=== PATIENT | male | born 1945 | race Caucasian/White ===

== ENCOUNTER 2017-01-19 08:09 | Emergency (ER) | payer BC, MEDICARE ==
[2017-01-19 08:29] VITALS: BP 130/71
--- NOTE | 2017-01-19 09:21 | EDM.PDOC ---
ED HPI GENERAL MEDICAL PROBLEM - General Chief Complaint: General Stated Complaint: FELL, HIT LEFT ELBOW INTO LEFT SIDE Time Seen by Provider: 01/19/17 08:24 Source of Information: Reports: Patient, RN notes reviewed History Limitations: Reports: No limitations - History of Present Illness INITIAL COMMENTS - FREE TEXT/NARRATIVE: The patient suffered numerous complications following a right totally arthroplasty, ultimately resulting in removal of the hardware and the inability of the patient to flex his right knee. He is therefore in an electric wheelchair, although ambulates with a walker at home. He states that while ambulating today, he accidentally stepped on a plastic lid , losing his balance, and falling onto his left side. He states that his left elbow struck his left rib cage. He now presents with severe left rib cage pain , made worse with movement, deep breaths, and coughing. He denies left arm pain. He is otherwise uninjured. Left Anterior Chest Pain Score (Numeric/FACES): 8 - Related Data Allergies Allergy/AdvReac Type Severity Reaction Status Date / Time allopurinol Allergy Rash Verified 04/18/16 20:44 cefazolin Allergy Hives Verified 04/18/16 20:44 celecoxib Allergy Rash Verified 04/18/16 20:44 clindamycin Allergy Hives Verified 04/18/16 20:44 ibuprofen Allergy Rash Verified 04/18/16 20:44 NSAIDS (Non-Steroidal Allergy Rash Verified 04/18/16 20:44 Anti-Inflamma oxaprozin Allergy Rash Verified 04/18/16 20:44 vancomycin Allergy Hives Verified 04/18/16 20:44 Home Meds: Home Meds Acetaminophen [Acetaminophen Extra Strength] 2 tab PO Q6H PRN 12/19/14 [History] Aspirin [Halfprin] 1 tab PO DAILY 12/19/14 [History] Carvedilol 1 tab PO BIDM 12/19/14 [History] Colchicine [Colcrys] 1 tab PO DAILY 12/19/14 [History] Febuxostat [Uloric] 1 tab PO DAILY 12/19/14 [History] Furosemide 2 tab PO DAILY 12/19/14 [History] Mupirocin 1 dose TOP ASDIRECTED PRN 12/19/14 [History] Nitroglycerin [Nitrostat] 1 tab SL ASDIRECTED PRN 12/19/14 [History] Spironolactone [Aldactone] 1 tab PO DAILY 12/19/14 [History] Warfarin [Coumadin] 1 tab PO DAILY 12/19/14 [History] amLODIPine [Norvasc] 1 tab PO DAILY 12/19/14 [History] atorvaSTATin [Lipitor] 1 tab PO BEDTIME 12/19/14 [History] oxyCODONE HCl/Acetaminophen [oxyCODONE-Acetaminophen 5-325] 1 tab PO Q8H PRN [History] Amoxicillin [IJD: Amoxicillin] 2,000 mg PO DAILY PRN 04/19/16 [History] Saw/Vit E/Sod Teri/Lyc/Beta/Pyg [Prostate Health Caplet] 1 each PO BID 04/19/16 [ History] Past Medical History HEENT History: Reports: Hard of hearing, Other (see below) Other HEENT History: Wears bilat hearing aides, glasses, dentures full to upper and partial to lower. Pt compalins of faint ringing to ears, majority of the time Cardiovascular History: Reports: Afib, CAD, High cholesterol, Hypertension, [place] Genitourinary History: Reports: Prostate disorder Musculoskeletal History: Reports: Arthritis Neurological History: Reports: CVA (2013 - no residual deficit) Endocrine/Metabolic History: Reports: Diabetes, type II Hematologic History: Reports: Other (see below) (DVT/PE) Dermatologic History: Reports: Cellulitis - Past Surgical History HEENT Surgical History: Reports: Tonsillectomy Cardiovascular Surgical History: Reports: AICD (left, single lead), Coronary artery bypass (x 5 vessel, 1999), Coronary artery stent (x 1) Musculoskeletal Surgical History: Reports: Knee replacement (Right, with subsequent complications and removal of hardware), Other (see below) (Right elbow surgery) Social & Family History - Family History Family Medical History: Noncontributory - Tobacco Use Smoking Status *Q: Former Smoker Used Tobacco, but Quit: Yes Month Tobacco Last Used: 1959 Second Hand Smoke Exposure: No - Caffeine Use Caffeine Use: Reports: Coffee - Alcohol Use Alcohol Use History: Yes Alcohol Use Frequency: Rarely - Recreational Drug Use Recreational Drug Use: No - Living Situation & Occupation Living situation: Reports: , with spouse, with family (Granddaughter) Occupation: retired ED ROS GENERAL - Review of Systems Review Of Systems: See Below Constitutional: Reports: no symptoms HEENT: Reports: No symptoms Respiratory: Reports: No Symptoms Cardiovascular: Reports: No symptoms Endocrine: Reports: no symptoms GI/Abdominal: Reports: No symptoms : Reports: no symptoms Musculoskeletal: Reports: no symptoms Skin: Reports: no symptoms Neurological: Reports: No Symptoms Psychiatric: Reports: No symptoms Hematologic/Lymphatic: Reports: no symptoms Immunologic: Reports: no symptoms ED EXAM, GENERAL - Physical Exam Exam: See Below Exam Limited By: No limitations General Appearance: alert, WD/WN, no apparent distress Respiratory/Chest: no respiratory distress, lungs clear, normal breath sounds, no accessory muscle use, other (Reproducible tenderness to palpation of the left sixth and seventh ribs. No visible abnormality, such as swelling, erythema , ecchymosis, or abrasion. No crepitus on palpation. No pleural rub on auscultation.) Cardiovascular: normal peripheral pulses, regular rate, rhythm, no gallop, no JVD, no murmur, no rub Peripheral Pulses: 4+: radial (L), radial (R) GI/Abdominal: normal bowel sounds, soft, non tender, no organomegaly, no distention, no abnormal bruit, no mass Course - Vital Signs Last Recorded V/S: Last Vital Signs Temp 36.2 C 01/19/17 08:23 Pulse 65 01/19/17 08:23 Resp 16 01/19/17 08:23 BP 130/71 01/19/17 08:23 Pulse Ox 98 01/19/17 08:23 - Orders/Labs/Meds Orders: Active Orders 24 hr Category Date Time Status Chest 2V [CR] Stat Exams 01/19/17 08:45 Taken - Radiology Interpretation Free Text/Narrative:: Two-view chest radiograph does not appear to demonstrate any acute abnormalities. Cardiac silhouette demonstrates cardiomegaly, however, there is no significant pulmonary vascular congestion or pleural effusion suggesting decompensated CHF. No focal infiltrate. No visible rib fractures or sequelae, such as pneumothorax or hemothorax seen. Sternotomy wires and single lead left- sided AICD noted. Formal read per the Radiologist pending. - Re-Assessments/Exams Free Text/Narrative Re-Assessment/Exam: 01/19/17 09:23 X-ray results discussed with the patient. No evidence of a broken rib. The patient appears to have bruised his left rib cage. I offered a prescription for pain medication, but the patient would prefer to take only Tylenol. Departure - Departure Time of Disposition: 09:24 Disposition: Home, Self-Care 01 Condition: fair Clinical Impression: Contusion of left chest wall Referrals: Flor Bronson MD [Primary Care Provider] - Forms: ED Department Discharge Additional Instructions: You were seen in the emergency room today after falling and injuring your left ribs. Workup in the ER included a chest x-ray. We see no evidence of broken ribs or consequences of broken ribs, such as a collapsed lung or blood in the chest. You have MOST LIKELY bruised your left rib cage. You were offered prescription pain medication, but declined. Take over-the- counter Tylenol or ibuprofen as needed for discomfort. We recommend that you notify the office of your PCP, Dr. Flor Bronson, of your injury. If any other problems, please do not hesitate to return to the ER. - My Orders Last 24 Hours: My Active Orders 01/19/17 08:45 Chest 2V [CR] Stat - Assessment/Plan Last 24 Hours: My Active Orders 01/19/17 08:45 Chest 2V [CR] Stat
--- NOTE | 2017-01-19 11:06 | CR ---
Chest: Frontal view of the chest was obtained. Comparison: Previous chest x-ray of 05/08/13. Heart is mildly enlarged. AICD is noted. Lungs are clear with no acute infiltrates. Previous sternotomy is noted. Bony structure show degenerative spurring within the spine. Impression: 1. Stable findings as noted above. Nothing acute is appreciated on frontal chest x-ray. Diagnostic code #2
== END 2017-01-19 09:45 | disposition home or self-care (01) ==
LOC: JD.ED 08:09
DX: S20.212A Contusion of left front wall of thorax, initial encounter (principal); I48.91 Unspecified atrial fibrillation; E78.00 Pure hypercholesterolemia, unspecified; I10 Essential (primary) hypertension; I25.2 Old myocardial infarction; Z86.73 Personal history of transient ischemic attack (TIA), and cerebral infarction without residual deficits; M19.90 Unspecified osteoarthritis, unspecified site; I25.810 Atherosclerosis of coronary artery bypass graft(s) without angina pectoris; E11.9 Type 2 diabetes mellitus without complications; Z98.890 Other specified postprocedural states; Z88.6 Allergy status to analgesic agent; Z88.1 Allergy status to other antibiotic agents; Z88.8 Allergy status to other drugs, medicaments and biological substances; Z79.82 Long term (current) use of aspirin; Z79.01 Long term (current) use of anticoagulants; Z79.899 Other long term (current) drug therapy; Z87.891 Personal history of nicotine dependence; W18.31XA Fall on same level due to stepping on an object, initial encounter
CPT/HCPCS: 71020; 71020-26; 99282; 99284

== ENCOUNTER 2017-01-22 09:12 | Inpatient (IN) | payer BC, MEDICARE ==
[2017-01-22] MEDS ORDERED: Sodium Chloride 0.9% 10 ML Syringe FLUSH PRN (09:49)
[2017-01-22] MEDS ORDERED: Linezolid 600 MG in Premix Bag 1 BAG IV ONE (09:53)
--- NOTE | 2017-01-22 09:54 | EDM.PDOC ---
ED HPI Trauma - General Chief Complaint: Lower Extremity Injury/Pain Stated Complaint: TOE PURPLE Time Seen by Provider: 01/22/17 09:38 Source: Reports: Patient History Limitations: Reports: No limitations - History of Present Illness INITIAL COMMENTS - FREE TEXT/NARRATIVE: The patient presents with left 2nd toe infection. This all started a few weeks ago. The patient is in a wheel chair because of his right leg which has a kim in it. He has had multiple surgeries. He has been wearing compression stockings on both feet and it pushed his great toe into his left 2nd toe and caused an infection. He saw Dr Reyes and he was treating it with antibiotics and soaks. It was doing much better until last week and it started turning purple and now he has redness to the base of his toe that is going up his foot. He has no sensation to that toe and it is purple. He has no fever or chills and no other complaints. Occurred When: last week Method of Injury: unknown Severity: moderate Pain/Injury Location: Reports: upper extremity, left (2nd toe) Consciousness: Reports: no loss of consciousness Associated Symptoms: Reports: no other symptoms Allergies/ADRs: Allergies allopurinol Allergy (Verified 01/22/17 09:29) Rash cefazolin Allergy (Verified 01/22/17 09:29) Hives celecoxib Allergy (Verified 01/22/17 09:29) Rash clindamycin Allergy (Verified 01/22/17 09:29) Hives ibuprofen Allergy (Verified 01/22/17 09:29) Rash NSAIDS (Non-Steroidal Anti-Inflamma Allergy (Verified 01/22/17 09:29) Rash oxaprozin Allergy (Verified 01/22/17 09:29) Rash vancomycin Allergy (Verified 01/22/17 09:29) Hives Home Medications: Ambulatory Orders Acetaminophen [Acetaminophen Extra Strength] 2 tab PO Q6H PRN 12/19/14 [ Confirmed 01/19/17] Aspirin [Halfprin] 1 tab PO DAILY 12/19/14 [Confirmed 01/19/17] Carvedilol 1 tab PO BIDM 12/19/14 [Confirmed 01/19/17] Colchicine [Colcrys] 1 tab PO DAILY 12/19/14 [Confirmed 01/19/17] Febuxostat [Uloric] 1 tab PO DAILY 12/19/14 [Confirmed 01/19/17] Furosemide 2 tab PO DAILY 12/19/14 [Confirmed 01/19/17] Mupirocin 1 dose TOP ASDIRECTED PRN 12/19/14 [Confirmed 01/19/17] Nitroglycerin [Nitrostat] 1 tab SL ASDIRECTED PRN 12/19/14 [Confirmed 01/19/17] Spironolactone [Aldactone] 1 tab PO DAILY 12/19/14 [Confirmed 01/19/17] Warfarin [Coumadin] 1 tab PO DAILY 12/19/14 [Confirmed 01/19/17] amLODIPine [Norvasc] 1 tab PO DAILY 12/19/14 [Confirmed 01/19/17] atorvaSTATin [Lipitor] 1 tab PO BEDTIME 12/19/14 [Confirmed 01/19/17] oxyCODONE HCl/Acetaminophen [oxyCODONE-Acetaminophen 5-325] 1 tab PO Q8H PRN [Confirmed 01/19/17] Amoxicillin [IJD: Amoxicillin] 2,000 mg PO DAILY PRN 04/19/16 [Confirmed ] Saw/Vit E/Sod Teri/Lyc/Beta/Pyg [Prostate Health Caplet] 1 each PO BID 04/19/16 [ Confirmed 01/19/17] Past Medical History HEENT History: Reports: Hard of hearing, Other (see below) Other HEENT History: Wears bilat hearing aides, glasses, dentures full to upper and partial to lower. Pt compalins of faint ringing to ears, majority of the time Cardiovascular History: Reports: Afib, CAD, High cholesterol, Hypertension, [place] Other Cardiovascular History: Bypass in 1999 with 5 bypass. Stent in 2013, [place] in 2013, Gastrointestinal History: Reports: Other (see below) Other Gastrointestinal History: Acid reflux PRN Genitourinary History: Reports: Prostate disorder Musculoskeletal History: Reports: Arthritis Neurological History: Reports: CVA Other Neuro History: CVA in 2013 Endocrine/Metabolic History: Reports: Diabetes, type II Other Endocrine/Metabolic History: not taking any medication or insulin Hematologic History: Reports: Other (see below) (DVT/PE) Dermatologic History: Reports: Cellulitis - Past Surgical History HEENT Surgical History: Reports: Tonsillectomy Cardiovascular Surgical History: Reports: AICD, Coronary artery bypass, Coronary artery stent Musculoskeletal Surgical History: Reports: Knee replacement Social & Family History - Family History Family Medical History: Noncontributory - Tobacco Use Smoking Status *Q: Former Smoker Used Tobacco, but Quit: Yes Month Tobacco Last Used: 1959 Second Hand Smoke Exposure: No - Caffeine Use Caffeine Use: Reports: Coffee - Alcohol Use Days Per Week of Alcohol Use: 0 Number of Drinks Per Day: 0 Total Drinks Per Week: 0 - Recreational Drug Use Recreational Drug Use: No Drug Use in Last 12 Months: No - Living Situation & Occupation Living situation: Reports: , with spouse, with family (Granddaughter) Occupation: retired Review of Systems - Review of Systems Review Of Systems: See Below Constitutional: Reports: no symptoms Eyes: Reports: no symptoms Ears: Reports: no symptoms Nose: Reports: no symptoms Mouth/Throat: Reports: no symptoms Respiratory: Reports: No Symptoms Cardiovascular: Reports: no symptoms GI/Abdominal: Reports: No symptoms Genitourinary: Reports: no symptoms Musculoskeletal: Reports: other (Left 2nd toe is purple) Trauma Exam - Physical Exam Exam: See Below Exam Limited By: No limitations General Appearance: Reports: alert, no apparent distress Head: Reports: atraumatic, normocephalic Ears: Reports: normal external exam Nose: Reports: normal inspection Neck: Reports: non-tender Respiratory Exam: Reports: no respiratory distress, lungs clear, normal breath sounds Cardiovascular: Reports: regular rate, rhythm, no edema, no murmur GI/Abdominal: Reports: soft, non tender, no organomegaly Extremities: Reports: other (Right leg he cannot bend at the knee because there is a kim. Large anterior scare. Left 2nd toe is purple and has no sensation. There is erythema to the base of the toe that is starting to travel up his foot. ) Course - Vital Signs Last Recorded V/S: Last Vital Signs Temp 98.7 F 01/22/17 09:27 Pulse 80 01/22/17 09:27 Resp 16 01/22/17 09:27 BP 130/74 01/22/17 09:27 Pulse Ox 95 01/22/17 09:27 - Orders/Labs/Meds Orders: Active Orders 24 hr Category Date Time Status Cardiac Monitoring [RC] . DIRECTED Care 01/22/17 09:49 Active Peripheral IV Care [RC] . DIRECTED Care 01/22/17 09:50 Active CULTURE BLOOD [BC] Stat Lab 01/22/17 10:10 Received CULTURE BLOOD [BC] Stat Lab 01/22/17 10:20 Received Sodium Chloride 0.9% [Saline Flush] Med 01/22/17 09:49 Active 10 ml FLUSH ASDIRECTED PRN Blood Culture x2 Reflex Set [OM.PC] Stat Oth 01/22/17 09:50 Ordered Peripheral IV Insertion Adult [OM.PC] Stat Oth 01/22/17 09:49 Ordered Medication Orders Sodium Chloride (Saline Flush) 10 ml FLUSH ASDIRECTED PRN PRN Reason: Keep Vein Open Last Admin: 01/22/17 10:34 Dose: 10 ml Labs: Laboratory Tests 01/22/17 01/22/17 Range/Units 10:20 10:20 WBC 6.87 (4.23-9.07) K/mm3 RBC 4.60 L (4.63-6.08) M/mm3 Hgb 14.0 (13.7-17.5) gm/L Hct 42.1 (40.1-51.0) % MCV 91.5 (79.0-92.2) fl MCH 30.4 (25.7-32.2) pg MCHC 33.3 (32.2-35.5) g/dl RDW Std Deviation 50.0 H (35.1-43.9) fL Plt Count 131 L (163-337) K/mm3 MPV 10.2 (9.4-12.3) fl Neut % (Auto) 72.0 H (34.0-67.9) % Lymph % (Auto) 13.2 L (21.8-53.1) % Weber % (Auto) 13.4 H (5.3-12.2) % Eos % (Auto) 1.2 (0.8-7.0) Baso % (Auto) 0.1 (0.1-1.2) % Neut # 4.94 (1.78-5.38) K/mm3 Lymph # 0.91 L (1.32-3.57) K/mm3 Weber # 0.92 H (0.30-0.82) K/mm3 Eos # 0.08 (0.04-0.54) K/mm3 Baso # 0.01 (0.01-0.08) K/mm3 Sodium 141 (136-145) mEq/L Potassium 3.9 (3.5-5.1) mEq/L Chloride 106 (98-107) mEq/L Carbon Dioxide 25 (21-32) mEq/L Anion Gap 13.9 (5-15) BUN 48 H (7-18) mg/dL Creatinine 1.5 H (0.7-1.3) mg/dL Est Cr Clr Drug Dosing 52.52 mL/min Estimated GFR (MDRD) 46 (>60) mL/min BUN/Creatinine Ratio 32.0 H (14-18) Glucose 148 H (83-115) mg/dL Calcium 8.7 (8.5-10.1) mg/dL Total Bilirubin 0.7 (0.2-1.0) mg/dL AST 25 (15-37) U/L ALT 33 (16-63) U/L Alkaline Phosphatase 83 (46-116) U/L Total Protein 6.9 (6.4-8.2) g/dl Albumin 3.0 L (3.4-5.0) g/dl Globulin 3.9 gm/dL Albumin/Globulin Ratio 0.8 L (1-2) Meds: Medications Generic Name Dose Route Start Last Admin Trade Name Freq PRN Reason Stop Dose Admin Sodium Chloride 10 ml 01/22/17 09:49 01/22/17 10:34 Saline Flush FLUSH 10 ml ASDIRECTED PRN Administration Keep Vein Open Discontinued Medications Generic Name Dose Route Start Last Admin Trade Name Freq PRN Reason Stop Dose Admin Linezolid 600 mg/ Premix 300 mls @ 300 mls/hr 01/22/17 09:53 01/22/17 10:33 IV 01/22/17 10:52 300 mls/hr ONETIME ONE Administration - Re-Assessments/Exams Free Text/Narrative Re-Assessment/Exam: 01/22/17 11:20 I ordered an IV saline lock, labs, blood cultures and linazolid 600mg IV. His CBC looks good. His creatinine is 1.5. I will get an x-ray and I feel he needs to be admitted. I think he may have to have that toe amputated. I called Dr Adan and he agreed to the admission. Departure - Departure Time of Disposition: 11:25 Disposition: Admitted As Inpatient 66 Condition: fair Clinical Impression: Cellulitis of left foot, Cellulitis of left toe Forms: ED Department Discharge - My Orders Last 24 Hours: My Active Orders 01/22/17 09:49 Cardiac Monitoring [RC] . DIRECTED Sodium Chloride 0.9% [Saline Flush] 10 ml FLUSH ASDIRECTED PRN Peripheral IV Insertion Adult [OM.PC] Stat 01/22/17 09:50 Peripheral IV Care [RC] . DIRECTED Blood Culture x2 Reflex Set [OM.PC] Stat 01/22/17 10:10 CULTURE BLOOD [BC] Stat 01/22/17 10:20 CULTURE BLOOD [BC] Stat - Assessment/Plan Last 24 Hours: My Active Orders 01/22/17 09:49 Cardiac Monitoring [RC] . DIRECTED Sodium Chloride 0.9% [Saline Flush] 10 ml FLUSH ASDIRECTED PRN Peripheral IV Insertion Adult [OM.PC] Stat 01/22/17 09:50 Peripheral IV Care [RC] . DIRECTED Blood Culture x2 Reflex Set [OM.PC] Stat 01/22/17 10:10 CULTURE BLOOD [BC] Stat 01/22/17 10:20 CULTURE BLOOD [BC] Stat
[2017-01-22] MEDS ORDERED: Albuterol/Ipratropium 3.0-0.5 MG/3 ML Neb Soln NEB PRN (13:09)
[2017-01-22] MEDS ORDERED: Promethazine 12.5 MG in Sodium Chloride 0.9% 50 ML IV PRN (13:09)
[2017-01-22] MEDS ORDERED: Bisacodyl 5 MG Tab PO PRN (13:09)
[2017-01-22] MEDS ORDERED: Acetaminophen 325 MG Tab PO PRN (13:09)
[2017-01-22] MEDS ORDERED: Temazepam 15 MG Cap PO PRN (13:09)
[2017-01-22] MEDS ORDERED: LORazepam 2 MG/ML MDV IV PRN (13:09)
[2017-01-22] MEDS ORDERED: HYDROmorphone 1 MG/ML Syringe IVPUSH PRN (13:09)
[2017-01-22] MEDS ORDERED: Ondansetron 4 MG/2 ML SDV IV PRN (13:09)
--- NOTE | 2017-01-22 13:09 | PCM.HP ---
H&P History of Present Illness - General Date of Service: 01/22/17 Admit Problem/Dx: Admission Diagnosis/Problem Admission Diagnosis/Problem Cellulitis Source of Information: Patient, Old records, Provider, RN notes reviewed History Limitations: Reports: Physical impairment - History of Present Illness Initial Comments - Free Text/Narative: This is a 71 yo elderly with male with past medical hx/o CAD S/p CABG, HLD, DM2 , PVD, Right Knee Derangement S/p Surgery x 12, CKD Stage 3-4, Hx/o DVT Thrombocytopenia, Peripheral Edema and Obesity who comes in with c/o left 2nd toe infection that started a few week ago. Patient wears compression stockings and felt this may have pushed his great toe into his 2nd toe leading to development of infection. Patient follows Dr. Reyes and he been getting antibiotic treatment along with routine wound care. Patient felt he was doing better last week but started turning purple and now associated with erythema at the base of his toe. He admits to no sensation to the affected toe but tender to the touch on surrounding tissues. He denies any fever or chills. Patient is known to me from previous admission related to SSTI/Cellulitis. His initial lab work in ED was fairly unremarkable. He is full code. Left 2-Long toe Pain Score (Numeric/FACES): 3 - Related Data Allergies/Adverse Reactions: Allergies Allergy/AdvReac Type Severity Reaction Status Date / Time allopurinol Allergy Rash Verified 01/22/17 13:25 cefazolin Allergy Hives Verified 01/22/17 13:25 celecoxib Allergy Rash Verified 01/22/17 13:25 clindamycin Allergy Hives Verified 01/22/17 13:25 ibuprofen Allergy Rash Verified 01/22/17 13:25 NSAIDS (Non-Steroidal Allergy Rash Verified 01/22/17 13:25 Anti-Inflamma oxaprozin Allergy Rash Verified 01/22/17 13:25 vancomycin Allergy Hives Verified 01/22/17 13:25 Home Medications: Home Meds Acetaminophen [Acetaminophen Extra Strength] 2 tab PO BID PRN 12/19/14 [History] Aspirin [Halfprin] 1 tab PO DAILY 12/19/14 [History] Carvedilol 1 tab PO BIDM 12/19/14 [History] Colchicine [Colcrys] 1 tab PO QPM 12/19/14 [History] Febuxostat [Uloric] 1 tab PO DAILY 12/19/14 [History] Furosemide 60 mg PO DAILY 12/19/14 [History] Nitroglycerin [Nitrostat] 1 tab SL ASDIRECTED PRN 12/19/14 [History] Spironolactone [Aldactone] 1 tab PO DAILY 12/19/14 [History] Warfarin [Coumadin] 1 tab PO DAILY 12/19/14 [History] amLODIPine [Norvasc] 1 tab PO DAILY 12/19/14 [History] atorvaSTATin [Lipitor] 1 tab PO BEDTIME 12/19/14 [History] Saw/Vit E/Sod Teri/Lyc/Beta/Pyg [Prostate Health Caplet] 1 each PO BID 04/19/16 [ History] Furosemide [Lasix] 40 mg PO BEDTIME 01/22/17 [History] Past Medical History HEENT History: Reports: Hard of hearing, Other (see below) Other HEENT History: Wears bilat hearing aides, glasses, dentures full to upper and partial to lower. Pt compalins of faint ringing to ears, majority of the time Cardiovascular History: Reports: Afib, CAD, High cholesterol, Hypertension, HI Other Cardiovascular History: Bypass in 1999 with 5 bypass. Stent in 2013, HI in 2013, Gastrointestinal History: Reports: Other (see below) Other Gastrointestinal History: Acid reflux PRN Genitourinary History: Reports: Prostate disorder Musculoskeletal History: Reports: Arthritis Neurological History: Reports: CVA Other Neuro History: CVA in 2013 Endocrine/Metabolic History: Reports: Diabetes, type II Other Endocrine/Metabolic History: not taking any medication or insulin Hematologic History: Reports: Other (see below) (DVT/PE) Dermatologic History: Reports: Cellulitis - Past Surgical History HEENT Surgical History: Reports: Tonsillectomy Cardiovascular Surgical History: Reports: AICD, Coronary artery bypass, Coronary artery stent Musculoskeletal Surgical History: Reports: Knee replacement Social & Family History - Family History Family Medical History: Noncontributory - Tobacco Use Smoking Status *Q: Never Smoker Used Tobacco, but Quit: Yes Month Tobacco Last Used: 1959 Second Hand Smoke Exposure: No - Caffeine Use Caffeine Use: Reports: Coffee, Soda Caffeine Use Comment: "very little" - Alcohol Use Days Per Week of Alcohol Use: 6 Number of Drinks Per Day: 11 Total Drinks Per Week: 66 Date of Last Drink: 11/06/14 - Recreational Drug Use Recreational Drug Use: No Drug Use in Last 12 Months: No - Living Situation & Occupation Living situation: Reports: , with spouse, with family (Granddaughter) Occupation: retired H&P Review of Systems - Review of Systems: Review Of Systems: See Below General: Denies: fever HEENT: Denies: contact lenses Pulmonary: Denies: Shortness of Breath Cardiovascular: Reports: edema. Denies: chest pain, palpitations, dyspnea on exertion, lightheadedness, syncope, claudication Gastrointestinal: Denies: Abdominal pain, Nausea, Vomiting Genitourinary: Reports: no symptoms Musculoskeletal: Reports: foot pain, other (left 2nd toe purplish in color ) Skin: Reports: no symptoms, erythema, wound, change in color Psychiatric: Denies: depression, anxiety, hallucinations, suicidal ideation Neurological: Reports: Difficulty Walking, Gait Disturbance. Denies: Confusion Hematologic/Lymphatic: Reports: no symptoms Immunologic: Reports: no symptoms Exam - Exam Exam: See Below - Vital Signs Vital Signs: Last Vital Signs Temp 37.1 C 01/22/17 09:27 Pulse 80 01/22/17 09:27 Resp 16 01/22/17 09:27 BP 130/74 01/22/17 09:27 Pulse Ox 95 01/22/17 09:27 Weight: 115.383 kg - Exam General: alert, oriented, cooperative, mild distress, other (Obese) HEENT: Conjunctiva clear, EACs clear, EOMI, Hearing intact, Nares patent, Normal nasal septum, PERRLA Neck: supple, trachea midline, 2+ carotid pulse wo bruit, JVD, other (short and thick) Lungs: Clear to auscultation, Normal respiratory effort Cardiovascular: regular rate, regular rhythm Abdomen: normal bowel sounds, soft, other (Obese). No: organomegaly (Male) Exam: Deferred Rectal (Males) Exam: Deferred Back Exam: normal inspection, decreased range of motion Extremities: normal inspection (right), normal pulses (rigt), clubbing, cyanosis , edema (bilateral), increased warmth (left foot). No: calf tenderness Peripheral Pulses: 2+: posterior tibial (L), posterior tibial (R), dorsalis pedis (L), dorsalis pedis (R) Skin: warm, dry, wound Skin Alteration Location (drawings not to scale): 1 - gangrenous 2nd toe starting at the base. erythema ans edema at the dorsum Neuro Extensive - Mental Status: oriented x3, normal cognition, memory intact Neuro Extensive - Motor, Sensory, Reflexes: CN II-XII intact (limited but dairly intact). No: abnormal gait Psychiatric: alert, normal affect, normal mood Physical Exam Comments:: He is wheel chair bound - Patient Data Result Diagrams: 01/22/17 10:20 01/22/17 10:20 *Q Meaningful Use (ADM) - VTE *Q VTE Criteria *Q: - Stroke *Q Stroke Criteria *Q: - AMI *Q AMI Criteria *Q: Problem List Initiated/Reviewed/Updated: Yes Orders Last 24hrs: Medication Orders Sodium Chloride (Saline Flush) 10 ml FLUSH ASDIRECTED PRN PRN Reason: Keep Vein Open Last Admin: 01/22/17 10:34 Dose: 10 ml Assessment/Plan Comment:: Assessment/Plan: Acute: Left Foot SSTI: 2nd Toe Ischemia/Gangrene associated with Edema and Erythema - Risk factors: DM, PVD, Vascular Insufficiency, Immobility and Obesity - Carries multiple drug allergies: Clindamycin, Vancomycin, and Cefazolin - Linezolid 600 mg IV Q12 - Pain Medications and Supportive Care - MRI in AM to assess the severity - Dr. Reyes consult for surgical intervention Chronic: CAD S/p CABG HLD DM2 PVD Right Knee Derangement S/p Surgery x12 CKD Stage 3-4 Hx/o DVT Thrombocytopenia Peripheral Edema Obesity Plan: Admit to Med-Surg Routine AM Labs Resume Home Meds Dietary Consult for weight management Diabetic Education Routine Wound Care PT/OT consult SW/CM for d/c planning Code Status: 1 Additional orders as above
[2017-01-22] MEDS ORDERED: Nitroglycerin 0.4 MG Tab.SL SL PRN (13:16)
[2017-01-22] MEDS: Carvedilol 12.5 MG Tab PO SCH (17:14)
[2017-01-22] MEDS: Colchicine 0.6 MG Tab PO SCH (17:15)
[2017-01-22] MEDS ORDERED: Warfarin 5 MG Tab PO ONE (18:00)
[2017-01-22] MEDS: Simvastatin 20 MG Tab PO SCH (20:55)
[2017-01-22] MEDS ORDERED: Furosemide 40 MG Tab PO SCH (21:00)
[2017-01-22] MEDS: Acetaminophen/HYDROcodone 325-5 MG Tab PO PRN (21:18)
[2017-01-23] MEDS: Carvedilol 12.5 MG Tab PO SCH ×2 (06:12→16:39)
[2017-01-23] MEDS: Acetaminophen/HYDROcodone 325-5 MG Tab PO PRN ×3 (06:36→20:57)
--- NOTE | 2017-01-23 07:59 | CR ---
Left foot: Four views of the left foot were obtained. Comparison: No previous foot study. Vascular calcification is seen. Bony structures are osteopenic. Severe joint space narrowing is noted within the 1st MTP joint. Small erosions are noted within the distal 1st metatarsal possibly due to old gout. No acute fracture or other bony abnormality is seen. Impression: 1. Findings as noted above. Nothing acute is appreciated. No definite findings of osteomyelitis seen at this time. Diagnostic code #2
[2017-01-23] MEDS ORDERED: Enoxaparin 40 MG/0.4 ML Syringe SUBCUT SCH (09:00)
[2017-01-23] MEDS ORDERED: Furosemide 40 MG Tab PO SCH (09:00)
--- NOTE | 2017-01-23 09:29 | PCM.PN ---
- General Info Date of Service: 01/23/17 Admission Dx/Problem (Free Text): Admission Diagnosis/Problem Admission Diagnosis/Problem Cellulitis Subjective Update: Follow Up Functional Status: Reports: pain controlled, tolerating diet, urinating, new symptoms. Denies: ambulating - Review of Systems General: Denies: Fever, Weakness, Fatigue, Malaise, Chills HEENT: Reports: no symptoms Pulmonary: Denies: shortness of breath Cardiovascular: Reports: Edema. Denies: Chest Pain Gastrointestinal: Denies: Abdominal pain, Nausea, Vomiting Genitourinary: Reports: no symptoms Musculoskeletal: Reports: no symptoms Skin: Reports: no symptoms Neurological: Reports: Difficulty Walking, Gait Disturbance. Denies: Pre- Existing Deficit Psychiatric: Denies: depression, anxiety, hallucinations Systems Review Comment:: No overnight or acute issues. He is doing relatively well. He no new complaints. - Patient Data Vitals - most recent: Last Vital Signs Temp 36.2 C 01/23/17 03:47 Pulse 71 01/23/17 06:12 Resp 16 01/23/17 03:47 BP 131/60 01/23/17 06:12 Pulse Ox 93 L 01/23/17 03:47 Weight - most recent: 116.573 kg I&O - last 24 hours: Intake & Output 01/22/17 01/23/17 01/23/17 22:59 06:59 14:59 Intake Total 0 1100 Output Total 600 Balance 0 500 Lab Results last 24 hrs: Laboratory Results - last 24 hr 01/23/17 01/23/17 01/23/17 Range/Units 05:30 05:30 05:30 WBC 5.80 (4.23-9.07) K/mm3 RBC 4.02 L (4.63-6.08) M/mm3 Hgb 12.3 L (13.7-17.5) gm/L Hct 36.3 L (40.1-51.0) % MCV 90.3 (79.0-92.2) fl MCH 30.6 (25.7-32.2) pg MCHC 33.9 (32.2-35.5) g/dl RDW Std Deviation 50.3 H (35.1-43.9) fL Plt Count 191 (163-337) K/mm3 MPV 10.7 (9.4-12.3) fl Neut % (Auto) 62.6 (34.0-67.9) % Lymph % (Auto) 14.3 L (21.8-53.1) % [place] % (Auto) 20.3 H (5.3-12.2) % Eos % (Auto) 2.1 (0.8-7.0) Baso % (Auto) 0.2 (0.1-1.2) % Neut # 3.63 (1.78-5.38) K/mm3 Lymph # 0.83 L (1.32-3.57) K/mm3 [place] # 1.18 H (0.30-0.82) K/mm3 Eos # 0.12 (0.04-0.54) K/mm3 Baso # 0.01 (0.01-0.08) K/mm3 Manual Slide Review Normal smear PT (8.0-13.0) SECONDS INR Sodium 135 L (136-145) mEq/L Potassium 3.6 (3.5-5.1) mEq/L Chloride 102 (98-107) mEq/L Carbon Dioxide 26 (21-32) mEq/L Anion Gap 10.6 (5-15) BUN 45 H (7-18) mg/dL Creatinine 1.4 H (0.7-1.3) mg/dL Est Cr Clr Drug Dosing 56.27 mL/min Estimated GFR (MDRD) 50 (>60) mL/min BUN/Creatinine Ratio 32.1 H (14-18) Glucose 119 H (83-115) mg/dL Hemoglobin A1c 6.70 H (4.50-6.20) % Calcium 8.1 L (8.5-10.1) mg/dL Magnesium 1.7 L (1.8-2.4) mg/dl C-Reactive Protein 3.0 H* (<1.0) mg/dL Free T4 1.03 (0.76-1.46) ng/dL TSH 3rd Generation 2.702 (0.358-3.74) uIU/mL 01/23/17 Range/Units 05:38 WBC (4.23-9.07) K/mm3 RBC (4.63-6.08) M/mm3 Hgb (13.7-17.5) gm/L Hct (40.1-51.0) % MCV (79.0-92.2) fl MCH (25.7-32.2) pg MCHC (32.2-35.5) g/dl RDW Std Deviation (35.1-43.9) fL Plt Count (163-337) K/mm3 MPV (9.4-12.3) fl Neut % (Auto) (34.0-67.9) % Lymph % (Auto) (21.8-53.1) % [place] % (Auto) (5.3-12.2) % Eos % (Auto) (0.8-7.0) Baso % (Auto) (0.1-1.2) % Neut # (1.78-5.38) K/mm3 Lymph # (1.32-3.57) K/mm3 [place] # (0.30-0.82) K/mm3 Eos # (0.04-0.54) K/mm3 Baso # (0.01-0.08) K/mm3 Manual Slide Review PT 22.4 H (8.0-13.0) SECONDS INR 1.97 Sodium (136-145) mEq/L Potassium (3.5-5.1) mEq/L Chloride (98-107) mEq/L Carbon Dioxide (21-32) mEq/L Anion Gap (5-15) BUN (7-18) mg/dL Creatinine (0.7-1.3) mg/dL Est Cr Clr Drug Dosing mL/min Estimated GFR (MDRD) (>60) mL/min BUN/Creatinine Ratio (14-18) Glucose (83-115) mg/dL Hemoglobin A1c (4.50-6.20) % Calcium (8.5-10.1) mg/dL Magnesium (1.8-2.4) mg/dl C-Reactive Protein (<1.0) mg/dL Free T4 (0.76-1.46) ng/dL TSH 3rd Generation (0.358-3.74) uIU/mL Med Orders - Current: Current Medications Acetaminophen (Tylenol) 650 mg PO Q4H PRN PRN Reason: Pain (Mild 1-3)/fever Acetaminophen/Hydrocodone Bitart ([place] 325-5 Mg) 1 tab PO Q4H PRN PRN Reason: Pain (moderate 4-6) Last Admin: 01/23/17 06:36 Dose: 1 tab Albuterol/Ipratropium (Duoneb 3.0-0.5 Mg/3 Ml) 3 ml NEB Q4H PRN PRN Reason: Shortness Of Breath/wheezing Amlodipine Besylate (Norvasc) 5 mg PO DAILY [facility] Aspirin (Halfprin) 81 mg PO DAILY [facility] Bisacodyl (Dulcolax) 5 mg PO DAILY PRN PRN Reason: Constipation Carvedilol (Coreg) 25 mg PO BIDMEALS [facility] Last Admin: 01/23/17 06:12 Dose: 25 mg Colchicine (Colcrys) 0.6 mg PO QPM [facility] Last Admin: 01/22/17 17:15 Dose: 0.6 mg Enoxaparin Sodium (Lovenox) 40 mg SUBCUT DAILY [facility] Furosemide (Lasix) 60 mg PO DAILY [facility] Furosemide (Lasix) 40 mg PO BEDTIME [facility] Last Admin: 01/22/17 20:55 Dose: 40 mg Hydromorphone HCl (Dilaudid) 0.25 mg IVPUSH Q2H PRN PRN Reason: Pain (severe 7-10) Promethazine HCl 12.5 mg/ (Sodium Chloride) 50.5 mls @ 100 mls/hr IV Q6H PRN PRN Reason: Nausea/Vomiting Linezolid 600 mg/ Premix 300 mls @ 300 mls/hr IV Q12H [facility] Lorazepam (Ativan) 0.5 mg IV Q6H PRN PRN Reason: Anxiety Nitroglycerin (Nitrostat) 0.4 mg SL ASDIRECTED PRN PRN Reason: Chest Pain Ondansetron HCl (Zofran) 4 mg IV Q6H PRN PRN Reason: Nausea/Vomiting Febuxostat [Uloric] (1 Tab) 0 each PO DAILY [facility] Saw/Vit E/Sod Teri/Lyc/Beta/Pyg [ Prostate Health Caplet] 1 0 each PO BID [facility] Polyethylene Glycol (Miralax) 17 gm PO DAILY PRN PRN Reason: Constipation Senna/Docusate Sodium (Senna Plus) 1 tab PO BID PRN PRN Reason: Constipation Simvastatin (Zocor) 20 mg PO BEDTIME [facility] Last Admin: 01/22/17 20:55 Dose: 20 mg Sodium Chloride (Saline Flush) 10 ml FLUSH ASDIRECTED PRN PRN Reason: Keep Vein Open Last Admin: 01/22/17 10:34 Dose: 10 ml Spironolactone (Aldactone) 25 mg PO DAILY [facility] Temazepam (Restoril) 30 mg PO BEDTIME PRN PRN Reason: Sleep Warfarin Sodium (Pharmacy To Dose - Warfarin) 1 dose .XX DAILY [facility] Warfarin Sodium (Coumadin) 7.5 mg PO ONETIME@1800 ONE Stop: 01/23/17 18:01 Discontinued Medications Linezolid 600 mg/ Premix 300 mls @ 300 mls/hr IV ONETIME ONE Stop: 01/22/17 10:52 Last Admin: 01/22/17 10:33 Dose: 300 mls/hr Warfarin Sodium (Coumadin) 5 mg PO DAILY@1800 [facility] Warfarin Sodium (Coumadin) 5 mg PO ONETIME ONE Stop: 01/22/17 18:01 Last Admin: 01/22/17 17:15 Dose: 5 mg - Exam Quality Assessment: supplemental oxygen General: alert, cooperative, no acute distress, other (Obese) HEENT: Pupils equal, Pupils reactive, EOMI, Mucous membr. moist/pink Neck: supple, trachea midline, no JVD, no thyromegaly, other (Short and thick) Lungs: Normal respiratory effort, Decreased breath sounds, Crackles, Rhonchi Cardiovascular: Regular Rate, Regular Rhythm Abdomen: bowel sounds present, soft, no tenderness, no distension, other (Obese) (Male) Exam: Deferred Back Exam: normal inspection, decreased range of motion Extremities: normal pulses, no tenderness/swelling, no clubbing, no cyanosis, no calf tenderness, edema Peripheral Pulses: 2+: dorsalis pedis (L), dorsalis pedis (R) Skin: warm, dry, intact Wound/Incisions: erythema, other (left 2nd toe: ischemic and gangrenous; surrounding tissue edematous and red) Neurological: no new focal deficit Psy/Mental Status: alert, normal affect, normal mood - Problem List Review Problem List Initiated/Reviewed/Updated: Yes - My Orders Last 24 Hours: My Active Orders 01/22/17 13:09 Oxygen Therapy [RC] PRN Up With Assistance [RC] ASDIRECTED Up ad Reshma [RC] ASDIRECTED VTE/DVT Education [RC] PER UNIT ROUTINE Vital Signs [RC] 03,09,15,21 Acetaminophen [Tylenol] 650 mg PO Q4H PRN Acetaminophen/HYDROcodone [[place] 325-5 MG] 1 tab PO Q4H PRN Albuterol/Ipratropium [DuoNeb 3.0-0.5 MG/3 ML] 3 ml NEB Q4H PRN Bisacodyl [Dulcolax] 5 mg PO DAILY PRN Docusate Sodium/Sennosides [Senna Plus] 1 tab PO BID PRN HYDROmorphone [Dilaudid] 0.25 mg IVPUSH Q2H PRN LORazepam [Ativan] 0.5 mg IV Q6H PRN Ondansetron [Zofran] 4 mg IV Q6H PRN Polyethylene Glycol 3350 [MiraLAX] 17 gm PO DAILY PRN Promethazine [Phenergan] 12.5 mg Sodium Chloride 0.9% [Normal Saline] 50 ml IV Q6H Temazepam [Restoril] 30 mg PO BEDTIME PRN Resuscitation Status Routine 01/22/17 13:13 RT Aerosol Therapy [RC] .PRN 01/22/17 13:14 Consult to Case Management [CONS] Routine Consult to Protective Services Officer [CONS] Routine OT Evaluation and Treatment [CONS] Routine PT Evaluation and Treatment [CONS] Routine 01/22/17 13:16 Nitroglycerin [Nitrostat] 0.4 mg SL ASDIRECTED PRN 01/22/17 13:22 Consult to Physician [CONS] Urgent 01/22/17 13:23 Notify Provider Consults [RC] ASDIRECTED 01/22/17 17:00 Carvedilol [Coreg] 25 mg PO BIDMEALS 01/22/17 18:00 Colchicine [Colcrys] 0.6 mg PO QPM Warfarin Pharmacy to Dose [Pharmacy to Dose - Warfarin] 1 dose .XX DAILY 01/22/17 21:00 Furosemide [Lasix] 40 mg PO BEDTIME Patient's Own Medication [Ptom] 0 each PO BID Simvastatin [Zocor] 20 mg PO BEDTIME 01/22/17 Lunch Consistent Carbohydrate Diet [DIET] 01/23/17 00:17 Consult to Diabetic Nurse Specialist [CONS] Routine Consult to Dietary [Consult to Gyn] [CONS] Routine 01/23/17 09:00 Aspirin [Halfprin] 81 mg PO DAILY Enoxaparin [Lovenox] 40 mg SUBCUT DAILY Furosemide [Lasix] 60 mg PO DAILY Linezolid [Zyvox] 600 mg Premix Bag 1 bag IV Q12H Patient's Own Medication [Ptom] 0 each PO DAILY Spironolactone [Aldactone] 25 mg PO DAILY amLODIPine [Norvasc] 5 mg PO DAILY 01/23/17 12:00 Foot wo Cont Lt [MR] Routine 01/23/17 18:00 Warfarin [Coumadin] 7.5 mg PO ONETIME@1800 ONE 01/24/17 05:11 BASIC METABOLIC PANEL,BMP [CHEM] AM C-REACTIVE PROTEIN [CHEM] AM CBC WITH AUTO DIFF [HEME] AM MAGNESIUM [CHEM] AM 01/25/17 05:11 BASIC METABOLIC PANEL,BMP [CHEM] AM C-REACTIVE PROTEIN [CHEM] AM CBC WITH AUTO DIFF [HEME] AM MAGNESIUM [CHEM] AM 01/26/17 05:11 BASIC METABOLIC PANEL,BMP [CHEM] AM C-REACTIVE PROTEIN [CHEM] AM CBC WITH AUTO DIFF [HEME] AM MAGNESIUM [CHEM] AM - Plan Plan:: Assessment/Plan: Acute: Left Foot SSTI: 2nd Toe Ischemia/Gangrene associated with Edema and Erythema - Risk factors: DM, PVD, Vascular Insufficiency, Immobility and Obesity - Carries multiple drug allergies: Clindamycin, Vancomycin, and Cefazolin - Linezolid 600 mg IV Q12 - Pain Medications and Supportive Care - MRI: contraindicated due to pacer - CT scan: Vascular calcification and diffuse tissue edema - Dr. 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
[2017-01-23] MEDS: Spironolactone 25 MG Tab PO SCH (09:33)
[2017-01-23] MEDS: Aspirin 81 MG Tab.EC PO SCH (09:33)
[2017-01-23] MEDS: amLODIPine 5 MG Tab PO SCH (09:33)
[2017-01-23] MEDS: Linezolid 600 MG in Premix Bag 1 BAG IV SCH ×2 (09:34→20:59)
[2017-01-23] MEDS: FEBUXOSTAT PO SCH (09:39)
[2017-01-23] MEDS: Saw/Vit E/Sod Sel/Lyc/Beta/Pyg [Prostate Health Caplet] PO SCH ×4 (09:40→21:00)
[2017-01-23] MEDS ORDERED: hydrALAZINE 20 MG/ML SDV IVPUSH PRN (10:17)
[2017-01-23] MEDS ORDERED: Metoprolol Tartrate 5 MG/5 ML SDV IVPUSH PRN (10:17)
[2017-01-23] MEDS: Heparin Sodium 5,000 Units/ML Vial SUBCUT SCH ×2 (10:46→17:36)
[2017-01-23] MEDS ORDERED: Magnesium Sulfate/Water 2 GM in Premix Bag 1 BAG IV ONE (11:45)
--- NOTE | 2017-01-23 14:21 | CT ---
CT left foot Technique: Multiple axial sections through the left foot were obtained with reconstructed coronal and sagittal images. Comparison: Previous left foot radiograph of 01/22/17. Findings: Erosions are seen within the distal 1st metatarsal head likely representing change from previous gout. Joint space narrowing and mild osteophytes seen within the 1st MTP joint. No acute-appearing erosive changes seen. No fracture is identified. Diffuse soft tissue swelling is seen. Vascular calcification is noted. Impression: 1. Diffuse soft tissue swelling. 2. Vascular calcification. 3. Other findings felt to be old as described above. No acute bony abnormality is seen. Diagnostic code #2 MTDD
[2017-01-23] MEDS: Polyethylene Glycol 3350 Powder 17 GM Packet PO PRN (14:44)
--- NOTE | 2017-01-23 16:53 | PCM.PN ---
- General Info Date of Service: 01/23/17 Admission Dx/Problem (Free Text): Admission Diagnosis/Problem Admission Diagnosis/Problem Cellulitis Subjective Update: Follow Up Functional Status: Reports: pain controlled - Review of Systems General: Reports: No Symptoms HEENT: Reports: no symptoms Pulmonary: Reports: no symptoms Cardiovascular: Reports: No Symptoms Gastrointestinal: Reports: No symptoms Musculoskeletal: Reports: foot pain (LEFT 2nd toe) Skin: Reports: no symptoms, other (black; gangrene LEFT 2nd toe, with associated +erythema, inflammation c/w ascending cellulitis. ) - Patient Data Vitals - most recent: Last Vital Signs Temp 36.3 C 01/23/17 16:15 Pulse 68 01/23/17 16:39 Resp 12 01/23/17 16:15 BP 140/76 01/23/17 16:39 Pulse Ox 93 L 01/23/17 16:15 Weight - most recent: 116.573 kg I&O - last 24 hours: Intake & Output 01/23/17 01/23/17 01/23/17 06:59 14:59 22:59 Intake Total 1100 210 Output Total 600 950 Balance 500 210 -950 Lab Results last 24 hrs: Laboratory Results - last 24 hr 01/23/17 01/23/17 01/23/17 Range/Units 05:30 05:30 05:30 WBC 5.80 (4.23-9.07) K/mm3 RBC 4.02 L (4.63-6.08) M/mm3 Hgb 12.3 L (13.7-17.5) gm/L Hct 36.3 L (40.1-51.0) % MCV 90.3 (79.0-92.2) fl MCH 30.6 (25.7-32.2) pg MCHC 33.9 (32.2-35.5) g/dl RDW Std Deviation 50.3 H (35.1-43.9) fL Plt Count 191 (163-337) K/mm3 MPV 10.7 (9.4-12.3) fl Neut % (Auto) 62.6 (34.0-67.9) % Lymph % (Auto) 14.3 L (21.8-53.1) % [place] % (Auto) 20.3 H (5.3-12.2) % Eos % (Auto) 2.1 (0.8-7.0) Baso % (Auto) 0.2 (0.1-1.2) % Neut # 3.63 (1.78-5.38) K/mm3 Lymph # 0.83 L (1.32-3.57) K/mm3 [place] # 1.18 H (0.30-0.82) K/mm3 Eos # 0.12 (0.04-0.54) K/mm3 Baso # 0.01 (0.01-0.08) K/mm3 Manual Slide Review Normal smear PT (8.0-13.0) SECONDS INR Sodium 135 L (136-145) mEq/L Potassium 3.6 (3.5-5.1) mEq/L Chloride 102 (98-107) mEq/L Carbon Dioxide 26 (21-32) mEq/L Anion Gap 10.6 (5-15) BUN 45 H (7-18) mg/dL Creatinine 1.4 H (0.7-1.3) mg/dL Est Cr Clr Drug Dosing 56.27 mL/min Estimated GFR (MDRD) 50 (>60) mL/min BUN/Creatinine Ratio 32.1 H (14-18) Glucose 119 H (83-115) mg/dL Hemoglobin A1c 6.70 H (4.50-6.20) % Calcium 8.1 L (8.5-10.1) mg/dL Magnesium 1.7 L (1.8-2.4) mg/dl C-Reactive Protein 3.0 H* (<1.0) mg/dL Free T4 1.03 (0.76-1.46) ng/dL TSH 3rd Generation 2.702 (0.358-3.74) uIU/mL 01/23/17 Range/Units 05:38 WBC (4.23-9.07) K/mm3 RBC (4.63-6.08) M/mm3 Hgb (13.7-17.5) gm/L Hct (40.1-51.0) % MCV (79.0-92.2) fl MCH (25.7-32.2) pg MCHC (32.2-35.5) g/dl RDW Std Deviation (35.1-43.9) fL Plt Count (163-337) K/mm3 MPV (9.4-12.3) fl Neut % (Auto) (34.0-67.9) % Lymph % (Auto) (21.8-53.1) % [place] % (Auto) (5.3-12.2) % Eos % (Auto) (0.8-7.0) Baso % (Auto) (0.1-1.2) % Neut # (1.78-5.38) K/mm3 Lymph # (1.32-3.57) K/mm3 [place] # (0.30-0.82) K/mm3 Eos # (0.04-0.54) K/mm3 Baso # (0.01-0.08) K/mm3 Manual Slide Review PT 22.4 H (8.0-13.0) SECONDS INR 1.97 Sodium (136-145) mEq/L Potassium (3.5-5.1) mEq/L Chloride (98-107) mEq/L Carbon Dioxide (21-32) mEq/L Anion Gap (5-15) BUN (7-18) mg/dL Creatinine (0.7-1.3) mg/dL Est Cr Clr Drug Dosing mL/min Estimated GFR (MDRD) (>60) mL/min BUN/Creatinine Ratio (14-18) Glucose (83-115) mg/dL Hemoglobin A1c (4.50-6.20) % Calcium (8.5-10.1) mg/dL Magnesium (1.8-2.4) mg/dl C-Reactive Protein (<1.0) mg/dL Free T4 (0.76-1.46) ng/dL TSH 3rd Generation (0.358-3.74) uIU/mL Med Orders - Current: Current Medications Acetaminophen (Tylenol) 650 mg PO Q4H PRN PRN Reason: Pain (Mild 1-3)/fever Acetaminophen/Hydrocodone Bitart ([place] 325-5 Mg) 1 tab PO Q4H PRN PRN Reason: Pain (moderate 4-6) Last Admin: 01/23/17 13:06 Dose: 1 tab Albuterol/Ipratropium (Duoneb 3.0-0.5 Mg/3 Ml) 3 ml NEB Q4H PRN PRN Reason: Shortness Of Breath/wheezing Amlodipine Besylate (Norvasc) 5 mg PO DAILY [facility] Last Admin: 01/23/17 09:33 Dose: 5 mg Aspirin (Halfprin) 81 mg PO DAILY [facility] Last Admin: 01/23/17 09:33 Dose: 81 mg Bisacodyl (Dulcolax) 5 mg PO DAILY PRN PRN Reason: Constipation Carvedilol (Coreg) 25 mg PO BIDMEALS [facility] Last Admin: 01/23/17 16:39 Dose: 25 mg Colchicine (Colcrys) 0.6 mg PO QPM [facility] Last Admin: 01/22/17 17:15 Dose: 0.6 mg Furosemide (Lasix) 60 mg PO DAILY [facility] Last Admin: 01/23/17 09:32 Dose: 60 mg Furosemide (Lasix) 40 mg PO BEDTIME [facility] Last Admin: 01/22/17 20:55 Dose: 40 mg Heparin Sodium (Porcine) (Heparin Sodium) 5,000 units SUBCUT Q8H [facility] Last Admin: 01/23/17 10:46 Dose: 5,000 units Hydralazine HCl (Apresoline) 20 mg IVPUSH Q4H PRN PRN Reason: Hypertension Hydromorphone HCl (Dilaudid) 0.25 mg IVPUSH Q2H PRN PRN Reason: Pain (severe 7-10) Last Admin: 01/23/17 16:37 Dose: 0.25 mg Promethazine HCl 12.5 mg/ (Sodium Chloride) 50.5 mls @ 100 mls/hr IV Q6H PRN PRN Reason: Nausea/Vomiting Linezolid 600 mg/ Premix 300 mls @ 300 mls/hr IV Q12H [facility] Last Admin: 01/23/17 09:34 Dose: 300 mls/hr Lorazepam (Ativan) 0.5 mg IV Q6H PRN PRN Reason: Anxiety Magnesium Sulfate (Pharmacy To Dose - Magnesium Replacement) 1 dose .XX ASDIRECTED [facility] Metoprolol Tartrate (Lopressor) 5 mg IVPUSH Q4H PRN PRN Reason: Tachycardia Nitroglycerin (Nitrostat) 0.4 mg SL ASDIRECTED PRN PRN Reason: Chest Pain Ondansetron HCl (Zofran) 4 mg IV Q6H PRN PRN Reason: Nausea/Vomiting Febuxostat [Uloric] (1 Tab) 0 each PO DAILY [facility] Last Admin: 01/23/17 09:39 Dose: Not Given Saw/Vit E/Sod Teri/Lyc/Beta/Pyg [ Prostate Health Caplet] 0 each PO BID [facility] Last Admin: 01/23/17 13:00 Dose: 1 each Polyethylene Glycol (Miralax) 17 gm PO DAILY PRN PRN Reason: Constipation Last Admin: 01/23/17 14:44 Dose: 17 gm Potassium Chloride (Pharmacy To Dose - Potassium Replacement) 1 dose .XX ASDIRECTED [facility] Senna/Docusate Sodium (Senna Plus) 1 tab PO BID PRN PRN Reason: Constipation Simvastatin (Zocor) 20 mg PO BEDTIME [facility] Last Admin: 01/22/17 20:55 Dose: 20 mg Sodium Chloride (Saline Flush) 10 ml FLUSH ASDIRECTED PRN PRN Reason: Keep Vein Open Last Admin: 01/22/17 10:34 Dose: 10 ml Spironolactone (Aldactone) 25 mg PO DAILY [facility] Last Admin: 01/23/17 09:33 Dose: 25 mg Temazepam (Restoril) 30 mg PO BEDTIME PRN PRN Reason: Sleep Discontinued Medications Enoxaparin Sodium (Lovenox) 40 mg SUBCUT DAILY [facility] Last Admin: 01/23/17 09:34 Dose: 40 mg Linezolid 600 mg/ Premix 300 mls @ 300 mls/hr IV ONETIME ONE Stop: 01/22/17 10:52 Last Admin: 01/22/17 10:33 Dose: 300 mls/hr Magnesium Sulfate 2 gm/ Premix 50 mls @ 25 mls/hr IV ONETIME ONE Stop: 01/23/17 13:44 Last Admin: 01/23/17 12:45 Dose: 25 mls/hr Warfarin Sodium (Coumadin) 5 mg PO DAILY@1800 [facility] Warfarin Sodium (Pharmacy To Dose - Warfarin) 1 dose .XX DAILY [facility] Last Admin: 01/23/17 15:46 Dose: Not Given Warfarin Sodium (Coumadin) 5 mg PO ONETIME ONE Stop: 01/22/17 18:01 Last Admin: 01/22/17 17:15 Dose: 5 mg Warfarin Sodium (Coumadin) 7.5 mg PO ONETIME@1800 ONE Stop: 01/23/17 18:01 - Exam General: alert, oriented Extremities: other (dry gangrene, LEFT 2nd toe with ascending cellulitis.) Peripheral Pulses: 0: dorsalis pedis (L), dorsalis pedis (R) Skin: other (black left 2nd toe, DIPJ distally; moderate to severe pain on palpation. ) Neurological: other (antalgic gait, LEFT side) - Problem List Review Problem List Initiated/Reviewed/Updated: Yes - Assessment Assessment:: Acute Dry Gangrene, LEFT 2nd toe - Plan Plan:: Assessment/Plan: Acute: Left Foot SSTI: 2nd Toe Ischemia/Gangrene associated with Edema and Erythema - Risk factors: DM, PVD, Vascular Insufficiency, Immobility and Obesity - Carries multiple drug allergies: Clindamycin, Vancomycin, and Cefazolin - Linezolid 600 mg IV Q12 - Pain Medications and Supportive Care - MRI in AM to assess the severity - Dr. 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 Adan for Amputation to LEFT 2nd MTPJ tomorrow p.m., after 5 p.m. 2.)
[2017-01-23] MEDS: Colchicine 0.6 MG Tab PO SCH (17:35)
[2017-01-23] MEDS ORDERED: Warfarin 7.5 MG Tab PO ONE (18:00)
[2017-01-23] MEDS ORDERED: Warfarin 5 MG Tab PO SCH (18:00)
[2017-01-23] MEDS: Furosemide 40 MG Tab PO SCH (18:53)
[2017-01-23] MEDS: Simvastatin 20 MG Tab PO SCH (20:58)
[2017-01-24] MEDS: Heparin Sodium 5,000 Units/ML Vial SUBCUT SCH ×2 (02:59→09:37)
[2017-01-24] MEDS: Acetaminophen/HYDROcodone 325-5 MG Tab PO PRN ×4 (03:06→18:25)
[2017-01-24] MEDS: Carvedilol 12.5 MG Tab PO SCH ×3 (05:42→17:18)
[2017-01-24] MEDS: Furosemide 40 MG Tab PO SCH ×2 (05:43→13:27)
--- NOTE | 2017-01-24 08:44 | PCM.PN ---
- General Info Date of Service: 01/24/17 Admission Dx/Problem (Free Text): Admission Diagnosis/Problem Admission Diagnosis/Problem Cellulitis Subjective Update: Follow Up Functional Status: Reports: pain controlled, tolerating diet, urinating. Denies : ambulating, new symptoms - Patient Data Vitals - most recent: Last Vital Signs Temp 36.6 C 01/24/17 03:00 Pulse 65 01/24/17 03:00 Resp 16 01/24/17 03:00 BP 135/82 01/24/17 03:00 Pulse Ox 95 01/24/17 03:00 Weight - most recent: 118.07 kg I&O - last 24 hours: Intake & Output 01/23/17 01/24/17 01/24/17 22:59 06:59 14:59 Intake Total 1290 2000 Output Total 950 400 Balance 340 1600 Lab Results last 24 hrs: Laboratory Results - last 24 hr 01/24/17 01/24/17 Range/Units 06:08 06:08 WBC 4.95 (4.23-9.07) K/mm3 RBC 3.99 L (4.63-6.08) M/mm3 Hgb 11.9 L (13.7-17.5) gm/L Hct 35.9 L (40.1-51.0) % MCV 90.0 (79.0-92.2) fl MCH 29.8 (25.7-32.2) pg MCHC 33.1 (32.2-35.5) g/dl RDW Std Deviation 48.7 H (35.1-43.9) fL Plt Count 119 L (163-337) K/mm3 MPV 10.4 (9.4-12.3) fl Neut % (Auto) 60.1 (34.0-67.9) % Lymph % (Auto) 14.7 L (21.8-53.1) % [place] % (Auto) 22.4 H (5.3-12.2) % Eos % (Auto) 2.4 (0.8-7.0) Baso % (Auto) 0.2 (0.1-1.2) % Neut # 2.97 (1.78-5.38) K/mm3 Lymph # 0.73 L (1.32-3.57) K/mm3 [place] # 1.11 H (0.30-0.82) K/mm3 Eos # 0.12 (0.04-0.54) K/mm3 Baso # 0.01 (0.01-0.08) K/mm3 Manual Slide Review Abnormal smear Sodium 133 L (136-145) mEq/L Potassium 3.7 (3.5-5.1) mEq/L Chloride 100 (98-107) mEq/L Carbon Dioxide 24 (21-32) mEq/L Anion Gap 12.7 (5-15) BUN 50 H (7-18) mg/dL Creatinine 1.5 H (0.7-1.3) mg/dL Est Cr Clr Drug Dosing 52.52 mL/min Estimated GFR (MDRD) 46 (>60) mL/min BUN/Creatinine Ratio 33.3 H (14-18) Glucose 111 (83-115) mg/dL Calcium 8.1 L (8.5-10.1) mg/dL Magnesium 2.0 (1.8-2.4) mg/dl C-Reactive Protein 3.2 H* (<1.0) mg/dL Med Orders - Current: Current Medications Acetaminophen (Tylenol) 650 mg PO Q4H PRN PRN Reason: Pain (Mild 1-3)/fever Acetaminophen/Hydrocodone Bitart ([place] 325-5 Mg) 1 tab PO Q4H PRN PRN Reason: Pain (moderate 4-6) Last Admin: 01/24/17 03:06 Dose: 1 tab Albuterol/Ipratropium (Duoneb 3.0-0.5 Mg/3 Ml) 3 ml NEB Q4H PRN PRN Reason: Shortness Of Breath/wheezing Amlodipine Besylate (Norvasc) 5 mg PO DAILY [facility] Last Admin: 01/23/17 09:33 Dose: 5 mg Aspirin (Halfprin) 81 mg PO DAILY [facility] Last Admin: 01/23/17 09:33 Dose: 81 mg Bisacodyl (Dulcolax) 5 mg PO DAILY PRN PRN Reason: Constipation Carvedilol (Coreg) 25 mg PO BIDMEALS [facility] Last Admin: 01/24/17 06:37 Dose: Not Given Colchicine (Colcrys) 0.6 mg PO QPM [facility] Last Admin: 01/23/17 17:35 Dose: 0.6 mg Furosemide (Lasix) 40 mg PO DAILY@1400 [facility] Last Admin: 01/23/17 18:53 Dose: 40 mg Furosemide (Lasix) 60 mg PO DAILY@0600 [facility] Last Admin: 01/24/17 05:43 Dose: 60 mg Heparin Sodium (Porcine) (Heparin Sodium) 5,000 units SUBCUT Q8H [facility] Last Admin: 01/24/17 02:59 Dose: 5,000 units Hydralazine HCl (Apresoline) 20 mg IVPUSH Q4H PRN PRN Reason: Hypertension Hydromorphone HCl (Dilaudid) 0.25 mg IVPUSH Q2H PRN PRN Reason: Pain (severe 7-10) Last Admin: 01/23/17 16:37 Dose: 0.25 mg Promethazine HCl 12.5 mg/ (Sodium Chloride) 50.5 mls @ 100 mls/hr IV Q6H PRN PRN Reason: Nausea/Vomiting Linezolid 600 mg/ Premix 300 mls @ 300 mls/hr IV Q12H [facility] Last Admin: 01/23/17 20:59 Dose: 300 mls/hr Lorazepam (Ativan) 0.5 mg IV Q6H PRN PRN Reason: Anxiety Magnesium Sulfate (Pharmacy To Dose - Magnesium Replacement) 1 dose .XX ASDIRECTED [facility] Metoprolol Tartrate (Lopressor) 5 mg IVPUSH Q4H PRN PRN Reason: Tachycardia Nitroglycerin (Nitrostat) 0.4 mg SL ASDIRECTED PRN PRN Reason: Chest Pain Ondansetron HCl (Zofran) 4 mg IV Q6H PRN PRN Reason: Nausea/Vomiting Febuxostat [Uloric] (1 Tab) 0 each PO DAILY [facility] Last Admin: 01/23/17 09:39 Dose: Not Given Saw/Vit E/Sod Teri/Lyc/Beta/Pyg [ Prostate Health Caplet] 0 each PO BID [facility] Last Admin: 01/23/17 21:00 Dose: 1 each Polyethylene Glycol (Miralax) 17 gm PO DAILY PRN PRN Reason: Constipation Last Admin: 01/23/17 14:44 Dose: 17 gm Potassium Chloride (Pharmacy To Dose - Potassium Replacement) 1 dose .XX ASDIRECTED [facility] Senna/Docusate Sodium (Senna Plus) 1 tab PO BID PRN PRN Reason: Constipation Simvastatin (Zocor) 20 mg PO BEDTIME [facility] Last Admin: 01/23/17 20:58 Dose: 20 mg Sodium Chloride (Saline Flush) 10 ml FLUSH ASDIRECTED PRN PRN Reason: Keep Vein Open Last Admin: 01/22/17 10:34 Dose: 10 ml Spironolactone (Aldactone) 25 mg PO DAILY [facility] Last Admin: 01/23/17 09:33 Dose: 25 mg Temazepam (Restoril) 30 mg PO BEDTIME PRN PRN Reason: Sleep Discontinued Medications Enoxaparin Sodium (Lovenox) 40 mg SUBCUT DAILY [facility] Last Admin: 01/23/17 09:34 Dose: 40 mg Furosemide (Lasix) 60 mg PO DAILY [facility] Last Admin: 01/23/17 09:32 Dose: 60 mg Furosemide (Lasix) 40 mg PO BEDTIME [facility] Last Admin: 01/22/17 20:55 Dose: 40 mg Linezolid 600 mg/ Premix 300 mls @ 300 mls/hr IV ONETIME ONE Stop: 01/22/17 10:52 Last Admin: 01/22/17 10:33 Dose: 300 mls/hr Magnesium Sulfate 2 gm/ Premix 50 mls @ 25 mls/hr IV ONETIME ONE Stop: 01/23/17 13:44 Last Admin: 01/23/17 12:45 Dose: 25 mls/hr Warfarin Sodium (Coumadin) 5 mg PO DAILY@1800 [facility] Warfarin Sodium (Pharmacy To Dose - Warfarin) 1 dose .XX DAILY [facility] Last Admin: 01/23/17 15:46 Dose: Not Given Warfarin Sodium (Coumadin) 5 mg PO ONETIME ONE Stop: 01/22/17 18:01 Last Admin: 01/22/17 17:15 Dose: 5 mg Warfarin Sodium (Coumadin) 7.5 mg PO ONETIME@1800 ONE Stop: 01/23/17 18:01 - My Orders Last 24 Hours: My Active Orders 01/23/17 09:00 Aspirin [Halfprin] 81 mg PO DAILY Linezolid [Zyvox] 600 mg Premix Bag 1 bag IV Q12H Patient's Own Medication [Ptom] 0 each PO DAILY Spironolactone [Aldactone] 25 mg PO DAILY amLODIPine [Norvasc] 5 mg PO DAILY 01/23/17 10:15 Magnesium Rep Pharmacy to Dose [Pharmacy to Dose - Magnesium Replacement] 1 dose .XX ASDIRECTED Potassium Rep Pharmacy to Dose [Pharmacy to Dose - Potassium Replacement] 1 dose .XX ASDIRECTED 01/23/17 10:17 Metoprolol Tartrate [Lopressor] 5 mg IVPUSH Q4H PRN hydrALAZINE [Apresoline] 20 mg IVPUSH Q4H PRN 01/23/17 10:30 Heparin Sodium 5,000 units SUBCUT Q8H 01/23/17 19:00 Furosemide [Lasix] 40 mg PO DAILY@1400 01/24/17 06:00 Furosemide [Lasix] 60 mg PO DAILY@0600 01/25/17 05:11 BASIC METABOLIC PANEL,BMP [CHEM] AM C-REACTIVE PROTEIN [CHEM] AM CBC WITH AUTO DIFF [HEME] AM MAGNESIUM [CHEM] AM 01/26/17 05:11 BASIC METABOLIC PANEL,BMP [CHEM] AM C-REACTIVE PROTEIN [CHEM] AM CBC WITH AUTO DIFF [HEME] AM MAGNESIUM [CHEM] AM 01/26/17 07:00 CBC W/O DIFF,HEMOGRAM [HEME] MOTH@0700 01/30/17 07:00 CBC W/O DIFF,HEMOGRAM [HEME] MOTH@0700 02/02/17 07:00 CBC W/O DIFF,HEMOGRAM [HEME] MOTH@0700 02/06/17 07:00 CBC W/O DIFF,HEMOGRAM [HEME] MOTH@0700 02/09/17 07:00 CBC W/O DIFF,HEMOGRAM [HEME] MOTH@0700 02/13/17 07:00 CBC W/O DIFF,HEMOGRAM [HEME] MOTH@0700 - Assessment Assessment:: Acute Dry Gangrene, LEFT 2nd toe - Plan Plan:: Assessment/Plan: Acute: Left Foot SSTI: 2nd Toe Ischemia/Gangrene associated with Edema and Erythema - Risk factors: DM, PVD, Vascular Insufficiency, Immobility and Obesity - Carries multiple drug allergies: Clindamycin, Vancomycin, and Cefazolin - Linezolid 600 mg IV Q12 - Pain Medications and Supportive Care - MRI: contraindicated due to pacer - CT scan: Vascular calcification and diffuse tissue edema - Dr. 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
[2017-01-24] MEDS: Linezolid 600 MG in Premix Bag 1 BAG IV SCH ×2 (09:34→21:23)
[2017-01-24] MEDS: amLODIPine 5 MG Tab PO SCH (09:36)
[2017-01-24] MEDS: Aspirin 81 MG Tab.EC PO SCH (09:36)
[2017-01-24] MEDS: Spironolactone 25 MG Tab PO SCH (09:36)
[2017-01-24] MEDS: FEBUXOSTAT PO SCH (09:36)
[2017-01-24] MEDS: Saw/Vit E/Sod Sel/Lyc/Beta/Pyg [Prostate Health Caplet] PO SCH ×2 (09:37→21:21)
--- NOTE | 2017-01-24 10:57 | PCM.PREANE ---
Preanesthetic Assessment - Anesthesia/Transfusion/Family Hx Anesthesia History: Prior Anesthesia Without Reaction Transfusion History: No Prior Transfusion(s) - Physical Assessment Pulse: 70 O2 Sat by Pulse Oximetry: 100 Respiratory Rate: 18 Blood Pressure: 133/82 Temperature: 36.2 C Vital Signs: Last Vital Signs Temp 36.2 C 01/24/17 09:30 Pulse 70 01/24/17 09:30 Resp 18 01/24/17 09:30 BP 133/82 01/24/17 09:36 Pulse Ox 100 01/24/17 09:30 Height: 1.88 m Weight: 118.07 kg - Lab Values: Laboratory Last Values WBC 4.95 K/mm3 (4.23-9.07) 01/24/17 06:08 RBC 3.99 M/mm3 (4.63-6.08) L 01/24/17 06:08 Hgb 11.9 gm/L (13.7-17.5) L 01/24/17 06:08 Hct 35.9 % (40.1-51.0) L 01/24/17 06:08 MCV 90.0 fl (79.0-92.2) 01/24/17 06:08 MCH 29.8 pg (25.7-32.2) 01/24/17 06:08 MCHC 33.1 g/dl (32.2-35.5) 01/24/17 06:08 RDW Std Deviation 48.7 fL (35.1-43.9) H 01/24/17 06:08 Plt Count 119 K/mm3 (163-337) L 01/24/17 06:08 MPV 10.4 fl (9.4-12.3) 01/24/17 06:08 Neut % (Auto) 60.1 % (34.0-67.9) 01/24/17 06:08 Lymph % (Auto) 14.7 % (21.8-53.1) L 01/24/17 06:08 [place] % (Auto) 22.4 % (5.3-12.2) H 01/24/17 06:08 Eos % (Auto) 2.4 (0.8-7.0) 01/24/17 06:08 Baso % (Auto) 0.2 % (0.1-1.2) 01/24/17 06:08 Neut # 2.97 K/mm3 (1.78-5.38) 01/24/17 06:08 Lymph # 0.73 K/mm3 (1.32-3.57) L 01/24/17 06:08 [place] # 1.11 K/mm3 (0.30-0.82) H 01/24/17 06:08 Eos # 0.12 K/mm3 (0.04-0.54) 01/24/17 06:08 Baso # 0.01 K/mm3 (0.01-0.08) 01/24/17 06:08 Manual Slide Review Abnormal smear 01/24/17 06:08 PT 22.4 SECONDS (8.0-13.0) H 01/23/17 05:38 INR 1.97 01/23/17 05:38 Sodium 133 mEq/L (136-145) L 01/24/17 06:08 Potassium 3.7 mEq/L (3.5-5.1) 01/24/17 06:08 Chloride 100 mEq/L (98-107) 01/24/17 06:08 Carbon Dioxide 24 mEq/L (21-32) 01/24/17 06:08 Anion Gap 12.7 (5-15) 01/24/17 06:08 BUN 50 mg/dL (7-18) H 01/24/17 06:08 Creatinine 1.5 mg/dL (0.7-1.3) H 01/24/17 06:08 Est Cr Clr Drug Dosing 52.52 mL/min 01/24/17 06:08 Estimated GFR (MDRD) 46 mL/min (>60) 01/24/17 06:08 BUN/Creatinine Ratio 33.3 (14-18) H 01/24/17 06:08 Glucose 111 mg/dL (83-115) 01/24/17 06:08 Hemoglobin A1c 6.70 % (4.50-6.20) H 01/23/17 05:30 Calcium 8.1 mg/dL (8.5-10.1) L 01/24/17 06:08 Magnesium 2.0 mg/dl (1.8-2.4) 01/24/17 06:08 Total Bilirubin 0.7 mg/dL (0.2-1.0) 01/22/17 10:20 AST 25 U/L (15-37) 01/22/17 10:20 ALT 33 U/L (16-63) 01/22/17 10:20 Alkaline Phosphatase 83 U/L (46-116) 01/22/17 10:20 C-Reactive Protein 3.2 mg/dL (<1.0) H* 01/24/17 06:08 Total Protein 6.9 g/dl (6.4-8.2) 01/22/17 10:20 Albumin 3.0 g/dl (3.4-5.0) L 01/22/17 10:20 Globulin 3.9 gm/dL 01/22/17 10:20 Albumin/Globulin Ratio 0.8 (1-2) L 01/22/17 10:20 Free T4 1.03 ng/dL (0.76-1.46) 01/23/17 05:30 TSH 3rd Generation 2.702 uIU/mL (0.358-3.74) 01/23/17 05:30 - Allergies Allergies/Adverse Reactions: Allergies Allergy/AdvReac Type Severity Reaction Status Date / Time allopurinol Allergy Rash Verified 01/22/17 13:25 cefazolin Allergy Hives Verified 01/22/17 13:25 celecoxib Allergy Rash Verified 01/22/17 13:25 clindamycin Allergy Hives Verified 01/22/17 13:25 ibuprofen Allergy Rash Verified 01/22/17 13:25 NSAIDS (Non-Steroidal Allergy Rash Verified 01/22/17 13:25 Anti-Inflamma oxaprozin Allergy Rash Verified 01/22/17 13:25 vancomycin Allergy Hives Verified 01/22/17 13:25 PreAnesthesia Questionnaire HEENT History: Reports: Hard of hearing, Other (see below) Other HEENT History: Wears bilat hearing aides, glasses, dentures full to upper and partial to lower. Pt compalins of faint ringing to ears, majority of the time Cardiovascular History: Reports: Afib, CAD, High cholesterol, Hypertension, VT Other Cardiovascular History: Bypass in 1999 with 5 bypass. Stent in 2013, VT in 2013, Other Respiratory History: previous blood clots in lungs 2002; no current problems Gastrointestinal History: Reports: Other (see below) Other Gastrointestinal History: Acid reflux PRN Genitourinary History: Reports: Prostate disorder Musculoskeletal History: Reports: Arthritis Neurological History: Reports: CVA Other Neuro History: CVA in 2013 Endocrine/Metabolic History: Reports: Diabetes, type II Other Endocrine/Metabolic History: not taking any medication or insulin Hematologic History: Reports: Other (see below) (DVT/PE) Dermatologic History: Reports: Cellulitis - Past Surgical History HEENT Surgical History: Reports: Tonsillectomy Cardiovascular Surgical History: Reports: AICD, Coronary artery bypass, Coronary artery stent Musculoskeletal Surgical History: Reports: Knee replacement - SUBSTANCE USE Smoking Status *Q: Never Smoker Second Hand Smoke Exposure: No Days Per Week of Alcohol Use: 6 Number of Drinks Per Day: 11 Total Drinks Per Week: 66 Date of Last Drink: 11/06/14 Recreational Drug Use History: No - HOME MEDS Home Medications: Home Meds Acetaminophen [Acetaminophen Extra Strength] 1,000 mg PO BID PRN 12/19/14 [ History] Aspirin [Halfprin] 81 mg PO DAILY 12/19/14 [History] Carvedilol 25 mg PO BIDM 12/19/14 [History] Colchicine [Colcrys] 0.6 mg PO QPM 12/19/14 [History] Febuxostat [Uloric] 80 mg PO DAILY 12/19/14 [History] Furosemide 60 mg PO DAILY 12/19/14 [History] Nitroglycerin [Nitrostat] 0.4 mg SL ASDIRECTED PRN 12/19/14 [History] Spironolactone [Aldactone] 25 mg PO DAILY 12/19/14 [History] amLODIPine [Norvasc] 5 mg PO DAILY 12/19/14 [History] atorvaSTATin [Lipitor] 20 mg PO BEDTIME 12/19/14 [History] Saw/Vit E/Sod Teri/Lyc/Beta/Pyg [Prostate Health Caplet] 1 each PO BID 04/19/16 [ History] Furosemide [Lasix] 40 mg PO BEDTIME 01/22/17 [History] Warfarin [Coumadin] 2.5 mg PO FR 01/23/17 [History] Warfarin [Coumadin] 5 mg PO SUMOTUWETHSA 01/23/17 [History] - CURRENT (IN HOUSE) MEDS Current Meds: Current Medications Acetaminophen (Tylenol) 650 mg PO Q4H PRN PRN Reason: Pain (Mild 1-3)/fever Acetaminophen/Hydrocodone Bitart ([place] 325-5 Mg) 1 tab PO Q4H PRN PRN Reason: Pain (moderate 4-6) Last Admin: 01/24/17 09:35 Dose: 1 tab Albuterol/Ipratropium (Duoneb 3.0-0.5 Mg/3 Ml) 3 ml NEB Q4H PRN PRN Reason: Shortness Of Breath/wheezing Amlodipine Besylate (Norvasc) 5 mg PO DAILY COUNT INCLUDES THE [facility] Last Admin: 01/24/17 09:36 Dose: 5 mg Aspirin (Halfprin) 81 mg PO DAILY COUNT INCLUDES THE [facility] Last Admin: 01/24/17 09:36 Dose: 81 mg Bisacodyl (Dulcolax) 5 mg PO DAILY PRN PRN Reason: Constipation Carvedilol (Coreg) 25 mg PO BIDMEALS COUNT INCLUDES THE [facility] Last Admin: 01/24/17 06:37 Dose: Not Given Colchicine (Colcrys) 0.6 mg PO QPM COUNT INCLUDES THE [facility] Last Admin: 01/23/17 17:35 Dose: 0.6 mg Furosemide (Lasix) 40 mg PO DAILY@1400 COUNT INCLUDES THE [facility] Last Admin: 01/23/17 18:53 Dose: 40 mg Furosemide (Lasix) 60 mg PO DAILY@0600 COUNT INCLUDES THE [facility] Last Admin: 01/24/17 05:43 Dose: 60 mg Heparin Sodium (Porcine) (Heparin Sodium) 5,000 units SUBCUT Q8H COUNT INCLUDES THE [facility] Last Admin: 01/24/17 09:37 Dose: Not Given Hydralazine HCl (Apresoline) 20 mg IVPUSH Q4H PRN PRN Reason: Hypertension Hydromorphone HCl (Dilaudid) 0.25 mg IVPUSH Q2H PRN PRN Reason: Pain (severe 7-10) Last Admin: 01/23/17 16:37 Dose: 0.25 mg Promethazine HCl 12.5 mg/ (Sodium Chloride) 50.5 mls @ 100 mls/hr IV Q6H PRN PRN Reason: Nausea/Vomiting Linezolid 600 mg/ Premix 300 mls @ 300 mls/hr IV Q12H COUNT INCLUDES THE [facility] Last Admin: 01/24/17 09:34 Dose: 300 mls/hr Lorazepam (Ativan) 0.5 mg IV Q6H PRN PRN Reason: Anxiety Magnesium Sulfate (Pharmacy To Dose - Magnesium Replacement) 1 dose .XX ASDIRECTED COUNT INCLUDES THE [facility] Metoprolol Tartrate (Lopressor) 5 mg IVPUSH Q4H PRN PRN Reason: Tachycardia Nitroglycerin (Nitrostat) 0.4 mg SL ASDIRECTED PRN PRN Reason: Chest Pain Ondansetron HCl (Zofran) 4 mg IV Q6H PRN PRN Reason: Nausea/Vomiting Febuxostat [Uloric] (1 Tab) 0 each PO DAILY COUNT INCLUDES THE [facility] Last Admin: 01/24/17 09:36 Dose: Not Given Saw/Vit E/Sod Teri/Lyc/Beta/Pyg [ Prostate Health Caplet] 0 each PO BID COUNT INCLUDES THE [facility] Last Admin: 01/24/17 09:37 Dose: 1 each Polyethylene Glycol (Miralax) 17 gm PO DAILY PRN PRN Reason: Constipation Last Admin: 01/23/17 14:44 Dose: 17 gm Potassium Chloride (Pharmacy To Dose - Potassium Replacement) 1 dose .XX ASDIRECTED COUNT INCLUDES THE [facility] Senna/Docusate Sodium (Senna Plus) 1 tab PO BID PRN PRN Reason: Constipation Simvastatin (Zocor) 20 mg PO BEDTIME COUNT INCLUDES THE [facility] Last Admin: 01/23/17 20:58 Dose: 20 mg Sodium Chloride (Saline Flush) 10 ml FLUSH ASDIRECTED PRN PRN Reason: Keep Vein Open Last Admin: 01/22/17 10:34 Dose: 10 ml Spironolactone (Aldactone) 25 mg PO DAILY COUNT INCLUDES THE [facility] Last Admin: 01/24/17 09:36 Dose: 25 mg Temazepam (Restoril) 30 mg PO BEDTIME PRN PRN Reason: Sleep Discontinued Medications Enoxaparin Sodium (Lovenox) 40 mg SUBCUT DAILY COUNT INCLUDES THE [facility] Last Admin: 01/23/17 09:34 Dose: 40 mg Furosemide (Lasix) 60 mg PO DAILY COUNT INCLUDES THE [facility] Last Admin: 01/23/17 09:32 Dose: 60 mg Furosemide (Lasix) 40 mg PO BEDTIME COUNT INCLUDES THE [facility] Last Admin: 01/22/17 20:55 Dose: 40 mg Linezolid 600 mg/ Premix 300 mls @ 300 mls/hr IV ONETIME ONE Stop: 01/22/17 10:52 Last Admin: 01/22/17 10:33 Dose: 300 mls/hr Magnesium Sulfate 2 gm/ Premix 50 mls @ 25 mls/hr IV ONETIME ONE Stop: 01/23/17 13:44 Last Admin: 01/23/17 12:45 Dose: 25 mls/hr Warfarin Sodium (Coumadin) 5 mg PO DAILY@1800 COUNT INCLUDES THE [facility] Warfarin Sodium (Pharmacy To Dose - Warfarin) 1 dose .XX DAILY COUNT INCLUDES THE [facility] Last Admin: 01/23/17 15:46 Dose: Not Given Warfarin Sodium (Coumadin) 5 mg PO ONETIME ONE Stop: 01/22/17 18:01 Last Admin: 01/22/17 17:15 Dose: 5 mg Warfarin Sodium (Coumadin) 7.5 mg PO ONETIME@1800 ONE Stop: 01/23/17 18:01 Preanesthetic Assessment - ANESTHESIA/TRANSFUSION/FAMILY HX Anesthesia/Transfusion History: Prior Anesthesia, Prior Transfusion Family History of Anesthesia Reaction: No Intubation History: Unknown - REVIEW OF [employer]: Reports: stroke/TIA (CVA 2013) Cardiovascular: Reports: no symptoms (CHF on diuretics/VT 2013 with stent placement./CAD/CABG times 5 in 1999/history of Afib), blood pressure problem GI: Reports: no symptoms (occasional GERD) Other: Reports: None (history of CKD (3) elevaed BUN, Cr noted.), Diabetes (A1C= 6.7) - PHYSICAL ASSESSMENT HR: 70 O2 Sat by Pulse Oximetry: 100 RR: 18 BP: 133/82 Temp: 36.2 C Vital Signs: Last Vital Signs Temp 36.2 C 01/24/17 09:30 Pulse 70 01/24/17 09:30 Resp 18 01/24/17 09:30 BP 133/82 01/24/17 09:36 Pulse Ox 100 01/24/17 09:30 Height: 1.88 m Weight: 118.07 kg NPO Status Date: 01/24/17 NPO Status Time: 07:00 - LAB Values: Laboratory Last Values WBC 4.95 K/mm3 (4.23-9.07) 01/24/17 06:08 RBC 3.99 M/mm3 (4.63-6.08) L 01/24/17 06:08 Hgb 11.9 gm/L (13.7-17.5) L 01/24/17 06:08 Hct 35.9 % (40.1-51.0) L 01/24/17 06:08 MCV 90.0 fl (79.0-92.2) 01/24/17 06:08 MCH 29.8 pg (25.7-32.2) 01/24/17 06:08 MCHC 33.1 g/dl (32.2-35.5) 01/24/17 06:08 RDW Std Deviation 48.7 fL (35.1-43.9) H 01/24/17 06:08 Plt Count 119 K/mm3 (163-337) L 01/24/17 06:08 MPV 10.4 fl (9.4-12.3) 01/24/17 06:08 Neut % (Auto) 60.1 % (34.0-67.9) 01/24/17 06:08 Lymph % (Auto) 14.7 % (21.8-53.1) L 01/24/17 06:08 [place] % (Auto) 22.4 % (5.3-12.2) H 01/24/17 06:08 Eos % (Auto) 2.4 (0.8-7.0) 01/24/17 06:08 Baso % (Auto) 0.2 % (0.1-1.2) 01/24/17 06:08 Neut # 2.97 K/mm3 (1.78-5.38) 01/24/17 06:08 Lymph # 0.73 K/mm3 (1.32-3.57) L 01/24/17 06:08 [place] # 1.11 K/mm3 (0.30-0.82) H 01/24/17 06:08 Eos # 0.12 K/mm3 (0.04-0.54) 01/24/17 06:08 Baso # 0.01 K/mm3 (0.01-0.08) 01/24/17 06:08 Manual Slide Review Abnormal smear 01/24/17 06:08 PT 22.4 SECONDS (8.0-13.0) H 01/23/17 05:38 INR 1.97 01/23/17 05:38 Sodium 133 mEq/L (136-145) L 01/24/17 06:08 Potassium 3.7 mEq/L (3.5-5.1) 01/24/17 06:08 Chloride 100 mEq/L (98-107) 01/24/17 06:08 Carbon Dioxide 24 mEq/L (21-32) 01/24/17 06:08 Anion Gap 12.7 (5-15) 01/24/17 06:08 BUN 50 mg/dL (7-18) H 01/24/17 06:08 Creatinine 1.5 mg/dL (0.7-1.3) H 01/24/17 06:08 Est Cr Clr Drug Dosing 52.52 mL/min 01/24/17 06:08 Estimated GFR (MDRD) 46 mL/min (>60) 01/24/17 06:08 BUN/Creatinine Ratio 33.3 (14-18) H 01/24/17 06:08 Glucose 111 mg/dL (83-115) 01/24/17 06:08 Hemoglobin A1c 6.70 % (4.50-6.20) H 01/23/17 05:30 Calcium 8.1 mg/dL (8.5-10.1) L 01/24/17 06:08 Magnesium 2.0 mg/dl (1.8-2.4) 01/24/17 06:08 Total Bilirubin 0.7 mg/dL (0.2-1.0) 01/22/17 10:20 AST 25 U/L (15-37) 01/22/17 10:20 ALT 33 U/L (16-63) 01/22/17 10:20 Alkaline Phosphatase 83 U/L (46-116) 01/22/17 10:20 C-Reactive Protein 3.2 mg/dL (<1.0) H* 01/24/17 06:08 Total Protein 6.9 g/dl (6.4-8.2) 01/22/17 10:20 Albumin 3.0 g/dl (3.4-5.0) L 01/22/17 10:20 Globulin 3.9 gm/dL 01/22/17 10:20 Albumin/Globulin Ratio 0.8 (1-2) L 01/22/17 10:20 Free T4 1.03 ng/dL (0.76-1.46) 01/23/17 05:30 TSH 3rd Generation 2.702 uIU/mL (0.358-3.74) 01/23/17 05:30 Reviewed and noted - ALLERGIES Allergies/Adverse Reactions: Allergies Allergy/AdvReac Type Severity Reaction Status Date / Time allopurinol Allergy Rash Verified 01/22/17 13:25 cefazolin Allergy Hives Verified 01/22/17 13:25 celecoxib Allergy Rash Verified 01/22/17 13:25 clindamycin Allergy Hives Verified 01/22/17 13:25 ibuprofen Allergy Rash Verified 01/22/17 13:25 NSAIDS (Non-Steroidal Allergy Rash Verified 01/22/17 13:25 Anti-Inflamma oxaprozin Allergy Rash Verified 01/22/17 13:25 vancomycin Allergy Hives Verified 01/22/17 13:25 - ANESTHESIA PLAN Preop Beta Manoj: Yes Beta Manoj: Carvedilol Beta-Manoj Last Dose Date: 01/24/17 Beta-Manoj Last Dose Time: 05:42 Anesthesia Type Planned: MAC (with Ankle Block) - ACKNOWLEDGEMENTS Pt an Appropriate Candidate for the Planned Anesthesia: Yes Alternatives and Risks of Anesthesia Discussed w Pt/Guardian: Yes Pt/Guardian Understands and Agrees with Anesthesia Plan: Yes
[2017-01-24] MEDS ORDERED: HYDROmorphone 0.5 MG/0.5 ML Syringe IVPUSH PRN (11:12)
[2017-01-24] MEDS ORDERED: Temazepam 30 MG Cap PO PRN (11:13)
--- NOTE | 2017-01-24 11:55 | PCM.PREANE ---
Preanesthetic Assessment - Anesthesia/Transfusion/Family Hx Anesthesia History: Prior Anesthesia Without Reaction Transfusion History: No Prior Transfusion(s) - Review of Systems Other: Reports: None (history of CKD (3) elevaed BUN, Cr noted.), Diabetes (A1C= 6.7) - Physical Assessment NPO Status Date: 01/24/17 NPO Status Time: 07:00 Pulse: 70 O2 Sat by Pulse Oximetry: 100 Respiratory Rate: 18 Blood Pressure: 133/82 Temperature: 36.2 C Vital Signs: Last Vital Signs Temp 36.2 C 01/24/17 10:57 Pulse 70 01/24/17 10:57 Resp 18 01/24/17 10:57 BP 133/82 01/24/17 10:57 Pulse Ox 100 01/24/17 10:57 Height: 1.88 m Weight: 118.07 kg - Lab Values: Laboratory Last Values WBC 4.95 K/mm3 (4.23-9.07) 01/24/17 06:08 RBC 3.99 M/mm3 (4.63-6.08) L 01/24/17 06:08 Hgb 11.9 gm/L (13.7-17.5) L 01/24/17 06:08 Hct 35.9 % (40.1-51.0) L 01/24/17 06:08 MCV 90.0 fl (79.0-92.2) 01/24/17 06:08 MCH 29.8 pg (25.7-32.2) 01/24/17 06:08 MCHC 33.1 g/dl (32.2-35.5) 01/24/17 06:08 RDW Std Deviation 48.7 fL (35.1-43.9) H 01/24/17 06:08 Plt Count 119 K/mm3 (163-337) L 01/24/17 06:08 MPV 10.4 fl (9.4-12.3) 01/24/17 06:08 Neut % (Auto) 60.1 % (34.0-67.9) 01/24/17 06:08 Lymph % (Auto) 14.7 % (21.8-53.1) L 01/24/17 06:08 [place] % (Auto) 22.4 % (5.3-12.2) H 01/24/17 06:08 Eos % (Auto) 2.4 (0.8-7.0) 01/24/17 06:08 Baso % (Auto) 0.2 % (0.1-1.2) 01/24/17 06:08 Neut # 2.97 K/mm3 (1.78-5.38) 01/24/17 06:08 Lymph # 0.73 K/mm3 (1.32-3.57) L 01/24/17 06:08 [place] # 1.11 K/mm3 (0.30-0.82) H 01/24/17 06:08 Eos # 0.12 K/mm3 (0.04-0.54) 01/24/17 06:08 Baso # 0.01 K/mm3 (0.01-0.08) 01/24/17 06:08 Manual Slide Review Abnormal smear 01/24/17 06:08 PT 22.4 SECONDS (8.0-13.0) H 01/23/17 05:38 INR 1.97 01/23/17 05:38 Sodium 133 mEq/L (136-145) L 01/24/17 06:08 Potassium 3.7 mEq/L (3.5-5.1) 01/24/17 06:08 Chloride 100 mEq/L (98-107) 01/24/17 06:08 Carbon Dioxide 24 mEq/L (21-32) 01/24/17 06:08 Anion Gap 12.7 (5-15) 01/24/17 06:08 BUN 50 mg/dL (7-18) H 01/24/17 06:08 Creatinine 1.5 mg/dL (0.7-1.3) H 01/24/17 06:08 Est Cr Clr Drug Dosing 52.52 mL/min 01/24/17 06:08 Estimated GFR (MDRD) 46 mL/min (>60) 01/24/17 06:08 BUN/Creatinine Ratio 33.3 (14-18) H 01/24/17 06:08 Glucose 111 mg/dL (83-115) 01/24/17 06:08 Hemoglobin A1c 6.70 % (4.50-6.20) H 01/23/17 05:30 Calcium 8.1 mg/dL (8.5-10.1) L 01/24/17 06:08 Magnesium 2.0 mg/dl (1.8-2.4) 01/24/17 06:08 Total Bilirubin 0.7 mg/dL (0.2-1.0) 01/22/17 10:20 AST 25 U/L (15-37) 01/22/17 10:20 ALT 33 U/L (16-63) 01/22/17 10:20 Alkaline Phosphatase 83 U/L (46-116) 01/22/17 10:20 C-Reactive Protein 3.2 mg/dL (<1.0) H* 01/24/17 06:08 Total Protein 6.9 g/dl (6.4-8.2) 01/22/17 10:20 Albumin 3.0 g/dl (3.4-5.0) L 01/22/17 10:20 Globulin 3.9 gm/dL 01/22/17 10:20 Albumin/Globulin Ratio 0.8 (1-2) L 01/22/17 10:20 Free T4 1.03 ng/dL (0.76-1.46) 01/23/17 05:30 TSH 3rd Generation 2.702 uIU/mL (0.358-3.74) 01/23/17 05:30 - Allergies Allergies/Adverse Reactions: Allergies Allergy/AdvReac Type Severity Reaction Status Date / Time allopurinol Allergy Rash Verified 01/22/17 13:25 cefazolin Allergy Hives Verified 01/22/17 13:25 celecoxib Allergy Rash Verified 01/22/17 13:25 clindamycin Allergy Hives Verified 01/22/17 13:25 ibuprofen Allergy Rash Verified 01/22/17 13:25 NSAIDS (Non-Steroidal Allergy Rash Verified 01/22/17 13:25 Anti-Inflamma oxaprozin Allergy Rash Verified 01/22/17 13:25 vancomycin Allergy Hives Verified 01/22/17 13:25 PreAnesthesia Questionnaire HEENT History: Reports: Hard of hearing, Other (see below) Other HEENT History: Wears bilat hearing aides, glasses, dentures full to upper and partial to lower. Pt compalins of faint ringing to ears, majority of the time Cardiovascular History: Reports: Afib, CAD, High cholesterol, Hypertension, [place] Other Cardiovascular History: Bypass in 1999 with 5 bypass. Stent in 2013, [place] in 2013, Other Respiratory History: previous blood clots in lungs 2002; no current problems Gastrointestinal History: Reports: Other (see below) Other Gastrointestinal History: Acid reflux PRN Genitourinary History: Reports: Prostate disorder Musculoskeletal History: Reports: Arthritis Neurological History: Reports: CVA Other Neuro History: CVA in 2013 Endocrine/Metabolic History: Reports: Diabetes, type II Other Endocrine/Metabolic History: not taking any medication or insulin Hematologic History: Reports: Other (see below) (DVT/PE) Dermatologic History: Reports: Cellulitis - Past Surgical History HEENT Surgical History: Reports: Tonsillectomy Cardiovascular Surgical History: Reports: AICD, Coronary artery bypass, Coronary artery stent Musculoskeletal Surgical History: Reports: Knee replacement - SUBSTANCE USE Smoking Status *Q: Never Smoker Second Hand Smoke Exposure: No Days Per Week of Alcohol Use: 6 Number of Drinks Per Day: 11 Total Drinks Per Week: 66 Date of Last Drink: 11/06/14 Recreational Drug Use History: No - HOME MEDS Home Medications: Home Meds Acetaminophen [Acetaminophen Extra Strength] 1,000 mg PO BID PRN 12/19/14 [ History] Aspirin [Halfprin] 81 mg PO DAILY 12/19/14 [History] Carvedilol 25 mg PO BIDM 12/19/14 [History] Colchicine [Colcrys] 0.6 mg PO QPM 12/19/14 [History] Febuxostat [Uloric] 80 mg PO DAILY 12/19/14 [History] Furosemide 60 mg PO DAILY 12/19/14 [History] Nitroglycerin [Nitrostat] 0.4 mg SL ASDIRECTED PRN 12/19/14 [History] Spironolactone [Aldactone] 25 mg PO DAILY 12/19/14 [History] amLODIPine [Norvasc] 5 mg PO DAILY 12/19/14 [History] atorvaSTATin [Lipitor] 20 mg PO BEDTIME 12/19/14 [History] Saw/Vit E/Sod Teri/Lyc/Beta/Pyg [Prostate Health Caplet] 1 each PO BID 04/19/16 [ History] Furosemide [Lasix] 40 mg PO BEDTIME 01/22/17 [History] Warfarin [Coumadin] 2.5 mg PO FR 01/23/17 [History] Warfarin [Coumadin] 5 mg PO SUMOTUWETHSA 01/23/17 [History] - CURRENT (IN HOUSE) MEDS Current Meds: Current Medications Acetaminophen (Tylenol) 650 mg PO Q4H PRN PRN Reason: Pain (Mild 1-3)/fever Acetaminophen/Hydrocodone Bitart ([place] 325-5 Mg) 1 tab PO Q4H PRN PRN Reason: Pain (moderate 4-6) Last Admin: 01/24/17 09:35 Dose: 1 tab Albuterol/Ipratropium (Duoneb 3.0-0.5 Mg/3 Ml) 3 ml NEB Q4H PRN PRN Reason: Shortness Of Breath/wheezing Amlodipine Besylate (Norvasc) 5 mg PO DAILY [facility] Last Admin: 01/24/17 09:36 Dose: 5 mg Aspirin (Halfprin) 81 mg PO DAILY [facility] Last Admin: 01/24/17 09:36 Dose: 81 mg Bisacodyl (Dulcolax) 5 mg PO DAILY PRN PRN Reason: Constipation Carvedilol (Coreg) 25 mg PO BIDMEALS [facility] Last Admin: 01/24/17 06:37 Dose: Not Given Colchicine (Colcrys) 0.6 mg PO QPM [facility] Last Admin: 01/23/17 17:35 Dose: 0.6 mg Furosemide (Lasix) 40 mg PO DAILY@1400 [facility] Last Admin: 01/23/17 18:53 Dose: 40 mg Furosemide (Lasix) 60 mg PO DAILY@0600 [facility] Last Admin: 01/24/17 05:43 Dose: 60 mg Heparin Sodium (Porcine) (Heparin Sodium) 5,000 units SUBCUT Q8H [facility] Last Admin: 01/24/17 09:37 Dose: Not Given Hydralazine HCl (Apresoline) 20 mg IVPUSH Q4H PRN PRN Reason: Hypertension Hydromorphone HCl (Dilaudid) 0.25 mg IVPUSH Q2H PRN PRN Reason: Pain (severe 7-10) Promethazine HCl 12.5 mg/ (Sodium Chloride) 50.5 mls @ 100 mls/hr IV Q6H PRN PRN Reason: Nausea/Vomiting Linezolid 600 mg/ Premix 300 mls @ 300 mls/hr IV Q12H [facility] Last Admin: 01/24/17 09:34 Dose: 300 mls/hr Lorazepam (Ativan) 0.5 mg IV Q6H PRN PRN Reason: Anxiety Magnesium Sulfate (Pharmacy To Dose - Magnesium Replacement) 1 dose .XX ASDIRECTED [facility] Metoprolol Tartrate (Lopressor) 5 mg IVPUSH Q4H PRN PRN Reason: Tachycardia Nitroglycerin (Nitrostat) 0.4 mg SL ASDIRECTED PRN PRN Reason: Chest Pain Ondansetron HCl (Zofran) 4 mg IV Q6H PRN PRN Reason: Nausea/Vomiting Febuxostat [Uloric] (1 Tab) 0 each PO DAILY [facility] Last Admin: 01/24/17 09:36 Dose: Not Given Saw/Vit E/Sod Teri/Lyc/Beta/Pyg [ Prostate Health Caplet] 0 each PO BID [facility] Last Admin: 01/24/17 09:37 Dose: 1 each Polyethylene Glycol (Miralax) 17 gm PO DAILY PRN PRN Reason: Constipation Last Admin: 01/23/17 14:44 Dose: 17 gm Potassium Chloride (Pharmacy To Dose - Potassium Replacement) 1 dose .XX ASDIRECTED [facility] Senna/Docusate Sodium (Senna Plus) 1 tab PO BID PRN PRN Reason: Constipation Simvastatin (Zocor) 20 mg PO BEDTIME [facility] Last Admin: 01/23/17 20:58 Dose: 20 mg Sodium Chloride (Saline Flush) 10 ml FLUSH ASDIRECTED PRN PRN Reason: Keep Vein Open Last Admin: 01/22/17 10:34 Dose: 10 ml Spironolactone (Aldactone) 25 mg PO DAILY [facility] Last Admin: 01/24/17 09:36 Dose: 25 mg Temazepam (Restoril) 30 mg PO BEDTIME PRN PRN Reason: Sleep Discontinued Medications Enoxaparin Sodium (Lovenox) 40 mg SUBCUT DAILY [facility] Last Admin: 01/23/17 09:34 Dose: 40 mg Furosemide (Lasix) 60 mg PO DAILY [facility] Last Admin: 01/23/17 09:32 Dose: 60 mg Furosemide (Lasix) 40 mg PO BEDTIME [facility] Last Admin: 01/22/17 20:55 Dose: 40 mg Hydromorphone HCl (Dilaudid) 0.25 mg IVPUSH Q2H PRN PRN Reason: Pain (severe 7-10) Last Admin: 01/23/17 16:37 Dose: 0.25 mg Linezolid 600 mg/ Premix 300 mls @ 300 mls/hr IV ONETIME ONE Stop: 01/22/17 10:52 Last Admin: 01/22/17 10:33 Dose: 300 mls/hr Magnesium Sulfate 2 gm/ Premix 50 mls @ 25 mls/hr IV ONETIME ONE Stop: 01/23/17 13:44 Last Admin: 01/23/17 12:45 Dose: 25 mls/hr Temazepam (Restoril) 30 mg PO BEDTIME PRN PRN Reason: Sleep Warfarin Sodium (Coumadin) 5 mg PO DAILY@1800 [facility] Warfarin Sodium (Pharmacy To Dose - Warfarin) 1 dose .XX DAILY [facility] Last Admin: 01/23/17 15:46 Dose: Not Given Warfarin Sodium (Coumadin) 5 mg PO ONETIME ONE Stop: 01/22/17 18:01 Last Admin: 01/22/17 17:15 Dose: 5 mg Warfarin Sodium (Coumadin) 7.5 mg PO ONETIME@1800 ONE Stop: 01/23/17 18:01 Preanesthetic Assessment - ANESTHESIA/TRANSFUSION/FAMILY HX Anesthesia/Transfusion History: Prior Anesthesia, Prior Transfusion Type of Anesthesia Reaction: Denies: Allergy, Anesthesia Awareness, Excessive Somnolence, Excessive Nausea/Vomiting, Excessive Itching, Excessive Shivering, Malignant Hyperthermia, Malignant Hyperthermia, Family History, Pseudocholinesterase Deficiency, Pseudocholinesterase Deficiency, Family History of, Urinary Retention, Unknown, Other (see below) Family History of Anesthesia Reaction: No Intubation History: Unknown Type of Transfusion Reactions: Denies: Anaphylaxis, Bloody Urine, Chills, Fainting/Dizziness, Fever, Flank Pain, Hemolytic Reaction, Hives, Rash, Transfusion Related Acute Lung Injury, Unknown, Other (see below) - REVIEW OF SYSTEMS Constitutional: Reports: no symptoms PAIN MANAGEMENT SPECIALIST: Reports: numbness (bilateral feet.), stroke/TIA (CVA 2013) Respiratory: Reports: no symptoms (history of childhood asthma/ history of PE's. (2004)), cough (recent fall which has caused sore right sided ribs.) Cardiovascular: Reports: no symptoms (CHF on diuretics/[place] 2013 with stent placement./CAD/CABG times 5 in 1999/history of Afib/ AICD noted), blood pressure problem, dyspnea on exertion, fainting, lightheadedness (postural hypotension) GI: Reports: no symptoms (occasional GERD) Other: Reports: None (history of CKD (3) elevaed BUN, Cr noted.), Easy Bleeding , Easy Bruising, Diabetes (A1C=6.7, currently not on any medication. ), Sinus Problem, Anxiety - PHYSICAL ASSESSMENT HR: 70 O2 Sat by Pulse Oximetry: 100 RR: 18 BP: 133/82 Temp: 36.2 C Vital Signs: Last Vital Signs Temp 36.2 C 01/24/17 10:57 Pulse 70 01/24/17 10:57 Resp 18 01/24/17 10:57 BP 133/82 01/24/17 10:57 Pulse Ox 100 01/24/17 10:57 Height: 1.88 m Weight: 118.07 kg NPO Status Date: 01/24/17 NPO Status Time: 07:00 ASA Class: 3 Mental Status: Alert & Oriented x3 Airway Class: Mallampati = 2 Dentition: Reports: Dentures (upper), Partial (lower) Thyro-Mental Finger Breadths: 3 Mouth Opening Finger Breadths: 3 ROM/Head Extension: Full Respiratory Status: lungs clear to auscultation bilaterally Cardiovascular Status: regular rate & rhythm, normal S1, S2, no murmur, blood pressure WNL - LAB Values: Laboratory Last Values WBC 4.95 K/mm3 (4.23-9.07) 01/24/17 06:08 RBC 3.99 M/mm3 (4.63-6.08) L 01/24/17 06:08 Hgb 11.9 gm/L (13.7-17.5) L 01/24/17 06:08 Hct 35.9 % (40.1-51.0) L 01/24/17 06:08 MCV 90.0 fl (79.0-92.2) 01/24/17 06:08 MCH 29.8 pg (25.7-32.2) 01/24/17 06:08 MCHC 33.1 g/dl (32.2-35.5) 01/24/17 06:08 RDW Std Deviation 48.7 fL (35.1-43.9) H 01/24/17 06:08 Plt Count 119 K/mm3 (163-337) L 01/24/17 06:08 MPV 10.4 fl (9.4-12.3) 01/24/17 06:08 Neut % (Auto) 60.1 % (34.0-67.9) 01/24/17 06:08 Lymph % (Auto) 14.7 % (21.8-53.1) L 01/24/17 06:08 [place] % (Auto) 22.4 % (5.3-12.2) H 01/24/17 06:08 Eos % (Auto) 2.4 (0.8-7.0) 01/24/17 06:08 Baso % (Auto) 0.2 % (0.1-1.2) 01/24/17 06:08 Neut # 2.97 K/mm3 (1.78-5.38) 01/24/17 06:08 Lymph # 0.73 K/mm3 (1.32-3.57) L 01/24/17 06:08 [place] # 1.11 K/mm3 (0.30-0.82) H 01/24/17 06:08 Eos # 0.12 K/mm3 (0.04-0.54) 01/24/17 06:08 Baso # 0.01 K/mm3 (0.01-0.08) 01/24/17 06:08 Manual Slide Review Abnormal smear 01/24/17 06:08 PT 22.4 SECONDS (8.0-13.0) H 01/23/17 05:38 INR 1.97 01/23/17 05:38 Sodium 133 mEq/L (136-145) L 01/24/17 06:08 Potassium 3.7 mEq/L (3.5-5.1) 01/24/17 06:08 Chloride 100 mEq/L (98-107) 01/24/17 06:08 Carbon Dioxide 24 mEq/L (21-32) 01/24/17 06:08 Anion Gap 12.7 (5-15) 01/24/17 06:08 BUN 50 mg/dL (7-18) H 01/24/17 06:08 Creatinine 1.5 mg/dL (0.7-1.3) H 01/24/17 06:08 Est Cr Clr Drug Dosing 52.52 mL/min 01/24/17 06:08 Estimated GFR (MDRD) 46 mL/min (>60) 01/24/17 06:08 BUN/Creatinine Ratio 33.3 (14-18) H 01/24/17 06:08 Glucose 111 mg/dL (83-115) 01/24/17 06:08 Hemoglobin A1c 6.70 % (4.50-6.20) H 01/23/17 05:30 Calcium 8.1 mg/dL (8.5-10.1) L 01/24/17 06:08 Magnesium 2.0 mg/dl (1.8-2.4) 01/24/17 06:08 Total Bilirubin 0.7 mg/dL (0.2-1.0) 01/22/17 10:20 AST 25 U/L (15-37) 01/22/17 10:20 ALT 33 U/L (16-63) 01/22/17 10:20 Alkaline Phosphatase 83 U/L (46-116) 01/22/17 10:20 C-Reactive Protein 3.2 mg/dL (<1.0) H* 01/24/17 06:08 Total Protein 6.9 g/dl (6.4-8.2) 01/22/17 10:20 Albumin 3.0 g/dl (3.4-5.0) L 01/22/17 10:20 Globulin 3.9 gm/dL 01/22/17 10:20 Albumin/Globulin Ratio 0.8 (1-2) L 01/22/17 10:20 Free T4 1.03 ng/dL (0.76-1.46) 01/23/17 05:30 TSH 3rd Generation 2.702 uIU/mL (0.358-3.74) 01/23/17 05:30 Reviewed and noted. - ALLERGIES Allergies/Adverse Reactions: Allergies Allergy/AdvReac Type Severity Reaction Status Date / Time allopurinol Allergy Rash Verified 01/22/17 13:25 cefazolin Allergy Hives Verified 01/22/17 13:25 celecoxib Allergy Rash Verified 01/22/17 13:25 clindamycin Allergy Hives Verified 01/22/17 13:25 ibuprofen Allergy Rash Verified 01/22/17 13:25 NSAIDS (Non-Steroidal Allergy Rash Verified 01/22/17 13:25 Anti-Inflamma oxaprozin Allergy Rash Verified 01/22/17 13:25 vancomycin Allergy Hives Verified 01/22/17 13:25 - ANESTHESIA PLAN Preop Beta Manoj: Yes Beta Manoj: Carvedilol Beta-Manoj Last Dose Date: 01/24/17 Beta-Manoj Last Dose Time: 05:42 Anesthesia Type Planned: MAC (with ankle block) - ACKNOWLEDGEMENTS Pt an Appropriate Candidate for the Planned Anesthesia: Yes Alternatives and Risks of Anesthesia Discussed w Pt/Guardian: Yes Pt/Guardian Understands and Agrees with Anesthesia Plan: Yes
[2017-01-24] MEDS ORDERED: Sodium Chloride 0.9% 1,000 ML IV SCH (12:15)
--- NOTE | 2017-01-24 13:49 | PCM.PN ---
- General Info Date of Service: 01/24/17 Admission Dx/Problem (Free Text): Admission Diagnosis/Problem Admission Diagnosis/Problem Cellulitis 2nd toe cellulitis/infection Plan for surgery/amputation tomorrow am with Dr. Reyes Functional Status: Reports: pain controlled, tolerating diet, urinating. Denies : new symptoms - Review of Systems General: Reports: No Symptoms HEENT: Reports: no symptoms Pulmonary: Reports: no symptoms Cardiovascular: Reports: No Symptoms Gastrointestinal: Reports: No symptoms Genitourinary: Reports: no symptoms Musculoskeletal: Reports: foot pain (minimal) Skin: Reports: other (cellulitis infection to foot) Neurological: Reports: No Symptoms Psychiatric: Reports: no symptoms - Patient Data Vitals - most recent: Last Vital Signs Temp 97.2 F 01/24/17 12:07 Pulse 70 01/24/17 12:07 Resp 18 01/24/17 12:07 BP 133/82 01/24/17 12:07 Pulse Ox 100 01/24/17 12:07 Weight - most recent: 260 lb 4.8 oz I&O - last 24 hours: Intake & Output 01/23/17 01/24/17 01/24/17 22:59 06:59 14:59 Intake Total 1290 2000 240 Output Total 950 400 Balance 340 1600 240 Lab Results last 24 hrs: Laboratory Results - last 24 hr 01/24/17 01/24/17 Range/Units 06:08 06:08 WBC 4.95 (4.23-9.07) K/mm3 RBC 3.99 L (4.63-6.08) M/mm3 Hgb 11.9 L (13.7-17.5) gm/L Hct 35.9 L (40.1-51.0) % MCV 90.0 (79.0-92.2) fl MCH 29.8 (25.7-32.2) pg MCHC 33.1 (32.2-35.5) g/dl RDW Std Deviation 48.7 H (35.1-43.9) fL Plt Count 119 L (163-337) K/mm3 MPV 10.4 (9.4-12.3) fl Neut % (Auto) 60.1 (34.0-67.9) % Lymph % (Auto) 14.7 L (21.8-53.1) % [place] % (Auto) 22.4 H (5.3-12.2) % Eos % (Auto) 2.4 (0.8-7.0) Baso % (Auto) 0.2 (0.1-1.2) % Neut # 2.97 (1.78-5.38) K/mm3 Lymph # 0.73 L (1.32-3.57) K/mm3 [place] # 1.11 H (0.30-0.82) K/mm3 Eos # 0.12 (0.04-0.54) K/mm3 Baso # 0.01 (0.01-0.08) K/mm3 Manual Slide Review Abnormal smear Sodium 133 L (136-145) mEq/L Potassium 3.7 (3.5-5.1) mEq/L Chloride 100 (98-107) mEq/L Carbon Dioxide 24 (21-32) mEq/L Anion Gap 12.7 (5-15) BUN 50 H (7-18) mg/dL Creatinine 1.5 H (0.7-1.3) mg/dL Est Cr Clr Drug Dosing 52.52 mL/min Estimated GFR (MDRD) 46 (>60) mL/min BUN/Creatinine Ratio 33.3 H (14-18) Glucose 111 (83-115) mg/dL Calcium 8.1 L (8.5-10.1) mg/dL Magnesium 2.0 (1.8-2.4) mg/dl C-Reactive Protein 3.2 H* (<1.0) mg/dL Med Orders - Current: Current Medications Acetaminophen (Tylenol) 650 mg PO Q4H PRN PRN Reason: Pain (Mild 1-3)/fever Acetaminophen/Hydrocodone Bitart ([place] 325-5 Mg) 1 tab PO Q4H PRN PRN Reason: Pain (moderate 4-6) Last Admin: 01/24/17 13:27 Dose: 1 tab Albuterol/Ipratropium (Duoneb 3.0-0.5 Mg/3 Ml) 3 ml NEB Q4H PRN PRN Reason: Shortness Of Breath/wheezing Amlodipine Besylate (Norvasc) 5 mg PO DAILY [facility] Last Admin: 01/24/17 09:36 Dose: 5 mg Aspirin (Halfprin) 81 mg PO DAILY [facility] Last Admin: 01/24/17 09:36 Dose: 81 mg Bisacodyl (Dulcolax) 5 mg PO DAILY PRN PRN Reason: Constipation Carvedilol (Coreg) 25 mg PO BIDMEALS [facility] Last Admin: 01/24/17 06:37 Dose: Not Given Colchicine (Colcrys) 0.6 mg PO QPM [facility] Last Admin: 01/23/17 17:35 Dose: 0.6 mg Furosemide (Lasix) 40 mg PO DAILY@1400 [facility] Last Admin: 01/24/17 13:27 Dose: 40 mg Furosemide (Lasix) 60 mg PO DAILY@0600 [facility] Last Admin: 01/24/17 05:43 Dose: 60 mg Heparin Sodium (Porcine) (Heparin Sodium) 5,000 units SUBCUT Q8H [facility] Last Admin: 01/24/17 09:37 Dose: Not Given Hydralazine HCl (Apresoline) 20 mg IVPUSH Q4H PRN PRN Reason: Hypertension Hydromorphone HCl (Dilaudid) 0.25 mg IVPUSH Q2H PRN PRN Reason: Pain (severe 7-10) Promethazine HCl 12.5 mg/ (Sodium Chloride) 50.5 mls @ 100 mls/hr IV Q6H PRN PRN Reason: Nausea/Vomiting Linezolid 600 mg/ Premix 300 mls @ 300 mls/hr IV Q12H [facility] Last Admin: 01/24/17 09:34 Dose: 300 mls/hr Sodium Chloride (Normal Saline) 1,000 mls @ 50 mls/hr IV ASDIRECTED [facility] Lorazepam (Ativan) 0.5 mg IV Q6H PRN PRN Reason: Anxiety Magnesium Sulfate (Pharmacy To Dose - Magnesium Replacement) 1 dose .XX ASDIRECTED [facility] Metoprolol Tartrate (Lopressor) 5 mg IVPUSH Q4H PRN PRN Reason: Tachycardia Nitroglycerin (Nitrostat) 0.4 mg SL ASDIRECTED PRN PRN Reason: Chest Pain Ondansetron HCl (Zofran) 4 mg IV Q6H PRN PRN Reason: Nausea/Vomiting Febuxostat [Uloric] (1 Tab) 0 each PO DAILY [facility] Last Admin: 01/24/17 09:36 Dose: Not Given Saw/Vit E/Sod Teri/Lyc/Beta/Pyg [ Prostate Health Caplet] 0 each PO BID [facility] Last Admin: 01/24/17 09:37 Dose: 1 each Polyethylene Glycol (Miralax) 17 gm PO DAILY PRN PRN Reason: Constipation Last Admin: 01/23/17 14:44 Dose: 17 gm Potassium Chloride (Pharmacy To Dose - Potassium Replacement) 1 dose .XX ASDIRECTED [facility] Senna/Docusate Sodium (Senna Plus) 1 tab PO BID PRN PRN Reason: Constipation Simvastatin (Zocor) 20 mg PO BEDTIME [facility] Last Admin: 01/23/17 20:58 Dose: 20 mg Sodium Chloride (Saline Flush) 10 ml FLUSH ASDIRECTED PRN PRN Reason: Keep Vein Open Last Admin: 01/22/17 10:34 Dose: 10 ml Spironolactone (Aldactone) 25 mg PO DAILY [facility] Last Admin: 01/24/17 09:36 Dose: 25 mg Temazepam (Restoril) 30 mg PO BEDTIME PRN PRN Reason: Sleep Discontinued Medications Enoxaparin Sodium (Lovenox) 40 mg SUBCUT DAILY [facility] Last Admin: 01/23/17 09:34 Dose: 40 mg Furosemide (Lasix) 60 mg PO DAILY [facility] Last Admin: 01/23/17 09:32 Dose: 60 mg Furosemide (Lasix) 40 mg PO BEDTIME [facility] Last Admin: 01/22/17 20:55 Dose: 40 mg Hydromorphone HCl (Dilaudid) 0.25 mg IVPUSH Q2H PRN PRN Reason: Pain (severe 7-10) Last Admin: 01/23/17 16:37 Dose: 0.25 mg Linezolid 600 mg/ Premix 300 mls @ 300 mls/hr IV ONETIME ONE Stop: 01/22/17 10:52 Last Admin: 01/22/17 10:33 Dose: 300 mls/hr Magnesium Sulfate 2 gm/ Premix 50 mls @ 25 mls/hr IV ONETIME ONE Stop: 01/23/17 13:44 Last Admin: 01/23/17 12:45 Dose: 25 mls/hr Sodium Chloride (Normal Saline) 1,000 mls @ 50 mls/hr IV ASDIRECTED [facility] Temazepam (Restoril) 30 mg PO BEDTIME PRN PRN Reason: Sleep Warfarin Sodium (Coumadin) 5 mg PO DAILY@1800 [facility] Warfarin Sodium (Pharmacy To Dose - Warfarin) 1 dose .XX DAILY [facility] Last Admin: 01/23/17 15:46 Dose: Not Given Warfarin Sodium (Coumadin) 5 mg PO ONETIME ONE Stop: 01/22/17 18:01 Last Admin: 01/22/17 17:15 Dose: 5 mg Warfarin Sodium (Coumadin) 7.5 mg PO ONETIME@1800 ONE Stop: 01/23/17 18:01 - Exam Quality Assessment: DVT prophylaxis General: alert, oriented, cooperative, no acute distress HEENT: Pupils equal, Pupils reactive, EOMI Neck: supple Lungs: Clear to auscultation, Normal respiratory effort Cardiovascular: Irregular Rhythm Abdomen: bowel sounds present, soft, no tenderness (Male) Exam: Deferred Extremities: no edema, other (left foot with erythema/cellulitis) Peripheral Pulses: 0: dorsalis pedis (L) (trace/minimal pulses), dorsalis pedis (R) (trace/minimal pulses) Skin: other (as under extremities) Neurological: no new focal deficit Psy/Mental Status: alert, normal affect, normal mood - Problem List & Annotations (1) Cellulitis of left toe SNOMED Code(s): 75749587 Code(s): L03.032 - CELLULITIS OF LEFT TOE Status: Acute Priority: High Current Visit: Yes (2) Cellulitis of left foot SNOMED Code(s): 520509393 Code(s): L03.116 - CELLULITIS OF LEFT LOWER LIMB Status: Acute Priority: High Current Visit: Yes (3) Diabetes 1.5, managed as type 2 SNOMED Code(s): 032849182 Code(s): E13.9 - OTHER SPECIFIED DIABETES MELLITUS WITHOUT COMPLICATIONS Status: Chronic Priority: High Current Visit: Yes (4) CKD (chronic kidney disease) SNOMED Code(s): 951380597 Code(s): N18.9 - CHRONIC KIDNEY DISEASE, UNSPECIFIED Status: Chronic Priority: High Current Visit: Yes Qualifiers: Chronic kidney disease stage: unspecified stage Qualified Code(s): N18.9 - Chronic kidney disease, unspecified - Problem List Review Problem List Initiated/Reviewed/Updated: Yes - Plan Plan:: Assessment/Plan: Acute: Left Foot SSTI: 2nd Toe Ischemia/Gangrene associated with Edema and Erythema - Risk factors: DM, PVD, Vascular Insufficiency, Immobility and Obesity - Carries multiple drug allergies: Clindamycin, Vancomycin, and Cefazolin - Linezolid 600 mg IV Q12 - Pain Medications and Supportive Care - MRI: contraindicated due to pacer - CT scan: Vascular calcification and diffuse tissue edema; no osteomyelitis by CT scan - Dr. 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
[2017-01-24] MEDS: Colchicine 0.6 MG Tab PO SCH (17:18)
--- NOTE | 2017-01-24 17:33 | PCM.PN ---
- General Info Date of Service: 01/24/17 Admission Dx/Problem (Free Text): Admission Diagnosis/Problem Admission Diagnosis/Problem Cellulitis 2nd toe cellulitis/infection Plan for surgery/amputation tomorrow am with Dr. Reyes Subjective Update: Patient seen at bedside, admitted for diabetic painful ascending cellulitis, and acute ischemic gangrene involving LEFT 2nd toe. His pain is currently controlled with IV Dilaudid; made worse with WB. Functional Status: Reports: pain controlled - Review of Systems Musculoskeletal: Reports: foot pain, other (Toe pain, LEFT 2nd toe) Skin: Reports: other (black/dry gangrene, LEFT 2nd toe; dorsal LEFT forefoot/ midfoot ascending cellulitis. ) - Patient Data Vitals - most recent: Last Vital Signs Temp 36.3 C 01/24/17 15:16 Pulse 66 01/24/17 17:18 Resp 18 01/24/17 15:16 BP 139/75 01/24/17 17:18 Pulse Ox 96 01/24/17 15:16 Weight - most recent: 118.07 kg I&O - last 24 hours: Intake & Output 01/24/17 01/24/17 01/24/17 06:59 14:59 22:59 Intake Total 2000 240 1600 Output Total 400 1375 Balance 1600 240 225 Lab Results last 24 hrs: Laboratory Results - last 24 hr 01/24/17 01/24/17 Range/Units 06:08 06:08 WBC 4.95 (4.23-9.07) K/mm3 RBC 3.99 L (4.63-6.08) M/mm3 Hgb 11.9 L (13.7-17.5) gm/L Hct 35.9 L (40.1-51.0) % MCV 90.0 (79.0-92.2) fl MCH 29.8 (25.7-32.2) pg MCHC 33.1 (32.2-35.5) g/dl RDW Std Deviation 48.7 H (35.1-43.9) fL Plt Count 119 L (163-337) K/mm3 MPV 10.4 (9.4-12.3) fl Neut % (Auto) 60.1 (34.0-67.9) % Lymph % (Auto) 14.7 L (21.8-53.1) % [place] % (Auto) 22.4 H (5.3-12.2) % Eos % (Auto) 2.4 (0.8-7.0) Baso % (Auto) 0.2 (0.1-1.2) % Neut # 2.97 (1.78-5.38) K/mm3 Lymph # 0.73 L (1.32-3.57) K/mm3 [place] # 1.11 H (0.30-0.82) K/mm3 Eos # 0.12 (0.04-0.54) K/mm3 Baso # 0.01 (0.01-0.08) K/mm3 Manual Slide Review Abnormal smear Sodium 133 L (136-145) mEq/L Potassium 3.7 (3.5-5.1) mEq/L Chloride 100 (98-107) mEq/L Carbon Dioxide 24 (21-32) mEq/L Anion Gap 12.7 (5-15) BUN 50 H (7-18) mg/dL Creatinine 1.5 H (0.7-1.3) mg/dL Est Cr Clr Drug Dosing 52.52 mL/min Estimated GFR (MDRD) 46 (>60) mL/min BUN/Creatinine Ratio 33.3 H (14-18) Glucose 111 (83-115) mg/dL Calcium 8.1 L (8.5-10.1) mg/dL Magnesium 2.0 (1.8-2.4) mg/dl C-Reactive Protein 3.2 H* (<1.0) mg/dL Med Orders - Current: Current Medications Acetaminophen (Tylenol) 650 mg PO Q4H PRN PRN Reason: Pain (Mild 1-3)/fever Acetaminophen/Hydrocodone Bitart ([place] 325-5 Mg) 1 tab PO Q4H PRN PRN Reason: Pain (moderate 4-6) Last Admin: 01/24/17 13:27 Dose: 1 tab Albuterol/Ipratropium (Duoneb 3.0-0.5 Mg/3 Ml) 3 ml NEB Q4H PRN PRN Reason: Shortness Of Breath/wheezing Amlodipine Besylate (Norvasc) 5 mg PO DAILY [facility] Last Admin: 01/24/17 09:36 Dose: 5 mg Aspirin (Halfprin) 81 mg PO DAILY [facility] Last Admin: 01/24/17 09:36 Dose: 81 mg Bisacodyl (Dulcolax) 5 mg PO DAILY PRN PRN Reason: Constipation Carvedilol (Coreg) 25 mg PO BIDMEALS [facility] Last Admin: 01/24/17 17:18 Dose: 25 mg Colchicine (Colcrys) 0.6 mg PO QPM [facility] Last Admin: 01/24/17 17:18 Dose: 0.6 mg Furosemide (Lasix) 40 mg PO DAILY@1400 [facility] Last Admin: 01/24/17 13:27 Dose: 40 mg Furosemide (Lasix) 60 mg PO DAILY@0600 [facility] Last Admin: 01/24/17 05:43 Dose: 60 mg Hydralazine HCl (Apresoline) 20 mg IVPUSH Q4H PRN PRN Reason: Hypertension Hydromorphone HCl (Dilaudid) 0.25 mg IVPUSH Q2H PRN PRN Reason: Pain (severe 7-10) Promethazine HCl 12.5 mg/ (Sodium Chloride) 50.5 mls @ 100 mls/hr IV Q6H PRN PRN Reason: Nausea/Vomiting Linezolid 600 mg/ Premix 300 mls @ 300 mls/hr IV Q12H [facility] Last Admin: 01/24/17 09:34 Dose: 300 mls/hr Sodium Chloride (Normal Saline) 1,000 mls @ 50 mls/hr IV ASDIRECTED [facility] Lorazepam (Ativan) 0.5 mg IV Q6H PRN PRN Reason: Anxiety Magnesium Sulfate (Pharmacy To Dose - Magnesium Replacement) 1 dose .XX ASDIRECTED [facility] Metoprolol Tartrate (Lopressor) 5 mg IVPUSH Q4H PRN PRN Reason: Tachycardia Nitroglycerin (Nitrostat) 0.4 mg SL ASDIRECTED PRN PRN Reason: Chest Pain Ondansetron HCl (Zofran) 4 mg IV Q6H PRN PRN Reason: Nausea/Vomiting Febuxostat [Uloric] (1 Tab) 0 each PO DAILY [facility] Last Admin: 01/24/17 09:36 Dose: Not Given Saw/Vit E/Sod Teri/Lyc/Beta/Pyg [ Prostate Health Caplet] 0 each PO BID [facility] Last Admin: 01/24/17 09:37 Dose: 1 each Polyethylene Glycol (Miralax) 17 gm PO DAILY PRN PRN Reason: Constipation Last Admin: 01/23/17 14:44 Dose: 17 gm Potassium Chloride (Pharmacy To Dose - Potassium Replacement) 1 dose .XX ASDIRECTED [facility] Senna/Docusate Sodium (Senna Plus) 1 tab PO BID PRN PRN Reason: Constipation Simvastatin (Zocor) 20 mg PO BEDTIME [facility] Last Admin: 01/23/17 20:58 Dose: 20 mg Sodium Chloride (Saline Flush) 10 ml FLUSH ASDIRECTED PRN PRN Reason: Keep Vein Open Last Admin: 01/22/17 10:34 Dose: 10 ml Spironolactone (Aldactone) 25 mg PO DAILY [facility] Last Admin: 01/24/17 09:36 Dose: 25 mg Temazepam (Restoril) 30 mg PO BEDTIME PRN PRN Reason: Sleep Discontinued Medications Enoxaparin Sodium (Lovenox) 40 mg SUBCUT DAILY [facility] Last Admin: 01/23/17 09:34 Dose: 40 mg Furosemide (Lasix) 60 mg PO DAILY [facility] Last Admin: 01/23/17 09:32 Dose: 60 mg Furosemide (Lasix) 40 mg PO BEDTIME [facility] Last Admin: 01/22/17 20:55 Dose: 40 mg Heparin Sodium (Porcine) (Heparin Sodium) 5,000 units SUBCUT Q8H [facility] Last Admin: 01/24/17 09:37 Dose: Not Given Hydromorphone HCl (Dilaudid) 0.25 mg IVPUSH Q2H PRN PRN Reason: Pain (severe 7-10) Last Admin: 01/23/17 16:37 Dose: 0.25 mg Linezolid 600 mg/ Premix 300 mls @ 300 mls/hr IV ONETIME ONE Stop: 01/22/17 10:52 Last Admin: 01/22/17 10:33 Dose: 300 mls/hr Magnesium Sulfate 2 gm/ Premix 50 mls @ 25 mls/hr IV ONETIME ONE Stop: 01/23/17 13:44 Last Admin: 01/23/17 12:45 Dose: 25 mls/hr Sodium Chloride (Normal Saline) 1,000 mls @ 50 mls/hr IV ASDIRECTED [facility] Temazepam (Restoril) 30 mg PO BEDTIME PRN PRN Reason: Sleep Warfarin Sodium (Coumadin) 5 mg PO DAILY@1800 [facility] Warfarin Sodium (Pharmacy To Dose - Warfarin) 1 dose .XX DAILY [facility] Last Admin: 01/23/17 15:46 Dose: Not Given Warfarin Sodium (Coumadin) 5 mg PO ONETIME ONE Stop: 01/22/17 18:01 Last Admin: 01/22/17 17:15 Dose: 5 mg Warfarin Sodium (Coumadin) 7.5 mg PO ONETIME@1800 ONE Stop: 01/23/17 18:01 - Exam Extremities: edema (moderate to severe pain on palpation, overlying LEFT dorso forefoot/midfoot. ) Peripheral Pulses: 0: posterior tibial (L), dorsalis pedis (L) Skin: dry, rash Wound/Incisions: drainage, erythema, other (inflammation; + calor with touch dorsal LEFT midfoot/forefoot.) - Problem List Review Problem List Initiated/Reviewed/Updated: Yes - My Orders Last 24 Hours: My Active Orders 01/23/17 16:58 Schedule Procedure [COMM] Routine 1.) NPO after midnight. Surgical amputation, LEFT 2nd toe with I&D @ 0730 01/25. 2.) Consent to read: Amputation, LEFT 2nd toe to metatarsal phalangeal joint. 3.) Will F/U tomorrow p.m. - Assessment Assessment:: Acute Dry Gangrene, LEFT 2nd toe - Plan Plan:: Assessment/Plan: Acute: Left Foot SSTI: 2nd Toe Ischemia/Gangrene associated with Edema and Erythema - Risk factors: DM, PVD, Vascular Insufficiency, Immobility and Obesity - Carries multiple drug allergies: Clindamycin, Vancomycin, and Cefazolin - Linezolid 600 mg IV Q12 - Pain Medications and Supportive Care - MRI: contraindicated due to pacer - CT scan: Vascular calcification and diffuse tissue edema; no osteomyelitis by CT scan - Dr. 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
[2017-01-24] MEDS: Simvastatin 20 MG Tab PO SCH (21:21)
[2017-01-25] MEDS: Carvedilol 12.5 MG Tab PO SCH ×3 (05:18→16:24)
[2017-01-25] MEDS: Furosemide 40 MG Tab PO SCH ×2 (05:20→13:53)
[2017-01-25] MEDS ORDERED: Sodium Chloride 0.9% 1,000 ML IV SCH (06:00)
[2017-01-25] MEDS ORDERED: Lidocaine 1% 30 ML SDV ONE (06:27)
[2017-01-25] MEDS ORDERED: fentaNYL 100 MCG/2 ML SDV ONE (06:55)
[2017-01-25] MEDS ORDERED: Lidocaine 1% 4 ML ONE (06:55)
[2017-01-25] MEDS ORDERED: Propofol 200 MG/20 ML SDV ONE (06:55)
[2017-01-25] MEDS: Bupivacaine 0.5% 30 ML SDV ONE ×2 (07:34→08:05)
[2017-01-25] MEDS: Linezolid 600 MG in Premix Bag 1 BAG IV SCH ×2 (08:27→20:31)
[2017-01-25] MEDS: Aspirin 81 MG Tab.EC PO SCH (08:28)
--- NOTE | 2017-01-25 08:28 | PCM48HPAN ---
Post Anesthesia Note - EVALUATION WITHIN 48HRS OF ANESTHETIC Vital Signs in Normal Range: Yes Patient Participated in Evaluation: Yes Respiratory Function Stable: Yes Airway Patent: Yes Cardiovascular Function Stable: Yes Hydration Status Stable: Yes Pain Control Satisfactory: Yes Nausea and Vomiting Control Satisfactory: Yes Mental Status Recovered: Yes
[2017-01-25] MEDS: amLODIPine 5 MG Tab PO SCH (08:29)
[2017-01-25] MEDS: Acetaminophen/HYDROcodone 325-5 MG Tab PO PRN ×4 (08:29→20:30)
[2017-01-25] MEDS: Spironolactone 25 MG Tab PO SCH (08:29)
--- NOTE | 2017-01-25 08:31 | PCM.OPNOTE ---
- General Post-Op/Procedure Note Date of Surgery/Procedure: 01/25/17 Operative Procedure(s): Amputation, LEFT 2nd toe to level of MTPJ Findings: dry gangrene, distal 1/2 LEFT 2nd toe, due to acute ischemia. Pre Op Diagnosis: Acute Ischemia, LEFT 2nd toe. Ascending Cellulitis, LEFT 2nd , toe & foot. Dry Gangrene, LEFT 2nd toe Post-Op Diagnosis: same Anesthesia Technique: Local (10ccs 1:1 mixture of 0.5% Marcaine pl. + 1% Lidocaine pl.), MAC Primary Surgeon: Artie Reyes II Anesthesia Provider: Jaspreet Prescott Pathology: bone, soft-tissue, LEFT 2nd toe Complications: None Condition: Good Free Text/Narrative:: Intake & Output 01/24/17 01/25/17 01/25/17 22:59 06:59 14:59 Intake Total 1900 650 Output Total 1375 650 Balance 525 0 Patient left OR for PACU, with vital signs stable & vascular status grossly intact, to remaining digits, LEFT foot.
[2017-01-25] MEDS: FEBUXOSTAT PO SCH (08:55)
[2017-01-25] MEDS: Saw/Vit E/Sod Sel/Lyc/Beta/Pyg [Prostate Health Caplet] PO SCH ×2 (09:00→20:31)
--- NOTE | 2017-01-25 11:08 | OR ---
DATE OF OPERATION: 01/25/2017 SURGEON: Artie Reyes II, DPM LOCATION: [facility]. ANESTHESIA: MAC with local infiltrative block. ANESTHESIA PROVIDER: Jaspreet Prescott CRNA. HEMOSTASIS: Left pneumatic ankle tourniquet at 250 mmHg x22 minutes. PREOPERATIVE DIAGNOSIS: 1. Painful and symptomatic acute ischemia, left second toe. 2. Painful and symptomatic ascending cellulitis, left second toe. 3. Dry gangrene, left second toe. POSTOPERATIVE DIAGNOSIS: 1. Painful and symptomatic acute ischemia, left second toe. 2. Painful and symptomatic ascending cellulitis, left second toe. 3. Dry gangrene, left second toe. OPERATION PERFORMED: Amputation of left second toe to MTPJ level. DESCRIPTION OF PROCEDURE: The patient was an inpatient at the hospital, having previously been admitted through the ER. The patient was cleared for today's surgery by the assigned anesthesia provider. IV access had already been established upon admission, and the patient has been receiving antibiotics consisting of vancomycin and Zosyn. The patient was then brought to the OR via his gurney and then was assisted with transfer onto the operating room table in supine position. The patient was given a combination of sedations and was adequately sedated before receiving 10 mL of a 1:1 mixture of 1% lidocaine plain and 0.5% Marcaine plain in the form of a local infiltrative block about the left second toe just proximal to the MTPJ. Anesthesia was tested and found to be adequate. The left lower extremity, at the level of the ankle joint, was wrapped with cotton Webril padding in preparation for a nonsterile ankle tourniquet, which was then draped with a sterile drape. The left lower extremity was then prepped and draped in the usual aseptic manner. The left lower extremity pneumatic ankle tourniquet was then inflated to 250 mmHg. Attention was then directed to the left second toe, where the distal one-half demonstrated dry black gangrene, and the rest of the digit to the level of the MTPJ demonstrated erythematous inflammatory streaking consistent with ascending cellulitis. An incision was then created in a circumferential manner, offset to the longitudinal axis of the second toe in a loop fashion. Aerobic and anaerobic cultures were obtained from the wound site. The left second toe overlying the MTPJ was disarticulated and was sent to pathology for gross microscopic evaluation. The wound was then copiously lavaged with sterile saline solution. The distal articular head of the left second metatarsal demonstrated evidence of either gouty tophi and/or steroid accumulation. It was resected to a bleeding base. Throughout the case, the patient's wound site was adequately perfused with small continuous bleeding/oozing. The wound was once again copiously lavaged with sterile saline solution, and the wound margins were reapproximated utilizing 4-0 Prolene. An additional 10 mL of 0.5% Marcaine plain would be injected postoperatively. Dressings consisted of Betadine-soaked Adaptic gauze, 4x4 gauze, and Hiren. At this time, no Yasmani bandage was utilized, but the bandages were secured with plastic tape. Upon completion of the surgery, the left pneumatic ankle tourniquet was deflated, and the remaining digits of the left foot became pink indicating normal vascular perfusion had returned. The patient appeared to tolerate the procedure and anesthesia well, and will leave the OR for recovery with his vital signs being stable and vascular status intact to the remaining digits of the left foot. There were no apparent obvious complications. After postoperative anesthesia care unit, the patient will be transferred back to his hospital bed and resuming all preoperative orders. The patient will ambulate partial weightbearing with a postoperative shoe about his left foot. The estimated blood loss for this procedure was approximately 15 mL. Once again, there were no apparent obvious complications. ESTIMATED BLOOD LOSS: MMODAL /[id number]
--- NOTE | 2017-01-25 15:18 | PCM.PN ---
- General Info Date of Service: 01/25/17 Admission Dx/Problem (Free Text): Admission Diagnosis/Problem Admission Diagnosis/Problem Cellulitis 2nd toe cellulitis/infection S/P amputation of lt 2nd toe with Dr. Reyes, Podiatry this morning. Patient reports pain under good control at present. Dressing CDI. Functional Status: Reports: pain controlled, tolerating diet, urinating. Denies : new symptoms - Review of Systems General: Reports: No Symptoms HEENT: Reports: no symptoms Pulmonary: Reports: no symptoms Cardiovascular: Reports: No Symptoms Gastrointestinal: Reports: No symptoms Genitourinary: Reports: no symptoms Musculoskeletal: Reports: foot pain (minimal) Skin: Reports: no symptoms Neurological: Reports: No Symptoms Psychiatric: Reports: no symptoms - Patient Data Vitals - most recent: Last Vital Signs Temp 98.1 F 01/25/17 11:03 Pulse 62 01/25/17 11:03 Resp 16 01/25/17 11:03 BP 126/68 01/25/17 11:03 Pulse Ox 97 01/25/17 13:00 Weight - most recent: 259 lb 11.2 oz I&O - last 24 hours: Intake & Output 01/25/17 01/25/17 01/25/17 06:59 14:59 22:59 Intake Total 650 1600 120 Output Total 650 850 Balance 0 750 120 Lab Results last 24 hrs: Laboratory Results - last 24 hr 01/25/17 01/25/17 01/25/17 Range/Units 04:49 05:32 05:52 WBC 4.69 (4.23-9.07) K/mm3 RBC 4.02 L (4.63-6.08) M/mm3 Hgb 12.2 L (13.7-17.5) gm/L Hct 36.3 L (40.1-51.0) % MCV 90.3 (79.0-92.2) fl MCH 30.3 (25.7-32.2) pg MCHC 33.6 (32.2-35.5) g/dl RDW Std Deviation 48.5 H (35.1-43.9) fL Plt Count 131 L (163-337) K/mm3 MPV 10.5 (9.4-12.3) fl Neut % (Auto) 63.6 (34.0-67.9) % Lymph % (Auto) 13.4 L (21.8-53.1) % [place] % (Auto) 20.7 H (5.3-12.2) % Eos % (Auto) 2.1 (0.8-7.0) Baso % (Auto) 0.0 L (0.1-1.2) % Neut # 2.98 (1.78-5.38) K/mm3 Lymph # 0.63 L (1.32-3.57) K/mm3 [place] # 0.97 H (0.30-0.82) K/mm3 Eos # 0.10 (0.04-0.54) K/mm3 Baso # 0.00 L (0.01-0.08) K/mm3 Manual Slide Review Abnormal smear Sodium 134 L (136-145) mEq/L Potassium 4.0 (3.5-5.1) mEq/L Chloride 102 (98-107) mEq/L Carbon Dioxide 23 (21-32) mEq/L Anion Gap 13.0 (5-15) BUN 51 H (7-18) mg/dL Creatinine 1.6 H (0.7-1.3) mg/dL Est Cr Clr Drug Dosing 49.23 mL/min Estimated GFR (MDRD) 43 (>60) mL/min BUN/Creatinine Ratio 31.9 H (14-18) Glucose 112 (83-115) mg/dL Calcium 8.0 L (8.5-10.1) mg/dL Magnesium 1.9 (1.8-2.4) mg/dl C-Reactive Protein 2.8 H* (<1.0) mg/dL MRSA (PCR) Negative Kenneth Results last 24 hrs: Microbiology 01/25/17 07:48 Gram Stain - Final Toe, Left - Left Second Med Orders - Current: Current Medications Acetaminophen (Tylenol) 650 mg PO Q4H PRN PRN Reason: Pain (Mild 1-3)/fever Acetaminophen/Hydrocodone Bitart ([place] 325-5 Mg) 1 tab PO Q4H PRN PRN Reason: Pain (moderate 4-6) Last Admin: 01/25/17 12:22 Dose: 1 tab Albuterol/Ipratropium (Duoneb 3.0-0.5 Mg/3 Ml) 3 ml NEB Q4H PRN PRN Reason: Shortness Of Breath/wheezing Amlodipine Besylate (Norvasc) 5 mg PO DAILY [facility] Last Admin: 01/25/17 08:29 Dose: 5 mg Aspirin (Halfprin) 81 mg PO DAILY [facility] Last Admin: 01/25/17 08:28 Dose: 81 mg Bisacodyl (Dulcolax) 5 mg PO DAILY PRN PRN Reason: Constipation Carvedilol (Coreg) 25 mg PO BIDMEALS [facility] Last Admin: 01/25/17 06:17 Dose: Not Given Colchicine (Colcrys) 0.6 mg PO QPM [facility] Last Admin: 01/24/17 17:18 Dose: 0.6 mg Furosemide (Lasix) 40 mg PO DAILY@1400 [facility] Last Admin: 01/25/17 13:53 Dose: 40 mg Furosemide (Lasix) 60 mg PO DAILY@0600 [facility] Last Admin: 01/25/17 05:20 Dose: Not Given Hydralazine HCl (Apresoline) 20 mg IVPUSH Q4H PRN PRN Reason: Hypertension Hydromorphone HCl (Dilaudid) 0.25 mg IVPUSH Q2H PRN PRN Reason: Pain (severe 7-10) Last Admin: 01/25/17 04:30 Dose: 0.25 mg Promethazine HCl 12.5 mg/ (Sodium Chloride) 50.5 mls @ 100 mls/hr IV Q6H PRN PRN Reason: Nausea/Vomiting Linezolid 600 mg/ Premix 300 mls @ 300 mls/hr IV Q12H [facility] Last Admin: 01/25/17 08:27 Dose: 300 mls/hr Sodium Chloride (Normal Saline) 1,000 mls @ 50 mls/hr IV ASDIRECTED [facility] Last Admin: 01/25/17 05:16 Dose: 50 mls/hr Lorazepam (Ativan) 0.5 mg IV Q6H PRN PRN Reason: Anxiety Metoprolol Tartrate (Lopressor) 5 mg IVPUSH Q4H PRN PRN Reason: Tachycardia Nitroglycerin (Nitrostat) 0.4 mg SL ASDIRECTED PRN PRN Reason: Chest Pain Ondansetron HCl (Zofran) 4 mg IV Q6H PRN PRN Reason: Nausea/Vomiting Febuxostat [Uloric] (1 Tab) 0 each PO DAILY [facility] Last Admin: 01/25/17 08:55 Dose: Not Given Saw/Vit E/Sod Teri/Lyc/Beta/Pyg [ Prostate Health Caplet] 0 each PO BID [facility] Last Admin: 01/25/17 09:00 Dose: Not Given Polyethylene Glycol (Miralax) 17 gm PO DAILY PRN PRN Reason: Constipation Last Admin: 01/23/17 14:44 Dose: 17 gm Senna/Docusate Sodium (Senna Plus) 1 tab PO BID PRN PRN Reason: Constipation Simvastatin (Zocor) 20 mg PO BEDTIME [facility] Last Admin: 01/24/17 21:21 Dose: Not Given Sodium Chloride (Saline Flush) 10 ml FLUSH ASDIRECTED PRN PRN Reason: Keep Vein Open Last Admin: 01/22/17 10:34 Dose: 10 ml Spironolactone (Aldactone) 25 mg PO DAILY [facility] Last Admin: 01/25/17 08:29 Dose: 25 mg Temazepam (Restoril) 30 mg PO BEDTIME PRN PRN Reason: Sleep Discontinued Medications Bupivacaine HCl (Marcaine 0.5%) Confirm Administered Dose 30 ml .ROUTE .STK-MED ONE Stop: 01/25/17 06:28 Last Admin: 01/25/17 08:05 Dose: 10 ml Enoxaparin Sodium (Lovenox) 40 mg SUBCUT DAILY [facility] Last Admin: 01/23/17 09:34 Dose: 40 mg Fentanyl (Sublimaze) Confirm Administered Dose 100 mcg .ROUTE .STK-MED ONE Stop: 01/25/17 06:56 Furosemide (Lasix) 60 mg PO DAILY [facility] Last Admin: 01/23/17 09:32 Dose: 60 mg Furosemide (Lasix) 40 mg PO BEDTIME [facility] Last Admin: 01/22/17 20:55 Dose: 40 mg Heparin Sodium (Porcine) (Heparin Sodium) 5,000 units SUBCUT Q8H [facility] Last Admin: 01/24/17 09:37 Dose: Not Given Hydromorphone HCl (Dilaudid) 0.25 mg IVPUSH Q2H PRN PRN Reason: Pain (severe 7-10) Last Admin: 01/23/17 16:37 Dose: 0.25 mg Linezolid 600 mg/ Premix 300 mls @ 300 mls/hr IV ONETIME ONE Stop: 01/22/17 10:52 Last Admin: 01/22/17 10:33 Dose: 300 mls/hr Magnesium Sulfate 2 gm/ Premix 50 mls @ 25 mls/hr IV ONETIME ONE Stop: 01/23/17 13:44 Last Admin: 01/23/17 12:45 Dose: 25 mls/hr Sodium Chloride (Normal Saline) 1,000 mls @ 50 mls/hr IV ASDIRECTED [facility] Lidocaine HCl (Xylocaine-Mpf 1%) Confirm Administered Dose 4 mls @ as directed .ROUTE .STK-MED ONE Stop: 01/25/17 06:56 Lidocaine HCl (Xylocaine-Mpf 1%) Confirm Administered Dose 30 ml .ROUTE .STK- MED ONE Stop: 01/25/17 06:28 Last Admin: 01/25/17 07:34 Dose: 5 ml Magnesium Sulfate (Pharmacy To Dose - Magnesium Replacement) 1 dose .XX ASDIRECTED [facility] Potassium Chloride (Pharmacy To Dose - Potassium Replacement) 1 dose .XX ASDIRECTED [facility] Propofol (Diprivan 20 Ml) Confirm Administered Dose 200 mg .ROUTE .STK-MED ONE Stop: 01/25/17 06:56 Temazepam (Restoril) 30 mg PO BEDTIME PRN PRN Reason: Sleep Warfarin Sodium (Coumadin) 5 mg PO DAILY@1800 [facility] Warfarin Sodium (Pharmacy To Dose - Warfarin) 1 dose .XX DAILY [facility] Last Admin: 01/23/17 15:46 Dose: Not Given Warfarin Sodium (Coumadin) 5 mg PO ONETIME ONE Stop: 01/22/17 18:01 Last Admin: 01/22/17 17:15 Dose: 5 mg Warfarin Sodium (Coumadin) 7.5 mg PO ONETIME@1800 ONE Stop: 01/23/17 18:01 - Exam Quality Assessment: DVT prophylaxis General: alert, oriented, cooperative, no acute distress HEENT: Pupils equal, Pupils reactive, EOMI, Mucous membr. moist/pink Neck: supple Lungs: Clear to auscultation, Normal respiratory effort, Decreased breath sounds (to bases) Cardiovascular: Regular Rate, Regular Rhythm Abdomen: bowel sounds present, soft, no tenderness, no distension (Male) Exam: Deferred Extremities: no calf tenderness, edema (1+ bilat) Skin: warm, dry Wound/Incisions: dressing dry and intact (to lt foot) Neurological: no new focal deficit Psy/Mental Status: alert, normal affect, normal mood - Problem List & Annotations (1) Status post amputation of toe of left foot SNOMED Code(s): 078446074, 447642357 Code(s): Z89.422 - ACQUIRED ABSENCE OF OTHER LEFT TOE(S) Status: Acute Priority: High Current Visit: Yes (2) Cellulitis of left toe SNOMED Code(s): 97042736 Code(s): L03.032 - CELLULITIS OF LEFT TOE Status: Acute Priority: High Current Visit: Yes (3) Cellulitis of left foot SNOMED Code(s): 191927186 Code(s): L03.116 - CELLULITIS OF LEFT LOWER LIMB Status: Acute Priority: High Current Visit: Yes (4) Diabetes 1.5, managed as type 2 SNOMED Code(s): 617850732 Code(s): E13.9 - OTHER SPECIFIED DIABETES MELLITUS WITHOUT COMPLICATIONS Status: Chronic Priority: High Current Visit: Yes (5) CKD (chronic kidney disease) SNOMED Code(s): 269505595 Code(s): N18.9 - CHRONIC KIDNEY DISEASE, UNSPECIFIED Status: Chronic Priority: High Current Visit: Yes Qualifiers: Chronic kidney disease stage: unspecified stage Qualified Code(s): N18.9 - Chronic kidney disease, unspecified - Problem List Review Problem List Initiated/Reviewed/Updated: Yes - Assessment Assessment:: Acute Dry Gangrene, LEFT 2nd toe - Plan Plan:: Assessment/Plan: Acute: S/P amputation of 2nd toe left foot due to Left Foot SSTI: 2nd Toe Ischemia/ Gangrene associated with Edema and Erythema - Risk factors: DM, PVD, Vascular Insufficiency, Immobility and Obesity - Carries multiple drug allergies: Clindamycin, Vancomycin, and Cefazolin - Linezolid 600 mg IV Q12 - Pain Medications and Supportive Care - MRI: contraindicated due to pacer - CT scan: Vascular calcification and diffuse tissue edema; no osteomyelitis by CT scan - Dr. 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
[2017-01-25] MEDS ORDERED: Enoxaparin 40 MG/0.4 ML Syringe SUBCUT SCH (15:30)
[2017-01-25] MEDS: Colchicine 0.6 MG Tab PO SCH (17:29)
[2017-01-25] MEDS ORDERED: Warfarin 5 MG Tab PO ONE (18:00)
[2017-01-25] MEDS: Simvastatin 20 MG Tab PO SCH (20:31)
[2017-01-26] MEDS: Acetaminophen/HYDROcodone 325-5 MG Tab PO PRN ×4 (00:37→20:44)
[2017-01-26] MEDS: Polyethylene Glycol 3350 Powder 17 GM Packet PO PRN (04:22)
[2017-01-26] MEDS: Carvedilol 12.5 MG Tab PO SCH ×3 (05:40→16:11)
[2017-01-26] MEDS: Furosemide 40 MG Tab PO SCH ×2 (05:41→14:53)
--- NOTE | 2017-01-26 08:02 | PCM.PN ---
- General Info Date of Service: 01/26/17 Admission Dx/Problem (Free Text): Admission Diagnosis/Problem Admission Diagnosis/Problem Cellulitis 2nd toe cellulitis/infection POD #1 - amputation of lt 2nd toe with Dr. Reyes, Podiatry. Patient reports pain under good control at present. Dressing CDI. Slept well. No n/v/d. Tolerating diet. No new concerns overnight. Functional Status: Reports: pain controlled, tolerating diet, urinating. Denies : new symptoms - Review of Systems General: Reports: No Symptoms HEENT: Reports: no symptoms Pulmonary: Reports: no symptoms Cardiovascular: Reports: No Symptoms Gastrointestinal: Reports: No symptoms Genitourinary: Reports: no symptoms Musculoskeletal: Reports: foot pain (minimal and controlled) Skin: Reports: no symptoms Neurological: Reports: No Symptoms Psychiatric: Reports: no symptoms - Patient Data Vitals - most recent: Last Vital Signs Temp 98.1 F 01/26/17 07:33 Pulse 62 01/26/17 07:33 Resp 18 01/26/17 07:33 BP 116/76 01/26/17 07:33 Pulse Ox 96 01/26/17 07:33 Weight - most recent: 263 lb 6.4 oz I&O - last 24 hours: Intake & Output 01/25/17 01/26/17 01/26/17 22:59 06:59 14:59 Intake Total 1020 2550 Output Total 1750 Balance 1020 800 Lab Results last 24 hrs: Laboratory Results - last 24 hr 01/25/17 01/26/17 01/26/17 Range/Units 15:50 05:27 05:27 WBC 5.33 (4.23-9.07) K/mm3 RBC 3.90 L (4.63-6.08) M/mm3 Hgb 11.7 L (13.7-17.5) gm/L Hct 35.2 L (40.1-51.0) % MCV 90.3 (79.0-92.2) fl MCH 30.0 (25.7-32.2) pg MCHC 33.2 (32.2-35.5) g/dl RDW Std Deviation 48.9 H (35.1-43.9) fL Plt Count 120 L (163-337) K/mm3 MPV 10.3 (9.4-12.3) fl Neut % (Auto) 64.3 (34.0-67.9) % Lymph % (Auto) 14.3 L (21.8-53.1) % [place] % (Auto) 19.3 H (5.3-12.2) % Eos % (Auto) 1.7 (0.8-7.0) Baso % (Auto) 0.2 (0.1-1.2) % Neut # (Auto) 3.43 (1.78-5.38) K/mm3 Lymph # (Auto) 0.76 L (1.32-3.57) K/mm3 [place] # (Auto) 1.03 H (0.30-0.82) K/mm3 Eos # (Auto) 0.09 (0.04-0.54) K/mm3 Baso # (Auto) 0.01 (0.01-0.08) K/mm3 Manual Slide Review Abnormal smear PT 16.2 H (8.0-13.0) SECONDS INR 1.45 Sodium 132 L (136-145) mEq/L Potassium 4.1 (3.5-5.1) mEq/L Chloride 99 (98-107) mEq/L Carbon Dioxide 23 (21-32) mEq/L Anion Gap 14.1 (5-15) BUN 48 H (7-18) mg/dL Creatinine 1.5 H (0.7-1.3) mg/dL Est Cr Clr Drug Dosing 52.52 mL/min Estimated GFR (MDRD) 46 (>60) mL/min BUN/Creatinine Ratio 32.0 H (14-18) Glucose 100 (83-115) mg/dL Calcium 7.9 L (8.5-10.1) mg/dL Magnesium 1.8 (1.8-2.4) mg/dl C-Reactive Protein 3.6 H* (<1.0) mg/dL 01/26/17 Range/Units 05:27 WBC (4.23-9.07) K/mm3 RBC (4.63-6.08) M/mm3 Hgb (13.7-17.5) gm/L Hct (40.1-51.0) % MCV (79.0-92.2) fl MCH (25.7-32.2) pg MCHC (32.2-35.5) g/dl RDW Std Deviation (35.1-43.9) fL Plt Count (163-337) K/mm3 MPV (9.4-12.3) fl Neut % (Auto) (34.0-67.9) % Lymph % (Auto) (21.8-53.1) % [place] % (Auto) (5.3-12.2) % Eos % (Auto) (0.8-7.0) Baso % (Auto) (0.1-1.2) % Neut # (Auto) (1.78-5.38) K/mm3 Lymph # (Auto) (1.32-3.57) K/mm3 [place] # (Auto) (0.30-0.82) K/mm3 Eos # (Auto) (0.04-0.54) K/mm3 Baso # (Auto) (0.01-0.08) K/mm3 Manual Slide Review PT 15.1 H (8.0-13.0) SECONDS INR 1.36 Sodium (136-145) mEq/L Potassium (3.5-5.1) mEq/L Chloride (98-107) mEq/L Carbon Dioxide (21-32) mEq/L Anion Gap (5-15) BUN (7-18) mg/dL Creatinine (0.7-1.3) mg/dL Est Cr Clr Drug Dosing mL/min Estimated GFR (MDRD) (>60) mL/min BUN/Creatinine Ratio (14-18) Glucose (83-115) mg/dL Calcium (8.5-10.1) mg/dL Magnesium (1.8-2.4) mg/dl C-Reactive Protein (<1.0) mg/dL Kenneth Results last 24 hrs: Microbiology 01/25/17 07:48 Gram Stain - Final Toe, Left - Left Second Med Orders - Current: Current Medications Acetaminophen (Tylenol) 650 mg PO Q4H PRN PRN Reason: Pain (Mild 1-3)/fever Acetaminophen/Hydrocodone Bitart ([place] 325-5 Mg) 1 tab PO Q4H PRN PRN Reason: Pain (moderate 4-6) Last Admin: 01/26/17 04:19 Dose: 1 tab Albuterol/Ipratropium (Duoneb 3.0-0.5 Mg/3 Ml) 3 ml NEB Q4H PRN PRN Reason: Shortness Of Breath/wheezing Amlodipine Besylate (Norvasc) 5 mg PO DAILY [facility] Last Admin: 01/25/17 08:29 Dose: 5 mg Aspirin (Halfprin) 81 mg PO DAILY [facility] Last Admin: 01/25/17 08:28 Dose: 81 mg Bisacodyl (Dulcolax) 5 mg PO DAILY PRN PRN Reason: Constipation Carvedilol (Coreg) 25 mg PO BIDMEALS [facility] Last Admin: 01/26/17 06:41 Dose: Not Given Colchicine (Colcrys) 0.6 mg PO QPM [facility] Last Admin: 01/25/17 17:29 Dose: 0.6 mg Enoxaparin Sodium (Lovenox) 40 mg SUBCUT DAILY [facility] Furosemide (Lasix) 40 mg PO DAILY@1400 [facility] Last Admin: 01/25/17 13:53 Dose: 40 mg Furosemide (Lasix) 60 mg PO DAILY@0600 [facility] Last Admin: 01/26/17 05:41 Dose: 60 mg Hydralazine HCl (Apresoline) 20 mg IVPUSH Q4H PRN PRN Reason: Hypertension Hydromorphone HCl (Dilaudid) 0.25 mg IVPUSH Q2H PRN PRN Reason: Pain (severe 7-10) Last Admin: 01/25/17 04:30 Dose: 0.25 mg Promethazine HCl 12.5 mg/ (Sodium Chloride) 50.5 mls @ 100 mls/hr IV Q6H PRN PRN Reason: Nausea/Vomiting Linezolid 600 mg/ Premix 300 mls @ 300 mls/hr IV Q12H [facility] Last Admin: 01/25/17 20:31 Dose: 300 mls/hr Lorazepam (Ativan) 0.5 mg IV Q6H PRN PRN Reason: Anxiety Metoprolol Tartrate (Lopressor) 5 mg IVPUSH Q4H PRN PRN Reason: Tachycardia Nitroglycerin (Nitrostat) 0.4 mg SL ASDIRECTED PRN PRN Reason: Chest Pain Ondansetron HCl (Zofran) 4 mg IV Q6H PRN PRN Reason: Nausea/Vomiting Febuxostat [Uloric] (1 Tab) 0 each PO DAILY [facility] Last Admin: 01/25/17 08:55 Dose: Not Given Saw/Vit E/Sod Teri/Lyc/Beta/Pyg [ Prostate Health Caplet] 0 each PO BID [facility] Last Admin: 01/25/17 20:31 Dose: 1 each Polyethylene Glycol (Miralax) 17 gm PO DAILY PRN PRN Reason: Constipation Last Admin: 01/26/17 04:22 Dose: 17 gm Senna/Docusate Sodium (Senna Plus) 1 tab PO BID PRN PRN Reason: Constipation Simvastatin (Zocor) 20 mg PO BEDTIME [facility] Last Admin: 01/25/17 20:31 Dose: 20 mg Sodium Chloride (Saline Flush) 10 ml FLUSH ASDIRECTED PRN PRN Reason: Keep Vein Open Last Admin: 01/22/17 10:34 Dose: 10 ml Spironolactone (Aldactone) 25 mg PO DAILY [facility] Last Admin: 01/25/17 08:29 Dose: 25 mg Temazepam (Restoril) 30 mg PO BEDTIME PRN PRN Reason: Sleep Discontinued Medications Bupivacaine HCl (Marcaine 0.5%) Confirm Administered Dose 30 ml .ROUTE .STK-MED ONE Stop: 01/25/17 06:28 Last Admin: 01/25/17 08:05 Dose: 10 ml Enoxaparin Sodium (Lovenox) 40 mg SUBCUT DAILY [facility] Last Admin: 01/23/17 09:34 Dose: 40 mg Fentanyl (Sublimaze) Confirm Administered Dose 100 mcg .ROUTE .STK-MED ONE Stop: 01/25/17 06:56 Furosemide (Lasix) 60 mg PO DAILY [facility] Last Admin: 01/23/17 09:32 Dose: 60 mg Furosemide (Lasix) 40 mg PO BEDTIME [facility] Last Admin: 01/22/17 20:55 Dose: 40 mg Heparin Sodium (Porcine) (Heparin Sodium) 5,000 units SUBCUT Q8H [facility] Last Admin: 01/24/17 09:37 Dose: Not Given Hydromorphone HCl (Dilaudid) 0.25 mg IVPUSH Q2H PRN PRN Reason: Pain (severe 7-10) Last Admin: 01/23/17 16:37 Dose: 0.25 mg Linezolid 600 mg/ Premix 300 mls @ 300 mls/hr IV ONETIME ONE Stop: 01/22/17 10:52 Last Admin: 01/22/17 10:33 Dose: 300 mls/hr Magnesium Sulfate 2 gm/ Premix 50 mls @ 25 mls/hr IV ONETIME ONE Stop: 01/23/17 13:44 Last Admin: 01/23/17 12:45 Dose: 25 mls/hr Sodium Chloride (Normal Saline) 1,000 mls @ 50 mls/hr IV ASDIRECTED [facility] Sodium Chloride (Normal Saline) 1,000 mls @ 50 mls/hr IV ASDIRECTED [facility] Last Admin: 01/25/17 05:16 Dose: 50 mls/hr Lidocaine HCl (Xylocaine-Mpf 1%) Confirm Administered Dose 4 mls @ as directed .ROUTE .STK-MED ONE Stop: 01/25/17 06:56 Lidocaine HCl (Xylocaine-Mpf 1%) Confirm Administered Dose 30 ml .ROUTE .STK- MED ONE Stop: 01/25/17 06:28 Last Admin: 01/25/17 07:34 Dose: 5 ml Magnesium Sulfate (Pharmacy To Dose - Magnesium Replacement) 1 dose .XX ASDIRECTED [facility] Potassium Chloride (Pharmacy To Dose - Potassium Replacement) 1 dose .XX ASDIRECTED [facility] Propofol (Diprivan 20 Ml) Confirm Administered Dose 200 mg .ROUTE .STK-MED ONE Stop: 01/25/17 06:56 Temazepam (Restoril) 30 mg PO BEDTIME PRN PRN Reason: Sleep Warfarin Sodium (Coumadin) 5 mg PO DAILY@1800 [facility] Warfarin Sodium (Pharmacy To Dose - Warfarin) 1 dose .XX DAILY [facility] Last Admin: 01/23/17 15:46 Dose: Not Given Warfarin Sodium (Coumadin) 5 mg PO ONETIME ONE Stop: 01/22/17 18:01 Last Admin: 01/22/17 17:15 Dose: 5 mg Warfarin Sodium (Coumadin) 7.5 mg PO ONETIME@1800 ONE Stop: 01/23/17 18:01 Warfarin Sodium (Coumadin) 5 mg PO ONETIME ONE Stop: 01/25/17 18:01 Last Admin: 01/25/17 17:28 Dose: 5 mg - Exam Quality Assessment: DVT prophylaxis (resumed coumadin last night) General: alert, oriented, cooperative, no acute distress HEENT: Pupils equal, Pupils reactive, EOMI, Mucous membr. moist/pink Neck: supple Lungs: Clear to auscultation, Normal respiratory effort Cardiovascular: Regular Rate, Regular Rhythm Abdomen: bowel sounds present, soft, no tenderness, no distension (Male) Exam: Deferred Extremities: edema (1+ bilat to LE; venous changes noted) Peripheral Pulses: 1+: dorsalis pedis (R) Skin: warm, dry Wound/Incisions: dressing dry and intact (to lt foot) Neurological: no new focal deficit Psy/Mental Status: alert, normal affect, normal mood - Problem List & Annotations (1) Status post amputation of toe of left foot SNOMED Code(s): 647072088, 379812168 Code(s): Z89.422 - ACQUIRED ABSENCE OF OTHER LEFT TOE(S) Status: Acute Priority: High Current Visit: Yes (2) Cellulitis of left toe SNOMED Code(s): 21385622 Code(s): L03.032 - CELLULITIS OF LEFT TOE Status: Acute Priority: High Current Visit: Yes (3) Cellulitis of left foot SNOMED Code(s): 092664629 Code(s): L03.116 - CELLULITIS OF LEFT LOWER LIMB Status: Acute Priority: High Current Visit: Yes (4) Diabetes 1.5, managed as type 2 SNOMED Code(s): 554714012 Code(s): E13.9 - OTHER SPECIFIED DIABETES MELLITUS WITHOUT COMPLICATIONS Status: Chronic Priority: High Current Visit: Yes (5) CKD (chronic kidney disease) SNOMED Code(s): 495474605 Code(s): N18.9 - CHRONIC KIDNEY DISEASE, UNSPECIFIED Status: Chronic Priority: High Current Visit: Yes Qualifiers: Chronic kidney disease stage: unspecified stage Qualified Code(s): N18.9 - Chronic kidney disease, unspecified - Problem List Review Problem List Initiated/Reviewed/Updated: Yes - My Orders Last 24 Hours: My Active Orders 01/26/17 09:00 Enoxaparin [Lovenox] 40 mg SUBCUT DAILY - Assessment Assessment:: Acute Dry Gangrene, LEFT 2nd toe - Plan Plan:: Assessment/Plan: Acute: S/P amputation of 2nd toe left foot due to Left Foot SSTI: 2nd Toe Ischemia/ Gangrene associated with Edema and Erythema--POD #1 - Risk factors: DM, PVD, Vascular Insufficiency, Immobility and Obesity - Linezolid 600 mg IV Q12 - Pain Medications and Supportive Care - MRI: contraindicated due to pacemaker - CT scan: Vascular calcification and diffuse tissue edema; no osteomyelitis noted - Dr. 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
[2017-01-26] MEDS: Linezolid 600 MG in Premix Bag 1 BAG IV SCH ×2 (08:55→20:43)
[2017-01-26] MEDS: Spironolactone 25 MG Tab PO SCH (08:56)
[2017-01-26] MEDS: amLODIPine 5 MG Tab PO SCH (08:56)
[2017-01-26] MEDS: Aspirin 81 MG Tab.EC PO SCH (08:57)
[2017-01-26] MEDS: FEBUXOSTAT PO SCH (08:57)
[2017-01-26] MEDS: Saw/Vit E/Sod Sel/Lyc/Beta/Pyg [Prostate Health Caplet] PO SCH ×2 (08:57→20:47)
[2017-01-26] MEDS: Enoxaparin 40 MG/0.4 ML Syringe SUBCUT SCH (08:58)
[2017-01-26] MEDS ORDERED: Potassium Chloride/Sodium Chloride Tab PO ONE (10:17)
[2017-01-26] MEDS ORDERED: Warfarin 5 MG Tab PO SCH (18:00)
[2017-01-26] MEDS ORDERED: Magnesium Sulfate/Water 2 GM in Premix Bag 1 BAG IV ONE (18:24)
[2017-01-26] MEDS: Colchicine 0.6 MG Tab PO SCH (18:35)
[2017-01-26] MEDS: Simvastatin 20 MG Tab PO SCH (20:44)
[2017-01-27] MEDS: Furosemide 40 MG Tab PO SCH ×2 (06:03→13:01)
[2017-01-27] MEDS: Carvedilol 12.5 MG Tab PO SCH ×3 (06:05→17:03)
--- NOTE | 2017-01-27 06:39 | PCM.PN ---
- General Info Date of Service: 01/27/17 Admission Dx/Problem (Free Text): Admission Diagnosis/Problem Admission Diagnosis/Problem Cellulitis 2nd toe cellulitis/infection POD #2 - amputation of lt 2nd toe with Dr. Reyes, Podiatry. Patient reports pain under good control at present. Dressing CDI. Slept well. No n/v/d. Tolerating diet. No new concerns overnight. Dr. Reyes changed dressing last night, will change dressing again today and according to nursing notes is awaiting cultures to determine outpatient antibiotic choice. Functional Status: Reports: pain controlled, tolerating diet, urinating. Denies : new symptoms - Review of Systems General: Reports: No Symptoms HEENT: Reports: no symptoms Pulmonary: Reports: no symptoms Cardiovascular: Reports: No Symptoms Gastrointestinal: Reports: No symptoms Genitourinary: Reports: no symptoms Musculoskeletal: Reports: foot pain (minimal and controlled) Skin: Reports: no symptoms Neurological: Reports: No Symptoms Psychiatric: Reports: no symptoms - Patient Data Vitals - most recent: Last Vital Signs Temp 97.5 F 01/27/17 03:43 Pulse 63 01/27/17 06:05 Resp 16 01/27/17 03:43 BP 91/61 01/27/17 06:05 Pulse Ox 96 01/27/17 03:43 Weight - most recent: 263 lb 6.4 oz I&O - last 24 hours: Intake & Output 01/26/17 01/26/17 01/27/17 14:59 22:59 06:59 Intake Total 210 2110 800 Output Total 1575 1450 Balance 210 535 -650 Lab Results last 24 hrs: Laboratory Results - last 24 hr 01/26/17 01/26/17 01/26/17 Range/Units 05:27 05:27 05:27 WBC 5.33 (4.23-9.07) K/mm3 RBC 3.90 L (4.63-6.08) M/mm3 Hgb 11.7 L (13.7-17.5) gm/L Hct 35.2 L (40.1-51.0) % MCV 90.3 (79.0-92.2) fl MCH 30.0 (25.7-32.2) pg MCHC 33.2 (32.2-35.5) g/dl RDW Std Deviation 48.9 H (35.1-43.9) fL Plt Count 120 L (163-337) K/mm3 MPV 10.3 (9.4-12.3) fl Neut % (Auto) 64.3 (34.0-67.9) % Lymph % (Auto) 14.3 L (21.8-53.1) % [place] % (Auto) 19.3 H (5.3-12.2) % Eos % (Auto) 1.7 (0.8-7.0) Baso % (Auto) 0.2 (0.1-1.2) % Neut # (Auto) 3.43 (1.78-5.38) K/mm3 Lymph # (Auto) 0.76 L (1.32-3.57) K/mm3 [place] # (Auto) 1.03 H (0.30-0.82) K/mm3 Eos # (Auto) 0.09 (0.04-0.54) K/mm3 Baso # (Auto) 0.01 (0.01-0.08) K/mm3 Manual Slide Review Abnormal smear PT 15.1 H (8.0-13.0) SECONDS INR 1.36 Sodium 132 L (136-145) mEq/L Potassium 4.1 (3.5-5.1) mEq/L Chloride 99 (98-107) mEq/L Carbon Dioxide 23 (21-32) mEq/L Anion Gap 14.1 (5-15) BUN 48 H (7-18) mg/dL Creatinine 1.5 H (0.7-1.3) mg/dL Est Cr Clr Drug Dosing 52.52 mL/min Estimated GFR (MDRD) 46 (>60) mL/min BUN/Creatinine Ratio 32.0 H (14-18) Glucose 100 (83-115) mg/dL Calcium 7.9 L (8.5-10.1) mg/dL Magnesium 1.8 (1.8-2.4) mg/dl C-Reactive Protein 3.6 H* (<1.0) mg/dL 01/27/17 Range/Units 05:03 WBC (4.23-9.07) K/mm3 RBC (4.63-6.08) M/mm3 Hgb (13.7-17.5) gm/L Hct (40.1-51.0) % MCV (79.0-92.2) fl MCH (25.7-32.2) pg MCHC (32.2-35.5) g/dl RDW Std Deviation (35.1-43.9) fL Plt Count (163-337) K/mm3 MPV (9.4-12.3) fl Neut % (Auto) (34.0-67.9) % Lymph % (Auto) (21.8-53.1) % [place] % (Auto) (5.3-12.2) % Eos % (Auto) (0.8-7.0) Baso % (Auto) (0.1-1.2) % Neut # (Auto) (1.78-5.38) K/mm3 Lymph # (Auto) (1.32-3.57) K/mm3 [place] # (Auto) (0.30-0.82) K/mm3 Eos # (Auto) (0.04-0.54) K/mm3 Baso # (Auto) (0.01-0.08) K/mm3 Manual Slide Review PT (8.0-13.0) SECONDS INR Sodium (136-145) mEq/L Potassium 4.1 (3.5-5.1) mEq/L Chloride (98-107) mEq/L Carbon Dioxide (21-32) mEq/L Anion Gap (5-15) BUN (7-18) mg/dL Creatinine (0.7-1.3) mg/dL Est Cr Clr Drug Dosing mL/min Estimated GFR (MDRD) (>60) mL/min BUN/Creatinine Ratio (14-18) Glucose (83-115) mg/dL Calcium (8.5-10.1) mg/dL Magnesium 2.1 (1.8-2.4) mg/dl C-Reactive Protein (<1.0) mg/dL Kenneth Results last 24 hrs: Microbiology 01/25/17 07:48 Gram Stain - Final Toe, Left - Left Second Anaerobic Culture - Preliminary Gram Positive Cocci Med Orders - Current: Current Medications Acetaminophen (Tylenol) 650 mg PO Q4H PRN PRN Reason: Pain (Mild 1-3)/fever Acetaminophen/Hydrocodone Bitart ([place] 325-5 Mg) 1 tab PO Q4H PRN PRN Reason: Pain (moderate 4-6) Last Admin: 01/26/17 20:44 Dose: 1 tab Albuterol/Ipratropium (Duoneb 3.0-0.5 Mg/3 Ml) 3 ml NEB Q4H PRN PRN Reason: Shortness Of Breath/wheezing Amlodipine Besylate (Norvasc) 5 mg PO DAILY [facility] Last Admin: 01/26/17 08:56 Dose: 5 mg Aspirin (Halfprin) 81 mg PO DAILY [facility] Last Admin: 01/26/17 08:57 Dose: 81 mg Bisacodyl (Dulcolax) 5 mg PO DAILY PRN PRN Reason: Constipation Carvedilol (Coreg) 25 mg PO BIDMEALS [facility] Last Admin: 01/27/17 06:05 Dose: Not Given Colchicine (Colcrys) 0.6 mg PO QPM [facility] Last Admin: 01/26/17 18:35 Dose: 0.6 mg Enoxaparin Sodium (Lovenox) 40 mg SUBCUT DAILY [facility] Last Admin: 01/26/17 08:58 Dose: 40 mg Furosemide (Lasix) 40 mg PO DAILY@1400 [facility] Last Admin: 01/26/17 14:53 Dose: 40 mg Furosemide (Lasix) 60 mg PO DAILY@0600 [facility] Last Admin: 01/27/17 06:03 Dose: 60 mg Hydralazine HCl (Apresoline) 20 mg IVPUSH Q4H PRN PRN Reason: Hypertension Hydromorphone HCl (Dilaudid) 0.25 mg IVPUSH Q2H PRN PRN Reason: Pain (severe 7-10) Last Admin: 01/25/17 04:30 Dose: 0.25 mg Promethazine HCl 12.5 mg/ (Sodium Chloride) 50.5 mls @ 100 mls/hr IV Q6H PRN PRN Reason: Nausea/Vomiting Linezolid 600 mg/ Premix 300 mls @ 300 mls/hr IV Q12H [facility] Last Admin: 01/26/17 20:43 Dose: 300 mls/hr Lorazepam (Ativan) 0.5 mg IV Q6H PRN PRN Reason: Anxiety Magnesium Sulfate (Pharmacy To Dose - Magnesium Replacement) 1 dose .XX ASDIRECTED [facility] Metoprolol Tartrate (Lopressor) 5 mg IVPUSH Q4H PRN PRN Reason: Tachycardia Nitroglycerin (Nitrostat) 0.4 mg SL ASDIRECTED PRN PRN Reason: Chest Pain Ondansetron HCl (Zofran) 4 mg IV Q6H PRN PRN Reason: Nausea/Vomiting Febuxostat [Uloric] (1 Tab) 0 each PO DAILY [facility] Last Admin: 01/26/17 08:57 Dose: 1 each Saw/Vit E/Sod Teri/Lyc/Beta/Pyg [ Prostate Health Caplet] 0 each PO BID [facility] Last Admin: 01/26/17 20:47 Dose: 1 each Polyethylene Glycol (Miralax) 17 gm PO DAILY PRN PRN Reason: Constipation Last Admin: 01/26/17 04:22 Dose: 17 gm Potassium Chloride (Pharmacy To Dose - Potassium Replacement) 1 dose .XX ASDIRECTED [facility] Senna/Docusate Sodium (Senna Plus) 1 tab PO BID PRN PRN Reason: Constipation Simvastatin (Zocor) 20 mg PO BEDTIME [facility] Last Admin: 01/26/17 20:44 Dose: 20 mg Sodium Chloride (Saline Flush) 10 ml FLUSH ASDIRECTED PRN PRN Reason: Keep Vein Open Last Admin: 01/22/17 10:34 Dose: 10 ml Spironolactone (Aldactone) 25 mg PO DAILY [facility] Last Admin: 01/26/17 08:56 Dose: 25 mg Temazepam (Restoril) 30 mg PO BEDTIME PRN PRN Reason: Sleep Warfarin Sodium (Coumadin) 2.5 mg PO Fr@1800 [facility] Warfarin Sodium (Coumadin) 5 mg PO SuMoTuWeThSa@1800 [facility] Last Admin: 01/26/17 18:35 Dose: 5 mg Discontinued Medications Bupivacaine HCl (Marcaine 0.5%) Confirm Administered Dose 30 ml .ROUTE .STK-MED ONE Stop: 01/25/17 06:28 Last Admin: 01/25/17 08:05 Dose: 10 ml Enoxaparin Sodium (Lovenox) 40 mg SUBCUT DAILY [facility] Last Admin: 01/23/17 09:34 Dose: 40 mg Fentanyl (Sublimaze) Confirm Administered Dose 100 mcg .ROUTE .STK-MED ONE Stop: 01/25/17 06:56 Furosemide (Lasix) 60 mg PO DAILY [facility] Last Admin: 01/23/17 09:32 Dose: 60 mg Furosemide (Lasix) 40 mg PO BEDTIME [facility] Last Admin: 01/22/17 20:55 Dose: 40 mg Heparin Sodium (Porcine) (Heparin Sodium) 5,000 units SUBCUT Q8H [facility] Last Admin: 01/24/17 09:37 Dose: Not Given Hydromorphone HCl (Dilaudid) 0.25 mg IVPUSH Q2H PRN PRN Reason: Pain (severe 7-10) Last Admin: 01/23/17 16:37 Dose: 0.25 mg Linezolid 600 mg/ Premix 300 mls @ 300 mls/hr IV ONETIME ONE Stop: 01/22/17 10:52 Last Admin: 01/22/17 10:33 Dose: 300 mls/hr Magnesium Sulfate 2 gm/ Premix 50 mls @ 25 mls/hr IV ONETIME ONE Stop: 01/23/17 13:44 Last Admin: 01/23/17 12:45 Dose: 25 mls/hr Sodium Chloride (Normal Saline) 1,000 mls @ 50 mls/hr IV ASDIRECTED [facility] Sodium Chloride (Normal Saline) 1,000 mls @ 50 mls/hr IV ASDIRECTED [facility] Last Admin: 01/25/17 05:16 Dose: 50 mls/hr Lidocaine HCl (Xylocaine-Mpf 1%) Confirm Administered Dose 4 mls @ as directed .ROUTE .STK-MED ONE Stop: 01/25/17 06:56 Magnesium Sulfate 2 gm/ Premix 50 mls @ 25 mls/hr IV ONETIME ONE Stop: 01/26/17 20:23 Last Admin: 01/26/17 18:36 Dose: 25 mls/hr Lidocaine HCl (Xylocaine-Mpf 1%) Confirm Administered Dose 30 ml .ROUTE .STK- MED ONE Stop: 01/25/17 06:28 Last Admin: 01/25/17 07:34 Dose: 5 ml Magnesium Sulfate (Pharmacy To Dose - Magnesium Replacement) 1 dose .XX ASDIRECTED [facility] Oral Electrolytes (Thermotabs) 2 each PO ASDIRECTED ONE Stop: 01/26/17 10:18 Last Admin: 01/26/17 10:47 Dose: 2 each Potassium Chloride (Pharmacy To Dose - Potassium Replacement) 1 dose .XX ASDIRECTED [facility] Propofol (Diprivan 20 Ml) Confirm Administered Dose 200 mg .ROUTE .STK-MED ONE Stop: 01/25/17 06:56 Temazepam (Restoril) 30 mg PO BEDTIME PRN PRN Reason: Sleep Warfarin Sodium (Coumadin) 5 mg PO DAILY@1800 [facility] Warfarin Sodium (Pharmacy To Dose - Warfarin) 1 dose .XX DAILY [facility] Last Admin: 01/23/17 15:46 Dose: Not Given Warfarin Sodium (Coumadin) 5 mg PO ONETIME ONE Stop: 01/22/17 18:01 Last Admin: 01/22/17 17:15 Dose: 5 mg Warfarin Sodium (Coumadin) 7.5 mg PO ONETIME@1800 ONE Stop: 01/23/17 18:01 Warfarin Sodium (Coumadin) 5 mg PO ONETIME ONE Stop: 01/25/17 18:01 Last Admin: 01/25/17 17:28 Dose: 5 mg - Exam Quality Assessment: DVT prophylaxis General: alert, oriented, cooperative, no acute distress HEENT: Pupils equal, Pupils reactive, EOMI, Mucous membr. moist/pink Neck: supple Lungs: Clear to auscultation, Normal respiratory effort Cardiovascular: Regular Rate, Regular Rhythm Abdomen: bowel sounds present, soft, no tenderness, no distension (Male) Exam: No: Deferred Extremities: edema (trace to 1+ bilat) Peripheral Pulses: 1+: dorsalis pedis (R) Skin: warm, dry Wound/Incisions: dressing dry and intact (lt foot) Neurological: no new focal deficit Psy/Mental Status: alert, normal affect, normal mood - Problem List & Annotations (1) Status post amputation of toe of left foot SNOMED Code(s): 182295320, 177902014 Code(s): Z89.422 - ACQUIRED ABSENCE OF OTHER LEFT TOE(S) Status: Acute Priority: High Current Visit: Yes (2) Cellulitis of left toe SNOMED Code(s): 47107420 Code(s): L03.032 - CELLULITIS OF LEFT TOE Status: Acute Priority: High Current Visit: Yes (3) Cellulitis of left foot SNOMED Code(s): 681644871 Code(s): L03.116 - CELLULITIS OF LEFT LOWER LIMB Status: Acute Priority: High Current Visit: Yes (4) Diabetes 1.5, managed as type 2 SNOMED Code(s): 477947268 Code(s): E13.9 - OTHER SPECIFIED DIABETES MELLITUS WITHOUT COMPLICATIONS Status: Chronic Priority: High Current Visit: Yes (5) CKD (chronic kidney disease) SNOMED Code(s): 669460752 Code(s): N18.9 - CHRONIC KIDNEY DISEASE, UNSPECIFIED Status: Chronic Priority: High Current Visit: Yes Qualifiers: Chronic kidney disease stage: unspecified stage Qualified Code(s): N18.9 - Chronic kidney disease, unspecified - Problem List Review Problem List Initiated/Reviewed/Updated: Yes - My Orders Last 24 Hours: My Active Orders 01/26/17 09:00 Enoxaparin [Lovenox] 40 mg SUBCUT DAILY 01/26/17 18:00 Warfarin [Coumadin] 5 mg PO SuMoTuWeThSa@1800 01/27/17 18:00 Warfarin [Coumadin] 2.5 mg PO Fr@1800 - Assessment Assessment:: Acute Dry Gangrene, LEFT 2nd toe - Plan Plan:: Assessment/Plan: Acute: S/P amputation of 2nd toe left foot due to Left Foot SSTI: 2nd Toe Ischemia/ Gangrene associated with Edema and Erythema--POD #2 - Risk factors: DM, PVD, Vascular Insufficiency, Immobility and Obesity - Linezolid 600 mg IV Q12 - Pain Medications and Supportive Care - MRI: contraindicated due to pacemaker - CT scan: Vascular calcification and diffuse tissue edema; no osteomyelitis noted - Dr. 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
[2017-01-27] MEDS: Enoxaparin 40 MG/0.4 ML Syringe SUBCUT SCH (09:09)
[2017-01-27] MEDS: Spironolactone 25 MG Tab PO SCH (09:11)
[2017-01-27] MEDS: amLODIPine 5 MG Tab PO SCH (09:11)
[2017-01-27] MEDS: Aspirin 81 MG Tab.EC PO SCH (09:11)
[2017-01-27] MEDS: FEBUXOSTAT PO SCH (09:12)
[2017-01-27] MEDS: Saw/Vit E/Sod Sel/Lyc/Beta/Pyg [Prostate Health Caplet] PO SCH (09:13)
[2017-01-27] MEDS: Linezolid 600 MG in Premix Bag 1 BAG IV SCH (09:13)
--- NOTE | 2017-01-27 10:28 | PCM.PN ---
- General Info Date of Service: 01/27/17 Admission Dx/Problem (Free Text): Admission Diagnosis/Problem Admission Diagnosis/Problem Cellulitis 2nd toe cellulitis/infection POD #3 - amputation of lt 2nd toe with Dr. Reyes, Podiatry. Patient reports pain under good control at present. Dressing CDI. Slept well. No n/v/d. Tolerating diet. No new concerns overnight. Dr. Reyes changed dressing yesterday, will change dressing again today and according to nursing notes is awaiting cultures to determine outpatient antibiotic choice. Functional Status: Reports: pain controlled, tolerating diet, urinating. Denies : new symptoms - Review of Systems General: Reports: No Symptoms HEENT: Reports: no symptoms Pulmonary: Reports: no symptoms Cardiovascular: Reports: No Symptoms Gastrointestinal: Reports: No symptoms Genitourinary: Reports: no symptoms Musculoskeletal: Reports: foot pain (mild- controlled) Skin: Reports: no symptoms Neurological: Reports: No Symptoms Psychiatric: Reports: no symptoms - Patient Data Vitals - most recent: Last Vital Signs Temp 98.6 F 01/27/17 07:34 Pulse 72 01/27/17 07:34 Resp 20 01/27/17 07:34 BP 149/85 H 01/27/17 09:11 Pulse Ox 93 L 01/27/17 07:34 Weight - most recent: 263 lb 6.4 oz I&O - last 24 hours: Intake & Output 01/26/17 01/27/17 01/27/17 22:59 06:59 14:59 Intake Total 2110 800 Output Total 1575 1450 Balance 535 -650 Lab Results last 24 hrs: Laboratory Results - last 24 hr 01/27/17 Range/Units 05:03 Potassium 4.1 (3.5-5.1) mEq/L Magnesium 2.1 (1.8-2.4) mg/dl Kenneth Results last 24 hrs: Microbiology 01/25/17 07:48 Gram Stain - Final Toe, Left - Left Second Anaerobic Culture - Preliminary Gram Positive Cocci Med Orders - Current: Current Medications Acetaminophen (Tylenol) 650 mg PO Q4H PRN PRN Reason: Pain (Mild 1-3)/fever Acetaminophen/Hydrocodone Bitart ([place] 325-5 Mg) 1 tab PO Q4H PRN PRN Reason: Pain (moderate 4-6) Last Admin: 01/26/17 20:44 Dose: 1 tab Albuterol/Ipratropium (Duoneb 3.0-0.5 Mg/3 Ml) 3 ml NEB Q4H PRN PRN Reason: Shortness Of Breath/wheezing Amlodipine Besylate (Norvasc) 5 mg PO DAILY [facility] Last Admin: 01/27/17 09:11 Dose: 5 mg Aspirin (Halfprin) 81 mg PO DAILY [facility] Last Admin: 01/27/17 09:11 Dose: 81 mg Bisacodyl (Dulcolax) 5 mg PO DAILY PRN PRN Reason: Constipation Carvedilol (Coreg) 25 mg PO BIDMEALS [facility] Last Admin: 01/27/17 06:05 Dose: Not Given Colchicine (Colcrys) 0.6 mg PO QPM [facility] Last Admin: 01/26/17 18:35 Dose: 0.6 mg Enoxaparin Sodium (Lovenox) 40 mg SUBCUT DAILY [facility] Last Admin: 01/27/17 09:09 Dose: 40 mg Furosemide (Lasix) 40 mg PO DAILY@1400 [facility] Last Admin: 01/26/17 14:53 Dose: 40 mg Furosemide (Lasix) 60 mg PO DAILY@0600 [facility] Last Admin: 01/27/17 06:03 Dose: 60 mg Hydralazine HCl (Apresoline) 20 mg IVPUSH Q4H PRN PRN Reason: Hypertension Hydromorphone HCl (Dilaudid) 0.25 mg IVPUSH Q2H PRN PRN Reason: Pain (severe 7-10) Last Admin: 01/25/17 04:30 Dose: 0.25 mg Promethazine HCl 12.5 mg/ (Sodium Chloride) 50.5 mls @ 100 mls/hr IV Q6H PRN PRN Reason: Nausea/Vomiting Linezolid 600 mg/ Premix 300 mls @ 300 mls/hr IV Q12H [facility] Last Admin: 01/27/17 09:13 Dose: 300 mls/hr Lorazepam (Ativan) 0.5 mg IV Q6H PRN PRN Reason: Anxiety Magnesium Sulfate (Pharmacy To Dose - Magnesium Replacement) 0 dose .XX ASDIRECTED PRN PRN Reason: rx dose Metoprolol Tartrate (Lopressor) 5 mg IVPUSH Q4H PRN PRN Reason: Tachycardia Nitroglycerin (Nitrostat) 0.4 mg SL ASDIRECTED PRN PRN Reason: Chest Pain Ondansetron HCl (Zofran) 4 mg IV Q6H PRN PRN Reason: Nausea/Vomiting Febuxostat [Uloric] (1 Tab) 0 each PO DAILY [facility] Last Admin: 01/27/17 09:12 Dose: 1 each Saw/Vit E/Sod Etri/Lyc/Beta/Pyg [ Prostate Health Caplet] 0 each PO BID [facility] Last Admin: 01/27/17 09:13 Dose: 1 each Polyethylene Glycol (Miralax) 17 gm PO DAILY PRN PRN Reason: Constipation Last Admin: 01/26/17 04:22 Dose: 17 gm Potassium Chloride (Pharmacy To Dose - Potassium Replacement) 0 dose .XX ASDIRECTED PRN PRN Reason: rx dose Senna/Docusate Sodium (Senna Plus) 1 tab PO BID PRN PRN Reason: Constipation Simvastatin (Zocor) 20 mg PO BEDTIME [facility] Last Admin: 01/26/17 20:44 Dose: 20 mg Sodium Chloride (Saline Flush) 10 ml FLUSH ASDIRECTED PRN PRN Reason: Keep Vein Open Last Admin: 01/22/17 10:34 Dose: 10 ml Spironolactone (Aldactone) 25 mg PO DAILY [facility] Last Admin: 01/27/17 09:11 Dose: 25 mg Temazepam (Restoril) 30 mg PO BEDTIME PRN PRN Reason: Sleep Warfarin Sodium (Coumadin) 2.5 mg PO Fr@1800 [facility] Warfarin Sodium (Coumadin) 5 mg PO SuMoTuWeThSa@1800 [facility] Last Admin: 01/26/17 18:35 Dose: 5 mg Discontinued Medications Bupivacaine HCl (Marcaine 0.5%) Confirm Administered Dose 30 ml .ROUTE .STK-MED ONE Stop: 01/25/17 06:28 Last Admin: 01/25/17 08:05 Dose: 10 ml Enoxaparin Sodium (Lovenox) 40 mg SUBCUT DAILY [facility] Last Admin: 01/23/17 09:34 Dose: 40 mg Fentanyl (Sublimaze) Confirm Administered Dose 100 mcg .ROUTE .STK-MED ONE Stop: 01/25/17 06:56 Furosemide (Lasix) 60 mg PO DAILY [facility] Last Admin: 01/23/17 09:32 Dose: 60 mg Furosemide (Lasix) 40 mg PO BEDTIME [facility] Last Admin: 01/22/17 20:55 Dose: 40 mg Heparin Sodium (Porcine) (Heparin Sodium) 5,000 units SUBCUT Q8H [facility] Last Admin: 01/24/17 09:37 Dose: Not Given Hydromorphone HCl (Dilaudid) 0.25 mg IVPUSH Q2H PRN PRN Reason: Pain (severe 7-10) Last Admin: 01/23/17 16:37 Dose: 0.25 mg Linezolid 600 mg/ Premix 300 mls @ 300 mls/hr IV ONETIME ONE Stop: 01/22/17 10:52 Last Admin: 01/22/17 10:33 Dose: 300 mls/hr Magnesium Sulfate 2 gm/ Premix 50 mls @ 25 mls/hr IV ONETIME ONE Stop: 01/23/17 13:44 Last Admin: 01/23/17 12:45 Dose: 25 mls/hr Sodium Chloride (Normal Saline) 1,000 mls @ 50 mls/hr IV ASDIRECTED [facility] Sodium Chloride (Normal Saline) 1,000 mls @ 50 mls/hr IV ASDIRECTED [facility] Last Admin: 01/25/17 05:16 Dose: 50 mls/hr Lidocaine HCl (Xylocaine-Mpf 1%) Confirm Administered Dose 4 mls @ as directed .ROUTE .STK-MED ONE Stop: 01/25/17 06:56 Magnesium Sulfate 2 gm/ Premix 50 mls @ 25 mls/hr IV ONETIME ONE Stop: 01/26/17 20:23 Last Admin: 01/26/17 18:36 Dose: 25 mls/hr Lidocaine HCl (Xylocaine-Mpf 1%) Confirm Administered Dose 30 ml .ROUTE .STK- MED ONE Stop: 01/25/17 06:28 Last Admin: 01/25/17 07:34 Dose: 5 ml Magnesium Sulfate (Pharmacy To Dose - Magnesium Replacement) 1 dose .XX ASDIRECTED [facility] Oral Electrolytes (Thermotabs) 2 each PO ASDIRECTED ONE Stop: 01/26/17 10:18 Last Admin: 01/26/17 10:47 Dose: 2 each Potassium Chloride (Pharmacy To Dose - Potassium Replacement) 1 dose .XX ASDIRECTED [facility] Propofol (Diprivan 20 Ml) Confirm Administered Dose 200 mg .ROUTE .STK-MED ONE Stop: 01/25/17 06:56 Temazepam (Restoril) 30 mg PO BEDTIME PRN PRN Reason: Sleep Warfarin Sodium (Coumadin) 5 mg PO DAILY@1800 [facility] Warfarin Sodium (Pharmacy To Dose - Warfarin) 1 dose .XX DAILY [facility] Last Admin: 01/23/17 15:46 Dose: Not Given Warfarin Sodium (Coumadin) 5 mg PO ONETIME ONE Stop: 01/22/17 18:01 Last Admin: 01/22/17 17:15 Dose: 5 mg Warfarin Sodium (Coumadin) 7.5 mg PO ONETIME@1800 ONE Stop: 01/23/17 18:01 Warfarin Sodium (Coumadin) 5 mg PO ONETIME ONE Stop: 01/25/17 18:01 Last Admin: 01/25/17 17:28 Dose: 5 mg - Exam Quality Assessment: DVT prophylaxis General: alert, oriented, cooperative, no acute distress HEENT: Pupils equal, Pupils reactive, EOMI, Mucous membr. moist/pink Neck: supple Lungs: Clear to auscultation, Normal respiratory effort Cardiovascular: Regular Rate, Regular Rhythm Abdomen: bowel sounds present, soft, no tenderness, no distension (Male) Exam: Deferred Extremities: edema (1+ to trace bilat) Wound/Incisions: dressing dry and intact (to lt foot) Neurological: no new focal deficit Psy/Mental Status: alert, normal affect, normal mood - Problem List & Annotations (1) Status post amputation of toe of left foot SNOMED Code(s): 536356124, 488599803 Code(s): Z89.422 - ACQUIRED ABSENCE OF OTHER LEFT TOE(S) Status: Acute Priority: High Current Visit: Yes (2) Cellulitis of left toe SNOMED Code(s): 18648078 Code(s): L03.032 - CELLULITIS OF LEFT TOE Status: Acute Priority: High Current Visit: Yes (3) Cellulitis of left foot SNOMED Code(s): 277957557 Code(s): L03.116 - CELLULITIS OF LEFT LOWER LIMB Status: Acute Priority: High Current Visit: Yes (4) Diabetes 1.5, managed as type 2 SNOMED Code(s): 798975588 Code(s): E13.9 - OTHER SPECIFIED DIABETES MELLITUS WITHOUT COMPLICATIONS Status: Chronic Priority: High Current Visit: Yes (5) CKD (chronic kidney disease) SNOMED Code(s): 347103877 Code(s): N18.9 - CHRONIC KIDNEY DISEASE, UNSPECIFIED Status: Chronic Priority: High Current Visit: Yes Qualifiers: Chronic kidney disease stage: unspecified stage Qualified Code(s): N18.9 - Chronic kidney disease, unspecified - Problem List Review Problem List Initiated/Reviewed/Updated: Yes - My Orders Last 24 Hours: My Active Orders 01/26/17 18:00 Warfarin [Coumadin] 5 mg PO SuMoTuWeThSa@1800 01/27/17 10:23 BASIC METABOLIC PANEL,BMP [CHEM] Routine INR,PT,PROTHROMBIN TIME [COAG] Routine 01/27/17 18:00 Warfarin [Coumadin] 2.5 mg PO Fr@1800 - Assessment Assessment:: Acute Dry Gangrene, LEFT 2nd toe - Plan Plan:: Assessment/Plan: Acute: S/P amputation of 2nd toe left foot due to Left Foot SSTI: 2nd Toe Ischemia/ Gangrene associated with Edema and Erythema--POD #3 - Risk factors: DM, PVD, Vascular Insufficiency, Immobility and Obesity - Linezolid 600 mg IV Q12 - Pain Medications and Supportive Care - MRI: contraindicated due to pacemaker - CT scan: Vascular calcification and diffuse tissue edema; no osteomyelitis noted - Dr. 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
[2017-01-27] MEDS: Acetaminophen/HYDROcodone 325-5 MG Tab PO PRN (13:01)
[2017-01-27 16:36] VITALS: BP 122/70
[2017-01-27] MEDS: Colchicine 0.6 MG Tab PO SCH (17:03)
[2017-01-27] MEDS ORDERED: Warfarin 2.5 MG Tab PO SCH (18:00)
--- NOTE | 2017-01-31 12:32 | PCM.DCSUM1 ---
<Sultana Mchugh - Last Filed: 01/31/17 12:27> Discharge Summary - Hospital Course Free Text/Narrative:: This is a 71 yo elderly with male with past medical hx/o CAD S/p CABG, HLD, DM2 , PVD, Right Knee Derangement S/p Surgery x 12, CKD Stage 3-4, Hx/o DVT Thrombocytopenia, Peripheral Edema and Obesity who comes in with c/o left 2nd toe infection that started a few week ago. Patient wears compression stockings and felt this may have pushed his great toe into his 2nd toe leading to development of infection. Patient follows Dr. Reyes and he been getting antibiotic treatment along with routine wound care. Patient felt he was doing better last week but started turning purple and now associated with erythema at the base of his toe. He admits to no sensation to the affected toe but tender to the touch on surrounding tissues. He denies any fever or chills. Patient is known to me from previous admission related to SSTI/Cellulitis. His initial lab work in ED was fairly unremarkable. He is full code. CT scan of the left foot was obtained, did not reveal osteomyelitis of the 2nd toe; MRI is contraindicated due to pacemaker. Dr. Reyes was consulted for surgical intervention. He did take patient to OR for amputation of 2nd left toe. Cultures were pending, he was maintained on IV antibiotics pending sensitivity. Discharge antibiotics and dressing change information/instruction were pending recommendations of Dr. Reyes. Patient will have close follow up with Dr. Reyes after discharge as instructed. Continue on oral antibiotics as instructed. He is discharged home. - Discharge Data Discharge Date: 01/27/17 Discharge Disposition: Home, Self-Care 01 Condition: Good - Discharge Diagnosis/Problem(s) (1) Status post amputation of toe of left foot SNOMED Code(s): 989498859, 142602648 ICD Code: Z89.422 - ACQUIRED ABSENCE OF OTHER LEFT TOE(S) Status: Acute Priority: High (2) Cellulitis of left toe SNOMED Code(s): 91142513 ICD Code: L03.032 - CELLULITIS OF LEFT TOE Status: Acute Priority: High (3) Cellulitis of left foot SNOMED Code(s): 588235081 ICD Code: L03.116 - CELLULITIS OF LEFT LOWER LIMB Status: Acute Priority : High (4) Diabetes 1.5, managed as type 2 SNOMED Code(s): 614881618 ICD Code: E13.9 - OTHER SPECIFIED DIABETES MELLITUS WITHOUT COMPLICATIONS Status: Chronic Priority: High (5) CKD (chronic kidney disease) SNOMED Code(s): 324788401 ICD Code: N18.9 - CHRONIC KIDNEY DISEASE, UNSPECIFIED Status: Chronic Priority: High Qualifiers: Chronic kidney disease stage: unspecified stage Qualified Code(s): N18.9 - Chronic kidney disease, unspecified - Patient Summary/Data Operative Procedure(s) Performed: Amputation, LEFT 2nd toe to level of MTPJ Complications: None Consults: Consultations 01/22/17 13:14 Consult to Case Management [CONS] Routine Consult to Sloop Captain [CONS] Routine OT Evaluation and Treatment [CONS] Routine PT Evaluation and Treatment [CONS] Routine 01/23/17 00:17 Consult to Diabetic Nurse Specialist [CONS] Routine Consult to Dietary [Consult to Risk Officer] [CONS] Routine Labs Pending at D/C: None Recommended Follow-up Testing/Procedures: Follow up with Dr. Reyes as instructed Planned Operative Procedure(s) after DC: None Hospital Course: As above - Patient Instructions Diet: Heart Healthy Diet, Low Sodium, Diabetic Diet Activity: As Tolerated, No Strenuous Activities Driving: Do Not Drive Showering/Bathing: May Shower Wound/Incision Care: Keep Operative Site/Wound Site Clean and Dry (dressing change instructions per Dr. Reyes's advisement) Notify Provider of: Fever, Increased Pain, Swelling and Redness, Drainage - Discharge Plan Home Medications: Home Meds Acetaminophen [Acetaminophen Extra Strength] 1,000 mg PO BID PRN 12/19/14 [ History] Aspirin [Halfprin] 81 mg PO DAILY 12/19/14 [History] Carvedilol 25 mg PO BIDM 12/19/14 [History] Colchicine [Colcrys] 0.6 mg PO QPM 12/19/14 [History] Febuxostat [Uloric] 80 mg PO DAILY 12/19/14 [History] Furosemide 60 mg PO DAILY 12/19/14 [History] Nitroglycerin [Nitrostat] 0.4 mg SL ASDIRECTED PRN 12/19/14 [History] Spironolactone [Aldactone] 25 mg PO DAILY 12/19/14 [History] amLODIPine [Norvasc] 5 mg PO DAILY 12/19/14 [History] atorvaSTATin [Lipitor] 20 mg PO BEDTIME 12/19/14 [History] Saw/Vit E/Sod Teri/Lyc/Beta/Pyg [Prostate Health Caplet] 1 each PO BID 04/19/16 [ History] Furosemide [Lasix] 40 mg PO BEDTIME 01/22/17 [History] Warfarin [Coumadin] 2.5 mg PO FR 01/23/17 [History] Warfarin [Coumadin] 5 mg PO SUMOTUWETHSA 01/23/17 [History] Patient Handouts: Gangrene, Cellulitis, Adult, [id number] Forms: ED Department Discharge Referrals: Flor Bronson MD [Primary Care Provider] - (Please follow up with primary care provider within one week) Artie Reyes II, DPM [Physician] - (Follow up with Dr. Reyes on MondayJanuary 31.) - Discharge Summary/Plan Comment DC Time >30 min.: Yes (40 min) - General Info Date of Service: 01/27/17 Admission Dx/Problem (Free Text: Admission Diagnosis/Problem Admission Diagnosis/Problem Cellulitis 2nd toe cellulitis/infection POD #3 - amputation of lt 2nd toe with Dr. Reyes, Podiatry. Patient reports pain under good control at present. Dressing CDI. Slept well. No n/v/d. Tolerating diet. No new concerns overnight. Dr. Reyes changed dressing yesterday, will change dressing again today and according to nursing notes is awaiting cultures to determine outpatient antibiotic choice. Functional Status: Reports: pain controlled, tolerating diet, ambulating ( minimal; pivot transfer to motorized scooter), urinating. Denies: new symptoms - Review of Systems General: Reports: No Symptoms HEENT: Reports: no symptoms Pulmonary: Reports: no symptoms Cardiovascular: Reports: No Symptoms Gastrointestinal: Reports: No symptoms Genitourinary: Reports: no symptoms Musculoskeletal: Reports: foot pain (minimal) Skin: Reports: no symptoms Neurological: Reports: No Symptoms Psychiatric: Reports: no symptoms - Patient Data Vitals - Most Recent: Last Vital Signs Temp 98.4 F 01/27/17 16:33 Pulse 65 01/27/17 17:03 Resp 18 01/27/17 16:33 BP 122/70 01/27/17 17:03 Pulse Ox 95 01/27/17 16:33 Weight - Most Recent: 119.476 kg YFN Results - Last 24 hrs: Microbiology 01/25/17 07:48 Gram Stain - Final Toe, Left - Left Second Anaerobic Culture - Final Staphylococcus Aureus Peptostreptococcus Species Med Orders - Current: Current Medications Discontinued Medications Acetaminophen (Tylenol) 650 mg PO Q4H PRN PRN Reason: Pain (Mild 1-3)/fever Hydrocodone Bitart/Acetaminophen ([place] 325-5 Mg) 1 tab PO Q4H PRN PRN Reason: Pain (moderate 4-6) Last Admin: 01/27/17 13:01 Dose: 1 tab Albuterol/Ipratropium (Duoneb 3.0-0.5 Mg/3 Ml) 3 ml NEB Q4H PRN PRN Reason: Shortness Of Breath/wheezing Amlodipine Besylate (Norvasc) 5 mg PO DAILY [facility] Last Admin: 01/27/17 09:11 Dose: 5 mg Aspirin (Halfprin) 81 mg PO DAILY [facility] Last Admin: 01/27/17 09:11 Dose: 81 mg Bisacodyl (Dulcolax) 5 mg PO DAILY PRN PRN Reason: Constipation Bupivacaine HCl (Marcaine 0.5%) Confirm Administered Dose 30 ml .ROUTE .STK-MED ONE Stop: 01/25/17 06:28 Last Admin: 01/25/17 08:05 Dose: 10 ml Carvedilol (Coreg) 25 mg PO BIDMEALS [facility] Last Admin: 01/27/17 17:03 Dose: 25 mg Colchicine (Colcrys) 0.6 mg PO QPM [facility] Last Admin: 01/27/17 17:03 Dose: 0.6 mg Enoxaparin Sodium (Lovenox) 40 mg SUBCUT DAILY [facility] Last Admin: 01/23/17 09:34 Dose: 40 mg Enoxaparin Sodium (Lovenox) 40 mg SUBCUT DAILY [facility] Last Admin: 01/27/17 09:09 Dose: 40 mg Fentanyl (Sublimaze) Confirm Administered Dose 100 mcg .ROUTE .STK-MED ONE Stop: 01/25/17 06:56 Furosemide (Lasix) 60 mg PO DAILY [facility] Last Admin: 01/23/17 09:32 Dose: 60 mg Furosemide (Lasix) 40 mg PO BEDTIME [facility] Last Admin: 01/22/17 20:55 Dose: 40 mg Furosemide (Lasix) 40 mg PO DAILY@1400 [facility] Last Admin: 01/27/17 13:01 Dose: 40 mg Furosemide (Lasix) 60 mg PO DAILY@0600 [facility] Last Admin: 01/27/17 06:03 Dose: 60 mg Heparin Sodium (Porcine) (Heparin Sodium) 5,000 units SUBCUT Q8H [facility] Last Admin: 01/24/17 09:37 Dose: Not Given Hydralazine HCl (Apresoline) 20 mg IVPUSH Q4H PRN PRN Reason: Hypertension Hydromorphone HCl (Dilaudid) 0.25 mg IVPUSH Q2H PRN PRN Reason: Pain (severe 7-10) Last Admin: 01/23/17 16:37 Dose: 0.25 mg Hydromorphone HCl (Dilaudid) 0.25 mg IVPUSH Q2H PRN PRN Reason: Pain (severe 7-10) Last Admin: 01/25/17 04:30 Dose: 0.25 mg Linezolid 600 mg/ Premix 300 mls @ 300 mls/hr IV ONETIME ONE Stop: 01/22/17 10:52 Last Admin: 01/22/17 10:33 Dose: 300 mls/hr Promethazine HCl 12.5 mg/ (Sodium Chloride) 50.5 mls @ 100 mls/hr IV Q6H PRN PRN Reason: Nausea/Vomiting Linezolid 600 mg/ Premix 300 mls @ 300 mls/hr IV Q12H [facility] Last Admin: 01/27/17 09:13 Dose: 300 mls/hr Magnesium Sulfate 2 gm/ Premix 50 mls @ 25 mls/hr IV ONETIME ONE Stop: 01/23/17 13:44 Last Admin: 01/23/17 12:45 Dose: 25 mls/hr Sodium Chloride (Normal Saline) 1,000 mls @ 50 mls/hr IV ASDIRECTED KM Sodium Chloride (Normal Saline) 1,000 mls @ 50 mls/hr IV ASDIRECTED KM Last Admin: 01/25/17 05:16 Dose: 50 mls/hr Lidocaine HCl (Xylocaine-Mpf 1%) Confirm Administered Dose 4 mls @ as directed .ROUTE .STK-MED ONE Stop: 01/25/17 06:56 Magnesium Sulfate 2 gm/ Premix 50 mls @ 25 mls/hr IV ONETIME ONE Stop: 01/26/17 20:23 Last Admin: 01/26/17 18:36 Dose: 25 mls/hr Lidocaine HCl (Xylocaine-Mpf 1%) Confirm Administered Dose 30 ml .ROUTE .STK- MED ONE Stop: 01/25/17 06:28 Last Admin: 01/25/17 07:34 Dose: 5 ml Lorazepam (Ativan) 0.5 mg IV Q6H PRN PRN Reason: Anxiety Magnesium Sulfate (Pharmacy To Dose - Magnesium Replacement) 1 dose .XX ASDIRECTED [facility] Magnesium Sulfate (Pharmacy To Dose - Magnesium Replacement) 0 dose .XX ASDIRECTED PRN PRN Reason: rx dose Metoprolol Tartrate (Lopressor) 5 mg IVPUSH Q4H PRN PRN Reason: Tachycardia Nitroglycerin (Nitrostat) 0.4 mg SL ASDIRECTED PRN PRN Reason: Chest Pain Ondansetron HCl (Zofran) 4 mg IV Q6H PRN PRN Reason: Nausea/Vomiting Oral Electrolytes (Thermotabs) 2 each PO ASDIRECTED ONE Stop: 01/26/17 10:18 Last Admin: 01/26/17 10:47 Dose: 2 each Febuxostat [Uloric] (1 Tab) 0 each PO DAILY [facility] Last Admin: 01/27/17 09:12 Dose: 1 each Saw/Vit E/Sod Teri/Lyc/Beta/Pyg [ Prostate Health Caplet] 0 each PO BID [facility] Last Admin: 01/27/17 09:13 Dose: 1 each Polyethylene Glycol (Miralax) 17 gm PO DAILY PRN PRN Reason: Constipation Last Admin: 01/26/17 04:22 Dose: 17 gm Potassium Chloride (Pharmacy To Dose - Potassium Replacement) 1 dose .XX ASDIRECTED [facility] Potassium Chloride (Pharmacy To Dose - Potassium Replacement) 0 dose .XX ASDIRECTED PRN PRN Reason: rx dose Propofol (Diprivan 20 Ml) Confirm Administered Dose 200 mg .ROUTE .STK-MED ONE Stop: 01/25/17 06:56 Senna/Docusate Sodium (Senna Plus) 1 tab PO BID PRN PRN Reason: Constipation Simvastatin (Zocor) 20 mg PO BEDTIME [facility] Last Admin: 01/26/17 20:44 Dose: 20 mg Sodium Chloride (Saline Flush) 10 ml FLUSH ASDIRECTED PRN PRN Reason: Keep Vein Open Last Admin: 01/22/17 10:34 Dose: 10 ml Spironolactone (Aldactone) 25 mg PO DAILY [facility] Last Admin: 01/27/17 09:11 Dose: 25 mg Temazepam (Restoril) 30 mg PO BEDTIME PRN PRN Reason: Sleep Temazepam (Restoril) 30 mg PO BEDTIME PRN PRN Reason: Sleep Warfarin Sodium (Coumadin) 5 mg PO DAILY@1800 [facility] Warfarin Sodium (Pharmacy To Dose - Warfarin) 1 dose .XX DAILY [facility] Last Admin: 01/23/17 15:46 Dose: Not Given Warfarin Sodium (Coumadin) 5 mg PO ONETIME ONE Stop: 01/22/17 18:01 Last Admin: 01/22/17 17:15 Dose: 5 mg Warfarin Sodium (Coumadin) 7.5 mg PO ONETIME@1800 ONE Stop: 01/23/17 18:01 Warfarin Sodium (Coumadin) 5 mg PO ONETIME ONE Stop: 01/25/17 18:01 Last Admin: 01/25/17 17:28 Dose: 5 mg Warfarin Sodium (Coumadin) 2.5 mg PO Fr@1800 [facility] Last Admin: 01/27/17 17:03 Dose: 2.5 mg Warfarin Sodium (Coumadin) 5 mg PO SuMoTuWeThSa@1800 [facility] Last Admin: 01/26/17 18:35 Dose: 5 mg - Exam Quality Assessment: Reports: DVT prophylaxis General: Reports: alert, oriented, cooperative, no acute distress HEENT: Reports: Pupils equal, Pupils reactive, EOMI, Mucous membr. moist/pink Neck: Reports: supple Lungs: Reports: Clear to auscultation, Normal respiratory effort Cardiovascular: Reports: Regular Rate, Regular Rhythm Abdomen: Reports: bowel sounds present, soft, no tenderness (Male) Exam: Deferred Rectal (Males) Exam: Deferred Extremities: Reports: edema (1+ bilat to LE/ankles) Wound/Incisions: Reports: dressing dry and intact (to lt foot) Psy/Mental Status: Reports: alert, normal affect, normal mood *Q Meaningful Use (DIS) - VTE *Q VTE Criteria *Q: - Stroke *Q Stroke Criteria *Q: - AMI *Q AMI Criteria *Q: <Anaid Valdivia M - Last Filed: 01/31/17 13:34> Discharge Summary - Hospital Course Free Text/Narrative:: Follow up Dr Reyes, complete course of antibiotics UTG. - Patient Summary/Data Consults: Consultations 01/22/17 13:14 Consult to Case Management [CONS] Routine Consult to Sloop Captain [CONS] Routine OT Evaluation and Treatment [CONS] Routine PT Evaluation and Treatment [CONS] Routine 01/23/17 00:17 Consult to Diabetic Nurse Specialist [CONS] Routine Consult to Dietary [Consult to Risk Officer] [CONS] Routine - Patient Data Vitals - Most Recent: Last Vital Signs Temp 36.9 C 01/27/17 16:33 Pulse 65 01/27/17 17:03 Resp 18 01/27/17 16:33 BP 122/70 01/27/17 17:03 Pulse Ox 95 01/27/17 16:33 YFN Results - Last 24 hrs: Microbiology 01/25/17 07:48 Gram Stain - Final Toe, Left - Left Second Anaerobic Culture - Final Staphylococcus Aureus Peptostreptococcus Species Med Orders - Current: Current Medications Discontinued Medications Acetaminophen (Tylenol) 650 mg PO Q4H PRN PRN Reason: Pain (Mild 1-3)/fever Hydrocodone Bitart/Acetaminophen ([place] 325-5 Mg) 1 tab PO Q4H PRN PRN Reason: Pain (moderate 4-6) Last Admin: 01/27/17 13:01 Dose: 1 tab Albuterol/Ipratropium (Duoneb 3.0-0.5 Mg/3 Ml) 3 ml NEB Q4H PRN PRN Reason: Shortness Of Breath/wheezing Amlodipine Besylate (Norvasc) 5 mg PO DAILY [facility] Last Admin: 01/27/17 09:11 Dose: 5 mg Aspirin (Halfprin) 81 mg PO DAILY [facility] Last Admin: 01/27/17 09:11 Dose: 81 mg Bisacodyl (Dulcolax) 5 mg PO DAILY PRN PRN Reason: Constipation Bupivacaine HCl (Marcaine 0.5%) Confirm Administered Dose 30 ml .ROUTE .STK-MED ONE Stop: 01/25/17 06:28 Last Admin: 01/25/17 08:05 Dose: 10 ml Carvedilol (Coreg) 25 mg PO BIDMEALS [facility] Last Admin: 01/27/17 17:03 Dose: 25 mg Colchicine (Colcrys) 0.6 mg PO QPM [facility] Last Admin: 01/27/17 17:03 Dose: 0.6 mg Enoxaparin Sodium (Lovenox) 40 mg SUBCUT DAILY [facility] Last Admin: 01/23/17 09:34 Dose: 40 mg Enoxaparin Sodium (Lovenox) 40 mg SUBCUT DAILY [facility] Last Admin: 01/27/17 09:09 Dose: 40 mg Fentanyl (Sublimaze) Confirm Administered Dose 100 mcg .ROUTE .STK-MED ONE Stop: 01/25/17 06:56 Furosemide (Lasix) 60 mg PO DAILY [facility] Last Admin: 01/23/17 09:32 Dose: 60 mg Furosemide (Lasix) 40 mg PO BEDTIME [facility] Last Admin: 01/22/17 20:55 Dose: 40 mg Furosemide (Lasix) 40 mg PO DAILY@1400 [facility] Last Admin: 01/27/17 13:01 Dose: 40 mg Furosemide (Lasix) 60 mg PO DAILY@0600 [facility] Last Admin: 01/27/17 06:03 Dose: 60 mg Heparin Sodium (Porcine) (Heparin Sodium) 5,000 units SUBCUT Q8H [facility] Last Admin: 01/24/17 09:37 Dose: Not Given Hydralazine HCl (Apresoline) 20 mg IVPUSH Q4H PRN PRN Reason: Hypertension Hydromorphone HCl (Dilaudid) 0.25 mg IVPUSH Q2H PRN PRN Reason: Pain (severe 7-10) Last Admin: 01/23/17 16:37 Dose: 0.25 mg Hydromorphone HCl (Dilaudid) 0.25 mg IVPUSH Q2H PRN PRN Reason: Pain (severe 7-10) Last Admin: 01/25/17 04:30 Dose: 0.25 mg Linezolid 600 mg/ Premix 300 mls @ 300 mls/hr IV ONETIME ONE Stop: 01/22/17 10:52 Last Admin: 01/22/17 10:33 Dose: 300 mls/hr Promethazine HCl 12.5 mg/ (Sodium Chloride) 50.5 mls @ 100 mls/hr IV Q6H PRN PRN Reason: Nausea/Vomiting Linezolid 600 mg/ Premix 300 mls @ 300 mls/hr IV Q12H [facility] Last Admin: 01/27/17 09:13 Dose: 300 mls/hr Magnesium Sulfate 2 gm/ Premix 50 mls @ 25 mls/hr IV ONETIME ONE Stop: 01/23/17 13:44 Last Admin: 01/23/17 12:45 Dose: 25 mls/hr Sodium Chloride (Normal Saline) 1,000 mls @ 50 mls/hr IV ASDIRECTED [facility] Sodium Chloride (Normal Saline) 1,000 mls @ 50 mls/hr IV ASDIRECTED [facility] Last Admin: 01/25/17 05:16 Dose: 50 mls/hr Lidocaine HCl (Xylocaine-Mpf 1%) Confirm Administered Dose 4 mls @ as directed .ROUTE .STK-MED ONE Stop: 01/25/17 06:56 Magnesium Sulfate 2 gm/ Premix 50 mls @ 25 mls/hr IV ONETIME ONE Stop: 01/26/17 20:23 Last Admin: 01/26/17 18:36 Dose: 25 mls/hr Lidocaine HCl (Xylocaine-Mpf 1%) Confirm Administered Dose 30 ml .ROUTE .STK- MED ONE Stop: 01/25/17 06:28 Last Admin: 01/25/17 07:34 Dose: 5 ml Lorazepam (Ativan) 0.5 mg IV Q6H PRN PRN Reason: Anxiety Magnesium Sulfate (Pharmacy To Dose - Magnesium Replacement) 1 dose .XX ASDIRECTED [facility] Magnesium Sulfate (Pharmacy To Dose - Magnesium Replacement) 0 dose .XX ASDIRECTED PRN PRN Reason: rx dose Metoprolol Tartrate (Lopressor) 5 mg IVPUSH Q4H PRN PRN Reason: Tachycardia Nitroglycerin (Nitrostat) 0.4 mg SL ASDIRECTED PRN PRN Reason: Chest Pain Ondansetron HCl (Zofran) 4 mg IV Q6H PRN PRN Reason: Nausea/Vomiting Oral Electrolytes (Thermotabs) 2 each PO ASDIRECTED ONE Stop: 01/26/17 10:18 Last Admin: 01/26/17 10:47 Dose: 2 each Febuxostat [Uloric] (1 Tab) 0 each PO DAILY [facility] Last Admin: 01/27/17 09:12 Dose: 1 each Saw/Vit E/Sod Teri/Lyc/Beta/Pyg [ Prostate Health Caplet] 0 each PO BID [facility] Last Admin: 01/27/17 09:13 Dose: 1 each Polyethylene Glycol (Miralax) 17 gm PO DAILY PRN PRN Reason: Constipation Last Admin: 01/26/17 04:22 Dose: 17 gm Potassium Chloride (Pharmacy To Dose - Potassium Replacement) 1 dose .XX ASDIRECTED [facility] Potassium Chloride (Pharmacy To Dose - Potassium Replacement) 0 dose .XX ASDIRECTED PRN PRN Reason: rx dose Propofol (Diprivan 20 Ml) Confirm Administered Dose 200 mg .ROUTE .STK-MED ONE Stop: 01/25/17 06:56 Senna/Docusate Sodium (Senna Plus) 1 tab PO BID PRN PRN Reason: Constipation Simvastatin (Zocor) 20 mg PO BEDTIME [facility] Last Admin: 01/26/17 20:44 Dose: 20 mg Sodium Chloride (Saline Flush) 10 ml FLUSH ASDIRECTED PRN PRN Reason: Keep Vein Open Last Admin: 01/22/17 10:34 Dose: 10 ml Spironolactone (Aldactone) 25 mg PO DAILY [facility] Last Admin: 01/27/17 09:11 Dose: 25 mg Temazepam (Restoril) 30 mg PO BEDTIME PRN PRN Reason: Sleep Temazepam (Restoril) 30 mg PO BEDTIME PRN PRN Reason: Sleep Warfarin Sodium (Coumadin) 5 mg PO DAILY@1800 [facility] Warfarin Sodium (Pharmacy To Dose - Warfarin) 1 dose .XX DAILY [facility] Last Admin: 01/23/17 15:46 Dose: Not Given Warfarin Sodium (Coumadin) 5 mg PO ONETIME ONE Stop: 01/22/17 18:01 Last Admin: 01/22/17 17:15 Dose: 5 mg Warfarin Sodium (Coumadin) 7.5 mg PO ONETIME@1800 ONE Stop: 01/23/17 18:01 Warfarin Sodium (Coumadin) 5 mg PO ONETIME ONE Stop: 01/25/17 18:01 Last Admin: 01/25/17 17:28 Dose: 5 mg Warfarin Sodium (Coumadin) 2.5 mg PO Fr@1800 [facility] Last Admin: 01/27/17 17:03 Dose: 2.5 mg Warfarin Sodium (Coumadin) 5 mg PO SuMoTuWeThSa@1800 [facility] Last Admin: 01/26/17 18:35 Dose: 5 mg *Q Meaningful Use (DIS) - VTE *Q VTE Criteria *Q: - Stroke *Q Stroke Criteria *Q: - AMI *Q AMI Criteria *Q:
== END 2017-01-27 17:45 | disposition home or self-care (01) | DRG 314 ==
LOC: JD.ED 09:12 → JD.MS 11:25
PROVIDERS: ADMIT Internal Medicine; ATTEND Internal Medicine
PROC: 0Y6S0Z0 Detachment at Left 2nd Toe, Complete, Open Approach (ICD-10-PCS; principal; 2017-01-25)
DX: L03.032 Cellulitis of left toe (principal); I96 Gangrene, not elsewhere classified; E83.42 Hypomagnesemia; L03.116 Cellulitis of left lower limb; H91.93 Unspecified hearing loss, bilateral; I48.91 Unspecified atrial fibrillation; I25.810 Atherosclerosis of coronary artery bypass graft(s) without angina pectoris; I12.9 Hypertensive chronic kidney disease with stage 1 through stage 4 chronic kidney disease, or unspecified chronic kidney disease; N18.3 Chronic kidney disease, stage 3 (moderate); I25.2 Old myocardial infarction; Z95.5 Presence of coronary angioplasty implant and graft; E78.00 Pure hypercholesterolemia, unspecified; K21.9 Gastro-esophageal reflux disease without esophagitis; M19.90 Unspecified osteoarthritis, unspecified site; Z86.73 Personal history of transient ischemic attack (TIA), and cerebral infarction without residual deficits; E11.9 Type 2 diabetes mellitus without complications; Z95.810 Presence of automatic (implantable) cardiac defibrillator; E78.5 Hyperlipidemia, unspecified; Z96.651 Presence of right artificial knee joint; Z87.891 Personal history of nicotine dependence; Z88.1 Allergy status to other antibiotic agents; Z88.8 Allergy status to other drugs, medicaments and biological substances; Z79.01 Long term (current) use of anticoagulants; Z79.82 Long term (current) use of aspirin; Z79.899 Other long term (current) drug therapy; Z86.718 Personal history of other venous thrombosis and embolism; D69.6 Thrombocytopenia, unspecified
CPT/HCPCS: 01480; 36415; 73630-26-LT; 73630-LT; 73700-26-LT; 73700-LT; 80048; 80053; 83036; 83735; 84132; 84439; 84443; 85025; 85610; 86140; 87040; 87075; 87077; 87181; 87186; 87205; 87641; 93005; 96365; 97161-GP; 97166-GO; 97530-GO; 97530-GP; 99284; 99285-25; A9270-GY; J1170; J1644; J1650; J2020; J2704; J3010; J3475; J7040; J7050

== ENCOUNTER 2017-06-30 10:36 | Emergency (ER) | payer BC, MEDICARE ==
[2017-06-30 10:57] VITALS: BP 133/66
[2017-06-30] MEDS ORDERED: Sodium Chloride 0.9% 10 ML Syringe FLUSH PRN (11:29)
--- NOTE | 2017-06-30 11:35 | EDM.PDOC ---
ED HPI GENERAL MEDICAL PROBLEM - General Chief Complaint: Cardiovascular Problem Stated Complaint: FLUID ON LUNG Time Seen by Provider: 06/30/17 11:10 Source of Information: Reports: Patient History Limitations: Reports: No Limitations - History of Present Illness INITIAL COMMENTS - FREE TEXT/NARRATIVE: Patient is a 71-year-old male who was sent over from the [facility] concern was swelling to the right leg and shortness of breath. Patient states he's been experiencing pain to the right upper quadrant/flank/lower chest for the past 2 days. Describes the pain as a sharp sensation that worsen with bending over, movement, and deep inspiration. States with onset of pain there when is taking out of them. He has no increased shortness of breath while at rest. Patient states pain goes away quickly with sitting in his chair. States he has chronic swelling to his right leg which he wears a compression stocking. 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 He has a history of cellulitis as well. Denies any increased redness, swelling, open sores, pain, or any additional complaints to the right leg. As a recently he states second toe on the left foot was amputated a few months ago. Just this morning a callus was scraped off by his PCP on the third toe left foot. Patient denies any increase in weight. Denies any PND or orthopnea. There is no chest pain present or as stated above worsening shortness of breath. He has a chronic cough that comes on intermittently with described as nonproductive. He has no history of blood clots to his lower extremities. He has a history of a PE. He is chronically anticoagulated with warfarin. Unknown last INR value. States he normally sleeps in a lift chair at approximately 30. Patient has a past medical history of a true fibrillation, coronary artery disease, hypercholesterolemia, hypertension, [place], PEs, acid reflux, EPH, arthritis, CVA, diabetes type 2, cellulitis, and staph infection. Surgical history includes: AICD, coronary artery bypass 5, coronary artery stents, total knee replacement, right elbow surgery. Current medications include amlodipine, aspirin, atorvastatin, carvedilol, colchicine, fluconazole, furosemide, mupirocin, nitroglycerin, spironolactone, warfarin, and febuxostat. Right Chest Pain Score (Numeric/FACES): 1 - Related Data Allergies Allergy/AdvReac Type Severity Reaction Status Date / Time allopurinol Allergy Rash Verified 06/30/17 10:51 cefazolin Allergy Hives Verified 06/30/17 10:51 celecoxib Allergy Rash Verified 06/30/17 10:51 clindamycin Allergy Hives Verified 06/30/17 10:51 ibuprofen Allergy Rash Verified 06/30/17 10:51 NSAIDS (Non-Steroidal Allergy Rash Verified 06/30/17 10:51 Anti-Inflamma oxaprozin Allergy Rash Verified 06/30/17 10:51 vancomycin Allergy Hives Verified 06/30/17 10:51 Home Meds: Home Meds Acetaminophen [Acetaminophen Extra Strength] 1,000 mg PO BID PRN 12/19/14 [ History] Aspirin [Halfprin] 81 mg PO DAILY 12/19/14 [History] Carvedilol 25 mg PO BIDM 12/19/14 [History] Colchicine [Colcrys] 0.6 mg PO QPM 12/19/14 [History] Febuxostat [Uloric] 80 mg PO DAILY 12/19/14 [History] Furosemide 60 mg PO DAILY 12/19/14 [History] Nitroglycerin [Nitrostat] 0.4 mg SL ASDIRECTED PRN 12/19/14 [History] Spironolactone [Aldactone] 25 mg PO DAILY 12/19/14 [History] amLODIPine [Norvasc] 5 mg PO DAILY 12/19/14 [History] atorvaSTATin [Lipitor] 20 mg PO BEDTIME 12/19/14 [History] Saw/Vit E/Sod Teri/Lyc/Beta/Pyg [Prostate Health Caplet] 1 each PO BID 04/19/16 [ History] Furosemide [Lasix] 40 mg PO BEDTIME 01/22/17 [History] Warfarin [Coumadin] 2.5 mg PO FR 01/23/17 [History] Warfarin [Coumadin] 5 mg PO SUMOTUWETHSA 01/23/17 [History] Hydrocodone/Acetaminophen [[place] 5-325 Tablet] 1 each PO Q6H PRN #10 tablet [Rx] Past Medical History HEENT History: Reports: Hard of Hearing, Other (See Below) Other HEENT History: Wears bilat hearing aides, glasses, dentures full to upper and partial to lower. Pt compalins of faint ringing to ears, majority of the time Cardiovascular History: Reports: Afib, CAD, High Cholesterol, Hypertension, [place] Other Cardiovascular History: Bypass in 1999 with 5 bypass. Stent in 2013, [place] in 2013, Other Respiratory History: previous blood clots in lungs 2002; no current problems Gastrointestinal History: Reports: Other (See Below) Other Gastrointestinal History: Acid reflux PRN Genitourinary History: Reports: Prostate Disorder Musculoskeletal History: Reports: Arthritis Neurological History: Reports: CVA Other Neuro History: CVA in 2013 Endocrine/Metabolic History: Reports: Diabetes, Type II Other Endocrine/Metabolic History: not taking any medication or insulin Hematologic History: Reports: Other (See Below) Dermatologic History: Reports: Cellulitis - Past Surgical History Cardiovascular Surgical History: Reports: AICD, Coronary Artery Bypass, Coronary Artery Stent Musculoskeletal Surgical History: Reports: Knee Replacement Social & Family History - Family History Family Medical History: Noncontributory - Tobacco Use Smoking Status *Q: Never Smoker Used Tobacco, but Quit: Yes Month Tobacco Last Used: 1959 Second Hand Smoke Exposure: No - Caffeine Use Caffeine Use: Reports: Coffee, Soda Caffeine Use Comment: "very little" - Alcohol Use Days Per Week of Alcohol Use: 6 Number of Drinks Per Day: 11 Total Drinks Per Week: 66 - Recreational Drug Use Recreational Drug Use: No Drug Use in Last 12 Months: No - Living Situation & Occupation Living situation: Reports: , with Spouse, with Family Occupation: Retired ED ROS GENERAL - Review of Systems Review Of Systems: ROS reveals no pertinent complaints other than HPI. ED EXAM, GENERAL - Physical Exam Exam: See Below Exam Limited By: No Limitations General Appearance: Alert, WD/WN, No Apparent Distress Ears: Hearing Grossly Normal Nose: Normal Inspection Throat/Mouth: Normal Voice, No Airway Compromise Neck: Normal Inspection, Supple Respiratory/Chest: No Respiratory Distress, Lungs Clear, Normal Breath Sounds, No Accessory Muscle Use, Chest Non-Tender Cardiovascular: Normal Peripheral Pulses, No JVD, Tachycardia, Systolic Murmur, Irregularly Irregular Peripheral Pulses: 2+: Radial (L), Radial (R) GI/Abdominal: Normal Bowel Sounds, Soft, Non-Tender, No Organomegaly, No Distention Extremities: Pedal Edema (bilaterally: 1+. Large surgical incisions to the right knee. No pain with palpation. ), Other (No significant swelling to the lower extremities noted. ) Neurological: Alert, Oriented, CN II-XII Intact, Normal Cognition, No Motor/ Sensory Deficits Psychiatric: Normal Affect, Normal Mood Course - Vital Signs Last Recorded V/S: Last Vital Signs Temp 96.8 F 06/30/17 10:52 Pulse 74 06/30/17 10:52 Resp 20 06/30/17 10:52 BP 133/66 06/30/17 10:52 Pulse Ox 94 L 06/30/17 10:52 - Orders/Labs/Meds Orders: Active Orders 24 hr Category Date Time Status EKG Documentation Completion [RC] STAT Care 06/30/17 11:28 Active Peripheral IV Care [RC] . DIRECTED Care 06/30/17 11:29 Active Peripheral IV Insertion Adult [OM.PC] Stat Oth 06/30/17 11:28 Ordered Labs: Laboratory Tests 06/30/17 06/30/17 06/30/17 Range/Units 10:55 10:55 10:55 WBC 3.90 L (4.23-9.07) K/mm3 RBC 4.29 L (4.63-6.08) M/mm3 Hgb 12.8 L (13.7-17.5) gm/L Hct 39.0 L (40.1-51.0) % MCV 90.9 (79.0-92.2) fl MCH 29.8 (25.7-32.2) pg MCHC 32.8 (32.2-35.5) g/dl RDW Std Deviation 51.1 H (35.1-43.9) fL Plt Count 151 L (163-337) K/mm3 MPV 10.5 (9.4-12.3) fl Neut % (Auto) 64.5 (34.0-67.9) % Lymph % (Auto) 15.4 L (21.8-53.1) % [place] % (Auto) 14.9 H (5.3-12.2) % Eos % (Auto) 4.9 (0.8-7.0) Baso % (Auto) 0.3 (0.1-1.2) % Neut # (Auto) 2.52 (1.78-5.38) K/mm3 Lymph # (Auto) 0.60 L (1.32-3.57) K/mm3 [place] # (Auto) 0.58 (0.30-0.82) K/mm3 Eos # (Auto) 0.19 (0.04-0.54) K/mm3 Baso # (Auto) 0.01 (0.01-0.08) K/mm3 PT 35.0 H (8.0-13.0) SECONDS INR 2.99 D-Dimer, Quantitative (0.19-0.59) mg/L Sodium 141 (136-145) mEq/L Potassium 3.4 L (3.5-5.1) mEq/L Chloride 107 (98-107) mEq/L Carbon Dioxide 29 (21-32) mEq/L Anion Gap 8.4 (5-15) BUN 37 H (7-18) mg/dL Creatinine 1.4 H (0.7-1.3) mg/dL Est Cr Clr Drug Dosing 56.27 mL/min Estimated GFR (MDRD) 50 (>60) mL/min BUN/Creatinine Ratio 26.4 H (14-18) Glucose 156 H (83-115) mg/dL Calcium 8.4 L (8.5-10.1) mg/dL Total Bilirubin 0.4 (0.2-1.0) mg/dL AST 31 (15-37) U/L ALT 33 (16-63) U/L Alkaline Phosphatase 107 (46-116) U/L Troponin I 0.026 (0.00-0.056) ng/mL C-Reactive Protein 0.6 (<1.0) mg/dL [id number]-[id number] Pept 3710 H (0-125) pg/mL Total Protein 6.4 (6.4-8.2) g/dl Albumin 2.4 L (3.4-5.0) g/dl Globulin 4.0 gm/dL Albumin/Globulin Ratio 0.6 L (1-2) Urine Color (Yellow) Urine Appearance (Clear) Urine pH (5.0-8.0) Ur Specific [place] (1.005-1.030) Urine Protein (Negative) Urine Glucose (UA) (Negative) Urine Ketones (Negative) Urine Occult Blood (Negative) Urine Nitrite (Negative) Urine Bilirubin (Negative) Urine Urobilinogen (0.2-1.0) Ur Leukocyte Esterase (Negative) Urine RBC (0-5) /hpf Urine WBC (0-5) /hpf Ur Epithelial Cells (0-5) /hpf Urine Bacteria (FEW) /hpf Hyaline Casts (0-5) /lpf Urine Mucus (FEW) /hpf 06/30/17 06/30/17 Range/Units 10:55 11:40 WBC (4.23-9.07) K/mm3 RBC (4.63-6.08) M/mm3 Hgb (13.7-17.5) gm/L Hct (40.1-51.0) % MCV (79.0-92.2) fl MCH (25.7-32.2) pg MCHC (32.2-35.5) g/dl RDW Std Deviation (35.1-43.9) fL Plt Count (163-337) K/mm3 MPV (9.4-12.3) fl Neut % (Auto) (34.0-67.9) % Lymph % (Auto) (21.8-53.1) % [place] % (Auto) (5.3-12.2) % Eos % (Auto) (0.8-7.0) Baso % (Auto) (0.1-1.2) % Neut # (Auto) (1.78-5.38) K/mm3 Lymph # (Auto) (1.32-3.57) K/mm3 [place] # (Auto) (0.30-0.82) K/mm3 Eos # (Auto) (0.04-0.54) K/mm3 Baso # (Auto) (0.01-0.08) K/mm3 PT (8.0-13.0) SECONDS INR D-Dimer, Quantitative 0.26 (0.19-0.59) mg/L Sodium (136-145) mEq/L Potassium (3.5-5.1) mEq/L Chloride (98-107) mEq/L Carbon Dioxide (21-32) mEq/L Anion Gap (5-15) BUN (7-18) mg/dL Creatinine (0.7-1.3) mg/dL Est Cr Clr Drug Dosing mL/min Estimated GFR (MDRD) (>60) mL/min BUN/Creatinine Ratio (14-18) Glucose (83-115) mg/dL Calcium (8.5-10.1) mg/dL Total Bilirubin (0.2-1.0) mg/dL AST (15-37) U/L ALT (16-63) U/L Alkaline Phosphatase (46-116) U/L Troponin I (0.00-0.056) ng/mL C-Reactive Protein (<1.0) mg/dL [id number] Pept (0-125) pg/mL Total Protein (6.4-8.2) g/dl Albumin (3.4-5.0) g/dl Globulin gm/dL Albumin/Globulin Ratio (1-2) Urine Color Yellow (Yellow) Urine Appearance Clear (Clear) Urine pH 6.5 (5.0-8.0) Ur Specific [place] 1.015 (1.005-1.030) Urine Protein Negative (Negative) Urine Glucose (UA) Negative (Negative) Urine Ketones Negative (Negative) Urine Occult Blood Trace-intact H (Negative) Urine Nitrite Negative (Negative) Urine Bilirubin Negative (Negative) Urine Urobilinogen 0.2 (0.2-1.0) Ur Leukocyte Esterase Trace H (Negative) Urine RBC 0-5 (0-5) /hpf Urine WBC 0-5 (0-5) /hpf Ur Epithelial Cells Not seen (0-5) /hpf Urine Bacteria Not seen (FEW) /hpf Hyaline Casts 0-5 (0-5) /lpf Urine Mucus Not seen (FEW) /hpf Meds: Medications Discontinued Medications Generic Name Dose Route Start Last Admin Trade Name Freq PRN Reason Stop Dose Admin Furosemide 40 mg 06/30/17 13:33 06/30/17 13:44 Lasix IVPUSH 06/30/17 13:34 40 mg NOW ONE Administration Furosemide 20 mg 06/30/17 14:42 Lasix IVPUSH 06/30/17 14:43 NOW ONE Hydromorphone HCl 0.25 mg 06/30/17 13:36 06/30/17 13:55 Dilaudid IVPUSH 06/30/17 13:37 Not Given ONETIME ONE Sodium Chloride 10 ml 06/30/17 11:29 06/30/17 11:42 Saline Flush FLUSH 10 ml ASDIRECTED PRN Administration Keep Vein Open - Re-Assessments/Exams Free Text/Narrative Re-Assessment/Exam: Peripheral IV established. Initial labs and studies include CBC, chem 14, CRP, d -dimer, PT/INR, BNP, troponin, UA, chest x-ray one view, and EKG. 06/30/17 13:34 EKG: Interpretation with a right bundle branch block. This is compared to previous EKG obtained January 24, 2017 with no symptoms changes. CXR: Cardiomegaly and minimal pulmonary vascular congestion. Other incidental findings. Including: AICD present and previous sternotomy wires. Labs: Labs reviewed: White blood cell count 3.90, hemoglobin 12.8, platelet count 151, INR is 2.99, d-dimer 0.26, sodium 141, potassium 3.4, creatinine 1.4 , BUN 37, troponin 0.026, pro-BNP 3710. UA positive for trace blood, trace leukocyte Estrace, no other findings. Patient had increasing shortness of breath with standing secondary to sharp pain underneath his right rib cage and right scapula. It sharp in nature. Relieved with rest. Of note he does state although his fluid retention does change on a daily basis he is on the upper limits of normal. Chest x-ray did reveal mild increased pulmonary congestion. Ordered Lasix 40 mg IVP. Patient normally takes 60 mg Lasix in the a.m. and 40 mg at night. He has been taking his medications. orderd dilaudid 0.25mg IVP. 06/30/17 13:45 received labs from [place]. Patient's last be and PE was 3564 on 06/15/2017. Decrease the IV dose from 40-20 mg. Current BNP and previous is approximate baseline. Patient refused the Dilaudid due to him driving himself. Request pain medications upon discharge. Discharge instructions as documented. Departure - Departure Time of Disposition: 14:20 Disposition: Home, Self-Care 01 Condition: Good Clinical Impression: Chest pain of uncertain etiology, Right-sided chest wall pain Prescriptions: Hydrocodone/Acetaminophen [[place] 5-325 Tablet] 1 each PO Q6H PRN #10 tablet PRN Reason: Pain (Severe 7-10) Instructions: Heart Failure, [id number], Atrial Fibrillation, [id number] Referrals: Flor Bronson MD [Primary Care Provider] - Forms: ED Department Discharge Additional Instructions: As discussed you were treated with low dose of IV Lasix with mild increase and pulmonary vascularization on chest x-ray and also elevation of BNP above baseline. He noted that air-fluid retention was at the upper limits of normal. Continue taking all your home medications as prescribed. Etiology of current complaint most likely related to musculoskeletal with worsening symptoms with movement and taking a deep breath. D-dimer was within normal limits. PTT/INR was therapeutic. There is a low probability that this is related to a PE. Will have you follow-up with your PCP this coming week. Return to ED for any new or worsening symptoms. For pain take Tylenol 500 mg every 6 hours. For severe pain take [place] one tab every 4-6 hours. Do not take [place] and Tylenol together. Refrain from driving while taking the [place]. - My Orders Last 24 Hours: My Active Orders 06/30/17 11:28 EKG Documentation Completion [RC] STAT Peripheral IV Insertion Adult [OM.PC] Stat 06/30/17 11:29 Peripheral IV Care [RC] . DIRECTED - Assessment/Plan Last 24 Hours: My Active Orders 06/30/17 11:28 EKG Documentation Completion [RC] STAT Peripheral IV Insertion Adult [OM.PC] Stat 06/30/17 11:29 Peripheral IV Care [RC] . DIRECTED
--- NOTE | 2017-06-30 12:57 | CR ---
Chest: Frontal view of the chest was obtained. Comparison: Previous chest x-ray of 01/19/17. Heart is enlarged. AICD is present. Previous sternotomy is noted. Pulmonary vessels are felt to be minimally congested. Lungs otherwise are clear. Bony structures are within normal limits for the patient's age. Impression: 1. Cardiomegaly and minimal pulmonary vascular congestion. 2. Other incidental findings. Diagnostic code #3
[2017-06-30] MEDS ORDERED: Furosemide 40 MG/4 ML VIAL IVPUSH ONE ×2 (13:33→14:42)
[2017-06-30] MEDS ORDERED: HYDROmorphone 0.5 MG/0.5 ML Syringe IVPUSH ONE (13:36)
== END 2017-06-30 14:45 | disposition home or self-care (01) ==
LOC: JD.ED 10:36
DX: R07.89 Other chest pain (principal); I10 Essential (primary) hypertension; I25.2 Old myocardial infarction; I25.10 Atherosclerotic heart disease of native coronary artery without angina pectoris; E78.00 Pure hypercholesterolemia, unspecified; M19.90 Unspecified osteoarthritis, unspecified site; E11.9 Type 2 diabetes mellitus without complications; Z95.1 Presence of aortocoronary bypass graft; Z86.718 Personal history of other venous thrombosis and embolism; Z95.5 Presence of coronary angioplasty implant and graft; Z96.659 Presence of unspecified artificial knee joint; Z87.891 Personal history of nicotine dependence; Z79.82 Long term (current) use of aspirin; Z79.899 Other long term (current) drug therapy; Z88.1 Allergy status to other antibiotic agents; Z88.8 Allergy status to other drugs, medicaments and biological substances; Z98.890 Other specified postprocedural states
CPT/HCPCS: 36415; 71010; 80053; 81001; 83880; 84484; 85025; 85379; 85610; 86140; 93005; 96374; 99285; J1940; J7050

== ENCOUNTER 2017-07-25 09:39 | Day surgery (SDC) | payer BC, MEDICARE ==
[~2017-07-25 09:39] MED LIST: Lidocaine 1% PF 2 ML SDV INJECT SCH; Pilocarpine 4% Ophth Soln 15 ML Bot EYELF SCH
[2017-07-25] MEDS: Polymyxin B/Trimethoprim 10 ML Bottle EYELF SCH ×3 (11:09→12:50)
[2017-07-25] MEDS: Brimonidine 0.2% Ophth Soln 5 ML Bottle EYELF SCH ×3 (11:18→12:49)
--- NOTE | 2017-07-25 11:19 | PCM.PREANE ---
Preanesthetic Assessment - Anesthesia/Transfusion/Family Hx Anesthesia History: Prior Anesthesia Without Reaction Family History of Anesthesia Reaction: No Transfusion History: Prior Transfusion Without Reaction Intubation History: Unknown - Review of Systems General: Chills Pulmonary: Shortness of Breath Cardiovascular: Edema, Other (See PMH.) Gastrointestinal: No Symptoms Neurological: Numbness, Tingling (Numbess to lower extremities ), Difficulty Walking, Weakness, Other (Stroke 2017) Other: Reports: Easy Bruising, Diabetes - Physical Assessment NPO Status Date: 07/24/17 NPO Status Time: 22:00 Pulse: 75 O2 Sat by Pulse Oximetry: 94 Respiratory Rate: 16 Blood Pressure: 135/81 Temperature: 36.2 C Height: 1.88 m Weight: 113.398 kg ASA Class: 3 Mental Status: Alert & Oriented x3 Airway Class: Mallampati = 1 Dentition: Reports: Dentures, Partial (dentures on top; partial on bottom) Thyro-Mental Finger Breadths: 3 Mouth Opening Finger Breadths: 3 ROM/Head Extension: Full Lungs: Clear to Auscultation, Normal Respiratory Effort Cardiovascular: Regular Rate, Regular Rhythm - Allergies Allergies/Adverse Reactions: Allergies Allergy/AdvReac Type Severity Reaction Status Date / Time allopurinol Allergy Rash Verified 06/30/17 10:51 cefazolin Allergy Hives Verified 06/30/17 10:51 celecoxib Allergy Rash Verified 06/30/17 10:51 clindamycin Allergy Hives Verified 06/30/17 10:51 ibuprofen Allergy Rash Verified 06/30/17 10:51 NSAIDS (Non-Steroidal Allergy Rash Verified 06/30/17 10:51 Anti-Inflamma oxaprozin Allergy Rash Verified 06/30/17 10:51 vancomycin Allergy Hives Verified 06/30/17 10:51 - Anesthesia Plan Pre-Op Medication Ordered: Beta Manoj Beta Manoj: Carvedilol Med Last Dose Date: 07/25/17 Med Last Dose Time: 06:00 - Acknowledgements Anesthesia Type Planned: MAC Pt an Appropriate Candidate for the Planned Anesthesia: Yes Alternatives and Risks of Anesthesia Discussed w Pt/Guardian: Yes Pt/Guardian Understands and Agrees with Anesthesia Plan: Yes PreAnesthesia Questionnaire HEENT History: Reports: Hard of Hearing, Other (See Below) Other HEENT History: Wears bilat hearing aides, glasses, dentures full to upper and partial to lower. Pt compalins of faint ringing to ears, majority of the time Cardiovascular History: Reports: Afib, Automatic Implantable Cardioverter Defibrillators, CAD, High Cholesterol, Hypertension, [place], Pacemaker (AICD interrogated every 6 months.), Stents (Stents 2013) Other Cardiovascular History: Bypass in 1999 with 5 bypass. Stent in 2013, [place] in 2013, Respiratory History: Reports: SOB Other Respiratory History: previous blood clots in lungs 2002; no current problems Gastrointestinal History: Reports: Other (See Below) Other Gastrointestinal History: Acid reflux PRN Genitourinary History: Reports: Prostate Disorder Musculoskeletal History: Reports: Arthritis Neurological History: Reports: CVA Other Neuro History: CVA in 2013 Endocrine/Metabolic History: Reports: Diabetes, Type II Other Endocrine/Metabolic History: not taking any medication or insulin Hematologic History: Reports: Other (See Below) Dermatologic History: Reports: Cellulitis - Past Surgical History Cardiovascular Surgical History: Reports: AICD, Coronary Artery Bypass, Coronary Artery Stent Musculoskeletal Surgical History: Reports: Knee Replacement - SUBSTANCE USE Smoking Status *Q: Never Smoker Second Hand Smoke Exposure: No Days Per Week of Alcohol Use: 6 Number of Drinks Per Day: 11 Total Drinks Per Week: 66 Recreational Drug Use History: No - HOME MEDS Home Medications: Home Meds Aspirin [Halfprin] 81 mg PO DAILY 12/19/14 [History] Carvedilol 25 mg PO BIDM 12/19/14 [History] Colchicine [Colcrys] 0.6 mg PO QPM 12/19/14 [History] Febuxostat [Uloric] 80 mg PO DAILY 12/19/14 [History] Furosemide 60 mg PO QAM 12/19/14 [History] Nitroglycerin [Nitrostat] 0.4 mg SL ASDIRECTED PRN 12/19/14 [History] Spironolactone [Aldactone] 25 mg PO DAILY 12/19/14 [History] amLODIPine [Norvasc] 5 mg PO DAILY 12/19/14 [History] atorvaSTATin [Lipitor] 20 mg PO BEDTIME 12/19/14 [History] Saw/Vit E/Sod Teri/Lyc/Beta/Pyg [Prostate Health Caplet] 1 each PO BID 04/19/16 [ History] Furosemide [Lasix] 40 mg PO BEDTIME 01/22/17 [History] Warfarin [Coumadin] 2.5 mg PO FR 01/23/17 [History] Warfarin [Coumadin] 5 mg PO SUMOTUWETHSA 01/23/17 [History] Fluticasone/Salmeterol [Advair Diskus 250-50] 1 puff INH BID 07/24/17 [History] Multivitamin with Minerals [Multivitamins with Minerals] 1 tab PO DAILY [History] - CURRENT (IN HOUSE) MEDS Current Meds: Current Medications Brimonidine Tartrate (Alphagan 0.2% Ophth Soln) 0 ml EYELF ASDIRECTED KM Stop: 07/25/17 18:00 Lidocaine HCl (Xylocaine-Mpf 1%) 1 ml INJECT ASDIRECTED KM Stop: 07/25/17 18:00 Phenylephrine HCl (Mitch-Synephrine 2.5% Ophth Soln) 0 ml EYELF ASDIRECTED KM Stop: 07/25/17 18:00 Pilocarpine HCl (Pilocar 4% Ophth Soln) 0 ml EYELF ASDIRECTED KM Stop: 07/25/17 18:00 Polymyxin/Trimethoprim Sulfate (Polytrim Ophth Soln) 0 ml EYELF ASDIRECTED KM Stop: 07/25/17 18:00 Last Admin: 07/25/17 11:09 Dose: 1 drop Tetracaine HCl (Tetracaine 0.5% Steri-Unit Cate) 0 ml EYELF ASDIRECTED KM Stop: 07/25/17 18:00 Tropicamide (Mydriacyl 1% Ophth Soln) 0 ml EYELF ASDIRECTED KM Stop: 07/25/17 18:00
[2017-07-25] MEDS: Phenylephrine 2.5% Ophth Soln 2 ML Bot EYELF SCH ×5 (11:23→12:32)
[2017-07-25] MEDS: Tetracaine HCl/PF 0.5% 4 ML Bottle EYELF SCH ×2 (12:21→12:40)
[2017-07-25 13:04] VITALS: BP 138/75
== END 2017-07-25 13:00 | disposition home or self-care (01) ==
LOC: JD.SDS 09:39
PROVIDERS: ATTEND Ophthalmology
PROC: 08RK3JZ Replacement of Left Lens with Synthetic Substitute, Percutaneous Approach (ICD-10-PCS; principal; 2017-07-25)
DX: H25.812 Combined forms of age-related cataract, left eye (principal); M19.90 Unspecified osteoarthritis, unspecified site; E11.9 Type 2 diabetes mellitus without complications; I10 Essential (primary) hypertension; Z90.89 Acquired absence of other organs; Z98.890 Other specified postprocedural states; Z96.659 Presence of unspecified artificial knee joint; Z79.51 Long term (current) use of inhaled steroids; Z79.899 Other long term (current) drug therapy
CPT/HCPCS: 66984; A9270; C1780

== ENCOUNTER 2017-08-22 06:38 | Day surgery (SDC) | payer BC, MEDICARE ==
[2017-08-22] MEDS: Polymyxin B/Trimethoprim 10 ML Bottle EYELF SCH ×4 (07:08→08:35)
[2017-08-22] MEDS: Brimonidine 0.2% Ophth Soln 5 ML Bottle EYELF SCH ×4 (07:13→08:35)
[2017-08-22] MEDS: Phenylephrine 2.5% Ophth Soln 2 ML Bot EYELF SCH ×6 (07:19→08:11)
--- NOTE | 2017-08-22 07:37 | PCM.PREANE ---
Preanesthetic Assessment - Anesthesia/Transfusion/Family Hx Anesthesia History: Prior Anesthesia Without Reaction Family History of Anesthesia Reaction: No Transfusion History: Prior Transfusion Without Reaction Intubation History: Unknown - Review of Systems General: No Symptoms Pulmonary: No Symptoms Cardiovascular: No Symptoms Gastrointestinal: No Symptoms Neurological: Weakness, Gait Disturbance, Other (history of stroke ) Other: Reports: Diabetes - Physical Assessment NPO Status Date: 08/21/17 NPO Status Time: 18:30 O2 Sat by Pulse Oximetry: 93 Respiratory Rate: 16 Vital Signs: Last Vital Signs Temp 36.2 C 08/22/17 06:50 Pulse 70 08/22/17 06:50 Resp 16 08/22/17 06:50 BP 124/66 08/22/17 06:50 Pulse Ox 93 L 08/22/17 06:50 Weight: 111.13 kg ASA Class: 3 Mental Status: Alert & Oriented x3 Airway Class: Mallampati = 3 Dentition: Reports: Dentures (top ), Partial (bottom) Thyro-Mental Finger Breadths: 3 Mouth Opening Finger Breadths: 5 ROM/Head Extension: Full Lungs: Clear to Auscultation, Normal Respiratory Effort Cardiovascular: Regular Rate, Regular Rhythm - Allergies Allergies/Adverse Reactions: Allergies Allergy/AdvReac Type Severity Reaction Status Date / Time allopurinol Allergy Rash Verified 08/21/17 13:47 cefazolin Allergy Hives Verified 08/21/17 13:47 celecoxib Allergy Rash Verified 08/21/17 13:47 clindamycin Allergy Hives Verified 08/21/17 13:47 ibuprofen Allergy Rash Verified 08/21/17 13:47 NSAIDS (Non-Steroidal Allergy Rash Verified 08/21/17 13:47 Anti-Inflamma oxaprozin Allergy Rash Verified 08/21/17 13:47 vancomycin Allergy Hives Verified 08/21/17 13:47 - Blood Blood Available: No Product(s) Available: None - Anesthesia Plan Pre-Op Medication Ordered: None - Acknowledgements Anesthesia Type Planned: MAC Pt an Appropriate Candidate for the Planned Anesthesia: Yes Alternatives and Risks of Anesthesia Discussed w Pt/Guardian: Yes Pt/Guardian Understands and Agrees with Anesthesia Plan: Yes PreAnesthesia Questionnaire HEENT History: Reports: Hard of Hearing, Other (See Below) Other HEENT History: Wears bilat hearing aides, glasses, dentures full to upper and partial to lower. Pt compalins of faint ringing to ears, majority of the time Cardiovascular History: Reports: Afib, Automatic Implantable Cardioverter Defibrillators, CAD, High Cholesterol, Hypertension, [place], Pacemaker (AICD interrogated every 6 months.), Stents (Stents 2013) Other Cardiovascular History: Bypass in 1999 with 5 bypass. Stent in 2013, [place] in 2013, Respiratory History: Reports: SOB Other Respiratory History: previous blood clots in lungs 2002; no current problems Gastrointestinal History: Reports: Other (See Below) Other Gastrointestinal History: Acid reflux PRN Genitourinary History: Reports: Prostate Disorder Musculoskeletal History: Reports: Arthritis Neurological History: Reports: CVA Other Neuro History: CVA in 2013 Endocrine/Metabolic History: Reports: Diabetes, Type II Other Endocrine/Metabolic History: not taking any medication or insulin Hematologic History: Reports: Other (See Below) Dermatologic History: Reports: Cellulitis - Past Surgical History Cardiovascular Surgical History: Reports: AICD, Coronary Artery Bypass, Coronary Artery Stent Musculoskeletal Surgical History: Reports: Knee Replacement - SUBSTANCE USE Smoking Status *Q: Never Smoker Second Hand Smoke Exposure: No Days Per Week of Alcohol Use: 6 Number of Drinks Per Day: 11 Total Drinks Per Week: 66 Recreational Drug Use History: No - HOME MEDS Home Medications: Home Meds Aspirin [Halfprin] 81 mg PO DAILY 12/19/14 [History] Carvedilol 25 mg PO BID 12/19/14 [History] Colchicine [Colcrys] 0.6 mg PO QPM 12/19/14 [History] Febuxostat [Uloric] 80 mg PO DAILY 12/19/14 [History] Furosemide 60 mg PO QAM 12/19/14 [History] Nitroglycerin [Nitrostat] 0.4 mg SL ASDIRECTED PRN 12/19/14 [History] Spironolactone [Aldactone] 25 mg PO DAILY 12/19/14 [History] amLODIPine [Norvasc] 5 mg PO DAILY 12/19/14 [History] atorvaSTATin [Lipitor] 20 mg PO BEDTIME 12/19/14 [History] Saw/Vit E/Sod Teri/Lyc/Beta/Pyg [Prostate Health Caplet] 1 each PO BID 04/19/16 [ History] Furosemide [Lasix] 40 mg PO BEDTIME 01/22/17 [History] Warfarin [Coumadin] 2.5 mg PO FR 01/23/17 [History] Warfarin [Coumadin] 5 mg PO SUMOTUWETHSA 01/23/17 [History] Fluticasone/Salmeterol [Advair Diskus 250-50] 1 puff INH BID 07/24/17 [History] Multivitamin with Minerals [Multivitamins with Minerals] 1 tab PO DAILY [History] - CURRENT (IN HOUSE) MEDS Current Meds: Current Medications Brimonidine Tartrate (Alphagan 0.2% Ophth Soln) 0 ml EYELF ASDIRECTED KM Stop: 08/22/17 18:00 Last Admin: 08/22/17 07:13 Dose: 1 drop Lidocaine HCl (Xylocaine-Mpf 1%) 10 ml INJECT ASDIRECTED KM Stop: 08/22/17 18:00 Phenylephrine HCl (Mitch-Synephrine 2.5% Ophth Soln) 0 ml EYELF ASDIRECTED KM Stop: 08/22/17 18:00 Last Admin: 08/22/17 07:29 Dose: 1 drop Pilocarpine HCl (Pilocar 4% Ophth Soln) 0 ml EYELF ASDIRECTED KM Stop: 08/22/17 18:00 Polymyxin/Trimethoprim Sulfate (Polytrim Ophth Soln) 0 ml EYELF ASDIRECTED KM Stop: 08/22/17 18:00 Last Admin: 08/22/17 07:08 Dose: 1 drop Tetracaine HCl (Tetracaine 0.5% Steri-Unit Cate) 0 ml EYELF ASDIRECTED KM Stop: 08/22/17 18:00 Tropicamide (Mydriacyl 1% Ophth Soln) 0 ml EYELF ASDIRECTED KM Stop: 08/22/17 18:00 Last Admin: 08/22/17 07:24 Dose: 1 drop
[2017-08-22] MEDS: Pilocarpine 4% Ophth Soln 15 ML Bot EYELF SCH ×2 (08:03→08:35)
[2017-08-22] MEDS: Lidocaine 1% PF 2 ML SDV INJECT SCH ×2 (08:03→08:25)
[2017-08-22] MEDS: Tetracaine HCl/PF 0.5% 4 ML Bottle EYELF SCH ×3 (08:03→08:25)
[2017-08-22] MEDS: Cefuroxime 10 MG/ML SYRINGE EYELF SCH ×2 (08:03→08:34)
[2017-08-22 09:00] VITALS: BP 123/66
== END 2017-08-22 08:48 | disposition home or self-care (01) ==
LOC: JD.SDS 06:38
PROVIDERS: ATTEND Ophthalmology
DX: H25.812 Combined forms of age-related cataract, left eye (principal); E11.36 Type 2 diabetes mellitus with diabetic cataract; H35.373 Puckering of macula, bilateral; H02.831 Dermatochalasis of right upper eyelid; H02.834 Dermatochalasis of left upper eyelid; I48.91 Unspecified atrial fibrillation; I25.10 Atherosclerotic heart disease of native coronary artery without angina pectoris; I25.2 Old myocardial infarction; I10 Essential (primary) hypertension; M19.90 Unspecified osteoarthritis, unspecified site; Z86.73 Personal history of transient ischemic attack (TIA), and cerebral infarction without residual deficits; Z87.891 Personal history of nicotine dependence; Z88.1 Allergy status to other antibiotic agents; Z88.6 Allergy status to analgesic agent; Z88.8 Allergy status to other drugs, medicaments and biological substances; Z98.41 Cataract extraction status, right eye; Z96.1 Presence of intraocular lens; Z95.810 Presence of automatic (implantable) cardiac defibrillator; Z95.1 Presence of aortocoronary bypass graft; Z95.5 Presence of coronary angioplasty implant and graft; Z96.659 Presence of unspecified artificial knee joint; Z79.01 Long term (current) use of anticoagulants; Z79.82 Long term (current) use of aspirin; Z79.51 Long term (current) use of inhaled steroids; Z79.899 Other long term (current) drug therapy
CPT/HCPCS: 66984; A9270; C1780; J0697

== ENCOUNTER 2018-03-21 09:09 | Emergency (ER) | payer BC, MEDICARE ==
[2018-03-21 09:22] VITALS: BP 121/68
--- NOTE | 2018-03-21 11:13 | EDM.PDOC ---
ED HPI GENERAL MEDICAL PROBLEM - General Chief Complaint: Respiratory Problem Stated Complaint: RESPIRATORY PROBLEMS Time Seen by Provider: 03/21/18 10:54 Source of Information: Reports: Patient, RN Notes Reviewed - History of Present Illness INITIAL COMMENTS - FREE TEXT/NARRATIVE: 72 year old male comes in with cough, dyspnea. This all started about 10 days ago, was traveling for a , "got chilled", run down, came down with what sounds like a virus, cough, ines. that has continued now for about 10 days. He was seen at the clinic 4 days ago, started on prednisone and what sounds like levaquin antibiotic. So far cough has not improved much if at all, worried about possible pneumonia. No recent fever or chills. He still does have sinus ines. and post nasal drainage. - Related Data Allergies Allergy/AdvReac Type Severity Reaction Status Date / Time allopurinol Allergy Rash Verified 03/21/18 09:22 cefazolin Allergy Hives Verified 03/21/18 09:22 celecoxib Allergy Rash Verified 03/21/18 09:22 clindamycin Allergy Hives Verified 03/21/18 09:22 ibuprofen Allergy Rash Verified 03/21/18 09:22 NSAIDS (Non-Steroidal Allergy Rash Verified 03/21/18 09:22 Anti-Inflamma oxaprozin Allergy Rash Verified 03/21/18 09:22 vancomycin Allergy Hives Verified 03/21/18 09:22 Home Meds: Home Meds Aspirin [Halfprin] 81 mg PO DAILY 12/19/14 [History] Carvedilol 25 mg PO BID 12/19/14 [History] Colchicine [Colcrys] 0.6 mg PO QPM 12/19/14 [History] Febuxostat [Uloric] 80 mg PO DAILY 12/19/14 [History] Furosemide 80 mg PO QAM 12/19/14 [History] Nitroglycerin [Nitrostat] 0.4 mg SL ASDIRECTED PRN 12/19/14 [History] Spironolactone [Aldactone] 25 mg PO DAILY 12/19/14 [History] amLODIPine [Norvasc] 5 mg PO DAILY 12/19/14 [History] atorvaSTATin [Lipitor] 20 mg PO BEDTIME 12/19/14 [History] Saw/Vit E/Sod Teri/Lyc/Beta/Pyg [Prostate Health Caplet] 1 each PO BID 04/19/16 [ History] Furosemide [Lasix] 40 mg PO BEDTIME 01/22/17 [History] Warfarin [Coumadin] 2.5 mg PO FR 01/23/17 [History] Warfarin [Coumadin] 5 mg PO SUMOTUWETHSA 01/23/17 [History] Fluticasone/Salmeterol [Advair Diskus 250-50] 1 puff INH BID 07/24/17 [History] Past Medical History HEENT History: Reports: Hard of Hearing, Other (See Below) Other HEENT History: Wears bilat hearing aides, glasses, dentures full to upper and partial to lower. Pt compalins of faint ringing to ears, majority of the time Cardiovascular History: Reports: Afib, Automatic Implantable Cardioverter Defibrillators, CAD, High Cholesterol, Hypertension, [place], Pacemaker, Stents Other Cardiovascular History: Bypass in 1999 with 5 bypass. Stent in 2013, [place] in 2013, Respiratory History: Reports: SOB Other Respiratory History: previous blood clots in lungs 2002; no current problems Gastrointestinal History: Reports: Other (See Below) Other Gastrointestinal History: Acid reflux PRN Genitourinary History: Reports: Prostate Disorder Musculoskeletal History: Reports: Arthritis Neurological History: Reports: CVA Other Neuro History: CVA in 2013 Endocrine/Metabolic History: Reports: Diabetes, Type II Other Endocrine/Metabolic History: not taking any medication or insulin Hematologic History: Reports: Other (See Below) Dermatologic History: Reports: Cellulitis - Past Surgical History Cardiovascular Surgical History: Reports: AICD, Coronary Artery Bypass, Coronary Artery Stent Musculoskeletal Surgical History: Reports: Knee Replacement Social & Family History - Family History Family Medical History: Noncontributory - Tobacco Use Smoking Status *Q: Never Smoker - Caffeine Use Caffeine Use: Reports: Coffee Caffeine Use Comment: "very little" - Recreational Drug Use Recreational Drug Use: No - Living Situation & Occupation Living situation: Reports: , with Spouse, with Family Occupation: Retired ED ROS GENERAL - Review of Systems Review Of Systems: See Below Constitutional: Denies: Fever, Chills HEENT: Reports: Sinus Problem (ines. and drainage. ) Respiratory: Reports: Shortness of Breath, Wheezing, Cough Cardiovascular: Reports: Chest Pain (with coughing), Edema (chronic leg edema) GI/Abdominal: Denies: Abdominal Pain, Nausea, Vomiting Musculoskeletal: Reports: No Symptoms Skin: Reports: Other (chronic stasis dermatitis) Neurological: Denies: Trouble Speaking, Weakness ED EXAM, GENERAL - Physical Exam Exam: See Below General Appearance: Alert, No Apparent Distress, Other (occasional loose sounding nonprod cough) Eye Exam: Bilateral Eye: PERRL Throat/Mouth: Normal Inspection Neck: Supple, Other (no JVD) Respiratory/Chest: No Respiratory Distress. No: Rales, Rhonchi, Wheezing Cardiovascular: Regular Rate, Rhythm GI/Abdominal: Soft, Non-Tender Extremities: Pedal Edema (mild to mod bilat). No: Leg Pain, Redness Neurological: Alert, No Motor/Sensory Deficits Skin Exam: Warm, Dry Course - Vital Signs Last Recorded V/S: Last Vital Signs Temp 98.0 F 03/21/18 09:16 Pulse 65 03/21/18 09:16 Resp 18 03/21/18 09:16 BP 121/68 03/21/18 09:16 Pulse Ox 96 03/21/18 09:16 - Orders/Labs/Meds Labs: Laboratory Tests 03/21/18 03/21/18 Range/Units 11:30 11:30 WBC 8.15 (4.23-9.07) K/mm3 RBC 4.99 (4.63-6.08) M/mm3 Hgb 15.0 (13.7-17.5) gm/L Hct 45.4 (40.1-51.0) % MCV 91.0 (79.0-92.2) fl MCH 30.1 (25.7-32.2) pg MCHC 33.0 (32.2-35.5) g/dl RDW Std Deviation 49.5 H (35.1-43.9) fL Plt Count 169 (163-337) K/mm3 MPV 10.5 (9.4-12.3) fl Neutrophils % (Manual) 71 H (40-60) % Band Neutrophils % 0 (0-10) % Lymphocytes % (Manual) 23 (20-40) % Atypical Lymphs % 0 % Monocytes % (Manual) 3 (2-10) % Eosinophils % (Manual) 3 (0.8-7.0) % Basophils % (Manual) 0 L (0.2-1.2) Platelet Estimate Adequate RBC Morph Comment Normal C-Reactive Protein < 0.2 (<1.0) mg/dL - Re-Assessments/Exams Free Text/Narrative Re-Assessment/Exam: 03/21/18 13:29 CXR, cardiomegally, no infiltrate, no apparent pul ines. at this time. WBC nl, CRP nl. Discharge instr. as documented. Departure - Departure Time of Disposition: 12:24 Disposition: Home, Self-Care 01 Condition: Fair Clinical Impression: Bronchitis Sinusitis Qualifiers: Sinusitis location: maxillary Chronicity: subacute Qualified Code(s): J01.00 - Acute maxillary sinusitis, unspecified - Discharge Information Instructions: Acute Bronchitis, Adult Referrals: Flor Bronson MD [Primary Care Provider] - Forms: ED Department Discharge Additional Instructions: continue antibiotic as prescribed, take until gone, continue other medications as prescribed. Vaporizer or steam as needed, Follow up clinic in about 5 days for recheck. Return to ED as needed if symptoms worsening in any way.
--- NOTE | 2018-03-21 12:09 | CR ---
Chest: Two views of the chest were obtained. Comparison: Prior chest x-ray of 06/30/17. Heart is enlarged. AICD is noted. Sternotomy is noted. Lungs are clear with no acute parenchymal densities. Bony structures show degenerative change within the spine. Impression: 1. Findings as noted above. Nothing acute is seen. Diagnostic code #2
== END 2018-03-21 12:50 | disposition home or self-care (01) ==
LOC: JD.ED 09:09
DX: J40 Bronchitis, not specified as acute or chronic (principal); J01.00 Acute maxillary sinusitis, unspecified; E11.9 Type 2 diabetes mellitus without complications; Z88.8 Allergy status to other drugs, medicaments and biological substances; Z88.1 Allergy status to other antibiotic agents; Z79.899 Other long term (current) drug therapy
CPT/HCPCS: 36415; 71046; 71046-26; 85007; 85027; 86140; 99283; 99285

== ENCOUNTER 2019-04-04 08:07 | Emergency (ER) | payer BC, MEDICARE ==
[2019-04-04 08:37] VITALS: BP 107/59
--- NOTE | 2019-04-04 09:16 | EDM.PDOC ---
ED HPI GENERAL MEDICAL PROBLEM - General Chief Complaint: Skin Complaint Stated Complaint: WEAK Time Seen by Provider: 04/04/19 08:34 Source of Information: Reports: Patient, RN Notes Reviewed - History of Present Illness INITIAL COMMENTS - FREE TEXT/NARRATIVE: 73-year-old male comes in with swelling of his penis and scrotum and both lower extremities. Normally his right leg is more swollen than the left with the last few days the left has been as swelling or maybe even more swollen than the right. The swelling of the penis and scrotum makes it somewhat difficult to void. He does have history of COPD and chronic congestive heart failure. He states he took some of his morning meds but did not take his morning diuretic cousin then he would "have to be going to the bathroom all the time while he is here in the ED". Also he has noticed increasing rash in the folds of his groin bilateral over the last few days. No major discomfort or itchiness with that. Coughing any more than usual. He does use home oxygen and breathing is okay as long as the oxygen is on. She does take the oxygen off and going to and from the bathroom without oxygen does make him "extremely short of breath" and then "it does take a while with oxygen to catch up". Groin Pain Score (Numeric/FACES): 4 - Related Data Allergies Allergy/AdvReac Type Severity Reaction Status Date / Time allopurinol Allergy Rash Verified 04/04/19 08:26 cefazolin Allergy Hives Verified 04/04/19 08:26 celecoxib Allergy Rash Verified 04/04/19 08:26 clindamycin Allergy Hives Verified 04/04/19 08:26 ibuprofen Allergy Rash Verified 04/04/19 08:26 NSAIDS (Non-Steroidal Allergy Rash Verified 04/04/19 08:26 Anti-Inflamma oxaprozin Allergy Rash Verified 04/04/19 08:26 vancomycin Allergy Hives Verified 04/04/19 08:26 Home Meds: Home Meds Aspirin [Halfprin] 81 mg PO DAILY 12/19/14 [History] Carvedilol 25 mg PO BID 12/19/14 [History] Colchicine [Colcrys] 0.6 mg PO DAILY 12/19/14 [History] Febuxostat [Uloric] 80 mg PO DAILY 12/19/14 [History] Furosemide 80 mg PO QAM 12/19/14 [History] Nitroglycerin [Nitrostat] 0.4 mg SL ASDIRECTED PRN 12/19/14 [History] Spironolactone [Aldactone] 25 mg PO DAILY 12/19/14 [History] amLODIPine [Norvasc] 5 mg PO DAILY 12/19/14 [History] atorvaSTATin [Lipitor] 20 mg PO BEDTIME 12/19/14 [History] Saw/Vit E/Sod Teri/Lyc/Beta/Pyg [Prostate Health Caplet] 1 each PO BID 04/19/16 [ History] Furosemide [Lasix] 40 mg PO BEDTIME 01/22/17 [History] Warfarin [Coumadin] 2.5 mg PO SUTUTHSA 01/23/17 [History] Warfarin [Coumadin] 5 mg PO MOWEFR 01/23/17 [History] Fluticasone/Salmeterol [Advair Diskus 250-50] 1 puff INH BID 07/24/17 [History] Albuterol Sulfate [Proair Respiclick] 2 puff INH Q6H PRN 10/29/18 [History] Fluticasone Furoate [Arnuity Ellipta] 1 spray INH BID 10/29/18 [History] Levothyroxine 25 mcg PO ACBREAKFAST 10/29/18 [History] Potassium Chloride 10 meq PO DAILY 10/29/18 [History] guaiFENesin [Mucinex] 1 tab PO Q12H PRN 10/29/18 [History] Fluconazole [Diflucan] 200 mg PO DAILY #7 tablet 04/04/19 [Rx] Past Medical History HEENT History: Reports: Hard of Hearing, Other (See Below) Other HEENT History: Wears bilat hearing aides, glasses, dentures full to upper and partial to lower. Pt compalins of faint ringing to ears, majority of the time Cardiovascular History: Reports: Afib, Aneurysm, Blood Clots/VTE/DVT, CAD, Heart Failure, High Cholesterol, Hypertension, [place] Other Cardiovascular History: Bypass in 1999 with 5 bypass. Stent in 2013, [place] in 2013, Respiratory History: Reports: PE Other Respiratory History: previous blood clots in lungs 2002; no current problems Gastrointestinal History: Reports: GERD Other Gastrointestinal History: Acid reflux PRN Genitourinary History: Reports: BPH, Chronic Renal Insuffiency Musculoskeletal History: Reports: Arthritis, Gout Neurological History: Reports: CVA Other Neuro History: CVA in 2013 Endocrine/Metabolic History: Reports: Diabetes, Type II, Obesity/BMI 30+ Other Endocrine/Metabolic History: not taking any medication or insulin Hematologic History: Reports: Other (See Below) Dermatologic History: Reports: Cellulitis - Past Surgical History HEENT Surgical History: Reports: Tonsillectomy Cardiovascular Surgical History: Reports: AICD, Coronary Artery Bypass, Coronary Artery Stent Musculoskeletal Surgical History: Reports: Knee Replacement, Other (See Below) Social & Family History - Family History Family Medical History: Noncontributory - Tobacco Use Smoking Status *Q: Unknown Ever Smoked - Caffeine Use Caffeine Use: Reports: Coffee Caffeine Use Comment: "very little" - Living Situation & Occupation Living situation: Reports: , with Spouse, with Family (2 granddaughters) Occupation: Retired ED ROS GENERAL - Review of Systems Review Of Systems: See Below Constitutional: Denies: Fever, Chills HEENT: Denies: Throat Pain Respiratory: Reports: Shortness of Breath, Cough Cardiovascular: Denies: Chest Pain GI/Abdominal: Denies: Abdominal Pain, Nausea, Vomiting Musculoskeletal: Denies: Shoulder Pain, Arm Pain Skin: Reports: Rash (bilat groin) Neurological: Reports: Dizziness, Weakness (generalized) ED EXAM, SKIN/RASH Exam: See Below General Appearance: Alert, No Apparent Distress Eye Exam: Bilateral Eye: PERRL Head: Atraumatic. No: Facial Swelling Neck: Supple, Full Range of Motion, Other (No JVD) EKG INTERPRETATION EKG Date: 04/04/19 Rhythm: A-Fib P-Wave: Absent QRS: Other (LPFB) Course - Vital Signs Last Recorded V/S: Last Vital Signs Temp 98.0 F 04/04/19 08:26 Pulse 81 04/04/19 08:26 Resp 16 04/04/19 08:26 BP 107/59 L 04/04/19 08:26 Pulse Ox 97 04/04/19 08:26 - Orders/Labs/Meds Orders: Active Orders 24 hr Category Date Time Status EKG 12 Lead [EKG Documentation Completion] [RC] STAT Care 04/04/19 08:54 Active Labs: Laboratory Tests 04/04/19 04/04/19 04/04/19 Range/Units 09:08 09:08 09:08 WBC 3.55 L (4.23-9.07) K/mm3 RBC 4.37 L (4.63-6.08) M/mm3 Hgb 13.0 L (13.7-17.5) gm/L Hct 40.8 (40.1-51.0) % MCV 93.4 H (79.0-92.2) fl MCH 29.7 (25.7-32.2) pg MCHC 31.9 L (32.2-35.5) g/dl RDW Std Deviation 53.5 H (35.1-43.9) fL Plt Count 107 L (163-337) K/mm3 MPV 11.0 (9.4-12.3) fl Neut % (Auto) 68.7 H (34.0-67.9) % Lymph % (Auto) 9.3 L (21.8-53.1) % [place] % (Auto) 19.7 H (5.3-12.2) % Eos % (Auto) 1.7 (0.8-7.0) Baso % (Auto) 0.3 (0.1-1.2) % Neut # (Auto) 2.44 (1.78-5.38) K/mm3 Lymph # (Auto) 0.33 L (1.32-3.57) K/mm3 [place] # (Auto) 0.70 (0.30-0.82) K/mm3 Eos # (Auto) 0.06 (0.04-0.54) K/mm3 Baso # (Auto) 0.01 (0.01-0.08) K/mm3 Manual Slide Review Abnormal smear Sodium 142 (136-145) mEq/L Potassium 4.0 (3.5-5.1) mEq/L Chloride 108 H (98-107) mEq/L Carbon Dioxide 29 (21-32) mEq/L Anion Gap 9.0 (5-15) BUN 52 H (7-18) mg/dL Creatinine 1.6 H (0.7-1.3) mg/dL Est Cr Clr Drug Dosing TNP Estimated GFR (MDRD) 43 (>60) mL/min BUN/Creatinine Ratio 32.5 H (14-18) Glucose 118 H (83-115) mg/dL Calcium 8.0 L (8.5-10.1) mg/dL Total Bilirubin 0.7 (0.2-1.0) mg/dL AST 28 (15-37) U/L ALT 31 (16-63) U/L Alkaline Phosphatase 91 (46-116) U/L NT-Pro-B Natriuret Pep 6656 H (0-125) pg/mL Total Protein 4.9 L (6.4-8.2) g/dl Albumin 1.9 L (3.4-5.0) g/dl Globulin 3.0 gm/dL Albumin/Globulin Ratio 0.6 L (1-2) - Re-Assessments/Exams Free Text/Narrative Re-Assessment/Exam: 04/04/19 11:28. Chest x-ray does show a very small left-sided pleural effusion as well as mild increased density left base. Heart size is prominent with mild pulmonary vascular congestion. Slight density right lung base peers to be chronic. See radiology report for details. On clinical exam he does have quite marked fluid retention bilateral lower extremities which I believe is contributing to the scrotal edema. I'm going to increase his furosemide adding a 40 mg dose at noon. Discharge instructions as documented. Departure - Departure Time of Disposition: 10:31 Disposition: Home, Self-Care 01 Condition: Fair Clinical Impression: Retention of fluid, Fungal infection - Discharge Information Prescriptions: Fluconazole [Diflucan] 200 mg PO DAILY #7 tablet Instructions: Rash Referrals: Folr Bronson MD [Primary Care Provider] - Forms: ED Department Discharge Additional Instructions: a prescription for diflucan to take 200 mg daily for 1 week has been sent electronic to [facility]. Also apply an OTC antifungal cream such as lotrimin to area of rash bilat groin twice daily. Add a 40 mg dose furosemide at noon to what you are already taking to bring your total daily dose to 160 mg daily. Elevate legs as much as possible, use compression devise as previously directe, keep a log of daily weights, See Dr Bronson early next week for follow up, call today for appt. Return to ED as needed if symptoms worsening in any way. - My Orders Last 24 Hours: My Active Orders 04/04/19 08:54 EKG 12 Lead [EKG Documentation Completion] [RC] STAT - Assessment/Plan Last 24 Hours: My Active Orders 04/04/19 08:54 EKG 12 Lead [EKG Documentation Completion] [RC] STAT
--- NOTE | 2019-04-04 09:35 | CR ---
Chest: Portable view of the chest was obtained. Comparison: Prior chest x-ray of 10/31/18. Left hemidiaphragm is poorly defined. Findings presumably are due to pleural effusion. Parenchymal density also believed to be present either due to pneumonia or atelectasis. Slight density within the right lung base is noted which appears to be chronic. Pulmonary vessels are minimally congested. Heart size at the upper limits of normal. AICD is noted. Previous sternotomy is seen. Impression: 1. Small left-sided pleural effusion is felt to be present as well as mild increased density within left base either due to atelectasis or pneumonia if patient has infectious symptoms. 2. Heart size is slightly prominent with mild pulmonary vascular congestion. 3. Other incidental findings. Diagnostic code #3
== END 2019-04-04 11:00 | disposition home or self-care (01) ==
LOC: JD.ED 08:07
DX: B36.8 Other specified superficial mycoses (principal); R60.0 Localized edema; I13.0 Hypertensive heart and chronic kidney disease with heart failure and stage 1 through stage 4 chronic kidney disease, or unspecified chronic kidney disease; N18.9 Chronic kidney disease, unspecified; I50.9 Heart failure, unspecified; I48.91 Unspecified atrial fibrillation; K21.9 Gastro-esophageal reflux disease without esophagitis; Z88.1 Allergy status to other antibiotic agents; Z88.8 Allergy status to other drugs, medicaments and biological substances; Z79.82 Long term (current) use of aspirin; Z79.899 Other long term (current) drug therapy; Z86.73 Personal history of transient ischemic attack (TIA), and cerebral infarction without residual deficits
CPT/HCPCS: 36415; 71045; 71045-26; 80053; 83880; 85025; 93005; 93010; 99284; 99285-25

== ENCOUNTER 2019-04-12 10:47 | Inpatient (IN) | payer BC, MEDICARE ==
[2019-04-12] MEDS ORDERED: Ondansetron 4 MG/2 ML SDV IV PRN (11:24)
[2019-04-12] MEDS ORDERED: Docusate Sodium 100 MG Cap PO PRN (11:24)
[2019-04-12] MEDS ORDERED: Bisacodyl 5 MG Tab PO PRN (11:24)
[2019-04-12] MEDS ORDERED: Acetaminophen 325 MG Tab PO PRN (11:24)
--- NOTE | 2019-04-12 12:53 | CR ---
Chest: Portable view of the chest was obtained. Comparison: Previous chest x-ray of 04/04/19. Stable left-sided pleural effusion noted. Adjacent parenchymal density is seen within the left base which appear stable which is most likely due to atelectasis if patient has no infectious symptoms. Right lung shows no acute parenchymal change. Pulmonary vessels appear minimally increased. Heart is mildly enlarged. AICD is present. Previous sternotomy is noted. Impression: 1. Findings as noted above. No significant change from previous chest x-ray is seen. Diagnostic code #3
[2019-04-12] MEDS ORDERED: Sodium Chloride 0.9% 10 ML Syringe FLUSH PRN (12:54)
--- NOTE | 2019-04-12 13:10 | PCM.HP ---
H&P History of Present Illness - General Date of Service: 04/12/19 Admit Problem/Dx: Admission Diagnosis/Problem Admission Diagnosis/Problem Congestive heart failure Source of Information: Patient, Provider, RN, RN Notes Reviewed History Limitations: Reports: Physical Impairment - History of Present Illness Initial Comments - Free Text/Narative: Val Meyers is a 73yo male who is well known to this service. He presented to his PCP, Dr. Bronson, today (04/12/19), and was noted to have had a significant weight gain and hypoxia. He was then sent to us as a direct admit. Reports a 20- 25 pound weight gain over the past 1 to 1-1/2 weeks. He was seen in the ED on for worsening pedal edema and shortness of breath. He was also noted to have a rash on his skin folds. He was prescribed Diflucan and a 40 mg noon dose of Lasix was added to his home regimen. He reports the rash has resolved. He states he has been taking his medications as prescribed. He reports he has O2 normally at home which he wears with activity. He normally uses 2 L. Reports worsening edema all the way up into his penis and testicles. Reports he has difficulty with urination because of the swelling. He also reports worsening orthopnea. He does utilize a fluid restriction and low sodium diet. Denies any recent sick contacts or infectious symptoms. He does try to take a daily weight. He is wheelchair bound in an electric chair although he says he does use a walker to stand occasionally. He utilizes a urinal at home for urination. He has report he wakes up 3-4 times a night to urinate. He reports he takes his p.m. dose of Lasix around supper time with the hope that "it will have worked through me by the time I go to bed. " No labs are obtained by his primary care provider. 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 He is a full code. His PCP is Dr. Bronson. - Related Data Allergies/Adverse Reactions: Allergies Allergy/AdvReac Type Severity Reaction Status Date / Time allopurinol Allergy Rash Verified 04/12/19 12:00 cefazolin Allergy Hives Verified 04/12/19 12:00 celecoxib Allergy Rash Verified 04/12/19 12:00 clindamycin Allergy Hives Verified 04/12/19 12:00 ibuprofen Allergy Rash Verified 04/12/19 12:00 NSAIDS (Non-Steroidal Allergy Rash Verified 04/12/19 12:00 Anti-Inflamma oxaprozin Allergy Rash Verified 04/12/19 12:00 vancomycin Allergy Hives Verified 04/12/19 12:00 Home Medications: Home Meds Aspirin [Halfprin] 81 mg PO DAILY 12/19/14 [History] Carvedilol 25 mg PO BID 12/19/14 [History] Colchicine [Colcrys] 0.6 mg PO BEDTIME 12/19/14 [History] Furosemide 80 mg PO QAM 12/19/14 [History] Nitroglycerin [Nitrostat] 0.4 mg SL ASDIRECTED PRN 12/19/14 [History] Spironolactone [Aldactone] 25 mg PO DAILY 12/19/14 [History] amLODIPine [Norvasc] 5 mg PO DAILY 12/19/14 [History] atorvaSTATin [Lipitor] 20 mg PO BEDTIME 12/19/14 [History] Furosemide [Lasix] 40 mg PO BEDTIME 01/22/17 [History] Warfarin [Coumadin] 2.5 mg PO MOWEFR 01/23/17 [History] Warfarin [Coumadin] 5 mg PO SUTUTHSA 01/23/17 [History] Fluticasone/Salmeterol [Advair Diskus 250-50] 1 puff INH BID 07/24/17 [History] Albuterol Sulfate [Proair Respiclick] 2 puff INH Q6H PRN 10/29/18 [History] Levothyroxine 25 mcg PO ACBREAKFAST 10/29/18 [History] guaiFENesin [Mucinex] 1 tab PO Q12H PRN 10/29/18 [History] Furosemide 40 mg PO 1200 04/12/19 [History] Multivit-Minerals/Folic Acid [Centrum Multigummies] 2 tab PO DAILY 04/12/19 [ History] Past Medical History HEENT History: Reports: Hard of Hearing, Other (See Below) Other HEENT History: Wears bilat hearing aides, glasses, dentures full to upper and partial to lower. Pt compalins of faint ringing to ears, majority of the time Cardiovascular History: Reports: Afib, Aneurysm, Blood Clots/VTE/DVT, CAD, Heart Failure, High Cholesterol, Hypertension, DE Other Cardiovascular History: Bypass in 1999 with 5 bypass. Stent in 2013, DE in 2013, Respiratory History: Reports: PE Other Respiratory History: previous blood clots in lungs 2002; no current problems Gastrointestinal History: Reports: GERD Other Gastrointestinal History: Acid reflux PRN Genitourinary History: Reports: BPH, Chronic Renal Insuffiency Musculoskeletal History: Reports: Arthritis, Gout Neurological History: Reports: CVA Other Neuro History: CVA in 2013 Endocrine/Metabolic History: Reports: Diabetes, Type II, Obesity/BMI 30+ Other Endocrine/Metabolic History: not taking any medication or insulin Hematologic History: Reports: Other (See Below) Dermatologic History: Reports: Cellulitis - Past Surgical History HEENT Surgical History: Reports: Tonsillectomy Cardiovascular Surgical History: Reports: AICD, Coronary Artery Bypass, Coronary Artery Stent Musculoskeletal Surgical History: Reports: Knee Replacement, Other (See Below) Social & Family History - Family History Family Medical History: Noncontributory - Caffeine Use Caffeine Use: Reports: Coffee Caffeine Use Comment: "very little" - Living Situation & Occupation Living situation: Reports: , with Spouse, with Family (2 granddaughters) Occupation: Retired H&P Review of Systems - Review of Systems: Review Of Systems: See Below General: Reports: Weakness. Denies: Fever, Chills, Malaise, Fatigue HEENT: Denies: Headaches, Sore Throat Pulmonary: Reports: Shortness of Breath, Cough. Denies: Wheezing, Pleuritic Chest Pain, Sputum Cardiovascular: Reports: Dyspnea on Exertion, Orthopnea, Edema. Denies: Chest Pain, Palpitations, Lightheadedness Gastrointestinal: Denies: Abdominal Pain, Constipation, Diarrhea, Nausea, Vomiting Genitourinary: Reports: Frequency. Denies: Dysuria, Pain Musculoskeletal: Reports: No Symptoms Skin: Reports: No Symptoms. Denies: Cyanosis Psychiatric: Reports: No Symptoms. Denies: Confusion Neurological: Reports: Pre-Existing Deficit, Difficulty Walking, Weakness, Gait Disturbance. Denies: Trouble Speaking, Change in Speech Exam - Exam Exam: See Below - Vital Signs Vital Signs: Last Vital Signs Temp 97.5 F 04/12/19 10:59 Pulse 80 04/12/19 10:59 Resp 18 04/12/19 10:59 BP 110/66 04/12/19 10:59 Pulse Ox 91 L 04/12/19 10:59 - Exam Quality Assessment: Supplemental Oxygen, Urinary Catheter, DVT Prophylaxis General: Alert, Oriented, Cooperative. No: Mild Distress HEENT: Conjunctiva Clear, EACs Clear, EOMI, Hearing Intact, Mucosa Moist & [place] , Nares Patent, Normal Nasal Septum, Posterior Pharynx Clear, PERRLA Neck: Supple, Trachea Midline Lungs: Clear to Auscultation, Normal Respiratory Effort Cardiovascular: Regular Rate, Irregular Rhythm GI/Abdominal Exam: Normal Bowel Sounds, Soft, Non-Tender, No Distention, No Abnormal Bruit (Male) Exam: Deferred Rectal (Males) Exam: Deferred Extremities: Non-Tender, Pedal Edema (4+), Limited Range of Motion, Other ( Bilateral leg discoloration consistent with PVD. ). No: Normal Inspection Peripheral Pulses: 0: Dorsalis Pedis (L), Dorsalis Pedis (R), 2+: Radial (L), Radial (R) Skin: Warm, Dry, Intact Neurological: Cranial Nerves Intact (grossly ) Neuro Extensive - Mental Status: Alert, Oriented x3, Normal Mood/Affect - Patient Data Lab Results Last 24 hrs: Laboratory Results - last 24 hr 04/12/19 04/12/19 04/12/19 Range/Units 11:55 12:00 12:00 WBC 3.40 L (4.23-9.07) K/mm3 RBC 4.47 L (4.63-6.08) M/mm3 Hgb 13.5 L (13.7-17.5) gm/L Hct 41.4 (40.1-51.0) % MCV 92.6 H (79.0-92.2) fl MCH 30.2 (25.7-32.2) pg MCHC 32.6 (32.2-35.5) g/dl RDW Std Deviation 52.4 H (35.1-43.9) fL Plt Count 97 L (163-337) K/mm3 MPV 10.8 (9.4-12.3) fl Neut % (Auto) 64.4 (34.0-67.9) % Lymph % (Auto) 13.8 L (21.8-53.1) % [place] % (Auto) 19.7 H (5.3-12.2) % Eos % (Auto) 1.5 (0.8-7.0) Baso % (Auto) 0.3 (0.1-1.2) % Neut # (Auto) 2.19 (1.78-5.38) K/mm3 Lymph # (Auto) 0.47 L (1.32-3.57) K/mm3 [place] # (Auto) 0.67 (0.30-0.82) K/mm3 Eos # (Auto) 0.05 (0.04-0.54) K/mm3 Baso # (Auto) 0.01 (0.01-0.08) K/mm3 Manual Slide Review Abnormal smear PT 49.0 H D (9.5-12.1) SECONDS INR 4.63 Sodium 140 (136-145) mEq/L Potassium 4.0 (3.5-5.1) mEq/L Chloride 104 (98-107) mEq/L Carbon Dioxide 28 (21-32) mEq/L Anion Gap 12.0 (5-15) BUN 54 H (7-18) mg/dL Creatinine 1.6 H (0.7-1.3) mg/dL Est Cr Clr Drug Dosing TNP Estimated GFR (MDRD) 43 (>60) mL/min BUN/Creatinine Ratio 33.8 H (14-18) Glucose 95 (83-115) mg/dL Calcium 8.3 L (8.5-10.1) mg/dL Magnesium 1.7 L (1.8-2.4) mg/dl Total Bilirubin 0.7 (0.2-1.0) mg/dL AST 31 (15-37) U/L ALT 33 (16-63) U/L Alkaline Phosphatase 105 (46-116) U/L NT-Pro-B Natriuret Pep (0-125) pg/mL Total Protein 5.1 L (6.4-8.2) g/dl Albumin 1.9 L (3.4-5.0) g/dl Globulin 3.2 gm/dL Albumin/Globulin Ratio 0.6 L (1-2) 04/12/19 Range/Units 12:00 WBC (4.23-9.07) K/mm3 RBC (4.63-6.08) M/mm3 Hgb (13.7-17.5) gm/L Hct (40.1-51.0) % MCV (79.0-92.2) fl MCH (25.7-32.2) pg MCHC (32.2-35.5) g/dl RDW Std Deviation (35.1-43.9) fL Plt Count (163-337) K/mm3 MPV (9.4-12.3) fl Neut % (Auto) (34.0-67.9) % Lymph % (Auto) (21.8-53.1) % [place] % (Auto) (5.3-12.2) % Eos % (Auto) (0.8-7.0) Baso % (Auto) (0.1-1.2) % Neut # (Auto) (1.78-5.38) K/mm3 Lymph # (Auto) (1.32-3.57) K/mm3 [place] # (Auto) (0.30-0.82) K/mm3 Eos # (Auto) (0.04-0.54) K/mm3 Baso # (Auto) (0.01-0.08) K/mm3 Manual Slide Review PT (9.5-12.1) SECONDS INR Sodium (136-145) mEq/L Potassium (3.5-5.1) mEq/L Chloride (98-107) mEq/L Carbon Dioxide (21-32) mEq/L Anion Gap (5-15) BUN (7-18) mg/dL Creatinine (0.7-1.3) mg/dL Est Cr Clr Drug Dosing Estimated GFR (MDRD) (>60) mL/min BUN/Creatinine Ratio (14-18) Glucose (83-115) mg/dL Calcium (8.5-10.1) mg/dL Magnesium (1.8-2.4) mg/dl Total Bilirubin (0.2-1.0) mg/dL AST (15-37) U/L ALT (16-63) U/L Alkaline Phosphatase (46-116) U/L NT-Pro-B Natriuret Pep 7683 H (0-125) pg/mL Total Protein (6.4-8.2) g/dl Albumin (3.4-5.0) g/dl Globulin gm/dL Albumin/Globulin Ratio (1-2) Result Diagrams: 04/12/19 12:00 04/12/19 12:00 EKG INTERPRETATION EKG Date: 04/12/19 Time: 14:18 Rhythm: A-Fib Rate (Beats/Min): 73 P-Wave: Absent QRS: RBBB ST-T: Normal EKG Interpretation Comments: RBBB with LPFB. PVC noted. T-wave inversion in III, V1-V3. - Problem List (1) CHF exacerbation SNOMED Code(s): 274145378, [id number] ICD Code: I50.9 - HEART FAILURE, UNSPECIFIED Status: Acute Priority: High Current Visit: Yes Qualifiers: Heart failure type: unspecified Qualified Code(s): I50.9 - Heart failure, unspecified Problem List Initiated/Reviewed/Updated: Yes Orders Last 24hrs: Active Orders 24 hr Category Date Time Status Admission Status [Patient Status] [ADT] Routine ADT 04/12/19 11:22 Active Cardiac Monitoring [RC] CONTINUOUS Care 04/12/19 11:24 Active Height and Weight [RC] DAILY Care 04/12/19 11:24 Active Intake and Output [RC] QSHIFT Care 04/12/19 11:24 Active Oxygen Therapy [RC] PRN Care 04/12/19 11:24 Active Peripheral IV Care [RC] . DIRECTED Care 04/12/19 12:54 Active Pulse Oximetry [RC] PRN Care 04/12/19 11:24 Active Urinary Catheter Assessment [RC] ASDIRECTED Care 04/12/19 12:53 Active Urinary Catheter Insertion [Insert Urinary Catheter] [ Care 04/12/19 11:30 Ordered OM.PC] Q24H VTE/DVT Education [RC] PER UNIT ROUTINE Care 04/12/19 11:24 Active Vital Signs [RC] Q4HR Care 04/12/19 11:24 Active Consult to Case Management/Security Site Supervisor [CONS] Cons 04/12/19 11:24 Active Routine Consult to Reducing Salon Attendant [CONS] Routine Cons 04/12/19 11:24 Active Consult to Spiritual Care [CONS] Routine Cons 04/12/19 11:24 Active OT Evaluation and Treatment [CONS] Routine Cons 04/12/19 11:24 Active PT Evaluation and Treatment [CONS] Routine Cons 04/12/19 11:24 Active 2 Gram Sodium Diet [DIET] Diet 04/12/19 Lunch Active Fluid Restriction [DIET] Diet 04/12/19 Dinner Active Acetaminophen [Tylenol] Med 04/12/19 11:24 Active 650 mg PO Q4H PRN Bisacodyl [Dulcolax] Med 04/12/19 11:24 Active 5 mg PO DAILY PRN Docusate Sodium [Colace] Med 04/12/19 11:24 Active 100 mg PO BID PRN Docusate Sodium/Sennosides [Senna Plus] Med 04/12/19 11:24 Active 1 tab PO BID PRN Ondansetron [Zofran] Med 04/12/19 11:24 Active 4 mg IV Q6H PRN Pharmacy to Dose - Warfarin Med 04/12/19 13:00 Active 0 dose .XX ASDIRECTED PRN Sodium Chloride 0.9% [Saline Flush] Med 04/12/19 12:54 Active 10 ml FLUSH ASDIRECTED PRN Warfarin Sliding Scale [Coumadin Sliding Scale] Med 04/12/19 18:00 Active 0 each PO QPM Peripheral IV Insertion Adult [OM.PC] Routine Oth 04/12/19 11:30 Ordered Resuscitation Status Routine Resus Stat 04/12/19 12:54 Ordered Medication Orders Acetaminophen (Tylenol) 650 mg PO Q4H PRN PRN Reason: Pain (Mild 1-3)/fever Bisacodyl (Dulcolax) 5 mg PO DAILY PRN PRN Reason: Constipation Docusate Sodium (Colace) 100 mg PO BID PRN PRN Reason: Constipation Ondansetron HCl (Zofran) 4 mg IV Q6H PRN PRN Reason: Nausea/Vomiting Senna/Docusate Sodium (Senna Plus) 1 tab PO BID PRN PRN Reason: Constipation Sodium Chloride (Saline Flush) 10 ml FLUSH ASDIRECTED PRN PRN Reason: Keep Vein Open Warfarin Sodium (Pharmacy To Dose - Warfarin) 0 dose .XX ASDIRECTED PRN PRN Reason: RX TO DOSE WARFARIN Warfarin Sodium (Coumadin Sliding Scale) 0 each PO QPM KM Stop: 04/12/19 19:00 Assessment/Plan Comment:: Assessment/Plan: Acute: CHF exacerbation - Risk Factors: CAD S/p CABG x 5, HTN, HLD, DM2, PVD and Obesity - ProBNP 7683 - 2D echo obtained 10/31/18 (Less than 6 months ago): 1. LVEF, by visual estimation, is 25% 2. Severely decreased left ventricular systolic function 3. Multiple left ventricular regional wall motion abnormalities exist. See wall motion findings. 4. Mildly reduced right ventricular systolic function 5. Right ventricular size is mildly enlarged 6. There is mild aortic valve sclerosis without stenosis 7. Mild mitral valve regurgitation 8. Mild tricuspid valve regurgitation 9. The right ventricular systolic pressure is moderately to severely elevated at 61.5mmHg 10. A pacer wire is visualized in the right ventricle 11. The inferior vena cava is dilated and plethoric 12. Unable to rule out apical thrombus 13. There are left and right pleural effusions - Heart Failure protocol: diuretics, Is/Os, daily weight check, and fluid/ salt restriction - Brown placed for IO measuring, difficulty with urination 2/2 edema - CXR obtained 04/12/19: * Stable left-sided pleural effusion. Adjacent parenchymal density within the left base which appears stable and is most likely due to atelectasis. Minimally increased pulmonary vessels. Mildly enlarged heart. AICD present. Prior sternotomy. Hypomagnesemia - Mg 1.7 - 2/2 inadequate intake - Replete and monitor Supratherapeutic INR - PCP reports patient is due for INR check - INR 4.63 - Pharmacy to monitor and dose Chronic: Impaired Hearing PAF, on Warfarin, IR therapeutic HTN HLD CAD S/p CABG x 5, S/p Stent placement x 1 DM2, Diet Controlled S/p A1CD placement PVD/Vascular Insufficiency Right Knee Derangement S/p Multiple Surgery CKD Stage 3-4 - at baseline A3 GERD BPH OA/DJD Gout CVA in 2003 Hx/o DVT/PE Thrombocytopenia Peripheral Edema Obesity Plan: Admit to medical floor on telemetry Resume Home Meds as ordered Routine AM Labs DVT prophylaxis: Home Warfarin Fall Precautions Accu-check QID and ISS coverage SW/CM for d/c planning PT/OT Code status: Full code; PCP: Dr. Flor Bronson
[2019-04-12] MEDS ORDERED: guaiFENesin 600 MG Tab.ER PO PRN (13:48)
[2019-04-12] MEDS ORDERED: Nitroglycerin 0.4 MG Tab.SL SL PRN (13:48)
[2019-04-12] MEDS ORDERED: Magnesium Sulfate/Water 2 GM in Premix Bag 1 BAG IV ONE (14:00)
[2019-04-12] MEDS ORDERED: Bumetanide 1 MG/4 ML MDV IVPUSH ONE ×2 (14:00→21:00)
[2019-04-12] MEDS ORDERED: Warfarin Sliding Scale PO SCH (18:00)
[2019-04-12] MEDS: Insulin Lispro 100 Units/ML 3 ML Vial SUBCUT SCH ×2 (18:25→21:57)
[2019-04-12] MEDS: Formoterol/Mometasone 200-5 MCG 8.8 GM Inhaler IH SCH (20:34)
[2019-04-12] MEDS: Carvedilol 12.5 MG Tab PO SCH (21:47)
[2019-04-12] MEDS: Colchicine 0.6 MG Tab PO SCH (21:53)
[2019-04-13] MEDS: Bumetanide 1 MG/4 ML MDV IVPUSH SCH ×2 (06:03→14:27)
[2019-04-13] MEDS: Insulin Lispro 100 Units/ML 3 ML Vial SUBCUT SCH ×4 (06:04→21:46)
[2019-04-13] MEDS: Levothyroxine 25 MCG Tab PO SCH (06:04)
[2019-04-13] MEDS: Formoterol/Mometasone 200-5 MCG 8.8 GM Inhaler IH SCH ×2 (08:39→20:09)
[2019-04-13] MEDS: amLODIPine 5 MG Tab PO SCH (09:54)
[2019-04-13] MEDS: Spironolactone 25 MG Tab PO SCH (09:54)
[2019-04-13] MEDS: Carvedilol 12.5 MG Tab PO SCH ×2 (09:55→22:02)
[2019-04-13] MEDS: Aspirin 81 MG Tab.EC PO SCH (09:55)
--- NOTE | 2019-04-13 12:59 | PCM.PN ---
- General Info Date of Service: 04/13/19 Admission Dx/Problem (Free Text): Admission Diagnosis/Problem Admission Diagnosis/Problem Congestive heart failure Subjective Update: 04/13/19: In to see Val with Dr. Arthur. No nursing or patient concerns. He has had some blood noted in his ashby catheter although this appears to be clearing. Nursing did have some difficulty placing the Ashby. Creatinine remains stable. He is down a bit on weight and having good output. Will continue to monitor. May need to increase bumex dosing. Spironolactone was resumed. He remains weak. Continue PT/OT. He remains on his home dose of 2L O2. Functional Status: Reports: Pain Controlled, Tolerating Diet, Ambulating, Urinating. Denies: New Symptoms - Review of Systems General: Reports: Weakness, Fatigue. Denies: Fever, Chills HEENT: Reports: No Symptoms. Denies: Headaches, Sore Throat Pulmonary: Reports: No Symptoms. Denies: Shortness of Breath, Pleuritic Chest Pain, Cough, Sputum, Wheezing Cardiovascular: Reports: Edema. Denies: Chest Pain, Palpitations Gastrointestinal: Reports: No Symptoms. Denies: Abdominal Pain, Constipation, Diarrhea, Nausea, Vomiting Genitourinary: Reports: No Symptoms. Denies: Pain Musculoskeletal: Reports: No Symptoms Skin: Reports: No Symptoms Neurological: Reports: Pre-Existing Deficit, Difficulty Walking, Gait Disturbance. Denies: Confusion Psychiatric: Reports: No Symptoms - Patient Data Vitals - Most Recent: Last Vital Signs Temp 98.1 F 04/13/19 07:32 Pulse 76 04/13/19 09:55 Resp 15 04/13/19 07:32 BP 124/71 04/13/19 09:55 Pulse Ox 94 L 04/13/19 08:39 Weight - Most Recent: 257 lb 9.6 oz I&O - Last 24 Hours: Intake & Output 04/12/19 04/13/19 04/13/19 22:59 06:59 14:59 Intake Total 980 400 240 Output Total 1250 950 Balance -270 -550 240 Lab Results Last 24 Hours: Laboratory Results - last 24 hr 04/12/19 04/12/19 04/13/19 Range/Units 17:22 21:24 04:40 WBC (4.23-9.07) K/mm3 RBC (4.63-6.08) M/mm3 Hgb (13.7-17.5) gm/L Hct (40.1-51.0) % MCV (79.0-92.2) fl MCH (25.7-32.2) pg MCHC (32.2-35.5) g/dl RDW Std Deviation (35.1-43.9) fL Plt Count (163-337) K/mm3 MPV (9.4-12.3) fl Neut % (Auto) (34.0-67.9) % Lymph % (Auto) (21.8-53.1) % Adams % (Auto) (5.3-12.2) % Eos % (Auto) (0.8-7.0) Baso % (Auto) (0.1-1.2) % Neut # (Auto) (1.78-5.38) K/mm3 Lymph # (Auto) (1.32-3.57) K/mm3 Adams # (Auto) (0.30-0.82) K/mm3 Eos # (Auto) (0.04-0.54) K/mm3 Baso # (Auto) (0.01-0.08) K/mm3 Manual Slide Review PT 39.7 H (9.5-12.1) SECONDS INR 3.74 Sodium (136-145) mEq/L Potassium (3.5-5.1) mEq/L Chloride (98-107) mEq/L Carbon Dioxide (21-32) mEq/L Anion Gap (5-15) BUN (7-18) mg/dL Creatinine (0.7-1.3) mg/dL Est Cr Clr Drug Dosing mL/min Estimated GFR (MDRD) (>60) mL/min BUN/Creatinine Ratio (14-18) Glucose (83-115) mg/dL POC Glucose 115 H 119 H (83-110) mg/dL Calcium (8.5-10.1) mg/dL Magnesium (1.8-2.4) mg/dl 04/13/19 04/13/19 04/13/19 Range/Units 04:40 04:40 11:19 WBC 3.94 L (4.23-9.07) K/mm3 RBC 4.32 L (4.63-6.08) M/mm3 Hgb 13.1 L (13.7-17.5) gm/L Hct 40.0 L (40.1-51.0) % MCV 92.6 H (79.0-92.2) fl MCH 30.3 (25.7-32.2) pg MCHC 32.8 (32.2-35.5) g/dl RDW Std Deviation 52.7 H (35.1-43.9) fL Plt Count 140 L (163-337) K/mm3 MPV 10.4 (9.4-12.3) fl Neut % (Auto) 69.2 H (34.0-67.9) % Lymph % (Auto) 11.7 L (21.8-53.1) % Adams % (Auto) 17.0 H (5.3-12.2) % Eos % (Auto) 1.8 (0.8-7.0) Baso % (Auto) 0.3 (0.1-1.2) % Neut # (Auto) 2.73 (1.78-5.38) K/mm3 Lymph # (Auto) 0.46 L (1.32-3.57) K/mm3 Adams # (Auto) 0.67 (0.30-0.82) K/mm3 Eos # (Auto) 0.07 (0.04-0.54) K/mm3 Baso # (Auto) 0.01 (0.01-0.08) K/mm3 Manual Slide Review Abnormal smear PT (9.5-12.1) SECONDS INR Sodium 140 (136-145) mEq/L Potassium 4.0 (3.5-5.1) mEq/L Chloride 105 (98-107) mEq/L Carbon Dioxide 29 (21-32) mEq/L Anion Gap 10.0 (5-15) BUN 55 H (7-18) mg/dL Creatinine 1.6 H (0.7-1.3) mg/dL Est Cr Clr Drug Dosing 47.83 mL/min Estimated GFR (MDRD) 43 (>60) mL/min BUN/Creatinine Ratio 34.4 H (14-18) Glucose 90 (83-115) mg/dL POC Glucose 162 H (83-110) mg/dL Calcium 8.0 L (8.5-10.1) mg/dL Magnesium 1.8 (1.8-2.4) mg/dl Med Orders - Current: Current Medications Acetaminophen (Tylenol) 650 mg PO Q4H PRN PRN Reason: Pain (Mild 1-3)/fever Amlodipine Besylate (Norvasc) 5 mg PO DAILY [facility] Last Admin: 04/13/19 09:54 Dose: 5 mg Aspirin (Halfprin) 81 mg PO DAILY [facility] Last Admin: 04/13/19 09:55 Dose: 81 mg Bisacodyl (Dulcolax) 5 mg PO DAILY PRN PRN Reason: Constipation Bumetanide (Bumex) 0.5 mg IVPUSH 0600,1500 [facility] Last Admin: 04/13/19 06:03 Dose: 0.5 mg Carvedilol (Coreg) 25 mg PO BID [facility] Last Admin: 04/13/19 09:55 Dose: 25 mg Colchicine (Colcrys) 0.6 mg PO BEDTIME [facility] Last Admin: 04/12/19 21:53 Dose: 0.6 mg Docusate Sodium (Colace) 100 mg PO BID PRN PRN Reason: Constipation Guaifenesin (Mucinex) 600 mg PO Q12H PRN PRN Reason: Cough Insulin Human Lispro (Humalog) 0 unit SUBCUT QIDACANDBED [facility]; Protocol Last Admin: 04/13/19 06:04 Dose: Not Given Levothyroxine Sodium (Levothyroxine) 25 mcg PO ACBREAKFAST [facility] Last Admin: 04/13/19 06:04 Dose: 25 mcg Mometasone Furoate/Formoterol Fumar (Dulera 200-5 Mcg) 2 puff IH BID [facility] Last Admin: 04/13/19 08:39 Dose: 2 puff Nitroglycerin (Nitrostat) 0.4 mg SL ASDIRECTED PRN PRN Reason: Chest Pain Ondansetron HCl (Zofran) 4 mg IV Q6H PRN PRN Reason: Nausea/Vomiting Senna/Docusate Sodium (Senna Plus) 1 tab PO BID PRN PRN Reason: Constipation Sodium Chloride (Saline Flush) 10 ml FLUSH ASDIRECTED PRN PRN Reason: Keep Vein Open Spironolactone (Aldactone) 25 mg PO DAILY [facility] Last Admin: 04/13/19 09:54 Dose: 25 mg Warfarin Sodium (Pharmacy To Dose - Warfarin) 0 dose .XX ASDIRECTED PRN PRN Reason: RX TO DOSE WARFARIN Warfarin Sodium (Coumadin Sliding Scale) 0 each PO QPM [facility] Stop: 04/13/19 19:00 Discontinued Medications Bumetanide (Bumex) 0.5 mg IVPUSH ONETIME ONE Stop: 04/12/19 14:01 Last Admin: 04/12/19 14:24 Dose: 0.5 mg Bumetanide (Bumex) 0.5 mg IVPUSH ONETIME ONE Stop: 04/12/19 21:01 Last Admin: 04/12/19 21:47 Dose: 0.5 mg Magnesium Sulfate 2 gm/ Premix 50 mls @ 25 mls/hr IV ONETIME ONE Stop: 04/12/19 15:59 Last Admin: 04/12/19 14:24 Dose: 25 mls/hr Warfarin Sodium (Coumadin Sliding Scale) 0 each PO QPM [facility] Stop: 04/12/19 19:00 Last Admin: 04/12/19 18:25 Dose: Not Given - Exam Quality Assessment: Supplemental Oxygen, Urine Catheter, DVT Prophylaxis General: Alert, Oriented, Cooperative, No Acute Distress HEENT: Pupils Equal, Pupils Reactive, EOMI, Mucous Membr. Moist/[place] Neck: Supple, Trachea Midline, No JVD Lungs: Clear to Auscultation, Normal Respiratory Effort Cardiovascular: Regular Rate, Regular Rhythm GI/Abdominal Exam: Normal Bowel Sounds, Soft, Non-Tender, No Distention, No Abnormal Bruit (Male) Exam: Deferred Back Exam: Normal Inspection, Full Range of Motion Extremities: Non-Tender, Pedal Edema, Limited Range of Motion Peripheral Pulses: 1+: Dorsalis Pedis (L), Dorsalis Pedis (R), 2+: Radial (L), Radial (R) Skin: Warm, Dry, Intact Neurological: No New Focal Deficit Psy/Mental Status: Alert, Normal Affect, Normal Mood - Problem List & Annotations (1) CHF exacerbation SNOMED Code(s): 482791439, 00634389921820 Code(s): I50.9 - HEART FAILURE, UNSPECIFIED Status: Acute Priority: High Current Visit: Yes Qualifiers: Heart failure type: unspecified Qualified Code(s): I50.9 - Heart failure, unspecified (2) CKD (chronic kidney disease) SNOMED Code(s): 753534307 Code(s): N18.9 - CHRONIC KIDNEY DISEASE, UNSPECIFIED Status: Chronic Priority: High Current Visit: No Qualifiers: Chronic kidney disease stage: unspecified stage Qualified Code(s): N18.9 - Chronic kidney disease, unspecified (3) Chronic renal insufficiency SNOMED Code(s): 747785431 Code(s): N18.9 - CHRONIC KIDNEY DISEASE, UNSPECIFIED Status: Chronic Priority: High Current Visit: No Qualifiers: Chronic kidney disease stage: stage 2 (mild) Qualified Code(s): N18.2 - Chronic kidney disease, stage 2 (mild) (4) Diabetes 1.5, managed as type 2 SNOMED Code(s): 285066724 Code(s): E13.9 - OTHER SPECIFIED DIABETES MELLITUS WITHOUT COMPLICATIONS Status: Chronic Priority: High Current Visit: No (5) History of DVT (deep vein thrombosis) SNOMED Code(s): 296165945 Code(s): Z86.718 - PERSONAL HISTORY OF OTHER VENOUS THROMBOSIS AND EMBOLISM Status: Chronic Priority: Medium Current Visit: No (6) Obesity due to excess calories SNOMED Code(s): 183172252 Code(s): E66.09 - OTHER OBESITY DUE TO EXCESS CALORIES Status: Chronic Priority: Medium Current Visit: No Qualifiers: Obesity classification: adult class 1 (BMI 30 - 34.9) Serious obesity comorbidity presence: unspecified whether serious comorbidity present Body mass index: BMI 33.0-33.9 Qualified Code(s): E66.09 - Other obesity due to excess calories; Z68.33 - Body mass index (BMI) 33.0-33.9, adult (7) Peripheral edema SNOMED Code(s): 146995465 Code(s): R60.9 - EDEMA, UNSPECIFIED Status: Acute Priority: High Current Visit: Yes - Problem List Review Problem List Initiated/Reviewed/Updated: Yes - My Orders Last 24 Hours: My Active Orders 04/12/19 12:54 Peripheral IV Care [RC] Q2HR Sodium Chloride 0.9% [Saline Flush] 10 ml FLUSH ASDIRECTED PRN Resuscitation Status Routine 04/12/19 13:00 Pharmacy to Dose - Warfarin 0 dose .XX ASDIRECTED PRN 04/12/19 13:48 Nitroglycerin [Nitrostat] 0.4 mg SL ASDIRECTED PRN guaiFENesin [Mucinex] 600 mg PO Q12H PRN 04/12/19 15:29 Accu Check [Blood Glucose Check, Bedside] [] QIDACANDBED 04/12/19 17:00 Insulin Lispro [HumaLOG] See Protocol SUBCUT QIDACANDBED 04/12/19 17:57 Up to Chair [] ASDIRECTED 04/12/19 21:00 Carvedilol [Coreg] 25 mg PO BID Colchicine [Colcrys] 0.6 mg PO BEDTIME Mometasone/Formoterol [Dulera 200-5 MCG] 2 puff IH BID 04/12/19 Dinner ADA Diabetic [[place] [employer] Diet] [DIET] Fluid Restriction [DIET] 04/13/19 06:00 Bumetanide [Bumex] 0.5 mg IVPUSH 0600,1500 Levothyroxine 25 mcg PO ACBREAKFAST 04/13/19 09:00 Aspirin [Halfprin] 81 mg PO DAILY amLODIPine [Norvasc] 5 mg PO DAILY 04/13/19 10:00 Spironolactone [Aldactone] 25 mg PO DAILY 04/13/19 18:00 Warfarin Sliding Scale [Coumadin Sliding Scale] 0 each PO QPM 04/14/19 05:11 BASIC METABOLIC PANEL,BMP [CHEM] AM CBC WITH AUTO DIFF [HEME] AM INR,PT,PROTHROMBIN TIME [COAG] AM MAGNESIUM [CHEM] AM 04/15/19 05:11 BASIC METABOLIC PANEL,BMP [CHEM] AM CBC WITH AUTO DIFF [HEME] AM INR,PT,PROTHROMBIN TIME [COAG] AM MAGNESIUM [CHEM] AM 04/16/19 05:11 BASIC METABOLIC PANEL,BMP [CHEM] AM CBC WITH AUTO DIFF [HEME] AM INR,PT,PROTHROMBIN TIME [COAG] AM MAGNESIUM [CHEM] AM 04/17/19 05:11 INR,PT,PROTHROMBIN TIME [COAG] AM - Plan Plan:: Assessment/Plan: Acute: CHF exacerbation - Risk Factors: CAD S/p CABG x 5, HTN, HLD, DM2, PVD and Obesity - ProBNP 7683 - 2D echo obtained 10/31/18 (Less than 6 months ago): 1. LVEF, by visual estimation, is 25% 2. Severely decreased left ventricular systolic function 3. Multiple left ventricular regional wall motion abnormalities exist. See wall motion findings. 4. Mildly reduced right ventricular systolic function 5. Right ventricular size is mildly enlarged 6. There is mild aortic valve sclerosis without stenosis 7. Mild mitral valve regurgitation 8. Mild tricuspid valve regurgitation 9. The right ventricular systolic pressure is moderately to severely elevated at 61.5mmHg 10. A pacer wire is visualized in the right ventricle 11. The inferior vena cava is dilated and plethoric 12. Unable to rule out apical thrombus 13. There are left and right pleural effusions - Heart Failure protocol: diuretics, Is/Os, daily weight check, and fluid/ salt restriction - Ashby placed for IO measuring, difficulty with urination 2/2 edema - CXR obtained 04/12/19: * Stable left-sided pleural effusion. Adjacent parenchymal density within the left base which appears stable and is most likely due to atelectasis. Minimally increased pulmonary vessels. Mildly enlarged heart. AICD present. Prior sternotomy. 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 Flor Bronson
[2019-04-13] MEDS ORDERED: Warfarin Sliding Scale PO SCH (18:00)
[2019-04-13] MEDS: Colchicine 0.6 MG Tab PO SCH (22:02)
[2019-04-14] MEDS: Levothyroxine 25 MCG Tab PO SCH (06:33)
[2019-04-14] MEDS: Bumetanide 1 MG/4 ML MDV IVPUSH SCH ×2 (06:34→16:17)
[2019-04-14] MEDS: Insulin Lispro 100 Units/ML 3 ML Vial SUBCUT SCH ×3 (06:34→21:02)
[2019-04-14] MEDS: Aspirin 81 MG Tab.EC PO SCH (09:10)
[2019-04-14] MEDS: Spironolactone 25 MG Tab PO SCH (09:10)
[2019-04-14] MEDS: amLODIPine 5 MG Tab PO SCH (09:10)
[2019-04-14] MEDS: Carvedilol 12.5 MG Tab PO SCH ×2 (09:11→21:00)
[2019-04-14] MEDS ORDERED: Magnesium Sulfate/Water 2 GM in Premix Bag 1 BAG IV ONE ×2 (09:14→14:00)
[2019-04-14] MEDS ORDERED: Bumetanide 1 MG/4 ML MDV IVPUSH ONE (09:57)
[2019-04-14] MEDS ORDERED: Albumin 25% 12.5 GM/50 ML BAG IV ONE (10:00)
[2019-04-14] MEDS: Formoterol/Mometasone 200-5 MCG 8.8 GM Inhaler IH SCH ×2 (10:24→20:42)
--- NOTE | 2019-04-14 14:18 | PCM.PN ---
- General Info Date of Service: 04/14/19 Admission Dx/Problem (Free Text): Admission Diagnosis/Problem Admission Diagnosis/Problem Congestive heart failure Subjective Update: 04/13/19: In to see Val with Dr. Arthur. No nursing or patient concerns. He has had some blood noted in his ashby catheter although this appears to be clearing. Nursing did have some difficulty placing the Ashby. Creatinine remains stable. He is down a bit on weight and having good output. Will continue to monitor. May need to increase bumex dosing. Spironolactone was resumed. He remains weak. Continue PT/OT. He remains on his home dose of 2L O2. 04/14/19: Val repots he feels like he is improving. His arms are less edematous. He remains on O2. Discussed diuresis with Dr. Arthur who recommended we give albumin, increase spironolactone, and increase Bumex this AM. Will monitor for changes with new regimen. Blood in ashby continues so discussed warfarin dosing. Will hold off warfarin today and resume tomorrow. Creatinine has remained steady. Nursing reports HR abnormalities and magnesium was noted to be low and will be supplemented. Blood glucose readings have remained stable and patient reports he is pretty stable at home so will decrease insulin and bedside checks to BID. Patient has been refusing insulin regardless. Functional Status: Reports: Pain Controlled, Tolerating Diet, Urinating. Denies : Ambulating, New Symptoms - Review of Systems General: Reports: Weakness (improving ). Denies: Fever, Malaise, Chills HEENT: Reports: No Symptoms. Denies: Headaches, Sore Throat Pulmonary: Reports: No Symptoms. Denies: Shortness of Breath, Pleuritic Chest Pain, Cough, Sputum, Wheezing Cardiovascular: Reports: Edema. Denies: Chest Pain, Palpitations, Lightheadedness Gastrointestinal: Reports: No Symptoms. Denies: Abdominal Pain, Constipation, Diarrhea, Nausea, Vomiting Genitourinary: Reports: No Symptoms. Denies: Pain Musculoskeletal: Reports: No Symptoms Skin: Reports: No Symptoms. Denies: Cyanosis Neurological: Reports: Pre-Existing Deficit, Difficulty Walking, Gait Disturbance Psychiatric: Reports: No Symptoms - Patient Data Vitals - Most Recent: Last Vital Signs Temp 98.1 F 04/14/19 13:26 Pulse 69 04/14/19 13:26 Resp 19 04/14/19 13:26 BP 113/54 L 04/14/19 13:26 Pulse Ox 97 04/14/19 13:26 Weight - Most Recent: 257 lb 1.6 oz I&O - Last 24 Hours: Intake & Output 04/13/19 04/14/19 04/14/19 22:59 06:59 14:59 Intake Total 620 400 Output Total 200 875 900 Balance 420 -650 -900 Lab Results Last 24 Hours: Laboratory Results - last 24 hr 04/13/19 04/13/19 04/14/19 Range/Units 16:58 21:18 05:17 WBC (4.23-9.07) K/mm3 RBC (4.63-6.08) M/mm3 Hgb (13.7-17.5) gm/L Hct (40.1-51.0) % MCV (79.0-92.2) fl MCH (25.7-32.2) pg MCHC (32.2-35.5) g/dl RDW Std Deviation (35.1-43.9) fL Plt Count (163-337) K/mm3 MPV (9.4-12.3) fl Neut % (Auto) (34.0-67.9) % Lymph % (Auto) (21.8-53.1) % [place] % (Auto) (5.3-12.2) % Eos % (Auto) (0.8-7.0) Baso % (Auto) (0.1-1.2) % Neut # (Auto) (1.78-5.38) K/mm3 Lymph # (Auto) (1.32-3.57) K/mm3 [place] # (Auto) (0.30-0.82) K/mm3 Eos # (Auto) (0.04-0.54) K/mm3 Baso # (Auto) (0.01-0.08) K/mm3 Manual Slide Review PT 29.8 H (9.5-12.1) SECONDS INR 2.79 Sodium (136-145) mEq/L Potassium (3.5-5.1) mEq/L Chloride (98-107) mEq/L Carbon Dioxide (21-32) mEq/L Anion Gap (5-15) BUN (7-18) mg/dL Creatinine (0.7-1.3) mg/dL Est Cr Clr Drug Dosing mL/min Estimated GFR (MDRD) (>60) mL/min BUN/Creatinine Ratio (14-18) Glucose (83-115) mg/dL POC Glucose 117 H 154 H (83-110) mg/dL Calcium (8.5-10.1) mg/dL Magnesium (1.8-2.4) mg/dl NT-Pro-B Natriuret Pep (0-125) pg/mL 04/14/19 04/14/19 04/14/19 Range/Units 05:17 05:17 05:17 WBC 3.46 L (4.23-9.07) K/mm3 RBC 4.16 L (4.63-6.08) M/mm3 Hgb 12.7 L (13.7-17.5) gm/L Hct 38.6 L (40.1-51.0) % MCV 92.8 H (79.0-92.2) fl MCH 30.5 (25.7-32.2) pg MCHC 32.9 (32.2-35.5) g/dl RDW Std Deviation 51.6 H (35.1-43.9) fL Plt Count 94 L (163-337) K/mm3 MPV 11.3 (9.4-12.3) fl Neut % (Auto) 65.9 (34.0-67.9) % Lymph % (Auto) 9.8 L (21.8-53.1) % [place] % (Auto) 20.8 H (5.3-12.2) % Eos % (Auto) 2.9 (0.8-7.0) Baso % (Auto) 0.3 (0.1-1.2) % Neut # (Auto) 2.28 (1.78-5.38) K/mm3 Lymph # (Auto) 0.34 L (1.32-3.57) K/mm3 [place] # (Auto) 0.72 (0.30-0.82) K/mm3 Eos # (Auto) 0.10 (0.04-0.54) K/mm3 Baso # (Auto) 0.01 (0.01-0.08) K/mm3 Manual Slide Review Abnormal smear PT (9.5-12.1) SECONDS INR Sodium 140 (136-145) mEq/L Potassium 3.7 (3.5-5.1) mEq/L Chloride 105 (98-107) mEq/L Carbon Dioxide 30 (21-32) mEq/L Anion Gap 8.7 (5-15) BUN 53 H (7-18) mg/dL Creatinine 1.5 H (0.7-1.3) mg/dL Est Cr Clr Drug Dosing 51.02 mL/min Estimated GFR (MDRD) 46 (>60) mL/min BUN/Creatinine Ratio 35.3 H (14-18) Glucose 88 (83-115) mg/dL POC Glucose (83-110) mg/dL Calcium 7.8 L (8.5-10.1) mg/dL Magnesium 1.7 L (1.8-2.4) mg/dl NT-Pro-B Natriuret Pep 7336 H (0-125) pg/mL 04/14/19 04/14/19 Range/Units 06:32 11:37 WBC (4.23-9.07) K/mm3 RBC (4.63-6.08) M/mm3 Hgb (13.7-17.5) gm/L Hct (40.1-51.0) % MCV (79.0-92.2) fl MCH (25.7-32.2) pg MCHC (32.2-35.5) g/dl RDW Std Deviation (35.1-43.9) fL Plt Count (163-337) K/mm3 MPV (9.4-12.3) fl Neut % (Auto) (34.0-67.9) % Lymph % (Auto) (21.8-53.1) % [place] % (Auto) (5.3-12.2) % Eos % (Auto) (0.8-7.0) Baso % (Auto) (0.1-1.2) % Neut # (Auto) (1.78-5.38) K/mm3 Lymph # (Auto) (1.32-3.57) K/mm3 [place] # (Auto) (0.30-0.82) K/mm3 Eos # (Auto) (0.04-0.54) K/mm3 Baso # (Auto) (0.01-0.08) K/mm3 Manual Slide Review PT (9.5-12.1) SECONDS INR Sodium (136-145) mEq/L Potassium (3.5-5.1) mEq/L Chloride (98-107) mEq/L Carbon Dioxide (21-32) mEq/L Anion Gap (5-15) BUN (7-18) mg/dL Creatinine (0.7-1.3) mg/dL Est Cr Clr Drug Dosing mL/min Estimated GFR (MDRD) (>60) mL/min BUN/Creatinine Ratio (14-18) Glucose (83-115) mg/dL POC Glucose 97 163 H (83-110) mg/dL Calcium (8.5-10.1) mg/dL Magnesium (1.8-2.4) mg/dl NT-Pro-B Natriuret Pep (0-125) pg/mL Med Orders - Current: Current Medications Acetaminophen (Tylenol) 650 mg PO Q4H PRN PRN Reason: Pain (Mild 1-3)/fever Amlodipine Besylate (Norvasc) 5 mg PO DAILY [facility] Last Admin: 04/14/19 09:10 Dose: 5 mg Aspirin (Halfprin) 81 mg PO DAILY [facility] Last Admin: 04/14/19 09:10 Dose: 81 mg Bisacodyl (Dulcolax) 5 mg PO DAILY PRN PRN Reason: Constipation Bumetanide (Bumex) 0.5 mg IVPUSH 0600,1500 [facility] Last Admin: 04/14/19 06:34 Dose: 0.5 mg Carvedilol (Coreg) 25 mg PO BID [facility] Last Admin: 04/14/19 09:11 Dose: 25 mg Colchicine (Colcrys) 0.6 mg PO BEDTIME [facility] Last Admin: 04/13/19 22:02 Dose: 0.6 mg Docusate Sodium (Colace) 100 mg PO BID PRN PRN Reason: Constipation Last Admin: 04/13/19 14:28 Dose: 100 mg Guaifenesin (Mucinex) 600 mg PO Q12H PRN PRN Reason: Cough Magnesium Sulfate 2 gm/ Premix 50 mls @ 25 mls/hr IV ONETIME ONE Stop: 04/14/19 15:59 Insulin Human Lispro (Humalog) 0 unit SUBCUT BID@0700,2100 [facility]; Protocol Levothyroxine Sodium (Levothyroxine) 25 mcg PO ACBREAKFAST [facility] Last Admin: 04/14/19 06:33 Dose: 25 mcg Mometasone Furoate/Formoterol Fumar (Dulera 200-5 Mcg) 2 puff IH BID [facility] Last Admin: 04/14/19 10:24 Dose: 2 puff Nitroglycerin (Nitrostat) 0.4 mg SL ASDIRECTED PRN PRN Reason: Chest Pain Ondansetron HCl (Zofran) 4 mg IV Q6H PRN PRN Reason: Nausea/Vomiting Senna/Docusate Sodium (Senna Plus) 1 tab PO BID PRN PRN Reason: Constipation Last Admin: 04/14/19 09:12 Dose: 1 tab Sodium Chloride (Saline Flush) 10 ml FLUSH ASDIRECTED PRN PRN Reason: Keep Vein Open Spironolactone (Aldactone) 50 mg PO DAILY [facility] Warfarin Sodium (Pharmacy To Dose - Warfarin) 0 dose .XX ASDIRECTED PRN PRN Reason: RX TO DOSE WARFARIN Warfarin Sodium (Coumadin Sliding Scale) 0 each PO QPM [facility] Stop: 04/14/19 18:01 Discontinued Medications Bumetanide (Bumex) 0.5 mg IVPUSH ONETIME ONE Stop: 04/12/19 14:01 Last Admin: 04/12/19 14:24 Dose: 0.5 mg Bumetanide (Bumex) 0.5 mg IVPUSH 0600,1500 [facility] Last Admin: 04/13/19 14:27 Dose: 0.5 mg Bumetanide (Bumex) 0.5 mg IVPUSH ONETIME ONE Stop: 04/12/19 21:01 Last Admin: 04/12/19 21:47 Dose: 0.5 mg Bumetanide (Bumex) 0.5 mg IVPUSH ONETIME ONE Stop: 04/14/19 09:58 Last Admin: 04/14/19 10:40 Dose: 0.5 mg Magnesium Sulfate 2 gm/ Premix 50 mls @ 25 mls/hr IV ONETIME ONE Stop: 04/12/19 15:59 Last Admin: 04/12/19 14:24 Dose: 25 mls/hr Magnesium Sulfate 2 gm/ Premix 50 mls @ 25 mls/hr IV ONETIME ONE Stop: 04/14/19 11:13 Last Admin: 04/14/19 10:35 Dose: 25 mls/hr Albumin Human (Flexbumin 25%) 12.5 gm in 50 mls @ 100 mls/hr IV ONETIME ONE Stop: 04/14/19 10:29 Last Admin: 04/14/19 12:17 Dose: 100 mls/hr Insulin Human Lispro (Humalog) 0 unit SUBCUT QIDACANDBED [facility]; Protocol Last Admin: 04/14/19 06:34 Dose: Not Given Spironolactone (Aldactone) 25 mg PO DAILY [facility] Last Admin: 04/14/19 09:10 Dose: 25 mg Warfarin Sodium (Coumadin Sliding Scale) 0 each PO QPM [facility] Stop: 04/12/19 19:00 Last Admin: 04/12/19 18:25 Dose: Not Given Warfarin Sodium (Coumadin Sliding Scale) 0 each PO QPM [facility] Stop: 04/13/19 19:00 Last Admin: 04/13/19 17:32 Dose: Not Given - Exam Quality Assessment: Supplemental Oxygen (2L - baseline ), Urine Catheter, DVT Prophylaxis General: Alert, Oriented, Cooperative, No Acute Distress HEENT: Pupils Equal, Pupils Reactive, EOMI, Mucous Membr. Moist/[place] Neck: Supple, Trachea Midline Lungs: Clear to Auscultation, Normal Respiratory Effort, Decreased Breath Sounds Cardiovascular: Regular Rate, Irregular Rhythm GI/Abdominal Exam: Normal Bowel Sounds, Soft, Non-Tender, No Organomegaly, No Distention (Male) Exam: Deferred Back Exam: Normal Inspection, Decreased Range of Motion Extremities: Non-Tender, Normal Capillary Refill, Pedal Edema (3+), Limited Range of Motion, Other (Discoloration to all extremities ). No: Leg Pain Peripheral Pulses: 1+: Dorsalis Pedis (L), Dorsalis Pedis (R), 2+: Radial (L), Radial (R) Skin: Warm, Dry, Intact Neurological: No New Focal Deficit Psy/Mental Status: Alert, Normal Affect, Normal Mood - Problem List & Annotations (1) CHF exacerbation SNOMED Code(s): 618170801, 32930957858056 Code(s): I50.9 - HEART FAILURE, UNSPECIFIED Status: Acute Priority: High Current Visit: Yes Qualifiers: Heart failure type: unspecified Qualified Code(s): I50.9 - Heart failure, unspecified (2) CKD (chronic kidney disease) SNOMED Code(s): 776936683 Code(s): N18.9 - CHRONIC KIDNEY DISEASE, UNSPECIFIED Status: Chronic Priority: High Current Visit: No Qualifiers: Chronic kidney disease stage: unspecified stage Qualified Code(s): N18.9 - Chronic kidney disease, unspecified (3) Chronic renal insufficiency SNOMED Code(s): 715811316 Code(s): N18.9 - CHRONIC KIDNEY DISEASE, UNSPECIFIED Status: Chronic Priority: High Current Visit: No Qualifiers: Chronic kidney disease stage: stage 2 (mild) Qualified Code(s): N18.2 - Chronic kidney disease, stage 2 (mild) (4) Diabetes 1.5, managed as type 2 SNOMED Code(s): 713407255 Code(s): E13.9 - OTHER SPECIFIED DIABETES MELLITUS WITHOUT COMPLICATIONS Status: Chronic Priority: High Current Visit: No (5) History of DVT (deep vein thrombosis) SNOMED Code(s): 221242843 Code(s): Z86.718 - PERSONAL HISTORY OF OTHER VENOUS THROMBOSIS AND EMBOLISM Status: Chronic Priority: Medium Current Visit: No (6) Obesity due to excess calories SNOMED Code(s): 272756720 Code(s): E66.09 - OTHER OBESITY DUE TO EXCESS CALORIES Status: Chronic Priority: Medium Current Visit: No Qualifiers: Obesity classification: adult class 1 (BMI 30 - 34.9) Serious obesity comorbidity presence: unspecified whether serious comorbidity present Body mass index: BMI 33.0-33.9 Qualified Code(s): E66.09 - Other obesity due to excess calories; Z68.33 - Body mass index (BMI) 33.0-33.9, adult (7) Peripheral edema SNOMED Code(s): 445913838 Code(s): R60.9 - EDEMA, UNSPECIFIED Status: Acute Priority: High Current Visit: Yes - Problem List Review Problem List Initiated/Reviewed/Updated: Yes - My Orders Last 24 Hours: My Active Orders 04/14/19 06:00 Bumetanide [Bumex] 0.5 mg IVPUSH 0600,1500 04/14/19 11:24 JAYME Bandage [Elastic Wrap] [OM.PC] Routine 04/14/19 11:28 Accu Check [Blood Glucose Check, Bedside] [RC] 07,21 04/14/19 14:00 Magnesium Sulfate/Water [Magnesium Sulfate in Water Premix] 2 gm Premix Bag 1 bag IV ONETIME 04/14/19 18:00 Warfarin Sliding Scale [Coumadin Sliding Scale] 0 each PO QPM 04/14/19 21:00 Insulin Lispro [HumaLOG] See Protocol SUBCUT BID@0700,2100 04/15/19 05:11 CBC WITH AUTO DIFF [HEME] AM CMP [COMPREHENSIVE METABOLIC PN,CMP] [CHEM] AM INR,PT,PROTHROMBIN TIME [COAG] AM MAGNESIUM [CHEM] AM 04/15/19 09:00 Spironolactone [Aldactone] 50 mg PO DAILY 04/16/19 05:11 CBC WITH AUTO DIFF [HEME] AM CMP [COMPREHENSIVE METABOLIC PN,CMP] [CHEM] AM INR,PT,PROTHROMBIN TIME [COAG] AM MAGNESIUM [CHEM] AM 04/17/19 05:11 CMP [COMPREHENSIVE METABOLIC PN,CMP] [CHEM] AM INR,PT,PROTHROMBIN TIME [COAG] AM 04/18/19 05:11 CMP [COMPREHENSIVE METABOLIC PN,CMP] [CHEM] AM - Plan Plan:: Assessment/Plan: Acute: CHF exacerbation - Risk Factors: CAD S/p CABG x 5, HTN, HLD, DM2, PVD and Obesity - ProBNP 7683-->7336 - 2D echo obtained 10/31/18 (Less than 6 months ago): 1. LVEF, by visual estimation, is 25% 2. Severely decreased left ventricular systolic function 3. Multiple left ventricular regional wall motion abnormalities exist. See wall motion findings. 4. Mildly reduced right ventricular systolic function 5. Right ventricular size is mildly enlarged 6. There is mild aortic valve sclerosis without stenosis 7. Mild mitral valve regurgitation 8. Mild tricuspid valve regurgitation 9. The right ventricular systolic pressure is moderately to severely elevated at 61.5mmHg 10. A pacer wire is visualized in the right ventricle 11. The inferior vena cava is dilated and plethoric 12. Unable to rule out apical thrombus 13. There are left and right pleural effusions - Heart Failure protocol: diuretics, Is/Os, daily weight check, and fluid/ salt restriction - Ashby placed for IO measuring, difficulty with urination 2/2 edema - CXR obtained 04/12/19: * Stable left-sided pleural effusion. Adjacent parenchymal density within the left base which appears stable and is most likely due to atelectasis. Minimally increased pulmonary vessels. Mildly enlarged heart. AICD present. Prior sternotomy. - JAYME bandages bilaterally to legs to help with fluid mobilization Hypoalbuminemia - Albumin 1.7 - Will make diuresis difficult - Supplementation ordered - Pulp Plant Supervisor consult Hypomagnesemia - Mg 1.7-->1.8-->1.7 - 2/2 inadequate intake - Replete and monitor S/P Supratherapeutic INR - PCP reports patient is due for INR check - INR 4.63-->3.74-->2.79 - Pharmacy to monitor and dose - Hold dose on 04/14/19 due to blood in ashby (difficult ashby placement) Chronic: Impaired Hearing PAF, on Warfarin, IR therapeutic HTN HLD CAD S/p CABG x 5, S/p Stent placement x 1 DM2, Diet Controlled S/p A1CD placement PVD/Vascular Insufficiency 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 Flor Bronson
[2019-04-14] MEDS ORDERED: Magnesium Sulfate/Water 50 ML ONE (16:13)
[2019-04-14] MEDS ORDERED: Warfarin Sliding Scale PO SCH (18:00)
[2019-04-14] MEDS ORDERED: Warfarin 5 MG Tab PO SCH (18:00)
[2019-04-14] MEDS: Colchicine 0.6 MG Tab PO SCH (21:01)
[2019-04-15] MEDS: Bumetanide 1 MG/4 ML MDV IVPUSH SCH (05:50)
[2019-04-15] MEDS: Levothyroxine 25 MCG Tab PO SCH (05:52)
[2019-04-15] MEDS ORDERED: Albumin 25% 12.5 GM/50 ML BAG IV ONE (07:21)
[2019-04-15] MEDS: Insulin Lispro 100 Units/ML 3 ML Vial SUBCUT SCH ×2 (07:58→21:05)
--- NOTE | 2019-04-15 07:58 | PCM.PN ---
- General Info Date of Service: 04/15/19 Admission Dx/Problem (Free Text): Admission Diagnosis/Problem Admission Diagnosis/Problem Congestive heart failure Subjective Update: 04/13/19: In to see Val with Dr. Arthur. No nursing or patient concerns. He has had some blood noted in his ashby catheter although this appears to be clearing. Nursing did have some difficulty placing the Ashby. Creatinine remains stable. He is down a bit on weight and having good output. Will continue to monitor. May need to increase bumex dosing. Spironolactone was resumed. He remains weak. Continue PT/OT. He remains on his home dose of 2L O2. 04/14/19: Val repots he feels like he is improving. His arms are less edematous. He remains on O2. Discussed diuresis with Dr. Arthur who recommended we give albumin, increase spironolactone, and increase Bumex this AM. Will monitor for changes with new regimen. Blood in ashby continues so discussed warfarin dosing. Will hold off warfarin today and resume tomorrow. Creatinine has remained steady. Nursing reports HR abnormalities and magnesium was noted to be low and will be supplemented. Blood glucose readings have remained stable and patient reports he is pretty stable at home so will decrease insulin and bedside checks to BID. Patient has been refusing insulin regardless. 04/15/19: In to see Val. He reports his testicles are very swollen today. This is likely 2/2 JAYME wraps on his legs mobilizing his fluid. Discussed diuretics with Dr. Simmons. Recommends 60mg IVP lasix tonight and 80mg IVP lasix tomorrow am. Will monitor labs and adjust as necessary. BP has remained stable. Weight has not changed much. Ashby continues to contain some blood. Functional Status: Reports: Pain Controlled, Tolerating Diet, Urinating. Denies : Ambulating, New Symptoms - Review of Systems General: Reports: Weakness. Denies: Fever, Chills HEENT: Reports: No Symptoms. Denies: Headaches, Sore Throat Pulmonary: Reports: No Symptoms. Denies: Shortness of Breath, Pleuritic Chest Pain, Cough, Sputum, Wheezing Cardiovascular: Reports: Edema. Denies: Chest Pain, Palpitations Gastrointestinal: Reports: No Symptoms. Denies: Abdominal Pain, Constipation, Diarrhea, Nausea, Vomiting Genitourinary: Reports: No Symptoms. Denies: Pain Musculoskeletal: Reports: No Symptoms Skin: Reports: No Symptoms. Denies: Cyanosis Neurological: Reports: Pre-Existing Deficit, Difficulty Walking, Gait Disturbance. Denies: Confusion Psychiatric: Reports: No Symptoms - Patient Data Vitals - Most Recent: Last Vital Signs Temp 98.2 F 04/15/19 02:55 Pulse 72 04/15/19 02:55 Resp 20 04/15/19 02:55 BP 112/66 04/15/19 02:55 Pulse Ox 93 L 04/15/19 02:55 Weight - Most Recent: 258 lb I&O - Last 24 Hours: Intake & Output 04/14/19 04/15/19 04/15/19 22:59 06:59 14:59 Intake Total 1070 200 Output Total 600 300 Balance 470 -100 Lab Results Last 24 Hours: Laboratory Results - last 24 hr 04/14/19 04/14/19 04/14/19 Range/Units 11:37 16:43 20:48 WBC (4.23-9.07) K/mm3 RBC (4.63-6.08) M/mm3 Hgb (13.7-17.5) gm/L Hct (40.1-51.0) % MCV (79.0-92.2) fl MCH (25.7-32.2) pg MCHC (32.2-35.5) g/dl RDW Std Deviation (35.1-43.9) fL Plt Count (163-337) K/mm3 MPV (9.4-12.3) fl Neut % (Auto) (34.0-67.9) % Lymph % (Auto) (21.8-53.1) % [place] % (Auto) (5.3-12.2) % Eos % (Auto) (0.8-7.0) Baso % (Auto) (0.1-1.2) % Neut # (Auto) (1.78-5.38) K/mm3 Lymph # (Auto) (1.32-3.57) K/mm3 [place] # (Auto) (0.30-0.82) K/mm3 Eos # (Auto) (0.04-0.54) K/mm3 Baso # (Auto) (0.01-0.08) K/mm3 Manual Slide Review PT (9.5-12.1) SECONDS INR Sodium (136-145) mEq/L Potassium (3.5-5.1) mEq/L Chloride (98-107) mEq/L Carbon Dioxide (21-32) mEq/L Anion Gap (5-15) BUN (7-18) mg/dL Creatinine (0.7-1.3) mg/dL Est Cr Clr Drug Dosing mL/min Estimated GFR (MDRD) (>60) mL/min BUN/Creatinine Ratio (14-18) Glucose (83-115) mg/dL POC Glucose 163 H 143 H 136 H (83-110) mg/dL Calcium (8.5-10.1) mg/dL Magnesium (1.8-2.4) mg/dl Total Bilirubin (0.2-1.0) mg/dL AST (15-37) U/L ALT (16-63) U/L Alkaline Phosphatase (46-116) U/L Total Protein (6.4-8.2) g/dl Albumin (3.4-5.0) g/dl Globulin gm/dL Albumin/Globulin Ratio (1-2) 04/15/19 04/15/19 04/15/19 Range/Units 05:10 05:10 05:10 WBC 3.61 L (4.23-9.07) K/mm3 RBC 4.20 L (4.63-6.08) M/mm3 Hgb 12.8 L (13.7-17.5) gm/L Hct 39.0 L (40.1-51.0) % MCV 92.9 H (79.0-92.2) fl MCH 30.5 (25.7-32.2) pg MCHC 32.8 (32.2-35.5) g/dl RDW Std Deviation 52.3 H (35.1-43.9) fL Plt Count 93 L (163-337) K/mm3 MPV 11.7 (9.4-12.3) fl Neut % (Auto) 68.1 H (34.0-67.9) % Lymph % (Auto) 12.7 L (21.8-53.1) % [place] % (Auto) 16.1 H (5.3-12.2) % Eos % (Auto) 2.5 (0.8-7.0) Baso % (Auto) 0.3 (0.1-1.2) % Neut # (Auto) 2.46 (1.78-5.38) K/mm3 Lymph # (Auto) 0.46 L (1.32-3.57) K/mm3 [place] # (Auto) 0.58 (0.30-0.82) K/mm3 Eos # (Auto) 0.09 (0.04-0.54) K/mm3 Baso # (Auto) 0.01 (0.01-0.08) K/mm3 Manual Slide Review Abnormal smear PT 24.3 H (9.5-12.1) SECONDS INR 2.27 Sodium 140 (136-145) mEq/L Potassium 3.9 (3.5-5.1) mEq/L Chloride 105 (98-107) mEq/L Carbon Dioxide 30 (21-32) mEq/L Anion Gap 8.9 (5-15) BUN 57 H (7-18) mg/dL Creatinine 1.5 H (0.7-1.3) mg/dL Est Cr Clr Drug Dosing 51.02 mL/min Estimated GFR (MDRD) 46 (>60) mL/min BUN/Creatinine Ratio 38.0 H (14-18) Glucose 96 (83-115) mg/dL POC Glucose (83-110) mg/dL Calcium 7.9 L (8.5-10.1) mg/dL Magnesium 2.2 (1.8-2.4) mg/dl Total Bilirubin 0.6 (0.2-1.0) mg/dL AST 25 (15-37) U/L ALT 28 (16-63) U/L Alkaline Phosphatase 95 (46-116) U/L Total Protein 4.7 L (6.4-8.2) g/dl Albumin 1.7 L (3.4-5.0) g/dl Globulin 3.0 gm/dL Albumin/Globulin Ratio 0.6 L (1-2) 04/15/19 Range/Units 06:07 WBC (4.23-9.07) K/mm3 RBC (4.63-6.08) M/mm3 Hgb (13.7-17.5) gm/L Hct (40.1-51.0) % MCV (79.0-92.2) fl MCH (25.7-32.2) pg MCHC (32.2-35.5) g/dl RDW Std Deviation (35.1-43.9) fL Plt Count (163-337) K/mm3 MPV (9.4-12.3) fl Neut % (Auto) (34.0-67.9) % Lymph % (Auto) (21.8-53.1) % [place] % (Auto) (5.3-12.2) % Eos % (Auto) (0.8-7.0) Baso % (Auto) (0.1-1.2) % Neut # (Auto) (1.78-5.38) K/mm3 Lymph # (Auto) (1.32-3.57) K/mm3 [place] # (Auto) (0.30-0.82) K/mm3 Eos # (Auto) (0.04-0.54) K/mm3 Baso # (Auto) (0.01-0.08) K/mm3 Manual Slide Review PT (9.5-12.1) SECONDS INR Sodium (136-145) mEq/L Potassium (3.5-5.1) mEq/L Chloride (98-107) mEq/L Carbon Dioxide (21-32) mEq/L Anion Gap (5-15) BUN (7-18) mg/dL Creatinine (0.7-1.3) mg/dL Est Cr Clr Drug Dosing mL/min Estimated GFR (MDRD) (>60) mL/min BUN/Creatinine Ratio (14-18) Glucose (83-115) mg/dL POC Glucose 103 (83-110) mg/dL Calcium (8.5-10.1) mg/dL Magnesium (1.8-2.4) mg/dl Total Bilirubin (0.2-1.0) mg/dL AST (15-37) U/L ALT (16-63) U/L Alkaline Phosphatase (46-116) U/L Total Protein (6.4-8.2) g/dl Albumin (3.4-5.0) g/dl Globulin gm/dL Albumin/Globulin Ratio (1-2) Med Orders - Current: Current Medications Acetaminophen (Tylenol) 650 mg PO Q4H PRN PRN Reason: Pain (Mild 1-3)/fever Amlodipine Besylate (Norvasc) 5 mg PO DAILY [facility] Last Admin: 04/14/19 09:10 Dose: 5 mg Aspirin (Halfprin) 81 mg PO DAILY [facility] Last Admin: 04/14/19 09:10 Dose: 81 mg Bisacodyl (Dulcolax) 5 mg PO DAILY PRN PRN Reason: Constipation Carvedilol (Coreg) 25 mg PO BID [facility] Last Admin: 04/14/19 21:00 Dose: 25 mg Colchicine (Colcrys) 0.6 mg PO BEDTIME [facility] Last Admin: 04/14/19 21:01 Dose: 0.6 mg Docusate Sodium (Colace) 100 mg PO BID PRN PRN Reason: Constipation Last Admin: 04/13/19 14:28 Dose: 100 mg Guaifenesin (Mucinex) 600 mg PO Q12H PRN PRN Reason: Cough Insulin Human Lispro (Humalog) 0 unit SUBCUT BID@0700,2100 [facility]; Protocol Last Admin: 04/14/19 21:02 Dose: Not Given Levothyroxine Sodium (Levothyroxine) 25 mcg PO ACBREAKFAST [facility] Last Admin: 04/15/19 05:52 Dose: 25 mcg Mometasone Furoate/Formoterol Fumar (Dulera 200-5 Mcg) 2 puff IH BID [facility] Last Admin: 04/14/19 20:42 Dose: 2 puff Nitroglycerin (Nitrostat) 0.4 mg SL ASDIRECTED PRN PRN Reason: Chest Pain Ondansetron HCl (Zofran) 4 mg IV Q6H PRN PRN Reason: Nausea/Vomiting Senna/Docusate Sodium (Senna Plus) 1 tab PO BID PRN PRN Reason: Constipation Last Admin: 04/14/19 09:12 Dose: 1 tab Sodium Chloride (Saline Flush) 10 ml FLUSH ASDIRECTED PRN PRN Reason: Keep Vein Open Spironolactone (Aldactone) 50 mg PO DAILY [facility] Warfarin Sodium (Pharmacy To Dose - Warfarin) 0 dose .XX ASDIRECTED PRN PRN Reason: RX TO DOSE WARFARIN Discontinued Medications Bumetanide (Bumex) 0.5 mg IVPUSH ONETIME ONE Stop: 04/12/19 14:01 Last Admin: 04/12/19 14:24 Dose: 0.5 mg Bumetanide (Bumex) 0.5 mg IVPUSH 0600,1500 [facility] Last Admin: 04/13/19 14:27 Dose: 0.5 mg Bumetanide (Bumex) 0.5 mg IVPUSH ONETIME ONE Stop: 04/12/19 21:01 Last Admin: 04/12/19 21:47 Dose: 0.5 mg Bumetanide (Bumex) 0.5 mg IVPUSH 0600,1500 [facility] Last Admin: 04/15/19 05:50 Dose: 0.5 mg Bumetanide (Bumex) 0.5 mg IVPUSH ONETIME ONE Stop: 04/14/19 09:58 Last Admin: 04/14/19 10:40 Dose: 0.5 mg Magnesium Sulfate 2 gm/ Premix 50 mls @ 25 mls/hr IV ONETIME ONE Stop: 04/12/19 15:59 Last Admin: 04/12/19 14:24 Dose: 25 mls/hr Magnesium Sulfate 2 gm/ Premix 50 mls @ 25 mls/hr IV ONETIME ONE Stop: 04/14/19 11:13 Last Admin: 04/14/19 10:35 Dose: 25 mls/hr Albumin Human (Flexbumin 25%) 12.5 gm in 50 mls @ 100 mls/hr IV ONETIME ONE Stop: 04/14/19 10:29 Last Admin: 04/14/19 12:17 Dose: 100 mls/hr Magnesium Sulfate 2 gm/ Premix 50 mls @ 25 mls/hr IV ONETIME ONE Stop: 04/14/19 15:59 Last Admin: 04/14/19 16:16 Dose: 25 mls/hr Magnesium Sulfate (Magnesium Sulfate In Water Premix) Confirm Administered Dose 50 mls @ as directed .ROUTE .STK-MED ONE Stop: 04/14/19 16:14 Last Admin: 04/14/19 16:15 Dose: Not Given Albumin Human (Flexbumin 25%) 12.5 gm in 50 mls @ 100 mls/hr IV ONETIME ONE Stop: 04/15/19 07:50 Insulin Human Lispro (Humalog) 0 unit SUBCUT QIDACANDBED [facility]; Protocol Last Admin: 04/14/19 16:48 Dose: Not Given Spironolactone (Aldactone) 25 mg PO DAILY [facility] Last Admin: 04/14/19 09:10 Dose: 25 mg Warfarin Sodium (Coumadin Sliding Scale) 0 each PO QPM [facility] Stop: 04/12/19 19:00 Last Admin: 04/12/19 18:25 Dose: Not Given Warfarin Sodium (Coumadin Sliding Scale) 0 each PO QPM [facility] Stop: 04/13/19 19:00 Last Admin: 04/13/19 17:32 Dose: Not Given Warfarin Sodium (Coumadin Sliding Scale) 0 each PO QPM [facility] Stop: 04/14/19 18:01 Last Admin: 04/14/19 18:05 Dose: Not Given - Exam Quality Assessment: Supplemental Oxygen, DVT Prophylaxis General: Alert, Oriented, Cooperative, No Acute Distress HEENT: Pupils Equal, Pupils Reactive, EOMI, Mucous Membr. Moist/[place] Neck: Supple, Trachea Midline, No JVD Lungs: Clear to Auscultation, Normal Respiratory Effort Cardiovascular: Regular Rate, Regular Rhythm GI/Abdominal Exam: Normal Bowel Sounds, Soft, Non-Tender, No Distention, No Abnormal Bruit (Male) Exam: Scrotal Swelling Back Exam: Normal Inspection, Full Range of Motion Extremities: Normal Inspection, Non-Tender, Normal Capillary Refill, Pedal Edema (3+), Other (Discoloration to all extremities consistent with PVD ) Peripheral Pulses: 1+: Dorsalis Pedis (L), Dorsalis Pedis (R), 2+: Radial (L), Radial (R) Skin: Warm, Dry, Intact Neurological: No New Focal Deficit Psy/Mental Status: Alert, Normal Affect, Normal Mood - Problem List & Annotations (1) CHF exacerbation SNOMED Code(s): 034267116, 26624565781288 Code(s): I50.9 - HEART FAILURE, UNSPECIFIED Status: Acute Priority: High Current Visit: Yes Qualifiers: Heart failure type: unspecified Qualified Code(s): I50.9 - Heart failure, unspecified (2) CKD (chronic kidney disease) SNOMED Code(s): 477330983 Code(s): N18.9 - CHRONIC KIDNEY DISEASE, UNSPECIFIED Status: Chronic Priority: High Current Visit: No Qualifiers: Chronic kidney disease stage: unspecified stage Qualified Code(s): N18.9 - Chronic kidney disease, unspecified (3) Chronic renal insufficiency SNOMED Code(s): 734461112 Code(s): N18.9 - CHRONIC KIDNEY DISEASE, UNSPECIFIED Status: Chronic Priority: High Current Visit: No Qualifiers: Chronic kidney disease stage: stage 2 (mild) Qualified Code(s): N18.2 - Chronic kidney disease, stage 2 (mild) (4) Diabetes 1.5, managed as type 2 SNOMED Code(s): 516489375 Code(s): E13.9 - OTHER SPECIFIED DIABETES MELLITUS WITHOUT COMPLICATIONS Status: Chronic Priority: High Current Visit: No (5) History of DVT (deep vein thrombosis) SNOMED Code(s): 611498235 Code(s): Z86.718 - PERSONAL HISTORY OF OTHER VENOUS THROMBOSIS AND EMBOLISM Status: Chronic Priority: Medium Current Visit: No (6) Obesity due to excess calories SNOMED Code(s): 266878428 Code(s): E66.09 - OTHER OBESITY DUE TO EXCESS CALORIES Status: Chronic Priority: Medium Current Visit: No Qualifiers: Obesity classification: adult class 1 (BMI 30 - 34.9) Serious obesity comorbidity presence: unspecified whether serious comorbidity present Body mass index: BMI 33.0-33.9 Qualified Code(s): E66.09 - Other obesity due to excess calories; Z68.33 - Body mass index (BMI) 33.0-33.9, adult (7) Peripheral edema SNOMED Code(s): 281887323 Code(s): R60.9 - EDEMA, UNSPECIFIED Status: Acute Priority: High Current Visit: Yes - Problem List Review Problem List Initiated/Reviewed/Updated: Yes - My Orders Last 24 Hours: My Active Orders 04/14/19 11:24 JAYME Bandage [Elastic Wrap] [OM.PC] Routine 04/14/19 11:28 Accu Check [Blood Glucose Check, Bedside] [RC] 07,04/14/19 21:00 Insulin Lispro [HumaLOG] See Protocol SUBCUT BID@0700,2100 04/15/19 09:00 Spironolactone [Aldactone] 50 mg PO DAILY 04/16/19 05:11 CBC WITH AUTO DIFF [HEME] AM CMP [COMPREHENSIVE METABOLIC PN,CMP] [CHEM] AM INR,PT,PROTHROMBIN TIME [COAG] AM MAGNESIUM [CHEM] AM PRO B-TYPE NATRIUR PEPT,BNPPRO [CHEM] Routine 04/17/19 05:11 CMP [COMPREHENSIVE METABOLIC PN,CMP] [CHEM] AM INR,PT,PROTHROMBIN TIME [COAG] AM 04/18/19 05:11 CMP [COMPREHENSIVE METABOLIC PN,CMP] [CHEM] AM - Plan Plan:: Assessment/Plan: Acute: CHF exacerbation - Risk Factors: CAD S/p CABG x 5, HTN, HLD, DM2, PVD and Obesity - ProBNP 7683-->7336 - 2D echo obtained 10/31/18 (Less than 6 months ago): 1. LVEF, by visual estimation, is 25% 2. Severely decreased left ventricular systolic function 3. Multiple left ventricular regional wall motion abnormalities exist. See wall motion findings. 4. Mildly reduced right ventricular systolic function 5. Right ventricular size is mildly enlarged 6. There is mild aortic valve sclerosis without stenosis 7. Mild mitral valve regurgitation 8. Mild tricuspid valve regurgitation 9. The right ventricular systolic pressure is moderately to severely elevated at 61.5mmHg 10. A pacer wire is visualized in the right ventricle 11. The inferior vena cava is dilated and plethoric 12. Unable to rule out apical thrombus 13. There are left and right pleural effusions - Heart Failure protocol: diuretics, Is/Os, daily weight check, and fluid/ salt restriction - Ashby placed for IO measuring, difficulty with urination 2/2 edema - CXR obtained 04/12/19: * Stable left-sided pleural effusion. Adjacent parenchymal density within the left base which appears stable and is most likely due to atelectasis. Minimally increased pulmonary vessels. Mildly enlarged heart. AICD present. Prior sternotomy. - JAYME bandages bilaterally to legs to help with fluid mobilization Hypoalbuminemia - Albumin 1.7 - Will make diuresis difficult - Supplementation ordered - Diabetes Manager consult - high protein S/P Hypomagnesemia - Mg 1.7-->1.8-->1.7-->2.2 - 2/2 inadequate intake - Replete and monitor S/P Supratherapeutic INR - PCP reports patient is due for INR check - INR 4.63-->3.74-->2.79 - Pharmacy to monitor and dose - Hold dose on 04/14/19 due to blood in ashby (difficult ashby placement) Chronic: Impaired Hearing PAF, on Warfarin, IR therapeutic HTN HLD CAD S/p CABG x 5, S/p Stent placement x 1 DM2, Diet Controlled S/p A1CD placement PVD/Vascular Insufficiency 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 Flor Bronson LOS >96Hr due to slow response to treatment, need for continued diuresis.
[2019-04-15] MEDS: Aspirin 81 MG Tab.EC PO SCH (08:22)
[2019-04-15] MEDS: amLODIPine 5 MG Tab PO SCH (08:22)
[2019-04-15] MEDS: Carvedilol 12.5 MG Tab PO SCH ×2 (08:23→21:05)
[2019-04-15] MEDS: Spironolactone 25 MG Tab PO SCH (08:25)
[2019-04-15] MEDS: Formoterol/Mometasone 200-5 MCG 8.8 GM Inhaler IH SCH ×2 (08:28→20:37)
[2019-04-15] MEDS ORDERED: Furosemide 40 MG/4 ML VIAL IVPUSH ONE (14:29)
[2019-04-15] MEDS ORDERED: Bumetanide 1 MG/4 ML MDV IVPUSH ONE (15:00)
[2019-04-15] MEDS ORDERED: Warfarin Sliding Scale PO SCH (18:00)
[2019-04-15] MEDS: Colchicine 0.6 MG Tab PO SCH (21:05)
[2019-04-16] MEDS: Levothyroxine 25 MCG Tab PO SCH (06:09)
[2019-04-16] MEDS ORDERED: Furosemide 40 MG/4 ML VIAL IVPUSH ONE (06:40)
[2019-04-16] MEDS: Insulin Lispro 100 Units/ML 3 ML Vial SUBCUT SCH ×2 (07:11→20:38)
[2019-04-16] MEDS ORDERED: Bumetanide 1 MG/4 ML MDV IVPUSH ONE (08:00)
[2019-04-16] MEDS: amLODIPine 5 MG Tab PO SCH (08:15)
[2019-04-16] MEDS: Carvedilol 12.5 MG Tab PO SCH ×2 (08:15→20:34)
[2019-04-16] MEDS: Spironolactone 25 MG Tab PO SCH (08:15)
[2019-04-16] MEDS: Formoterol/Mometasone 200-5 MCG 8.8 GM Inhaler IH SCH ×2 (09:00→21:11)
--- NOTE | 2019-04-16 09:58 | PCM.PN ---
- General Info Date of Service: 04/16/19 Admission Dx/Problem (Free Text): Admission Diagnosis/Problem Admission Diagnosis/Problem Congestive heart failure Subjective Update: 04/13/19: In to see Val with Dr. Arthur. No nursing or patient concerns. He has had some blood noted in his ashby catheter although this appears to be clearing. Nursing did have some difficulty placing the Ashby. Creatinine remains stable. He is down a bit on weight and having good output. Will continue to monitor. May need to increase bumex dosing. Spironolactone was resumed. He remains weak. Continue PT/OT. He remains on his home dose of 2L O2. 04/14/19: Val repots he feels like he is improving. His arms are less edematous. He remains on O2. Discussed diuresis with Dr. Arthur who recommended we give albumin, increase spironolactone, and increase Bumex this AM. Will monitor for changes with new regimen. Blood in ashby continues so discussed warfarin dosing. Will hold off warfarin today and resume tomorrow. Creatinine has remained steady. Nursing reports HR abnormalities and magnesium was noted to be low and will be supplemented. Blood glucose readings have remained stable and patient reports he is pretty stable at home so will decrease insulin and bedside checks to BID. Patient has been refusing insulin regardless. 04/15/19: In to see Val. He reports his testicles are very swollen today. This is likely 2/2 JAYME wraps on his legs mobilizing his fluid. Discussed diuretics with Dr. Simmons. Recommends 60mg IVP lasix tonight and 80mg IVP lasix tomorrow am. Will monitor labs and adjust as necessary. BP has remained stable. Weight has not changed much. Ashby continues to contain some blood. 04/16/19: Val reports he feels better today. He says he does not feel as tight and his scrotum is less painful. Discussed with Dr. Simmons again the concerns over blood in urine and slow response to treatment. Will order 80mg IVP lasix tonight and monitor. Will stop JAYME wraps due to scrotal swelling. Creatinine looks better today than yesterday however BNP has lu. BP and vitals remain stable. Will hold off mechanical or pharmacological VTE prophylaxis due to PVD, extremity swelling, and blood in catheter. Functional Status: Reports: Pain Controlled, Tolerating Diet, Ambulating, Urinating. Denies: New Symptoms - Review of Systems General: Reports: No Symptoms. Denies: Fever, Weakness, Fatigue HEENT: Reports: No Symptoms, Sore Throat. Denies: Headaches Pulmonary: Reports: No Symptoms. Denies: Shortness of Breath, Cough, Sputum, Wheezing Cardiovascular: Reports: Edema (improved ). Denies: Chest Pain, Palpitations, Dyspnea on Exertion Gastrointestinal: Reports: No Symptoms. Denies: Abdominal Pain, Constipation, Diarrhea, Nausea, Vomiting Genitourinary: Reports: No Symptoms. Denies: Pain Musculoskeletal: Reports: No Symptoms Skin: Reports: No Symptoms. Denies: Cyanosis Neurological: Reports: Pre-Existing Deficit, Difficulty Walking, Gait Disturbance. Denies: Confusion Psychiatric: Reports: No Symptoms - Patient Data Vitals - Most Recent: Last Vital Signs Temp 97.5 F 04/16/19 04:18 Pulse 78 04/16/19 08:15 Resp 16 04/16/19 08:13 BP 113/68 04/16/19 08:15 Pulse Ox 96 04/16/19 09:00 Weight - Most Recent: 262 lb 1.6 oz I&O - Last 24 Hours: Intake & Output 04/15/19 04/16/19 04/16/19 22:59 06:59 14:59 Intake Total 490 400 25 Output Total 895 490 150 Balance -405 -90 -125 Lab Results Last 24 Hours: Laboratory Results - last 24 hr 04/15/19 04/15/19 04/16/19 Range/Units 15:37 21:04 04:50 WBC (4.23-9.07) K/mm3 RBC (4.63-6.08) M/mm3 Hgb (13.7-17.5) gm/L Hct (40.1-51.0) % MCV (79.0-92.2) fl MCH (25.7-32.2) pg MCHC (32.2-35.5) g/dl RDW Std Deviation (35.1-43.9) fL Plt Count (163-337) K/mm3 MPV (9.4-12.3) fl Neut % (Auto) (34.0-67.9) % Lymph % (Auto) (21.8-53.1) % [place] % (Auto) (5.3-12.2) % Eos % (Auto) (0.8-7.0) Baso % (Auto) (0.1-1.2) % Neut # (Auto) (1.78-5.38) K/mm3 Lymph # (Auto) (1.32-3.57) K/mm3 [place] # (Auto) (0.30-0.82) K/mm3 Eos # (Auto) (0.04-0.54) K/mm3 Baso # (Auto) (0.01-0.08) K/mm3 Manual Slide Review PT 17.7 H (9.5-12.1) SECONDS INR 1.64 Sodium (136-145) mEq/L Potassium (3.5-5.1) mEq/L Chloride (98-107) mEq/L Carbon Dioxide (21-32) mEq/L Anion Gap (5-15) BUN (7-18) mg/dL Creatinine (0.7-1.3) mg/dL Est Cr Clr Drug Dosing mL/min Estimated GFR (MDRD) (>60) mL/min BUN/Creatinine Ratio (14-18) Glucose (83-115) mg/dL POC Glucose 114 H (83-110) mg/dL Calcium (8.5-10.1) mg/dL Magnesium (1.8-2.4) mg/dl Total Bilirubin (0.2-1.0) mg/dL AST (15-37) U/L ALT (16-63) U/L Alkaline Phosphatase (46-116) U/L NT-Pro-B Natriuret Pep (0-125) pg/mL Total Protein (6.4-8.2) g/dl Albumin (3.4-5.0) g/dl Globulin gm/dL Albumin/Globulin Ratio (1-2) Ur Random Creatinine 42.0 (30.0-125.0) mg/dL Ur Random Microalbumin 28.0 H (1.3-20.0) mg/L U Random Total Protein 46.2 H (0.0-11.8) mg/dL Microalb/Creat Ratio 66.6 H (0-30) mg/g 04/16/19 04/16/19 04/16/19 Range/Units 04:50 04:50 04:50 WBC 3.25 L (4.23-9.07) K/mm3 RBC 4.09 L (4.63-6.08) M/mm3 Hgb 12.3 L (13.7-17.5) gm/L Hct 38.2 L (40.1-51.0) % MCV 93.4 H (79.0-92.2) fl MCH 30.1 (25.7-32.2) pg MCHC 32.2 (32.2-35.5) g/dl RDW Std Deviation 52.4 H (35.1-43.9) fL Plt Count 97 L (163-337) K/mm3 MPV 11.1 (9.4-12.3) fl Neut % (Auto) 64.6 (34.0-67.9) % Lymph % (Auto) 13.8 L (21.8-53.1) % [place] % (Auto) 18.5 H (5.3-12.2) % Eos % (Auto) 2.5 (0.8-7.0) Baso % (Auto) 0.3 (0.1-1.2) % Neut # (Auto) 2.10 (1.78-5.38) K/mm3 Lymph # (Auto) 0.45 L (1.32-3.57) K/mm3 [place] # (Auto) 0.60 (0.30-0.82) K/mm3 Eos # (Auto) 0.08 (0.04-0.54) K/mm3 Baso # (Auto) 0.01 (0.01-0.08) K/mm3 Manual Slide Review Abnormal smear PT (9.5-12.1) SECONDS INR Sodium 141 (136-145) mEq/L Potassium 4.0 (3.5-5.1) mEq/L Chloride 106 (98-107) mEq/L Carbon Dioxide 29 (21-32) mEq/L Anion Gap 10.0 (5-15) BUN 60 H (7-18) mg/dL Creatinine 1.4 H (0.7-1.3) mg/dL Est Cr Clr Drug Dosing 54.66 mL/min Estimated GFR (MDRD) 50 (>60) mL/min BUN/Creatinine Ratio 42.9 H (14-18) Glucose 89 (83-115) mg/dL POC Glucose (83-110) mg/dL Calcium 8.1 L (8.5-10.1) mg/dL Magnesium 1.9 (1.8-2.4) mg/dl Total Bilirubin 0.6 (0.2-1.0) mg/dL AST 25 (15-37) U/L ALT 26 (16-63) U/L Alkaline Phosphatase 89 (46-116) U/L NT-Pro-B Natriuret Pep 8804 H (0-125) pg/mL Total Protein 4.7 L (6.4-8.2) g/dl Albumin 1.8 L (3.4-5.0) g/dl Globulin 2.9 gm/dL Albumin/Globulin Ratio 0.6 L (1-2) Ur Random Creatinine (30.0-125.0) mg/dL Ur Random Microalbumin (1.3-20.0) mg/L U Random Total Protein (0.0-11.8) mg/dL Microalb/Creat Ratio (0-30) mg/g 04/16/19 Range/Units 06:07 WBC (4.23-9.07) K/mm3 RBC (4.63-6.08) M/mm3 Hgb (13.7-17.5) gm/L Hct (40.1-51.0) % MCV (79.0-92.2) fl MCH (25.7-32.2) pg MCHC (32.2-35.5) g/dl RDW Std Deviation (35.1-43.9) fL Plt Count (163-337) K/mm3 MPV (9.4-12.3) fl Neut % (Auto) (34.0-67.9) % Lymph % (Auto) (21.8-53.1) % [place] % (Auto) (5.3-12.2) % Eos % (Auto) (0.8-7.0) Baso % (Auto) (0.1-1.2) % Neut # (Auto) (1.78-5.38) K/mm3 Lymph # (Auto) (1.32-3.57) K/mm3 [place] # (Auto) (0.30-0.82) K/mm3 Eos # (Auto) (0.04-0.54) K/mm3 Baso # (Auto) (0.01-0.08) K/mm3 Manual Slide Review PT (9.5-12.1) SECONDS INR Sodium (136-145) mEq/L Potassium (3.5-5.1) mEq/L Chloride (98-107) mEq/L Carbon Dioxide (21-32) mEq/L Anion Gap (5-15) BUN (7-18) mg/dL Creatinine (0.7-1.3) mg/dL Est Cr Clr Drug Dosing mL/min Estimated GFR (MDRD) (>60) mL/min BUN/Creatinine Ratio (14-18) Glucose (83-115) mg/dL POC Glucose 91 (83-110) mg/dL Calcium (8.5-10.1) mg/dL Magnesium (1.8-2.4) mg/dl Total Bilirubin (0.2-1.0) mg/dL AST (15-37) U/L ALT (16-63) U/L Alkaline Phosphatase (46-116) U/L NT-Pro-B Natriuret Pep (0-125) pg/mL Total Protein (6.4-8.2) g/dl Albumin (3.4-5.0) g/dl Globulin gm/dL Albumin/Globulin Ratio (1-2) Ur Random Creatinine (30.0-125.0) mg/dL Ur Random Microalbumin (1.3-20.0) mg/L U Random Total Protein (0.0-11.8) mg/dL Microalb/Creat Ratio (0-30) mg/g Med Orders - Current: Current Medications Acetaminophen (Tylenol) 650 mg PO Q4H PRN PRN Reason: Pain (Mild 1-3)/fever Amlodipine Besylate (Norvasc) 5 mg PO DAILY [facility] Last Admin: 04/16/19 08:15 Dose: 5 mg Aspirin (Halfprin) 81 mg PO DAILY [facility] Last Admin: 04/15/19 08:22 Dose: 81 mg Bisacodyl (Dulcolax) 5 mg PO DAILY PRN PRN Reason: Constipation Carvedilol (Coreg) 25 mg PO BID [facility] Last Admin: 04/16/19 08:15 Dose: 25 mg Colchicine (Colcrys) 0.6 mg PO BEDTIME [facility] Last Admin: 04/15/19 21:05 Dose: 0.6 mg Docusate Sodium (Colace) 100 mg PO BID PRN PRN Reason: Constipation Last Admin: 04/13/19 14:28 Dose: 100 mg Guaifenesin (Mucinex) 600 mg PO Q12H PRN PRN Reason: Cough Last Admin: 04/15/19 08:36 Dose: 600 mg Insulin Human Lispro (Humalog) 0 unit SUBCUT BID@0700,2100 [facility]; Protocol Last Admin: 04/16/19 07:11 Dose: Not Given Levothyroxine Sodium (Levothyroxine) 25 mcg PO ACBREAKFAST [facility] Last Admin: 04/16/19 06:09 Dose: 25 mcg Mometasone Furoate/Formoterol Fumar (Dulera 200-5 Mcg) 2 puff IH BID [facility] Last Admin: 04/16/19 09:00 Dose: 2 puff Nitroglycerin (Nitrostat) 0.4 mg SL ASDIRECTED PRN PRN Reason: Chest Pain Ondansetron HCl (Zofran) 4 mg IV Q6H PRN PRN Reason: Nausea/Vomiting Senna/Docusate Sodium (Senna Plus) 1 tab PO BID PRN PRN Reason: Constipation Last Admin: 04/14/19 09:12 Dose: 1 tab Sodium Chloride (Saline Flush) 10 ml FLUSH ASDIRECTED PRN PRN Reason: Keep Vein Open Spironolactone (Aldactone) 50 mg PO DAILY [facility] Last Admin: 04/16/19 08:15 Dose: 50 mg Warfarin Sodium (Pharmacy To Dose - Warfarin) 0 dose .XX ASDIRECTED PRN PRN Reason: RX TO DOSE WARFARIN Discontinued Medications Bumetanide (Bumex) 0.5 mg IVPUSH ONETIME ONE Stop: 04/12/19 14:01 Last Admin: 04/12/19 14:24 Dose: 0.5 mg Bumetanide (Bumex) 0.5 mg IVPUSH 0600,1500 [facility] Last Admin: 04/13/19 14:27 Dose: 0.5 mg Bumetanide (Bumex) 0.5 mg IVPUSH ONETIME ONE Stop: 04/12/19 21:01 Last Admin: 04/12/19 21:47 Dose: 0.5 mg Bumetanide (Bumex) 0.5 mg IVPUSH 0600,1500 [facility] Last Admin: 04/15/19 05:50 Dose: 0.5 mg Bumetanide (Bumex) 0.5 mg IVPUSH ONETIME ONE Stop: 04/14/19 09:58 Last Admin: 04/14/19 10:40 Dose: 0.5 mg Bumetanide (Bumex) 1 mg IVPUSH ONETIME ONE Stop: 04/15/19 15:01 Bumetanide (Bumex) 1 mg IVPUSH ONETIME ONE Stop: 04/16/19 08:01 Furosemide (Lasix) 60 mg IVPUSH NOW ONE Stop: 04/15/19 14:30 Last Admin: 04/15/19 15:03 Dose: 60 mg Furosemide (Lasix) 80 mg IVPUSH NOW ONE Stop: 04/16/19 06:41 Last Admin: 04/16/19 07:11 Dose: 80 mg Magnesium Sulfate 2 gm/ Premix 50 mls @ 25 mls/hr IV ONETIME ONE Stop: 04/12/19 15:59 Last Admin: 04/12/19 14:24 Dose: 25 mls/hr Magnesium Sulfate 2 gm/ Premix 50 mls @ 25 mls/hr IV ONETIME ONE Stop: 04/14/19 11:13 Last Admin: 04/14/19 10:35 Dose: 25 mls/hr Albumin Human (Flexbumin 25%) 12.5 gm in 50 mls @ 100 mls/hr IV ONETIME ONE Stop: 04/14/19 10:29 Last Admin: 04/14/19 12:17 Dose: 100 mls/hr Magnesium Sulfate 2 gm/ Premix 50 mls @ 25 mls/hr IV ONETIME ONE Stop: 04/14/19 15:59 Last Admin: 04/14/19 16:16 Dose: 25 mls/hr Magnesium Sulfate (Magnesium Sulfate In Water Premix) Confirm Administered Dose 50 mls @ as directed .ROUTE .STK-MED ONE Stop: 04/14/19 16:14 Last Admin: 04/14/19 16:15 Dose: Not Given Albumin Human (Flexbumin 25%) 12.5 gm in 50 mls @ 100 mls/hr IV ONETIME ONE Stop: 04/15/19 07:50 Last Admin: 04/15/19 08:22 Dose: 100 mls/hr Insulin Human Lispro (Humalog) 0 unit SUBCUT QIDACANDBED [facility]; Protocol Last Admin: 04/14/19 16:48 Dose: Not Given Spironolactone (Aldactone) 25 mg PO DAILY [facility] Last Admin: 04/14/19 09:10 Dose: 25 mg Warfarin Sodium (Coumadin Sliding Scale) 0 each PO QPM [facility] Stop: 04/12/19 19:00 Last Admin: 04/12/19 18:25 Dose: Not Given Warfarin Sodium (Coumadin Sliding Scale) 0 each PO QPM [facility] Stop: 04/13/19 19:00 Last Admin: 04/13/19 17:32 Dose: Not Given Warfarin Sodium (Coumadin Sliding Scale) 0 each PO QPM [facility] Stop: 04/14/19 18:01 Last Admin: 04/14/19 18:05 Dose: Not Given Warfarin Sodium (Coumadin Sliding Scale) 0 each PO QPM [facility] Stop: 04/15/19 18:01 Last Admin: 04/15/19 17:13 Dose: Not Given - Exam Quality Assessment: Supplemental Oxygen (2L - chronic ), DVT Prophylaxis (legs wrapped with JAYME ) General: Alert, Oriented, Cooperative, No Acute Distress HEENT: Pupils Equal, Pupils Reactive, EOMI, Mucous Membr. Moist/[place] Neck: Supple, Trachea Midline Lungs: Clear to Auscultation, Normal Respiratory Effort Cardiovascular: Regular Rate, Irregular Rhythm GI/Abdominal Exam: Normal Bowel Sounds, Soft, Non-Tender, No Distention, No Abnormal Bruit (Male) Exam: Scrotal Swelling Back Exam: Normal Inspection, Full Range of Motion Extremities: Normal Inspection, Normal Range of Motion, Non-Tender, Normal Capillary Refill, Pedal Edema Peripheral Pulses: 1+: Dorsalis Pedis (L), Dorsalis Pedis (R), 2+: Radial (L), Radial (R) Skin: Warm, Dry, Intact Neurological: No New Focal Deficit Psy/Mental Status: Alert, Normal Affect, Normal Mood - Problem List & Annotations (1) CHF exacerbation SNOMED Code(s): 987526219, 70819218449535 Code(s): I50.9 - HEART FAILURE, UNSPECIFIED Status: Acute Priority: High Current Visit: Yes Qualifiers: Heart failure type: unspecified Qualified Code(s): I50.9 - Heart failure, unspecified (2) CKD (chronic kidney disease) SNOMED Code(s): 194367678 Code(s): N18.9 - CHRONIC KIDNEY DISEASE, UNSPECIFIED Status: Chronic Priority: High Current Visit: No Qualifiers: Chronic kidney disease stage: unspecified stage Qualified Code(s): N18.9 - Chronic kidney disease, unspecified (3) Chronic renal insufficiency SNOMED Code(s): 096728254 Code(s): N18.9 - CHRONIC KIDNEY DISEASE, UNSPECIFIED Status: Chronic Priority: High Current Visit: No Qualifiers: Chronic kidney disease stage: stage 2 (mild) Qualified Code(s): N18.2 - Chronic kidney disease, stage 2 (mild) (4) Diabetes 1.5, managed as type 2 SNOMED Code(s): 316084076 Code(s): E13.9 - OTHER SPECIFIED DIABETES MELLITUS WITHOUT COMPLICATIONS Status: Chronic Priority: High Current Visit: No (5) History of DVT (deep vein thrombosis) SNOMED Code(s): 873793017 Code(s): Z86.718 - PERSONAL HISTORY OF OTHER VENOUS THROMBOSIS AND EMBOLISM Status: Chronic Priority: Medium Current Visit: No (6) Obesity due to excess calories SNOMED Code(s): 035670501 Code(s): E66.09 - OTHER OBESITY DUE TO EXCESS CALORIES Status: Chronic Priority: Medium Current Visit: No Qualifiers: Obesity classification: adult class 1 (BMI 30 - 34.9) Serious obesity comorbidity presence: unspecified whether serious comorbidity present Body mass index: BMI 33.0-33.9 Qualified Code(s): E66.09 - Other obesity due to excess calories; Z68.33 - Body mass index (BMI) 33.0-33.9, adult (7) Peripheral edema SNOMED Code(s): 031289892 Code(s): R60.9 - EDEMA, UNSPECIFIED Status: Acute Priority: High Current Visit: Yes - Problem List Review Problem List Initiated/Reviewed/Updated: Yes - My Orders Last 24 Hours: My Active Orders 04/15/19 09:00 Spironolactone [Aldactone] 50 mg PO DAILY 04/17/19 05:11 BASIC METABOLIC PANEL,BMP [CHEM] AM CBC WITH AUTO DIFF [HEME] AM CMP [COMPREHENSIVE METABOLIC PN,CMP] [CHEM] AM INR,PT,PROTHROMBIN TIME [COAG] AM INR,PT,PROTHROMBIN TIME [COAG] AM MAGNESIUM [CHEM] AM 04/18/19 05:11 BASIC METABOLIC PANEL,BMP [CHEM] AM CBC WITH AUTO DIFF [HEME] AM CMP [COMPREHENSIVE METABOLIC PN,CMP] [CHEM] AM INR,PT,PROTHROMBIN TIME [COAG] AM MAGNESIUM [CHEM] AM 04/19/19 05:11 BASIC METABOLIC PANEL,BMP [CHEM] AM CBC WITH AUTO DIFF [HEME] AM INR,PT,PROTHROMBIN TIME [COAG] AM MAGNESIUM [CHEM] AM 04/20/19 05:11 BASIC METABOLIC PANEL,BMP [CHEM] AM CBC WITH AUTO DIFF [HEME] AM INR,PT,PROTHROMBIN TIME [COAG] AM MAGNESIUM [CHEM] AM - Plan Plan:: Assessment/Plan: Acute: CHF exacerbation - Risk Factors: CAD S/p CABG x 5, HTN, HLD, DM2, PVD and Obesity - ProBNP 7683-->7336-->884 - 2D echo obtained 10/31/18 (Less than 6 months ago): 1. LVEF, by visual estimation, is 25% 2. Severely decreased left ventricular systolic function 3. Multiple left ventricular regional wall motion abnormalities exist. See wall motion findings. 4. Mildly reduced right ventricular systolic function 5. Right ventricular size is mildly enlarged 6. There is mild aortic valve sclerosis without stenosis 7. Mild mitral valve regurgitation 8. Mild tricuspid valve regurgitation 9. The right ventricular systolic pressure is moderately to severely elevated at 61.5mmHg 10. A pacer wire is visualized in the right ventricle 11. The inferior vena cava is dilated and plethoric 12. Unable to rule out apical thrombus 13. There are left and right pleural effusions - Heart Failure protocol: diuretics, Is/Os, daily weight check, and fluid/ salt restriction - Ashby placed for IO measuring, difficulty with urination 2/2 edema - CXR obtained 04/12/19: * Stable left-sided pleural effusion. Adjacent parenchymal density within the left base which appears stable and is most likely due to atelectasis. Minimally increased pulmonary vessels. Mildly enlarged heart. AICD present. Prior sternotomy. - JAYME bandages bilaterally to legs to help with fluid mobilization - Discussed diuresis with Dr. Simmons, will change diuretics and be more aggressive. Hypoalbuminemia, stable - Albumin 1.7-->1.8 - Will make diuresis difficult - Supplementation ordered - Vegetable Loader Machine Operator consult - high protein S/P Hypomagnesemia - Mg 1.7-->1.8-->1.7-->2.2 - 2/2 inadequate intake - Replete and monitor S/P Supratherapeutic INR - PCP reports patient is due for INR check - INR 4.63-->3.74-->2.79 - Pharmacy to monitor and dose - Hold dose on 04/14/19 due to blood in ashby (difficult ashby placement) - Blood is continuing in ashby, will continue to hold warfarin and ASA per Dr. 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 Flor Bronson LOS >96Hr due to slow response to treatment, need for continued diuresis.
[2019-04-16] MEDS ORDERED: Furosemide 100 MG/10 ML SDV IVPUSH ONE (17:00)
[2019-04-16] MEDS: Colchicine 0.6 MG Tab PO SCH (20:25)
[2019-04-17] MEDS: Levothyroxine 25 MCG Tab PO SCH (06:11)
[2019-04-17] MEDS: Insulin Lispro 100 Units/ML 3 ML Vial SUBCUT SCH ×2 (06:11→21:32)
--- NOTE | 2019-04-17 06:36 | PCM.PN ---
- General Info Date of Service: 04/17/19 Admission Dx/Problem (Free Text): Admission Diagnosis/Problem Admission Diagnosis/Problem Congestive heart failure Subjective Update: 04/13/19: In to see Val with Dr. Arthur. No nursing or patient concerns. He has had some blood noted in his ashby catheter although this appears to be clearing. Nursing did have some difficulty placing the Ashby. Creatinine remains stable. He is down a bit on weight and having good output. Will continue to monitor. May need to increase bumex dosing. Spironolactone was resumed. He remains weak. Continue PT/OT. He remains on his home dose of 2L O2. 04/14/19: Val repots he feels like he is improving. His arms are less edematous. He remains on O2. Discussed diuresis with Dr. Arthur who recommended we give albumin, increase spironolactone, and increase Bumex this AM. Will monitor for changes with new regimen. Blood in ashby continues so discussed warfarin dosing. Will hold off warfarin today and resume tomorrow. Creatinine has remained steady. Nursing reports HR abnormalities and magnesium was noted to be low and will be supplemented. Blood glucose readings have remained stable and patient reports he is pretty stable at home so will decrease insulin and bedside checks to BID. Patient has been refusing insulin regardless. 04/15/19: In to see Val. He reports his testicles are very swollen today. This is likely 2/2 JAYME wraps on his legs mobilizing his fluid. Discussed diuretics with Dr. Simmons. Recommends 60mg IVP lasix tonight and 80mg IVP lasix tomorrow am. Will monitor labs and adjust as necessary. BP has remained stable. Weight has not changed much. Ashby continues to contain some blood. 04/16/19: Val reports he feels better today. He says he does not feel as tight and his scrotum is less painful. Discussed with Dr. Simmons again the concerns over blood in urine and slow response to treatment. Will order 80mg IVP lasix tonight and monitor. Will stop JAYME wraps due to scrotal swelling. Creatinine looks better today than yesterday however BNP has lu. BP and vitals remain stable. Will hold off mechanical or pharmacological VTE prophylaxis due to PVD, extremity swelling, and blood in catheter. 04/17/19: Val reports he feels much better today. He is much less tight. He has had great output from his ashby. No other concerns. Discussed warfarin with Dr. Simmons. We will resume his warfarin today. He reports his breathing is much better today and he has been weaned down to 1L. His scrotum remains swollen and we discussed how this will likely be the case for some time. Will re -check BNP tomorrow. Will continue 80mg BID lasix treatment. Hopeful for discharge in next 24-48 hours. Functional Status: Reports: Pain Controlled, Tolerating Diet, Urinating. Denies : Ambulating, New Symptoms - Review of Systems General: Reports: No Symptoms. Denies: Fever, Chills HEENT: Reports: No Symptoms. Denies: Headaches, Sore Throat Pulmonary: Reports: No Symptoms. Denies: Shortness of Breath, Cough, Sputum, Wheezing Cardiovascular: Reports: Edema. Denies: Chest Pain, Palpitations Gastrointestinal: Reports: No Symptoms. Denies: Abdominal Pain, Constipation, Diarrhea, Nausea, Vomiting Genitourinary: Reports: No Symptoms. Denies: Pain Musculoskeletal: Reports: No Symptoms Skin: Reports: No Symptoms. Denies: Cyanosis Neurological: Reports: No Symptoms. Denies: Confusion Psychiatric: Reports: No Symptoms - Patient Data Vitals - Most Recent: Last Vital Signs Temp 97.3 F 04/17/19 04:23 Pulse 76 04/17/19 04:23 Resp 18 04/17/19 04:23 BP 112/66 04/17/19 04:23 Pulse Ox 95 04/17/19 04:23 Weight - Most Recent: 258 lb 12.8 oz I&O - Last 24 Hours: Intake & Output 04/16/19 04/16/19 04/17/19 14:59 22:59 06:59 Intake Total 545 430 400 Output Total 800 1420 715 Balance -255 -990 -315 Lab Results Last 24 Hours: Laboratory Results - last 24 hr 04/16/19 04/16/19 04/16/19 Range/Units 04:50 04:50 04:50 WBC (4.23-9.07) K/mm3 RBC (4.63-6.08) M/mm3 Hgb (13.7-17.5) gm/L Hct (40.1-51.0) % MCV (79.0-92.2) fl MCH (25.7-32.2) pg MCHC (32.2-35.5) g/dl RDW Std Deviation (35.1-43.9) fL Plt Count (163-337) K/mm3 MPV (9.4-12.3) fl Neut % (Auto) (34.0-67.9) % Lymph % (Auto) (21.8-53.1) % [place] % (Auto) (5.3-12.2) % Eos % (Auto) (0.8-7.0) Baso % (Auto) (0.1-1.2) % Neut # (Auto) (1.78-5.38) K/mm3 Lymph # (Auto) (1.32-3.57) K/mm3 [place] # (Auto) (0.30-0.82) K/mm3 Eos # (Auto) (0.04-0.54) K/mm3 Baso # (Auto) (0.01-0.08) K/mm3 Manual Slide Review Abnormal smear PT 17.7 H (9.5-12.1) SECONDS INR 1.64 Sodium (136-145) mEq/L Potassium (3.5-5.1) mEq/L Chloride (98-107) mEq/L Carbon Dioxide (21-32) mEq/L Anion Gap (5-15) BUN (7-18) mg/dL Creatinine (0.7-1.3) mg/dL Est Cr Clr Drug Dosing mL/min Estimated GFR (MDRD) (>60) mL/min BUN/Creatinine Ratio (14-18) Glucose (83-115) mg/dL POC Glucose (83-110) mg/dL Calcium (8.5-10.1) mg/dL Magnesium (1.8-2.4) mg/dl Total Bilirubin (0.2-1.0) mg/dL AST (15-37) U/L ALT (16-63) U/L Alkaline Phosphatase (46-116) U/L NT-Pro-B Natriuret Pep 8804 H (0-125) pg/mL Total Protein (6.4-8.2) g/dl Albumin (3.4-5.0) g/dl Globulin gm/dL Albumin/Globulin Ratio (1-2) 04/16/19 04/17/19 04/17/19 Range/Units 20:37 04:55 04:55 WBC (4.23-9.07) K/mm3 RBC (4.63-6.08) M/mm3 Hgb (13.7-17.5) gm/L Hct (40.1-51.0) % MCV (79.0-92.2) fl MCH (25.7-32.2) pg MCHC (32.2-35.5) g/dl RDW Std Deviation (35.1-43.9) fL Plt Count (163-337) K/mm3 MPV (9.4-12.3) fl Neut % (Auto) (34.0-67.9) % Lymph % (Auto) (21.8-53.1) % [place] % (Auto) (5.3-12.2) % Eos % (Auto) (0.8-7.0) Baso % (Auto) (0.1-1.2) % Neut # (Auto) (1.78-5.38) K/mm3 Lymph # (Auto) (1.32-3.57) K/mm3 [place] # (Auto) (0.30-0.82) K/mm3 Eos # (Auto) (0.04-0.54) K/mm3 Baso # (Auto) (0.01-0.08) K/mm3 Manual Slide Review PT 15.6 H (9.5-12.1) SECONDS INR 1.44 Sodium 139 (136-145) mEq/L Potassium 4.1 (3.5-5.1) mEq/L Chloride 104 (98-107) mEq/L Carbon Dioxide 31 (21-32) mEq/L Anion Gap 8.1 (5-15) BUN 56 H (7-18) mg/dL Creatinine 1.5 H (0.7-1.3) mg/dL Est Cr Clr Drug Dosing 51.02 mL/min Estimated GFR (MDRD) 46 (>60) mL/min BUN/Creatinine Ratio 37.3 H (14-18) Glucose 89 (83-115) mg/dL POC Glucose 105 (83-110) mg/dL Calcium 8.0 L (8.5-10.1) mg/dL Magnesium 1.7 L (1.8-2.4) mg/dl Total Bilirubin 0.7 (0.2-1.0) mg/dL AST 28 (15-37) U/L ALT 30 (16-63) U/L Alkaline Phosphatase 90 (46-116) U/L NT-Pro-B Natriuret Pep (0-125) pg/mL Total Protein 4.8 L (6.4-8.2) g/dl Albumin 1.8 L (3.4-5.0) g/dl Globulin 3.0 gm/dL Albumin/Globulin Ratio 0.6 L (1-2) 04/17/19 04/17/19 Range/Units 04:55 05:59 WBC 3.31 L (4.23-9.07) K/mm3 RBC 4.12 L (4.63-6.08) M/mm3 Hgb 12.3 L (13.7-17.5) gm/L Hct 38.4 L (40.1-51.0) % MCV 93.2 H (79.0-92.2) fl MCH 29.9 (25.7-32.2) pg MCHC 32.0 L (32.2-35.5) g/dl RDW Std Deviation 52.0 H (35.1-43.9) fL Plt Count 99 L (163-337) K/mm3 MPV 11.2 (9.4-12.3) fl Neut % (Auto) 65.9 (34.0-67.9) % Lymph % (Auto) 10.3 L (21.8-53.1) % [place] % (Auto) 20.8 H (5.3-12.2) % Eos % (Auto) 2.4 (0.8-7.0) Baso % (Auto) 0.3 (0.1-1.2) % Neut # (Auto) 2.18 (1.78-5.38) K/mm3 Lymph # (Auto) 0.34 L (1.32-3.57) K/mm3 [place] # (Auto) 0.69 (0.30-0.82) K/mm3 Eos # (Auto) 0.08 (0.04-0.54) K/mm3 Baso # (Auto) 0.01 (0.01-0.08) K/mm3 Manual Slide Review Abnormal smear PT (9.5-12.1) SECONDS INR Sodium (136-145) mEq/L Potassium (3.5-5.1) mEq/L Chloride (98-107) mEq/L Carbon Dioxide (21-32) mEq/L Anion Gap (5-15) BUN (7-18) mg/dL Creatinine (0.7-1.3) mg/dL Est Cr Clr Drug Dosing mL/min Estimated GFR (MDRD) (>60) mL/min BUN/Creatinine Ratio (14-18) Glucose (83-115) mg/dL POC Glucose 104 (83-110) mg/dL Calcium (8.5-10.1) mg/dL Magnesium (1.8-2.4) mg/dl Total Bilirubin (0.2-1.0) mg/dL AST (15-37) U/L ALT (16-63) U/L Alkaline Phosphatase (46-116) U/L NT-Pro-B Natriuret Pep (0-125) pg/mL Total Protein (6.4-8.2) g/dl Albumin (3.4-5.0) g/dl Globulin gm/dL Albumin/Globulin Ratio (1-2) Med Orders - Current: Current Medications Acetaminophen (Tylenol) 650 mg PO Q4H PRN PRN Reason: Pain (Mild 1-3)/fever Amlodipine Besylate (Norvasc) 5 mg PO DAILY [facility] Last Admin: 04/16/19 08:15 Dose: 5 mg Aspirin (Halfprin) 81 mg PO DAILY [facility] Last Admin: 04/15/19 08:22 Dose: 81 mg Bisacodyl (Dulcolax) 5 mg PO DAILY PRN PRN Reason: Constipation Carvedilol (Coreg) 25 mg PO BID [facility] Last Admin: 04/16/19 20:34 Dose: 25 mg Colchicine (Colcrys) 0.6 mg PO BEDTIME [facility] Last Admin: 04/16/19 20:25 Dose: 0.6 mg Docusate Sodium (Colace) 100 mg PO BID PRN PRN Reason: Constipation Last Admin: 04/13/19 14:28 Dose: 100 mg Guaifenesin (Mucinex) 600 mg PO Q12H PRN PRN Reason: Cough Last Admin: 04/15/19 08:36 Dose: 600 mg Insulin Human Lispro (Humalog) 0 unit SUBCUT BID@0700,2100 [facility]; Protocol Last Admin: 04/17/19 06:11 Dose: Not Given Levothyroxine Sodium (Levothyroxine) 25 mcg PO ACBREAKFAST [facility] Last Admin: 04/17/19 06:11 Dose: 25 mcg Mometasone Furoate/Formoterol Fumar (Dulera 200-5 Mcg) 2 puff IH BID [facility] Last Admin: 04/16/19 21:11 Dose: 2 puff Nitroglycerin (Nitrostat) 0.4 mg SL ASDIRECTED PRN PRN Reason: Chest Pain Ondansetron HCl (Zofran) 4 mg IV Q6H PRN PRN Reason: Nausea/Vomiting Senna/Docusate Sodium (Senna Plus) 1 tab PO BID PRN PRN Reason: Constipation Last Admin: 04/14/19 09:12 Dose: 1 tab Sodium Chloride (Saline Flush) 10 ml FLUSH ASDIRECTED PRN PRN Reason: Keep Vein Open Spironolactone (Aldactone) 50 mg PO DAILY [facility] Last Admin: 04/16/19 08:15 Dose: 50 mg Warfarin Sodium (Pharmacy To Dose - Warfarin) 0 dose .XX ASDIRECTED PRN PRN Reason: RX TO DOSE WARFARIN Discontinued Medications Bumetanide (Bumex) 0.5 mg IVPUSH ONETIME ONE Stop: 04/12/19 14:01 Last Admin: 04/12/19 14:24 Dose: 0.5 mg Bumetanide (Bumex) 0.5 mg IVPUSH 0600,1500 [facility] Last Admin: 04/13/19 14:27 Dose: 0.5 mg Bumetanide (Bumex) 0.5 mg IVPUSH ONETIME ONE Stop: 04/12/19 21:01 Last Admin: 04/12/19 21:47 Dose: 0.5 mg Bumetanide (Bumex) 0.5 mg IVPUSH 0600,1500 [facility] Last Admin: 04/15/19 05:50 Dose: 0.5 mg Bumetanide (Bumex) 0.5 mg IVPUSH ONETIME ONE Stop: 04/14/19 09:58 Last Admin: 04/14/19 10:40 Dose: 0.5 mg Bumetanide (Bumex) 1 mg IVPUSH ONETIME ONE Stop: 04/15/19 15:01 Bumetanide (Bumex) 1 mg IVPUSH ONETIME ONE Stop: 04/16/19 08:01 Furosemide (Lasix) 60 mg IVPUSH NOW ONE Stop: 04/15/19 14:30 Last Admin: 04/15/19 15:03 Dose: 60 mg Furosemide (Lasix) 80 mg IVPUSH NOW ONE Stop: 04/16/19 06:41 Last Admin: 04/16/19 07:11 Dose: 80 mg Furosemide (Lasix) 80 mg IVPUSH NOW ONE Stop: 04/16/19 17:01 Last Admin: 04/16/19 16:21 Dose: 80 mg Magnesium Sulfate 2 gm/ Premix 50 mls @ 25 mls/hr IV ONETIME ONE Stop: 04/12/19 15:59 Last Admin: 04/12/19 14:24 Dose: 25 mls/hr Magnesium Sulfate 2 gm/ Premix 50 mls @ 25 mls/hr IV ONETIME ONE Stop: 04/14/19 11:13 Last Admin: 04/14/19 10:35 Dose: 25 mls/hr Albumin Human (Flexbumin 25%) 12.5 gm in 50 mls @ 100 mls/hr IV ONETIME ONE Stop: 04/14/19 10:29 Last Admin: 04/14/19 12:17 Dose: 100 mls/hr Magnesium Sulfate 2 gm/ Premix 50 mls @ 25 mls/hr IV ONETIME ONE Stop: 04/14/19 15:59 Last Admin: 04/14/19 16:16 Dose: 25 mls/hr Magnesium Sulfate (Magnesium Sulfate In Water Premix) Confirm Administered Dose 50 mls @ as directed .ROUTE .STK-MED ONE Stop: 04/14/19 16:14 Last Admin: 04/14/19 16:15 Dose: Not Given Albumin Human (Flexbumin 25%) 12.5 gm in 50 mls @ 100 mls/hr IV ONETIME ONE Stop: 04/15/19 07:50 Last Admin: 04/15/19 08:22 Dose: 100 mls/hr Insulin Human Lispro (Humalog) [facility]; Protocol Last Admin: 04/14/19 16:48 Dose: Not Given Spironolactone (Aldactone) 25 mg PO DAILY [facility] Last Admin: 04/14/19 09:10 Dose: 25 mg Warfarin Sodium (Coumadin Sliding Scale) 0 each PO QPM KM Stop: 04/12/19 19:00 Last Admin: 04/12/19 18:25 Dose: Not Given Warfarin Sodium (Coumadin Sliding Scale) 0 each PO QPM KM Stop: 04/13/19 19:00 Last Admin: 04/13/19 17:32 Dose: Not Given Warfarin Sodium (Coumadin Sliding Scale) 0 each PO QPM KM Stop: 04/14/19 18:01 Last Admin: 04/14/19 18:05 Dose: Not Given Warfarin Sodium (Coumadin Sliding Scale) 0 each PO QPM KM Stop: 04/15/19 18:01 Last Admin: 04/15/19 17:13 Dose: Not Given - Exam Quality Assessment: Urine Catheter, DVT Prophylaxis General: Alert, Oriented, Cooperative, No Acute Distress HEENT: Pupils Equal, Pupils Reactive, EOMI, Mucous Membr. Moist/[place] Neck: Supple, Trachea Midline, No JVD Lungs: Clear to Auscultation, Normal Respiratory Effort Cardiovascular: Regular Rate, Irregular Rhythm GI/Abdominal Exam: Normal Bowel Sounds, Soft, Non-Tender, No Distention, No Abnormal Bruit (Male) Exam: Scrotal Swelling Extremities: Non-Tender, Pedal Edema, Limited Range of Motion, Other ( Discoloration in all extremities. ) Peripheral Pulses: 1+: Dorsalis Pedis (L), Dorsalis Pedis (R), 2+: Radial (L), Radial (R) Skin: Warm, Dry, Intact Neurological: No New Focal Deficit Psy/Mental Status: Alert, Normal Affect, Normal Mood - Problem List & Annotations (1) CHF exacerbation SNOMED Code(s): 329566217, 20558178020979 Code(s): I50.9 - HEART FAILURE, UNSPECIFIED Status: Acute Priority: High Current Visit: Yes Qualifiers: Heart failure type: unspecified Qualified Code(s): I50.9 - Heart failure, unspecified (2) CKD (chronic kidney disease) SNOMED Code(s): 415287434 Code(s): N18.9 - CHRONIC KIDNEY DISEASE, UNSPECIFIED Status: Chronic Priority: High Current Visit: No Qualifiers: Chronic kidney disease stage: unspecified stage Qualified Code(s): N18.9 - Chronic kidney disease, unspecified (3) Chronic renal insufficiency SNOMED Code(s): 799598442 Code(s): N18.9 - CHRONIC KIDNEY DISEASE, UNSPECIFIED Status: Chronic Priority: High Current Visit: No Qualifiers: Chronic kidney disease stage: stage 2 (mild) Qualified Code(s): N18.2 - Chronic kidney disease, stage 2 (mild) (4) Diabetes 1.5, managed as type 2 SNOMED Code(s): 860127157 Code(s): E13.9 - OTHER SPECIFIED DIABETES MELLITUS WITHOUT COMPLICATIONS Status: Chronic Priority: High Current Visit: No (5) History of DVT (deep vein thrombosis) SNOMED Code(s): 613071217 Code(s): Z86.718 - PERSONAL HISTORY OF OTHER VENOUS THROMBOSIS AND EMBOLISM Status: Chronic Priority: Medium Current Visit: No (6) Obesity due to excess calories SNOMED Code(s): 564280366 Code(s): E66.09 - OTHER OBESITY DUE TO EXCESS CALORIES Status: Chronic Priority: Medium Current Visit: No Qualifiers: Obesity classification: adult class 1 (BMI 30 - 34.9) Serious obesity comorbidity presence: unspecified whether serious comorbidity present Body mass index: BMI 33.0-33.9 Qualified Code(s): E66.09 - Other obesity due to excess calories; Z68.33 - Body mass index (BMI) 33.0-33.9, adult (7) Peripheral edema SNOMED Code(s): 683734879 Code(s): R60.9 - EDEMA, UNSPECIFIED Status: Acute Priority: High Current Visit: Yes - Problem List Review Problem List Initiated/Reviewed/Updated: Yes - My Orders Last 24 Hours: My Active Orders 04/18/19 05:11 BASIC METABOLIC PANEL,BMP [CHEM] AM CBC WITH AUTO DIFF [HEME] AM CMP [COMPREHENSIVE METABOLIC PN,CMP] [CHEM] AM INR,PT,PROTHROMBIN TIME [COAG] AM MAGNESIUM [CHEM] AM 04/19/19 05:11 BASIC METABOLIC PANEL,BMP [CHEM] AM CBC WITH AUTO DIFF [HEME] AM INR,PT,PROTHROMBIN TIME [COAG] AM MAGNESIUM [CHEM] AM 04/20/19 05:11 BASIC METABOLIC PANEL,BMP [CHEM] AM CBC WITH AUTO DIFF [HEME] AM INR,PT,PROTHROMBIN TIME [COAG] AM MAGNESIUM [CHEM] AM - Plan Plan:: Assessment/Plan: Acute: CHF exacerbation - Risk Factors: CAD S/p CABG x 5, HTN, HLD, DM2, PVD and Obesity - ProBNP 7683-->7336-->8804 - 2D echo obtained 10/31/18 (Less than 6 months ago): 1. LVEF, by visual estimation, is 25% 2. Severely decreased left ventricular systolic function 3. Multiple left ventricular regional wall motion abnormalities exist. See wall motion findings. 4. Mildly reduced right ventricular systolic function 5. Right ventricular size is mildly enlarged 6. There is mild aortic valve sclerosis without stenosis 7. Mild mitral valve regurgitation 8. Mild tricuspid valve regurgitation 9. The right ventricular systolic pressure is moderately to severely elevated at 61.5mmHg 10. A pacer wire is visualized in the right ventricle 11. The inferior vena cava is dilated and plethoric 12. Unable to rule out apical thrombus 13. There are left and right pleural effusions - Heart Failure protocol: diuretics, Is/Os, daily weight check, and fluid/ salt restriction - Ashby placed for IO measuring, difficulty with urination 2/2 edema - CXR obtained 04/12/19: * Stable left-sided pleural effusion. Adjacent parenchymal density within the left base which appears stable and is most likely due to atelectasis. Minimally increased pulmonary vessels. Mildly enlarged heart. AICD present. Prior sternotomy. - JAYME bandages bilaterally to legs to help with fluid mobilization -> discontinue due to scrotal swelling. - Discussed diuresis with Dr. Simmons, will change diuretics and be more aggressive. Hypoalbuminemia, stable - Albumin 1.7-->1.8 - Will make diuresis difficult - Supplementation ordered - Electric [employer] consult - high protein S/P Hypomagnesemia - Mg 1.7-->1.8-->1.7-->2.2 - 2/2 inadequate intake - Replete and monitor S/P Supratherapeutic INR - PCP reports patient is due for INR check - INR 4.63-->3.74-->2.79 - Pharmacy to monitor and dose - Hold dose on 04/14/19 due to blood in ashby (difficult ashby placement) - Blood is continuing in ashby, will continue to hold warfarin and ASA per Dr. 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 Fall Precautions Accu-check QID and ISS coverage -> has been stable, switch to BID SW/CM for d/c planning PT/OT Code status: Full code; PCP: Dr. Flor Bronson LOS >96Hr due to slow response to treatment, need for continued diuresis.
[2019-04-17] MEDS: Carvedilol 12.5 MG Tab PO SCH ×2 (08:38→21:27)
[2019-04-17] MEDS: Spironolactone 25 MG Tab PO SCH (08:38)
[2019-04-17] MEDS: amLODIPine 5 MG Tab PO SCH (08:39)
[2019-04-17] MEDS: Formoterol/Mometasone 200-5 MCG 8.8 GM Inhaler IH SCH ×2 (08:49→20:39)
[2019-04-17] MEDS ORDERED: Furosemide 100 MG/10 ML SDV IVPUSH ONE ×2 (09:11→19:00)
[2019-04-17] MEDS ORDERED: Magnesium Sulfate/Water 2 GM in Premix Bag 1 BAG IV ONE (09:12)
[2019-04-17] MEDS ORDERED: Warfarin 5 MG Tab PO SCH (18:00)
[2019-04-17] MEDS: Colchicine 0.6 MG Tab PO SCH (21:28)
[2019-04-18] MEDS ORDERED: Furosemide 40 MG/4 ML VIAL IVPUSH ONE ×2 (06:32→17:00)
[2019-04-18] MEDS: Levothyroxine 25 MCG Tab PO SCH (06:39)
[2019-04-18] MEDS: Insulin Lispro 100 Units/ML 3 ML Vial SUBCUT SCH ×2 (06:40→21:32)
--- NOTE | 2019-04-18 09:15 | PCM.PN ---
- General Info Date of Service: 04/18/19 Admission Dx/Problem (Free Text): Admission Diagnosis/Problem Admission Diagnosis/Problem Congestive heart failure Subjective Update: 04/13/19: In to see Val with Dr. Arthur. No nursing or patient concerns. He has had some blood noted in his ashby catheter although this appears to be clearing. Nursing did have some difficulty placing the Ashby. Creatinine remains stable. He is down a bit on weight and having good output. Will continue to monitor. May need to increase bumex dosing. Spironolactone was resumed. He remains weak. Continue PT/OT. He remains on his home dose of 2L O2. 04/14/19: Val repots he feels like he is improving. His arms are less edematous. He remains on O2. Discussed diuresis with Dr. Arthur who recommended we give albumin, increase spironolactone, and increase Bumex this AM. Will monitor for changes with new regimen. Blood in ashby continues so discussed warfarin dosing. Will hold off warfarin today and resume tomorrow. Creatinine has remained steady. Nursing reports HR abnormalities and magnesium was noted to be low and will be supplemented. Blood glucose readings have remained stable and patient reports he is pretty stable at home so will decrease insulin and bedside checks to BID. Patient has been refusing insulin regardless. 04/15/19: In to see Val. He reports his testicles are very swollen today. This is likely 2/2 JAYME wraps on his legs mobilizing his fluid. Discussed diuretics with Dr. Simmons. Recommends 60mg IVP lasix tonight and 80mg IVP lasix tomorrow am. Will monitor labs and adjust as necessary. BP has remained stable. Weight has not changed much. Ashby continues to contain some blood. 04/16/19: Val reports he feels better today. He says he does not feel as tight and his scrotum is less painful. Discussed with Dr. Simmons again the concerns over blood in urine and slow response to treatment. Will order 80mg IVP lasix tonight and monitor. Will stop JAYME wraps due to scrotal swelling. Creatinine looks better today than yesterday however BNP has lu. BP and vitals remain stable. Will hold off mechanical or pharmacological VTE prophylaxis due to PVD, extremity swelling, and blood in catheter. 04/17/19: Val reports he feels much better today. He is much less tight. He has had great output from his ashby. No other concerns. Discussed warfarin with Dr. Simmons. We will resume his warfarin today. He reports his breathing is much better today and he has been weaned down to 1L. His scrotum remains swollen and we discussed how this will likely be the case for some time. Will re -check BNP tomorrow. Will continue 80mg BID lasix treatment. Hopeful for discharge in next 24-48 hours. 04/18/19: Abdoul reports he feels much better today. He states his arms and legs are much less swollen. He has had good output. No nursing or patient concerns. We will keep ashby in until tomorrow AM then give some more lasix and monitor to ensure he continues to void. Plan for discharge tomorrow. Will need cardiology and PCP follow-up after discharge. Dr. Simmons was in with him to discuss overall prognosis and how he will likely continue to have HF that gets progressively worse. BNP has improved today. Functional Status: Reports: Pain Controlled, Tolerating Diet, Urinating. Denies : Ambulating, New Symptoms - Review of Systems General: Reports: No Symptoms. Denies: Fever, Weakness, Fatigue, Malaise HEENT: Reports: No Symptoms. Denies: Headaches, Sore Throat Pulmonary: Reports: No Symptoms. Denies: Shortness of Breath (none while on O2 ), Pleuritic Chest Pain, Cough, Wheezing Cardiovascular: Reports: Edema. Denies: Chest Pain, Palpitations, Dyspnea on Exertion Gastrointestinal: Reports: No Symptoms. Denies: Abdominal Pain, Constipation, Nausea, Vomiting Genitourinary: Reports: No Symptoms. Denies: Pain Musculoskeletal: Reports: No Symptoms Skin: Reports: No Symptoms. Denies: Cyanosis Neurological: Reports: Pre-Existing Deficit, Difficulty Walking, Gait Disturbance. Denies: Confusion Psychiatric: Reports: No Symptoms - Patient Data Vitals - Most Recent: Last Vital Signs Temp 97.7 F 04/18/19 07:33 Pulse 78 04/18/19 07:33 Resp 16 04/18/19 07:33 BP 105/63 04/18/19 07:33 Pulse Ox 96 04/18/19 07:33 Weight - Most Recent: 254 lb 2 oz I&O - Last 24 Hours: Intake & Output 04/17/19 04/18/19 04/18/19 22:59 06:59 14:59 Intake Total 530 300 Output Total 1075 900 Balance -545 -600 Lab Results Last 24 Hours: Laboratory Results - last 24 hr 04/17/19 04/17/19 04/18/19 Range/Units 11:09 21:31 04:30 WBC 3.20 L (4.23-9.07) K/mm3 RBC 4.11 L (4.63-6.08) M/mm3 Hgb 12.2 L (13.7-17.5) gm/L Hct 38.3 L (40.1-51.0) % MCV 93.2 H (79.0-92.2) fl MCH 29.7 (25.7-32.2) pg MCHC 31.9 L (32.2-35.5) g/dl RDW Std Deviation 51.7 H (35.1-43.9) fL Plt Count 100 L (163-337) K/mm3 MPV 11.4 (9.4-12.3) fl Neut % (Auto) 61.8 (34.0-67.9) % Lymph % (Auto) 16.9 L (21.8-53.1) % [place] % (Auto) 18.8 H (5.3-12.2) % Eos % (Auto) 2.5 (0.8-7.0) Baso % (Auto) 0.0 L (0.1-1.2) % Neut # (Auto) 1.98 (1.78-5.38) K/mm3 Lymph # (Auto) 0.54 L (1.32-3.57) K/mm3 [place] # (Auto) 0.60 (0.30-0.82) K/mm3 Eos # (Auto) 0.08 (0.04-0.54) K/mm3 Baso # (Auto) 0.00 L (0.01-0.08) K/mm3 Manual Slide Review Abnormal smear PT (9.5-12.1) SECONDS INR Sodium (136-145) mEq/L Potassium (3.5-5.1) mEq/L Chloride (98-107) mEq/L Carbon Dioxide (21-32) mEq/L Anion Gap (5-15) BUN (7-18) mg/dL Creatinine (0.7-1.3) mg/dL Est Cr Clr Drug Dosing mL/min Estimated GFR (MDRD) (>60) mL/min BUN/Creatinine Ratio (14-18) Glucose (83-115) mg/dL POC Glucose 118 H 115 H (83-110) mg/dL Calcium (8.5-10.1) mg/dL Magnesium (1.8-2.4) mg/dl NT-Pro-B Natriuret Pep (0-125) pg/mL 04/18/19 04/18/19 04/18/19 Range/Units 04:30 04:30 04:30 WBC (4.23-9.07) K/mm3 RBC (4.63-6.08) M/mm3 Hgb (13.7-17.5) gm/L Hct (40.1-51.0) % MCV (79.0-92.2) fl MCH (25.7-32.2) pg MCHC (32.2-35.5) g/dl RDW Std Deviation (35.1-43.9) fL Plt Count (163-337) K/mm3 MPV (9.4-12.3) fl Neut % (Auto) (34.0-67.9) % Lymph % (Auto) (21.8-53.1) % [place] % (Auto) (5.3-12.2) % Eos % (Auto) (0.8-7.0) Baso % (Auto) (0.1-1.2) % Neut # (Auto) (1.78-5.38) K/mm3 Lymph # (Auto) (1.32-3.57) K/mm3 [place] # (Auto) (0.30-0.82) K/mm3 Eos # (Auto) (0.04-0.54) K/mm3 Baso # (Auto) (0.01-0.08) K/mm3 Manual Slide Review PT 13.8 H (9.5-12.1) SECONDS INR 1.27 Sodium 140 (136-145) mEq/L Potassium 4.2 (3.5-5.1) mEq/L Chloride 104 (98-107) mEq/L Carbon Dioxide 29 (21-32) mEq/L Anion Gap 11.2 (5-15) BUN 58 H (7-18) mg/dL Creatinine 1.5 H (0.7-1.3) mg/dL Est Cr Clr Drug Dosing 51.02 mL/min Estimated GFR (MDRD) 46 (>60) mL/min BUN/Creatinine Ratio 38.7 H (14-18) Glucose 86 (83-115) mg/dL POC Glucose (83-110) mg/dL Calcium 8.2 L (8.5-10.1) mg/dL Magnesium 1.9 (1.8-2.4) mg/dl NT-Pro-B Natriuret Pep 7966 H (0-125) pg/mL 04/18/19 Range/Units 06:38 WBC (4.23-9.07) K/mm3 RBC (4.63-6.08) M/mm3 Hgb (13.7-17.5) gm/L Hct (40.1-51.0) % MCV (79.0-92.2) fl MCH (25.7-32.2) pg MCHC (32.2-35.5) g/dl RDW Std Deviation (35.1-43.9) fL Plt Count (163-337) K/mm3 MPV (9.4-12.3) fl Neut % (Auto) (34.0-67.9) % Lymph % (Auto) (21.8-53.1) % [place] % (Auto) (5.3-12.2) % Eos % (Auto) (0.8-7.0) Baso % (Auto) (0.1-1.2) % Neut # (Auto) (1.78-5.38) K/mm3 Lymph # (Auto) (1.32-3.57) K/mm3 [place] # (Auto) (0.30-0.82) K/mm3 Eos # (Auto) (0.04-0.54) K/mm3 Baso # (Auto) (0.01-0.08) K/mm3 Manual Slide Review PT (9.5-12.1) SECONDS INR Sodium (136-145) mEq/L Potassium (3.5-5.1) mEq/L Chloride (98-107) mEq/L Carbon Dioxide (21-32) mEq/L Anion Gap (5-15) BUN (7-18) mg/dL Creatinine (0.7-1.3) mg/dL Est Cr Clr Drug Dosing mL/min Estimated GFR (MDRD) (>60) mL/min BUN/Creatinine Ratio (14-18) Glucose (83-115) mg/dL POC Glucose 117 H (83-110) mg/dL Calcium (8.5-10.1) mg/dL Magnesium (1.8-2.4) mg/dl NT-Pro-B Natriuret Pep (0-125) pg/mL Med Orders - Current: Current Medications Acetaminophen (Tylenol) 650 mg PO Q4H PRN PRN Reason: Pain (Mild 1-3)/fever Amlodipine Besylate (Norvasc) 5 mg PO DAILY [facility] Last Admin: 04/17/19 08:39 Dose: 5 mg Aspirin (Halfprin) 81 mg PO DAILY [facility] Last Admin: 04/15/19 08:22 Dose: 81 mg Bisacodyl (Dulcolax) 5 mg PO DAILY PRN PRN Reason: Constipation Carvedilol (Coreg) 25 mg PO BID [facility] Last Admin: 04/17/19 21:27 Dose: 25 mg Colchicine (Colcrys) 0.6 mg PO BEDTIME [facility] Last Admin: 04/17/19 21:28 Dose: 0.6 mg Docusate Sodium (Colace) 100 mg PO BID PRN PRN Reason: Constipation Last Admin: 04/13/19 14:28 Dose: 100 mg Furosemide (Lasix) 80 mg IVPUSH ONETIME ONE Stop: 04/18/19 17:01 Guaifenesin (Mucinex) 600 mg PO Q12H PRN PRN Reason: Cough Last Admin: 04/15/19 08:36 Dose: 600 mg Insulin Human Lispro (Humalog) 0 unit SUBCUT BID@0700,2100 [facility]; Protocol Last Admin: 04/18/19 06:40 Dose: Not Given Levothyroxine Sodium (Levothyroxine) 25 mcg PO ACBREAKFAST [facility] Last Admin: 04/18/19 06:39 Dose: 25 mcg Mometasone Furoate/Formoterol Fumar (Dulera 200-5 Mcg) 2 puff IH BID [facility] Last Admin: 04/17/19 20:39 Dose: 2 puff Nitroglycerin (Nitrostat) 0.4 mg SL ASDIRECTED PRN PRN Reason: Chest Pain Ondansetron HCl (Zofran) 4 mg IV Q6H PRN PRN Reason: Nausea/Vomiting Senna/Docusate Sodium (Senna Plus) 1 tab PO BID PRN PRN Reason: Constipation Last Admin: 04/14/19 09:12 Dose: 1 tab Sodium Chloride (Saline Flush) 10 ml FLUSH ASDIRECTED PRN PRN Reason: Keep Vein Open Spironolactone (Aldactone) 50 mg PO DAILY [facility] Last Admin: 04/17/19 08:38 Dose: 50 mg Warfarin Sodium (Pharmacy To Dose - Warfarin) 0 dose .XX ASDIRECTED PRN PRN Reason: RX TO DOSE WARFARIN Discontinued Medications Bumetanide (Bumex) 0.5 mg IVPUSH ONETIME ONE Stop: 04/12/19 14:01 Last Admin: 04/12/19 14:24 Dose: 0.5 mg Bumetanide (Bumex) 0.5 mg IVPUSH 0600,1500 [facility] Last Admin: 04/13/19 14:27 Dose: 0.5 mg Bumetanide (Bumex) 0.5 mg IVPUSH ONETIME ONE Stop: 04/12/19 21:01 Last Admin: 04/12/19 21:47 Dose: 0.5 mg Bumetanide (Bumex) 0.5 mg IVPUSH 0600,1500 [facility] Last Admin: 04/15/19 05:50 Dose: 0.5 mg Bumetanide (Bumex) 0.5 mg IVPUSH ONETIME ONE Stop: 04/14/19 09:58 Last Admin: 04/14/19 10:40 Dose: 0.5 mg Bumetanide (Bumex) 1 mg IVPUSH ONETIME ONE Stop: 04/15/19 15:01 Bumetanide (Bumex) 1 mg IVPUSH ONETIME ONE Stop: 04/16/19 08:01 Furosemide (Lasix) 60 mg IVPUSH NOW ONE Stop: 04/15/19 14:30 Last Admin: 04/15/19 15:03 Dose: 60 mg Furosemide (Lasix) 80 mg IVPUSH NOW ONE Stop: 04/16/19 06:41 Last Admin: 04/16/19 07:11 Dose: 80 mg Furosemide (Lasix) 80 mg IVPUSH NOW ONE Stop: 04/16/19 17:01 Last Admin: 04/16/19 16:21 Dose: 80 mg Furosemide (Lasix) 80 mg IVPUSH NOW ONE Stop: 04/17/19 09:12 Last Admin: 04/17/19 10:33 Dose: 80 mg Furosemide (Lasix) 80 mg IVPUSH ONETIME ONE Stop: 04/17/19 19:01 Last Admin: 04/17/19 18:35 Dose: 80 mg Furosemide (Lasix) 80 mg IVPUSH NOW ONE Stop: 04/18/19 06:33 Last Admin: 04/18/19 06:43 Dose: 80 mg Magnesium Sulfate 2 gm/ Premix 50 mls @ 25 mls/hr IV ONETIME ONE Stop: 04/12/19 15:59 Last Admin: 04/12/19 14:24 Dose: 25 mls/hr Magnesium Sulfate 2 gm/ Premix 50 mls @ 25 mls/hr IV ONETIME ONE Stop: 04/14/19 11:13 Last Admin: 04/14/19 10:35 Dose: 25 mls/hr Albumin Human (Flexbumin 25%) 12.5 gm in 50 mls @ 100 mls/hr IV ONETIME ONE Stop: 04/14/19 10:29 Last Admin: 04/14/19 12:17 Dose: 100 mls/hr Magnesium Sulfate 2 gm/ Premix 50 mls @ 25 mls/hr IV ONETIME ONE Stop: 04/14/19 15:59 Last Admin: 04/14/19 16:16 Dose: 25 mls/hr Magnesium Sulfate (Magnesium Sulfate In Water Premix) Confirm Administered Dose 50 mls @ as directed .ROUTE .STK-MED ONE Stop: 04/14/19 16:14 Last Admin: 04/14/19 16:15 Dose: Not Given Albumin Human (Flexbumin 25%) 12.5 gm in 50 mls @ 100 mls/hr IV ONETIME ONE Stop: 04/15/19 07:50 Last Admin: 04/15/19 08:22 Dose: 100 mls/hr Magnesium Sulfate 2 gm/ Premix 50 mls @ 25 mls/hr IV ONETIME ONE Stop: 04/17/19 11:11 Last Admin: 04/17/19 10:34 Dose: 25 mls/hr Insulin Human Lispro (Humalog) 0 unit SUBCUT QIDACANDBED [facility]; Protocol Last Admin: 04/14/19 16:48 Dose: Not Given Spironolactone (Aldactone) 25 mg PO DAILY [facility] Last Admin: 04/14/19 09:10 Dose: 25 mg Warfarin Sodium (Coumadin Sliding Scale) 0 each PO QPM [facility] Stop: 04/12/19 19:00 Last Admin: 04/12/19 18:25 Dose: Not Given Warfarin Sodium (Coumadin Sliding Scale) 0 each PO QPM [facility] Stop: 04/13/19 19:00 Last Admin: 04/13/19 17:32 Dose: Not Given Warfarin Sodium (Coumadin Sliding Scale) 0 each PO QPM [facility] Stop: 04/14/19 18:01 Last Admin: 04/14/19 18:05 Dose: Not Given Warfarin Sodium (Coumadin Sliding Scale) 0 each PO QPM [facility] Stop: 04/15/19 18:01 Last Admin: 04/15/19 17:13 Dose: Not Given Warfarin Sodium (Coumadin) 5 mg PO QPM [facility] Stop: 04/17/19 18:01 Last Admin: 04/17/19 18:35 Dose: 5 mg - Exam Quality Assessment: Supplemental Oxygen, DVT Prophylaxis General: Alert, Oriented, Cooperative, No Acute Distress HEENT: Pupils Equal, Pupils Reactive, EOMI, Mucous Membr. Moist/[place] Neck: Supple, Trachea Midline, No JVD Lungs: Clear to Auscultation, Normal Respiratory Effort, Decreased Breath Sounds Cardiovascular: Regular Rate, Regular Rhythm GI/Abdominal Exam: Normal Bowel Sounds, Soft, Non-Tender, No Distention, No Abnormal Bruit (Male) Exam: Scrotal Swelling Extremities: Non-Tender, Normal Capillary Refill, Pedal Edema (2-3+), Limited Range of Motion, Other (Bilateral leg discoloration consistent with PVD ) Peripheral Pulses: 1+: Dorsalis Pedis (L), Dorsalis Pedis (R), 2+: Radial (L), Radial (R) Skin: Warm, Dry, Intact Neurological: No New Focal Deficit Psy/Mental Status: Alert, Normal Affect, Normal Mood - Problem List & Annotations (1) CHF exacerbation SNOMED Code(s): 614270926, 85075349356799 Code(s): I50.9 - HEART FAILURE, UNSPECIFIED Status: Acute Priority: High Current Visit: Yes Qualifiers: Heart failure type: unspecified Qualified Code(s): I50.9 - Heart failure, unspecified (2) CKD (chronic kidney disease) SNOMED Code(s): 953611376 Code(s): N18.9 - CHRONIC KIDNEY DISEASE, UNSPECIFIED Status: Chronic Priority: High Current Visit: No Qualifiers: Chronic kidney disease stage: unspecified stage Qualified Code(s): N18.9 - Chronic kidney disease, unspecified (3) Chronic renal insufficiency SNOMED Code(s): 368511648 Code(s): N18.9 - CHRONIC KIDNEY DISEASE, UNSPECIFIED Status: Chronic Priority: High Current Visit: No Qualifiers: Chronic kidney disease stage: stage 2 (mild) Qualified Code(s): N18.2 - Chronic kidney disease, stage 2 (mild) (4) Diabetes 1.5, managed as type 2 SNOMED Code(s): 994497260 Code(s): E13.9 - OTHER SPECIFIED DIABETES MELLITUS WITHOUT COMPLICATIONS Status: Chronic Priority: High Current Visit: No (5) History of DVT (deep vein thrombosis) SNOMED Code(s): 620555433 Code(s): Z86.718 - PERSONAL HISTORY OF OTHER VENOUS THROMBOSIS AND EMBOLISM Status: Chronic Priority: Medium Current Visit: No (6) Obesity due to excess calories SNOMED Code(s): 663752149 Code(s): E66.09 - OTHER OBESITY DUE TO EXCESS CALORIES Status: Chronic Priority: Medium Current Visit: No Qualifiers: Obesity classification: adult class 1 (BMI 30 - 34.9) Serious obesity comorbidity presence: unspecified whether serious comorbidity present Body mass index: BMI 33.0-33.9 Qualified Code(s): E66.09 - Other obesity due to excess calories; Z68.33 - Body mass index (BMI) 33.0-33.9, adult (7) Peripheral edema SNOMED Code(s): 977833380 Code(s): R60.9 - EDEMA, UNSPECIFIED Status: Acute Priority: High Current Visit: Yes - Problem List Review Problem List Initiated/Reviewed/Updated: Yes - My Orders Last 24 Hours: My Active Orders 04/18/19 17:00 Furosemide [Lasix] 80 mg IVPUSH ONETIME ONE 04/19/19 05:11 BASIC METABOLIC PANEL,BMP [CHEM] AM CBC WITH AUTO DIFF [HEME] AM INR,PT,PROTHROMBIN TIME [COAG] AM MAGNESIUM [CHEM] AM PRO B-TYPE NATRIUR PEPT,BNPPRO [CHEM] Routine 04/20/19 05:11 BASIC METABOLIC PANEL,BMP [CHEM] AM CBC WITH AUTO DIFF [HEME] AM INR,PT,PROTHROMBIN TIME [COAG] AM MAGNESIUM [CHEM] AM - Plan Plan:: Assessment/Plan: Acute: CHF exacerbation - Risk Factors: CAD S/p CABG x 5, HTN, HLD, DM2, PVD and Obesity - ProBNP 7683-->7336-->8804-->7966 - 2D echo obtained 10/31/18 (Less than 6 months ago): 1. LVEF, by visual estimation, is 25% 2. Severely decreased left ventricular systolic function 3. Multiple left ventricular regional wall motion abnormalities exist. See wall motion findings. 4. Mildly reduced right ventricular systolic function 5. Right ventricular size is mildly enlarged 6. There is mild aortic valve sclerosis without stenosis 7. Mild mitral valve regurgitation 8. Mild tricuspid valve regurgitation 9. The right ventricular systolic pressure is moderately to severely elevated at 61.5mmHg 10. A pacer wire is visualized in the right ventricle 11. The inferior vena cava is dilated and plethoric 12. Unable to rule out apical thrombus 13. There are left and right pleural effusions - Heart Failure protocol: diuretics, Is/Os, daily weight check, and fluid/ salt restriction - Ashby placed for IO measuring, difficulty with urination 2/2 edema -> remove 04/19/19 - CXR obtained 04/12/19: * Stable left-sided pleural effusion. Adjacent parenchymal density within the left base which appears stable and is most likely due to atelectasis. Minimally increased pulmonary vessels. Mildly enlarged heart. AICD present. Prior sternotomy. - JAYME bandages bilaterally to legs to help with fluid mobilization -> discontinue due to scrotal swelling. - Discussed diuresis with Dr. Simmons, will change diuretics and be more aggressive. Hypoalbuminemia, stable - Albumin 1.7-->1.8 - Will make diuresis difficult - Supplementation ordered - [employer] consult - high protein Resolved: S/P Hypomagnesemia - Mg 1.7-->1.8-->1.7-->2.2-->1.7-->1.9 - 2/2 inadequate intake - Replete and monitor S/P Supratherapeutic INR - PCP reports patient is due for INR check - INR 4.63-->3.74-->2.79 - Pharmacy to monitor and dose - Hold dose on 04/14/19 due to blood in ashby (difficult ashby placement) - Blood is continuing in ashby, will continue to hold warfarin and ASA per Dr. 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 Fall Precautions Accu-check QID and ISS coverage -> has been stable, switch to BID SW/CM for d/c planning PT/OT Code status: Full code; PCP: Dr. Flor Bronson LOS >96Hr due to slow response to treatment, need for continued diuresis. Hopeful for discharge 04/19/19
[2019-04-18] MEDS: Formoterol/Mometasone 200-5 MCG 8.8 GM Inhaler IH SCH ×2 (09:28→20:45)
[2019-04-18] MEDS: amLODIPine 5 MG Tab PO SCH (09:35)
[2019-04-18] MEDS: Spironolactone 25 MG Tab PO SCH (09:35)
[2019-04-18] MEDS: Carvedilol 12.5 MG Tab PO SCH ×2 (09:36→21:32)
[2019-04-18] MEDS ORDERED: Warfarin 5 MG Tab PO SCH (18:00)
[2019-04-18] MEDS: Colchicine 0.6 MG Tab PO SCH (21:32)
[2019-04-19] MEDS: Levothyroxine 25 MCG Tab PO SCH (06:37)
[2019-04-19] MEDS: Insulin Lispro 100 Units/ML 3 ML Vial SUBCUT SCH (06:38)
--- NOTE | 2019-04-19 06:59 | PCM.DCSUM1 ---
Discharge Summary - Hospital Course HPI Initial Comments: Val Meyers is a 73yo male who is well known to this service. He presented to his PCP, Dr. Bronson, today (04/12/19), and was noted to have had a significant weight gain and hypoxia. He was then sent to us as a direct admit. Reports a 20- 25 pound weight gain over the past 1 to 1-1/2 weeks. He was seen in the ED on for worsening pedal edema and shortness of breath. He was also noted to have a rash on his skin folds. He was prescribed Diflucan and a 40 mg noon dose of Lasix was added to his home regimen. He reports the rash has resolved. He states he has been taking his medications as prescribed. He reports he has O2 normally at home which he wears with activity. He normally uses 2 L. Reports worsening edema all the way up into his penis and testicles. Reports he has difficulty with urination because of the swelling. He also reports worsening orthopnea. He does utilize a fluid restriction and low sodium diet. Denies any recent sick contacts or infectious symptoms. He does try to take a daily weight. He is wheelchair bound in an electric chair although he says he does use a walker to stand occasionally. He utilizes a urinal at home for urination. He has report he wakes up 3-4 times a night to urinate. He reports he takes his p.m. dose of Lasix around supper time with the hope that "it will have worked through me by the time I go to bed. " No labs are obtained by his primary care provider. 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 He is a full code. His PCP is Dr. Bronson. Diagnosis: Stroke: No - Discharge Data Discharge Date: 04/19/19 (Admit date: 04/12/19) Discharge Disposition: Home, Self-Care 01 Condition: Good - Discharge Diagnosis/Problem(s) (1) CHF exacerbation SNOMED Code(s): 539006521, 09447691391281 ICD Code: I50.9 - HEART FAILURE, UNSPECIFIED Status: Acute Priority: High Current Visit: Yes Qualifiers: Heart failure type: unspecified Qualified Code(s): I50.9 - Heart failure, unspecified (2) CKD (chronic kidney disease) SNOMED Code(s): 721240520 ICD Code: N18.9 - CHRONIC KIDNEY DISEASE, UNSPECIFIED Status: Chronic Priority: High Current Visit: No Qualifiers: Chronic kidney disease stage: unspecified stage Qualified Code(s): N18.9 - Chronic kidney disease, unspecified (3) Chronic renal insufficiency SNOMED Code(s): 542301332 ICD Code: N18.9 - CHRONIC KIDNEY DISEASE, UNSPECIFIED Status: Chronic Priority: High Current Visit: No Qualifiers: Chronic kidney disease stage: stage 2 (mild) Qualified Code(s): N18.2 - Chronic kidney disease, stage 2 (mild) (4) Diabetes 1.5, managed as type 2 SNOMED Code(s): 447444059 ICD Code: E13.9 - OTHER SPECIFIED DIABETES MELLITUS WITHOUT COMPLICATIONS Status: Chronic Priority: High Current Visit: No (5) History of DVT (deep vein thrombosis) SNOMED Code(s): 035079645 ICD Code: Z86.718 - PERSONAL HISTORY OF OTHER VENOUS THROMBOSIS AND EMBOLISM Status: Chronic Priority: Medium Current Visit: No (6) Obesity due to excess calories SNOMED Code(s): 091050897 ICD Code: E66.09 - OTHER OBESITY DUE TO EXCESS CALORIES Status: Chronic Priority: Medium Current Visit: No Qualifiers: Obesity classification: adult class 1 (BMI 30 - 34.9) Serious obesity comorbidity presence: unspecified whether serious comorbidity present Body mass index: BMI 33.0-33.9 Qualified Code(s): E66.09 - Other obesity due to excess calories; Z68.33 - Body mass index (BMI) 33.0-33.9, adult (7) Peripheral edema SNOMED Code(s): 702860372 ICD Code: R60.9 - EDEMA, UNSPECIFIED Status: Acute Priority: High Current Visit: Yes - Patient Summary/Data Consults: Consultations 04/12/19 11:24 Consult to Case Management/Line O Scribe Operator [CONS] Routine Consult to Auto Painter [CONS] Routine Consult to Spiritual Care [CONS] Routine OT Evaluation and Treatment [CONS] Routine PT Evaluation and Treatment [CONS] Routine Labs Pending at D/C: None Recommended Follow-up Testing/Procedures: Follow-up with PCP next week. Follow-up with cardiology within next few weeks Suggest establishing with nephrology. Re-check INR on 04/22/19 or 04/23/19 with results to PCP Hospital Course: Assessment/Plan: Acute: CHF exacerbation - Risk Factors: CAD S/p CABG x 5, HTN, HLD, DM2, PVD and Obesity - ProBNP 7683-->7336-->8804-->7966-->8237 - 2D echo obtained 10/31/18 (Less than 6 months ago): 1. LVEF, by visual estimation, is 25% 2. Severely decreased left ventricular systolic function 3. Multiple left ventricular regional wall motion abnormalities exist. See wall motion findings. 4. Mildly reduced right ventricular systolic function 5. Right ventricular size is mildly enlarged 6. There is mild aortic valve sclerosis without stenosis 7. Mild mitral valve regurgitation 8. Mild tricuspid valve regurgitation 9. The right ventricular systolic pressure is moderately to severely elevated at 61.5mmHg 10. A pacer wire is visualized in the right ventricle 11. The inferior vena cava is dilated and plethoric 12. Unable to rule out apical thrombus 13. There are left and right pleural effusions - Heart Failure protocol: diuretics, Is/Os, daily weight check, and fluid/ salt restriction - Ashby placed for IO measuring, difficulty with urination 2/2 edema -> remove 04/19/19 - CXR obtained 04/12/19: * Stable left-sided pleural effusion. Adjacent parenchymal density within the left base which appears stable and is most likely due to atelectasis. Minimally increased pulmonary vessels. Mildly enlarged heart. AICD present. Prior sternotomy. - JAYME bandages bilaterally to legs to help with fluid mobilization -> discontinue due to scrotal swelling. - Discussed diuresis with Dr. Simmons, will change diuretics and be more aggressive. Hypoalbuminemia, stable - Albumin 1.7-->1.8 - Will make diuresis difficult - Supplementation ordered - Auto Painter consult - high protein Resolved: S/P Hypomagnesemia - Mg 1.7-->1.8-->1.7-->2.2-->1.7-->1.9 - 2/2 inadequate intake - Replete and monitor S/P Supratherapeutic INR - PCP reports patient is due for INR check - INR 4.63-->3.74-->2.79 - Pharmacy to monitor and dose - Hold dose on 04/14/19 due to blood in ashby (difficult ashby placement) - Blood is continuing in ashby, will continue to hold warfarin and ASA per Dr. 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 Fall Precautions Accu-check QID and ISS coverage -> has been stable, switch to BID SW/CM for d/c planning PT/OT Code status: Full code; PCP: Dr. Flor Bronson LOS >96Hr due to slow response to treatment, need for continued diuresis. Hopeful for discharge 04/19/19 Abdoul was directly admitted to our service for a CHF exacerbation. Ashby catheter was placed due to I&O monitoring and difficulty with urination due to groin swelling. Attempted to utilize bumex initially however even with higher doses he had minimal response to this. We then moved on to higher dose IVP Lasix with good response. His creatinine remained stable. His warfarin and ASA were initially held due to blood in the ashby but were restarted without issue. Dr. Simmons did have a sean discussion with Abdoul about overall prognosis. Plan was to obtain 2-D echo however prior echo had been obtained less than 6 months ago with results as above. We attempted to utilize JAYME bandages to mobilize some fluid however this led to worsening scrotal edema and was discontinued. Albumin was given x2 with minimal effect on diuresis. He did see our warehouse sorter and was recommended to continue high protein diet due to low albumin, along with salt and fluid restrictions. His spironolactone was increased from 25mg to 50mg and he will be discharged on this dose change. His other home medications were resumed on discharge. He is not on an JAYME/ARB and this was discussed with Dr. Simmons. It is felt he is not a good candidate for an JAYME or ARB at this time due to renal function although this should be addressed with his PCP, along with cardiology and potentially nephrology. It is recommended he follow- up with his PCP, Dr. Bronson next week. He should also follow-up with his green building energy engineer within the next few weeks. Suggest nephrology consult as well. He was instructed to take his weight daily and keep it in a journal. Blood sugars have remained stable. His electrolytes were supplemented. Ashby was removed prior to discharge and he continued to have good output. His BNP continued to fluctuate however clinically he looks and feels much better. He will be discharged today. - Patient Instructions Diet: Low Sodium, Fluid Restriction Fluid Restriction: 2000 mL Activity: As Tolerated Notify Provider of: Fever, Increased Pain, Nausea and/or Vomiting - Discharge Plan *PRESCRIPTION DRUG MONITORING PROGRAM REVIEWED*: No *COPY OF PRESCRIPTION DRUG MONITORING REPORT IN PATIENT CARL: No Prescriptions/Med Rec: Spironolactone [Aldactone] 50 mg PO DAILY #40 tablet Home Medications: Home Meds Aspirin [Halfprin] 81 mg PO DAILY 12/19/14 [History] Carvedilol 25 mg PO BID 12/19/14 [History] Colchicine [Colcrys] 0.6 mg PO BEDTIME 12/19/14 [History] Furosemide 80 mg PO QAM 12/19/14 [History] Nitroglycerin [Nitrostat] 0.4 mg SL ASDIRECTED PRN 12/19/14 [History] amLODIPine [Norvasc] 5 mg PO DAILY 12/19/14 [History] atorvaSTATin [Lipitor] 20 mg PO BEDTIME 12/19/14 [History] Furosemide [Lasix] 40 mg PO BEDTIME 01/22/17 [History] Warfarin [Coumadin] 2.5 mg PO MOWEFR 01/23/17 [History] Warfarin [Coumadin] 5 mg PO SUTUTHSA 01/23/17 [History] Fluticasone/Salmeterol [Advair Diskus 250-50] 1 puff INH BID 07/24/17 [History] Albuterol Sulfate [Proair Respiclick] 2 puff INH Q6H PRN 10/29/18 [History] Levothyroxine 25 mcg PO ACBREAKFAST 10/29/18 [History] guaiFENesin [Mucinex] 1 tab PO Q12H PRN 10/29/18 [History] Furosemide 40 mg PO 1200 04/12/19 [History] Multivit-Minerals/Folic Acid [Centrum Multigummies] 2 tab PO DAILY 04/12/19 [ History] Spironolactone [Aldactone] 50 mg PO DAILY #40 tablet 04/19/19 [Rx] Oxygen Therapy Mode: Room Air Oxygen Flow Rate (L/min): 1 (Continue home oxygen as ordered) Maintain SpO2% greater than: 90 Referrals: Flor Bronson MD [Primary Care Provider] - 04/22/19 9:00 am (Please follow up with Dr. Bronson on Monday, April 22, 2019 at 9:00 AM. Please arrive 15 minutes early for check in. (You will need to have your INR rechecked this day as well.)) - Discharge Summary/Plan Comment DC Time >30 min.: Yes (45 minutes) - General Info Date of Service: 04/19/19 Admission Dx/Problem (Free Text: Admission Diagnosis/Problem Admission Diagnosis/Problem Congestive heart failure Subjective Update: 04/13/19: In to see Val with Dr. Arthur. No nursing or patient concerns. He has had some blood noted in his ashby catheter although this appears to be clearing. Nursing did have some difficulty placing the Ashby. Creatinine remains stable. He is down a bit on weight and having good output. Will continue to monitor. May need to increase bumex dosing. Spironolactone was resumed. He remains weak. Continue PT/OT. He remains on his home dose of 2L O2. 04/14/19: Val repots he feels like he is improving. His arms are less edematous. He remains on O2. Discussed diuresis with Dr. Arthur who recommended we give albumin, increase spironolactone, and increase Bumex this AM. Will monitor for changes with new regimen. Blood in ashby continues so discussed warfarin dosing. Will hold off warfarin today and resume tomorrow. Creatinine has remained steady. Nursing reports HR abnormalities and magnesium was noted to be low and will be supplemented. Blood glucose readings have remained stable and patient reports he is pretty stable at home so will decrease insulin and bedside checks to BID. Patient has been refusing insulin regardless. 04/15/19: In to see Samzoya. He reports his testicles are very swollen today. This is likely 2/2 JAYME wraps on his legs mobilizing his fluid. Discussed diuretics with Dr. Simmons. Recommends 60mg IVP lasix tonight and 80mg IVP lasix tomorrow am. Will monitor labs and adjust as necessary. BP has remained stable. Weight has not changed much. Ashby continues to contain some blood. 04/16/19: Val reports he feels better today. He says he does not feel as tight and his scrotum is less painful. Discussed with Dr. Simmons again the concerns over blood in urine and slow response to treatment. Will order 80mg IVP lasix tonight and monitor. Will stop JAYME wraps due to scrotal swelling. Creatinine looks better today than yesterday however BNP has lu. BP and vitals remain stable. Will hold off mechanical or pharmacological VTE prophylaxis due to PVD, extremity swelling, and blood in catheter. 04/17/19: Val reports he feels much better today. He is much less tight. He has had great output from his ashby. No other concerns. Discussed warfarin with Dr. Simmons. We will resume his warfarin today. He reports his breathing is much better today and he has been weaned down to 1L. His scrotum remains swollen and we discussed how this will likely be the case for some time. Will re -check BNP tomorrow. Will continue 80mg BID lasix treatment. Hopeful for discharge in next 24-48 hours. 04/18/19: Abdoul reports he feels much better today. He states his arms and legs are much less swollen. He has had good output. No nursing or patient concerns. We will keep ashby in until tomorrow AM then give some more lasix and monitor to ensure he continues to void. Plan for discharge tomorrow. Will need cardiology and PCP follow-up after discharge. Dr. Simmons was in with him to discuss overall prognosis and how he will likely continue to have HF that gets progressively worse. BNP has improved today. Functional Status: Reports: Pain Controlled, Tolerating Diet, Urinating. Denies : Ambulating, New Symptoms - Review of Systems General: Reports: No Symptoms. Denies: Fever, Weakness, Malaise, Chills HEENT: Reports: No Symptoms. Denies: Headaches, Sore Throat Pulmonary: Reports: No Symptoms. Denies: Shortness of Breath, Cough, Sputum, Wheezing Cardiovascular: Reports: Edema. Denies: Chest Pain, Palpitations Gastrointestinal: Reports: No Symptoms. Denies: Abdominal Pain, Constipation, Diarrhea, Nausea, Vomiting Genitourinary: Reports: No Symptoms. Denies: Pain Musculoskeletal: Reports: No Symptoms Skin: Reports: No Symptoms. Denies: Cyanosis Neurological: Reports: Pre-Existing Deficit, Difficulty Walking, Gait Disturbance. Denies: Confusion Psychiatric: Reports: No Symptoms - Patient Data Vitals - Most Recent: Last Vital Signs Temp 97.3 F 04/19/19 00:07 Pulse 71 04/19/19 00:07 Resp 16 04/19/19 00:07 BP 117/70 04/19/19 00:07 Pulse Ox 95 04/19/19 00:07 Weight - Most Recent: 254 lb 2 oz I&O - Last 24 hours: Intake & Output 04/18/19 04/18/19 04/19/19 14:59 22:59 06:59 Intake Total 760 920 Output Total 1075 1000 Balance -315 -80 Lab Results - Last 24 hrs: Laboratory Results - last 24 hr 04/18/19 04/18/19 04/19/19 Range/Units 04:30 21:26 05:10 WBC 3.28 L (4.23-9.07) K/mm3 RBC 4.03 L (4.63-6.08) M/mm3 Hgb 12.3 L (13.7-17.5) gm/L Hct 37.6 L (40.1-51.0) % MCV 93.3 H (79.0-92.2) fl MCH 30.5 (25.7-32.2) pg MCHC 32.7 (32.2-35.5) g/dl RDW Std Deviation 52.4 H (35.1-43.9) fL Plt Count 95 L (163-337) K/mm3 MPV 11.3 (9.4-12.3) fl Neut % (Auto) 65.6 (34.0-67.9) % Lymph % (Auto) 13.4 L (21.8-53.1) % [place] % (Auto) 18.0 H (5.3-12.2) % Eos % (Auto) 2.7 (0.8-7.0) Baso % (Auto) 0.3 (0.1-1.2) % Neut # (Auto) 2.15 (1.78-5.38) K/mm3 Lymph # (Auto) 0.44 L (1.32-3.57) K/mm3 [place] # (Auto) 0.59 (0.30-0.82) K/mm3 Eos # (Auto) 0.09 (0.04-0.54) K/mm3 Baso # (Auto) 0.01 (0.01-0.08) K/mm3 PT (9.5-12.1) SECONDS INR Sodium (136-145) mEq/L Potassium (3.5-5.1) mEq/L Chloride (98-107) mEq/L Carbon Dioxide (21-32) mEq/L Anion Gap (5-15) BUN (7-18) mg/dL Creatinine (0.7-1.3) mg/dL Est Cr Clr Drug Dosing mL/min Estimated GFR (MDRD) (>60) mL/min BUN/Creatinine Ratio (14-18) Glucose (83-115) mg/dL POC Glucose 104 (83-110) mg/dL Calcium (8.5-10.1) mg/dL Magnesium (1.8-2.4) mg/dl NT-Pro-B Natriuret Pep 7966 H (0-125) pg/mL 04/19/19 04/19/19 04/19/19 Range/Units 05:10 05:10 06:35 WBC (4.23-9.07) K/mm3 RBC (4.63-6.08) M/mm3 Hgb (13.7-17.5) gm/L Hct (40.1-51.0) % MCV (79.0-92.2) fl MCH (25.7-32.2) pg MCHC (32.2-35.5) g/dl RDW Std Deviation (35.1-43.9) fL Plt Count (163-337) K/mm3 MPV (9.4-12.3) fl Neut % (Auto) (34.0-67.9) % Lymph % (Auto) (21.8-53.1) % [place] % (Auto) (5.3-12.2) % Eos % (Auto) (0.8-7.0) Baso % (Auto) (0.1-1.2) % Neut # (Auto) (1.78-5.38) K/mm3 Lymph # (Auto) (1.32-3.57) K/mm3 [place] # (Auto) (0.30-0.82) K/mm3 Eos # (Auto) (0.04-0.54) K/mm3 Baso # (Auto) (0.01-0.08) K/mm3 PT 15.7 H (9.5-12.1) SECONDS INR 1.45 Sodium 139 (136-145) mEq/L Potassium 4.3 (3.5-5.1) mEq/L Chloride 104 (98-107) mEq/L Carbon Dioxide 31 (21-32) mEq/L Anion Gap 8.3 (5-15) BUN 56 H (7-18) mg/dL Creatinine 1.5 H (0.7-1.3) mg/dL Est Cr Clr Drug Dosing 51.02 mL/min Estimated GFR (MDRD) 46 (>60) mL/min BUN/Creatinine Ratio 37.3 H (14-18) Glucose 94 (83-115) mg/dL POC Glucose 101 (83-110) mg/dL Calcium 8.0 L (8.5-10.1) mg/dL Magnesium 1.8 (1.8-2.4) mg/dl NT-Pro-B Natriuret Pep (0-125) pg/mL Med Orders - Current: Current Medications Acetaminophen (Tylenol) 650 mg PO Q4H PRN PRN Reason: Pain (Mild 1-3)/fever Amlodipine Besylate (Norvasc) 5 mg PO DAILY [facility] Last Admin: 04/18/19 09:35 Dose: 5 mg Aspirin (Halfprin) 81 mg PO DAILY [facility] Last Admin: 04/15/19 08:22 Dose: 81 mg Bisacodyl (Dulcolax) 5 mg PO DAILY PRN PRN Reason: Constipation Carvedilol (Coreg) 25 mg PO BID [facility] Last Admin: 04/18/19 21:32 Dose: 25 mg Colchicine (Colcrys) 0.6 mg PO BEDTIME [facility] Last Admin: 04/18/19 21:32 Dose: 0.6 mg Docusate Sodium (Colace) 100 mg PO BID PRN PRN Reason: Constipation Last Admin: 04/13/19 14:28 Dose: 100 mg Furosemide (Lasix) 80 mg IVPUSH NOW ONE Stop: 04/19/19 07:01 Last Admin: 04/19/19 06:37 Dose: 80 mg Guaifenesin (Mucinex) 600 mg PO Q12H PRN PRN Reason: Cough Last Admin: 04/15/19 08:36 Dose: 600 mg Insulin Human Lispro (Humalog) 0 unit SUBCUT BID@0700,2100 [facility]; Protocol Last Admin: 04/19/19 06:38 Dose: Not Given Levothyroxine Sodium (Levothyroxine) 25 mcg PO ACBREAKFAST [facility] Last Admin: 04/19/19 06:37 Dose: 25 mcg Mometasone Furoate/Formoterol Fumar (Dulera 200-5 Mcg) 2 puff IH BID [facility] Last Admin: 04/18/19 20:45 Dose: 2 puff Nitroglycerin (Nitrostat) 0.4 mg SL ASDIRECTED PRN PRN Reason: Chest Pain Ondansetron HCl (Zofran) 4 mg IV Q6H PRN PRN Reason: Nausea/Vomiting Senna/Docusate Sodium (Senna Plus) 1 tab PO BID PRN PRN Reason: Constipation Last Admin: 04/14/19 09:12 Dose: 1 tab Sodium Chloride (Saline Flush) 10 ml FLUSH ASDIRECTED PRN PRN Reason: Keep Vein Open Spironolactone (Aldactone) 50 mg PO DAILY [facility] Last Admin: 04/18/19 09:35 Dose: 50 mg Warfarin Sodium (Pharmacy To Dose - Warfarin) 0 dose .XX ASDIRECTED PRN PRN Reason: RX TO DOSE WARFARIN Discontinued Medications Bumetanide (Bumex) 0.5 mg IVPUSH ONETIME ONE Stop: 04/12/19 14:01 Last Admin: 04/12/19 14:24 Dose: 0.5 mg Bumetanide (Bumex) 0.5 mg IVPUSH 0600,1500 K[facility] Last Admin: 04/13/19 14:27 Dose: 0.5 mg Bumetanide (Bumex) 0.5 mg IVPUSH ONETIME ONE Stop: 04/12/19 21:01 Last Admin: 04/12/19 21:47 Dose: 0.5 mg Bumetanide (Bumex) 0.5 mg IVPUSH 0600,1500 KM Last Admin: 04/15/19 05:50 Dose: 0.5 mg Bumetanide (Bumex) 0.5 mg IVPUSH ONETIME ONE Stop: 04/14/19 09:58 Last Admin: 04/14/19 10:40 Dose: 0.5 mg Bumetanide (Bumex) 1 mg IVPUSH ONETIME ONE Stop: 04/15/19 15:01 Bumetanide (Bumex) 1 mg IVPUSH ONETIME ONE Stop: 04/16/19 08:01 Furosemide (Lasix) 60 mg IVPUSH NOW ONE Stop: 04/15/19 14:30 Last Admin: 04/15/19 15:03 Dose: 60 mg Furosemide (Lasix) 80 mg IVPUSH NOW ONE Stop: 04/16/19 06:41 Last Admin: 04/16/19 07:11 Dose: 80 mg Furosemide (Lasix) 80 mg IVPUSH NOW ONE Stop: 04/16/19 17:01 Last Admin: 04/16/19 16:21 Dose: 80 mg Furosemide (Lasix) 80 mg IVPUSH NOW ONE Stop: 04/17/19 09:12 Last Admin: 04/17/19 10:33 Dose: 80 mg Furosemide (Lasix) 80 mg IVPUSH ONETIME ONE Stop: 04/17/19 19:01 Last Admin: 04/17/19 18:35 Dose: 80 mg Furosemide (Lasix) 80 mg IVPUSH NOW ONE Stop: 04/18/19 06:33 Last Admin: 04/18/19 06:43 Dose: 80 mg Furosemide (Lasix) 80 mg IVPUSH ONETIME ONE Stop: 04/18/19 17:01 Last Admin: 04/18/19 17:06 Dose: 80 mg Magnesium Sulfate 2 gm/ Premix 50 mls @ 25 mls/hr IV ONETIME ONE Stop: 04/12/19 15:59 Last Admin: 04/12/19 14:24 Dose: 25 mls/hr Magnesium Sulfate 2 gm/ Premix 50 mls @ 25 mls/hr IV ONETIME ONE Stop: 04/14/19 11:13 Last Admin: 04/14/19 10:35 Dose: 25 mls/hr Albumin Human (Flexbumin 25%) 12.5 gm in 50 mls @ 100 mls/hr IV ONETIME ONE Stop: 04/14/19 10:29 Last Admin: 04/14/19 12:17 Dose: 100 mls/hr Magnesium Sulfate 2 gm/ Premix 50 mls @ 25 mls/hr IV ONETIME ONE Stop: 04/14/19 15:59 Last Admin: 04/14/19 16:16 Dose: 25 mls/hr Magnesium Sulfate (Magnesium Sulfate In Water Premix) Confirm Administered Dose 50 mls @ as directed .ROUTE .K-MED ONE Stop: 04/14/19 16:14 Last Admin: 04/14/19 16:15 Dose: Not Given Albumin Human (Flexbumin 25%) 12.5 gm in 50 mls @ 100 mls/hr IV ONETIME ONE Stop: 04/15/19 07:50 Last Admin: 04/15/19 08:22 Dose: 100 mls/hr Magnesium Sulfate 2 gm/ Premix 50 mls @ 25 mls/hr IV ONETIME ONE Stop: 04/17/19 11:11 Last Admin: 04/17/19 10:34 Dose: 25 mls/hr Insulin Human Lispro (Humalog) 0 unit SUBCUT QIDACANDBED [facility]; Protocol Last Admin: 04/14/19 16:48 Dose: Not Given Spironolactone (Aldactone) 25 mg PO DAILY [facility] Last Admin: 04/14/19 09:10 Dose: 25 mg Warfarin Sodium (Coumadin Sliding Scale) 0 each PO QPM [facility] Stop: 04/12/19 19:00 Last Admin: 04/12/19 18:25 Dose: Not Given Warfarin Sodium (Coumadin Sliding Scale) 0 each PO QPM [facility] Stop: 04/13/19 19:00 Last Admin: 04/13/19 17:32 Dose: Not Given Warfarin Sodium (Coumadin Sliding Scale) 0 each PO QPM [facility] Stop: 04/14/19 18:01 Last Admin: 04/14/19 18:05 Dose: Not Given Warfarin Sodium (Coumadin Sliding Scale) 0 each PO QPM [facility] Stop: 04/15/19 18:01 Last Admin: 04/15/19 17:13 Dose: Not Given Warfarin Sodium (Coumadin) 5 mg PO QPM [facility] Stop: 04/17/19 18:01 Last Admin: 04/17/19 18:35 Dose: 5 mg Warfarin Sodium (Coumadin) 5 mg PO QPM [facility] Stop: 04/18/19 18:01 Last Admin: 04/18/19 17:07 Dose: 5 mg - Exam Quality Assessment: Reports: Supplemental Oxygen, DVT Prophylaxis General: Reports: Alert, Oriented, Cooperative, No Acute Distress HEENT: Reports: Pupils Equal, Pupils Reactive, EOMI, Mucous Membr. Moist/[place] Neck: Reports: Supple, Trachea Midline Lungs: Reports: Clear to Auscultation, Normal Respiratory Effort Cardiovascular: Reports: Regular Rate, Regular Rhythm GI/Abdominal Exam: Normal Bowel Sounds, Soft, Non-Tender, No Distention, No Abnormal Bruit (Male) Exam: Scrotal Swelling (greatly improved ) Rectal (Males) Exam: Deferred Back Exam: Reports: Normal Inspection, Decreased Range of Motion Extremities: Non-Tender, Normal Capillary Refill, Pedal Edema (improved, 1-2+), Limited Range of Motion, Other (Discoloration to all extremities consistent with PVD ) Skin: Reports: Warm, Dry, Intact Neurological: Reports: No New Focal Deficit Psy/Mental Status: Reports: Alert, Normal Affect, Normal Mood
[2019-04-19] MEDS ORDERED: Furosemide 100 MG/10 ML SDV IVPUSH ONE (07:00)
[2019-04-19] MEDS: Formoterol/Mometasone 200-5 MCG 8.8 GM Inhaler IH SCH (09:17)
[2019-04-19] MEDS: amLODIPine 5 MG Tab PO SCH (09:24)
[2019-04-19] MEDS: Carvedilol 12.5 MG Tab PO SCH (09:24)
[2019-04-19] MEDS: Spironolactone 25 MG Tab PO SCH (09:24)
[2019-04-19 09:25] VITALS: BP 123/68
[2019-04-19] MEDS ORDERED: Warfarin 5 MG Tab PO SCH (18:00)
== END 2019-04-19 12:18 | disposition home or self-care (01) | DRG 194 ==
LOC: JD.MS 10:47
PROVIDERS: ADMIT Emergency Medicine; ATTEND Emergency Medicine
DX: I13.0 Hypertensive heart and chronic kidney disease with heart failure and stage 1 through stage 4 chronic kidney disease, or unspecified chronic kidney disease (principal); H91.90 Unspecified hearing loss, unspecified ear; I50.9 Heart failure, unspecified; I48.0 Paroxysmal atrial fibrillation; E78.5 Hyperlipidemia, unspecified; I25.10 Atherosclerotic heart disease of native coronary artery without angina pectoris; E11.51 Type 2 diabetes mellitus with diabetic peripheral angiopathy without gangrene; E88.09 Other disorders of plasma-protein metabolism, not elsewhere classified; K21.9 Gastro-esophageal reflux disease without esophagitis; E66.9 Obesity, unspecified; M19.91 Primary osteoarthritis, unspecified site; M10.9 Gout, unspecified; Z96.659 Presence of unspecified artificial knee joint; E83.42 Hypomagnesemia; D69.6 Thrombocytopenia, unspecified; N18.2 Chronic kidney disease, stage 2 (mild); Z68.33 Body mass index [BMI] 33.0-33.9, adult; Z95.1 Presence of aortocoronary bypass graft; Z95.5 Presence of coronary angioplasty implant and graft; Z86.73 Personal history of transient ischemic attack (TIA), and cerebral infarction without residual deficits; Z86.718 Personal history of other venous thrombosis and embolism; Z88.1 Allergy status to other antibiotic agents; Z88.8 Allergy status to other drugs, medicaments and biological substances; Z79.82 Long term (current) use of aspirin; Z79.01 Long term (current) use of anticoagulants; Z79.899 Other long term (current) drug therapy; Z95.810 Presence of automatic (implantable) cardiac defibrillator
CPT/HCPCS: 36415; 51702; 71045; 71045-26; 80048; 80053; 82043; 82962; 83735; 83880; 84156; 85025; 85610; 93005; 94640; 94760; 94761; 97110-GO; 97110-GP; 97162-GP; 97165-GO; 97530-GO; 97530-GP; A9270-GY; J1940; J3475; J3490; P9047

== ENCOUNTER 2019-07-03 22:29 | Emergency (ER) | payer BC, MEDICARE ==
[2019-07-03 22:42] VITALS: BP 83/50
--- NOTE | 2019-07-03 22:47 | EDM.PDOC ---
ED HPI GENERAL MEDICAL PROBLEM - General Chief Complaint: Head Injury Stated Complaint: FELL AND HIT HEAD Time Seen by Provider: 07/03/19 22:46 - History of Present Illness INITIAL COMMENTS - FREE TEXT/NARRATIVE: 73-year-old male slipped out of his loading chair and fell and struck his head. He is not sure why he fell whether his feet tangled up with the steps or what but he fell forward bumping his head he is on Coumadin because of atrial fibrillation. No loss of consciousness. They've noticed his blood pressure is been a little on the low He is not any chest pain chest pressure palpitations or irregular heartbeat he's not any chest pain chest pressure breathing difficulties or shortness of breath just this low blood pressure. Patient has not had any recent medication changes. He denies any other pain from this fall. Posterior Head Pain Score (Numeric/FACES): 1 - Related Data Allergies Allergy/AdvReac Type Severity Reaction Status Date / Time allopurinol Allergy Rash Verified 07/03/19 22:42 cefazolin Allergy Hives Verified 07/03/19 22:42 celecoxib Allergy Rash Verified 07/03/19 22:42 clindamycin Allergy Hives Verified 07/03/19 22:42 ibuprofen Allergy Rash Verified 07/03/19 22:42 NSAIDS (Non-Steroidal Allergy Rash Verified 07/03/19 22:42 Anti-Inflamma oxaprozin Allergy Rash Verified 07/03/19 22:42 vancomycin Allergy Hives Verified 07/03/19 22:42 Home Meds: Home Meds Aspirin [Halfprin] 81 mg PO DAILY 12/19/14 [History] Carvedilol 25 mg PO BID 12/19/14 [History] Colchicine [Colcrys] 0.6 mg PO BEDTIME 12/19/14 [History] Furosemide 80 mg PO QAM 12/19/14 [History] Nitroglycerin [Nitrostat] 0.4 mg SL ASDIRECTED PRN 12/19/14 [History] amLODIPine [Norvasc] 5 mg PO DAILY 12/19/14 [History] atorvaSTATin [Lipitor] 20 mg PO BEDTIME 12/19/14 [History] Furosemide [Lasix] 40 mg PO BEDTIME 01/22/17 [History] Warfarin [Coumadin] 2.5 mg PO MOWEFR 01/23/17 [History] Warfarin [Coumadin] 5 mg PO SUTUTHSA 01/23/17 [History] Fluticasone/Salmeterol [Advair Diskus 250-50] 1 puff INH BID 07/24/17 [History] Albuterol Sulfate [Proair Respiclick] 2 puff INH Q6H PRN 10/29/18 [History] Levothyroxine 25 mcg PO ACBREAKFAST 10/29/18 [History] guaiFENesin [Mucinex] 1 tab PO Q12H PRN 10/29/18 [History] Furosemide 40 mg PO 1200 04/12/19 [History] Multivit-Minerals/Folic Acid [Centrum Multigummies] 2 tab PO DAILY 04/12/19 [ History] Spironolactone [Aldactone] 50 mg PO DAILY #40 tablet 04/19/19 [Rx] Past Medical History HEENT History: Reports: Hard of Hearing, Other (See Below) Other HEENT History: Wears bilat hearing aides, glasses, dentures full to upper and partial to lower. Pt compalins of faint ringing to ears, majority of the time Cardiovascular History: Reports: Afib, Aneurysm, Blood Clots/VTE/DVT, CAD, Heart Failure, High Cholesterol, Hypertension, [place] Other Cardiovascular History: Bypass in 1999 with 5 bypass. Stent in 2013, TX in 2013, Respiratory History: Reports: PE Other Respiratory History: previous blood clots in lungs 2002; no current problems Gastrointestinal History: Reports: GERD Other Gastrointestinal History: Acid reflux PRN Genitourinary History: Reports: BPH, Chronic Renal Insuffiency Musculoskeletal History: Reports: Arthritis, Gout Neurological History: Reports: CVA Other Neuro History: CVA in 2013 Psychiatric History: Reports: Anxiety, Depression Endocrine/Metabolic History: Reports: Diabetes, Type II, Obesity/BMI 30+ Other Endocrine/Metabolic History: not taking any medication or insulin Hematologic History: Reports: Other (See Below) Dermatologic History: Reports: Cellulitis - Infectious Disease History Infectious Disease History: Reports: Other (See Below) Other Infectious Disease History: Staph infection to right knee - Past Surgical History HEENT Surgical History: Reports: Tonsillectomy Cardiovascular Surgical History: Reports: AICD, Coronary Artery Bypass, Coronary Artery Stent Musculoskeletal Surgical History: Reports: Knee Replacement, Other (See Below) Social & Family History - Family History Family Medical History: Noncontributory - Tobacco Use Smoking Status *Q: Never Smoker - Caffeine Use Caffeine Use: Reports: Coffee Other Caffeine Use: occassional use Caffeine Use Comment: "very little" - Living Situation & Occupation Living situation: Reports: , with Spouse, with Family (2 granddaughters) Occupation: Retired ED ROS GENERAL - Review of Systems Review Of Systems: See Below Constitutional: Reports: No Symptoms HEENT: Reports: No Symptoms Respiratory: Reports: No Symptoms Cardiovascular: Reports: No Symptoms Endocrine: Reports: No Symptoms GI/Abdominal: Reports: No Symptoms : Reports: No Symptoms Skin: Reports: No Symptoms Neurological: Reports: No Symptoms Psychiatric: Reports: No Symptoms Hematologic/Lymphatic: Reports: No Symptoms Immunologic: Reports: No Symptoms ED EXAM, HEAD INJURY - Physical Exam Exam: See Below Exam Limited By: No Limitations General Appearance: Alert, No Apparent Distress Head: Atraumatic, Normocephalic (He has a few superficial lacerations) Nexus Criteria: No: Posterior, Midline Cervical Tenderness, Evidence of Intoxication, Altered Level of Consciousness, Focal Neurological Deficit, Painful Distraction Injuries Eyes: Bilateral Eye: EOMI, Normal Inspection, PERRL Ears: Normal External Exam, Normal Canal, Hearing Grossly Normal, Normal TMs Nose: Normal Inspection, Normal Mucousa, No Blood Throat/Mouth: Normal Inspection, Normal Lips, Normal Teeth, Normal Gums, Normal Oropharynx, Normal Voice, No Airway Compromise Neck: Non-Tender, Full Range of Motion, Normal Alignment, Normal Inspection Cardiovascular: Normal Peripheral Pulses, No Edema, No Gallop, No JVD, No Murmur , No Rub, Irregularly Irregular GI/Abdominal Exam: Normal Bowel Sounds, Soft, Non-Tender ED LACERATION/WOUND & WINNIE PROC - Laceration/Wound Repair Occipital Head Lac/wound length in cm: 1.2 Appearance: Superficial Anesthetic Type: Local Local Anesthesia - Lidocaine (Xylocaine): 1% Plain Local Anesthetic Volume: 2cc Closed with: Divya # of Sutures: 3 Tetanus Status Addressed: Yes (Updated today) Complications: No Posterior Head Lac/wound length in cm: 1.5 Appearance: Other (Clean curvilinear) Distal NVT: Neuro & Vascular Intact Anesthetic Type: Local Local Anesthesia - Lidocaine (Xylocaine): 1% Plain Local Anesthetic Volume: 2cc Skin Prep: Saline Exploration/Debridement/Repair: Wound Explored, In a Bloodless Field, Explored to Base Closed with: [place] # of Sutures: 3 Tetanus Status Addressed: Yes (Updated today) Complications: No Course - Vital Signs Last Recorded V/S: Last Vital Signs Temp Pulse 64 07/03/19 22:38 Resp 18 07/03/19 22:38 BP 83/50 L 07/03/19 22:38 Pulse Ox 96 07/03/19 22:38 - Orders/Labs/Meds Orders: Active Orders 24 hr Category Date Time Status EKG Documentation Completion [RC] STAT Care 07/03/19 22:56 Active Head wo Cont [CT] Stat Exams 07/03/19 22:57 Taken Lactated Ringers [Ringers, Lactated] 1,000 ml Med 07/03/19 23:15 Active IV ASDIRECTED Medication Orders Lactated Ringer's (Ringers, Lactated) 1,000 mls @ 150 mls/hr IV ASDIRECTED KM Last Admin: 07/03/19 23:17 Dose: 150 mls/hr Labs: Laboratory Tests 07/03/19 07/03/19 07/03/19 Range/Units 23:09 23:09 23:09 WBC 2.70 L (4.23-9.07) K/mm3 RBC 3.64 L (4.63-6.08) M/mm3 Hgb 10.9 L (13.7-17.5) gm/L Hct 33.1 L (40.1-51.0) % MCV 90.9 (79.0-92.2) fl MCH 29.9 (25.7-32.2) pg MCHC 32.9 (32.2-35.5) g/dl RDW Std Deviation 49.0 H (35.1-43.9) fL Plt Count 82 L (163-337) K/mm3 MPV 10.8 (9.4-12.3) fl Neutrophils % (Manual) 73 H (40-60) % Band Neutrophils % 0 (0-10) % Lymphocytes % (Manual) 18 L (20-40) % Atypical Lymphs % 0 % Monocytes % (Manual) 8 (2-10) % Eosinophils % (Manual) 1 (0.8-7.0) % Basophils % (Manual) 0 L (0.2-1.2) Platelet Estimate Marked dec Plt Morphology Comment Normal Poikilocytosis 1+ slight RBC Morph Comment Not Reportable PT 18.0 H (9.7-12.0) SECONDS INR 1.70 Sodium 132 L (136-145) mEq/L Potassium 4.9 (3.5-5.1) mEq/L Chloride 102 (98-107) mEq/L Carbon Dioxide 19 L D (21-32) mEq/L Anion Gap 15.9 H (5-15) BUN 122 H D (7-18) mg/dL Creatinine 2.5 H (0.7-1.3) mg/dL Est Cr Clr Drug Dosing 30.60 mL/min Estimated GFR (MDRD) 25 (>60) mL/min BUN/Creatinine Ratio 48.8 H (14-18) Glucose 124 H (83-115) mg/dL Calcium 7.8 L (8.5-10.1) mg/dL Total Bilirubin 0.4 (0.2-1.0) mg/dL AST 24 (15-37) U/L ALT 47 (16-63) U/L Alkaline Phosphatase 72 (46-116) U/L Troponin I (0.00-0.056) ng/mL Total Protein 7.2 (6.4-8.2) g/dl Albumin 3.1 L (3.4-5.0) g/dl Globulin 4.1 gm/dL Albumin/Globulin Ratio 0.8 L (1-2) // Range/Units 23:09 WBC (4.23-9.07) K/mm3 RBC (4.63-6.08) M/mm3 Hgb (13.7-17.5) gm/L Hct (40.1-51.0) % MCV (79.0-92.2) fl MCH (25.7-32.2) pg MCHC (32.2-35.5) g/dl RDW Std Deviation (35.1-43.9) fL Plt Count (163-337) K/mm3 MPV (9.4-12.3) fl Neutrophils % (Manual) (40-60) % Band Neutrophils % (0-10) % Lymphocytes % (Manual) (20-40) % Atypical Lymphs % % Monocytes % (Manual) (2-10) % Eosinophils % (Manual) (0.8-7.0) % Basophils % (Manual) (0.2-1.2) Platelet Estimate Plt Morphology Comment Poikilocytosis RBC Morph Comment PT (9.7-12.0) SECONDS INR Sodium (136-145) mEq/L Potassium (3.5-5.1) mEq/L Chloride (98-107) mEq/L Carbon Dioxide (21-32) mEq/L Anion Gap (5-15) BUN (7-18) mg/dL Creatinine (0.7-1.3) mg/dL Est Cr Clr Drug Dosing mL/min Estimated GFR (MDRD) (>60) mL/min BUN/Creatinine Ratio (14-18) Glucose (83-115) mg/dL Calcium (8.5-10.1) mg/dL Total Bilirubin (0.2-1.0) mg/dL AST (15-37) U/L ALT (16-63) U/L Alkaline Phosphatase (46-116) U/L Troponin I 0.036 (0.00-0.056) ng/mL Total Protein (6.4-8.2) g/dl Albumin (3.4-5.0) g/dl Globulin gm/dL Albumin/Globulin Ratio (1-2) Meds: Medications Generic Name Dose Route Start Last Admin Trade Name Freq PRN Reason Stop Dose Admin Lactated Ringer's 1,000 mls @ 150 mls/hr 07/03/19 23:15 07/03/19 23:17 Ringers, Lactated IV 150 mls/hr ASDIRECTED KM Administration Discontinued Medications Generic Name Dose Route Start Last Admin Trade Name Freq PRN Reason Stop Dose Admin Lidocaine HCl 5 ml 07/04/19 00:40 Xylocaine-Mpf 1% INJECT 07/04/19 00:41 ONETIME ONE Lidocaine HCl 10 ml 07/04/19 00:43 07/04/19 00:45 Xylocaine 1% INJECT 07/04/19 00:44 10 ml ONETIME ONE Administration Lidocaine HCl Confirm 07/04/19 00:42 Xylocaine 1% Administered 07/04/19 00:43 Dose 10 ml .ROUTE .STK-MED ONE - Re-Assessments/Exams Free Text/Narrative Re-Assessment/Exam: 07/04/19 00:56 A she did well in the emergency room labs were obtained of concern is BUNs 122 creatinine 2.5. In the setting of fairly low blood pressure I recommended he decrease his Lasix from 40 mg a day to 20 mg a day and his spironolactone from 50 mg a day to 25 mg a day this is getting very close clinical follow-up. Patient tolerated repair of the scalp lacerations that needed repair. Head CT was unremarkable for acute changes. Departure - Departure Time of Disposition: 00:58 Disposition: Home, Self-Care 01 Clinical Impression: Head injury, Occipital scalp laceration, Hypotension, Prerenal azotemia - Discharge Information Referrals: Flor Bronson MD [Primary Care Provider] - Forms: ED Department Discharge Additional Instructions: Return to the emergency room with any questions problems worsening symptoms. Follow-up with Dr. Bronson at the end of this week or the first part of next week for repeat check your blood pressure and adjustment your medications. Your INR is a little sub-therapeutic take an extra 2.5 mg of your Coumadin when he gets home tonight. Decrease your spironolactone and furosemide to half doses. Staple removal in 10 days. Keep clean and dry for the next 72 hours - My Orders Last 24 Hours: My Active Orders 07/03/19 22:56 EKG Documentation Completion [RC] STAT 07/03/19 22:57 Head wo Cont [CT] Stat 07/03/19 23:15 Lactated Ringers [Ringers, Lactated] 1,000 ml IV ASDIRECTED - Assessment/Plan Last 24 Hours: My Active Orders 07/03/19 22:56 EKG Documentation Completion [RC] STAT 07/03/19 22:57 Head wo Cont [CT] Stat 07/03/19 23:15 Lactated Ringers [Ringers, Lactated] 1,000 ml IV ASDIRECTED
[2019-07-03] MEDS ORDERED: Lactated Ringers 1,000 ML IV SCH (23:15)
[2019-07-04] MEDS ORDERED: Lidocaine 1% 10 ML MDV ONE (00:42)
[2019-07-04] MEDS ORDERED: Lidocaine 1% 10 ML MDV INJECT ONE (00:43)
[2019-07-04] MEDS ORDERED: Diphtheria,Pertussis(Acell),Tetanus Vaccine 0.5 ML SDV IM ONE (00:57)
--- NOTE | 2019-07-04 08:23 | CT ---
Head CT Technique: Multiple axial sections through the brain were obtained. Intravenous contrast was not utilized. Comparison: Prior head CT exam of 11/09/10. Findings: Ventricles along with basal cisterns and sulci over the convexities are mildly prominent. Basal ganglia calcification is seen. Old white matter infarcts are seen on both sides. Old infarct noted is within the left parietal region. No other abnormal parenchymal densities are seen. No evidence of intracranial hemorrhage. No midline shift or mass effect is seen. Atherosclerotic calcification seen within the carotid siphon and within the vertebral vessels. Bone window settings were reviewed which show no acute calvarial abnormality. Visualized paranasal sinuses and mastoid sinuses are clear. Minimal soft tissue density seen posteriorly within the scalp with a small amount of air compatible with scalp injury. Impression: 1. Minimal scalp injury. 2. Senescent change as noted above. 3. Nothing acute is appreciated on noncontrast head CT exam. Diagnostic code #2 I agree with preliminary report from [facility], finalized on 07/04/19, 12:56 AM Central Time
== END 2019-07-04 01:30 | disposition home or self-care (01) ==
LOC: JD.ED 22:29
DX: S01.01XA Laceration without foreign body of scalp, initial encounter (principal); S09.90XA Unspecified injury of head, initial encounter; I95.9 Hypotension, unspecified; R79.89 Other specified abnormal findings of blood chemistry; I13.0 Hypertensive heart and chronic kidney disease with heart failure and stage 1 through stage 4 chronic kidney disease, or unspecified chronic kidney disease; N18.9 Chronic kidney disease, unspecified; I48.91 Unspecified atrial fibrillation; E78.00 Pure hypercholesterolemia, unspecified; I25.2 Old myocardial infarction; E11.22 Type 2 diabetes mellitus with diabetic chronic kidney disease; I50.9 Heart failure, unspecified; Z23 Encounter for immunization; Z88.1 Allergy status to other antibiotic agents; Z88.6 Allergy status to analgesic agent; Z88.8 Allergy status to other drugs, medicaments and biological substances; Z79.82 Long term (current) use of aspirin; Z79.899 Other long term (current) drug therapy; Z79.01 Long term (current) use of anticoagulants; Z86.718 Personal history of other venous thrombosis and embolism; W01.198A Fall on same level from slipping, tripping and stumbling with subsequent striking against other object, initial encounter
CPT/HCPCS: 12002; 36415; 70450; 80053; 84484; 85007; 85027; 85610; 90471; 90715; 93005; 99284; J2001; J7120; 12001; 99283

== ENCOUNTER 2019-07-13 17:56 | Emergency (ER) | payer BC, MEDICARE | END 2019-07-13 18:10 | disposition home or self-care (01) | LOC: JD.ED 17:56 | DX: S01.01XD Laceration without foreign body of scalp, subsequent encounter (principal); W10.9XXD Fall (on) (from) unspecified stairs and steps, subsequent encounter ==

== ENCOUNTER 2019-07-23 07:22 | Emergency (ER) | payer BC, MEDICARE ==
[2019-07-23 08:07] VITALS: BP 111/62; PULSE 81
[2019-07-23] MEDS ORDERED: predniSONE 20 MG Tab PO ONE (08:18)
[2019-07-23] MEDS ORDERED: Acetaminophen/oxyCODONE 325-5 MG Tab PO ONE (08:19)
--- NOTE | 2019-07-23 08:28 | EDM.PDOC ---
ED HPI GENERAL MEDICAL PROBLEM - General Chief Complaint: Upper Extremity Injury/Pain Stated Complaint: L HAND AND ARM PAIN Time Seen by Provider: 07/23/19 08:02 Source of Information: Reports: Patient History Limitations: Reports: No Limitations - History of Present Illness INITIAL COMMENTS - FREE TEXT/NARRATIVE: 73-year-old male presents to the ED for evaluation primarily of severe pain left wrist. Patient has a history of gouty arthritis. He was taken off his Uloric about 2 months ago and his colchicine was discontinued 2 weeks ago. He was taking this on a daily basis for prevention of gout. is allergic to multiple NSAIDs. Has a history of recurrent gouty arthritis. States the night before last he was having increased pain in all of his joints but it seems to have settled in his left wrist overnight. It is rated as 10 out of 10. He took a Tylenol earlier this morning and it seems to be helping a little bit. He does not have a history of diabetes. 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 He has a titanium kim from hip to ankle and is fused.) Quality: Reports: Ache, Throbbing Severity: Severe (8 out of 10 left wrist) Improves with: Reports: Rest Worsens with: Reports: Movement Context: Denies: Activity, Exercise, Lifting, Sick Contact, Trauma, Other Associated Symptoms: Reports: Loss of Appetite, Malaise. Denies: No Other Symptoms, Confusion, Chest Pain, Cough, cough w sputum, Diaphoresis, Fever/ Chills, Headaches, Nausea/Vomiting, Rash, Seizure, Shortness of Breath, Syncope Treatments WRITER EDITOR: Reports: Acetaminophen Left Wrist Pain Score (Numeric/FACES): 10 - Related Data Allergies Allergy/AdvReac Type Severity Reaction Status Date / Time allopurinol Allergy Rash Verified 07/23/19 08:08 cefazolin Allergy Hives Verified 07/23/19 08:08 celecoxib Allergy Rash Verified 07/23/19 08:08 clindamycin Allergy Hives Verified 07/23/19 08:08 ibuprofen Allergy Rash Verified 07/23/19 08:08 NSAIDS (Non-Steroidal Allergy Rash Verified 07/23/19 08:08 Anti-Inflamma oxaprozin Allergy Rash Verified 07/23/19 08:08 vancomycin Allergy Hives Verified 07/23/19 08:08 Home Meds: Home Meds Aspirin [Halfprin] 81 mg PO DAILY 12/19/14 [History] Carvedilol 25 mg PO BID 12/19/14 [History] Colchicine [Colcrys] 0.6 mg PO BEDTIME 12/19/14 [History] Furosemide 80 mg PO QAM 12/19/14 [History] Nitroglycerin [Nitrostat] 0.4 mg SL ASDIRECTED PRN 12/19/14 [History] amLODIPine [Norvasc] 5 mg PO DAILY 12/19/14 [History] atorvaSTATin [Lipitor] 20 mg PO BEDTIME 12/19/14 [History] Furosemide [Lasix] 40 mg PO BEDTIME 01/22/17 [History] Warfarin [Coumadin] 2.5 mg PO MOWEFR 01/23/17 [History] Warfarin [Coumadin] 5 mg PO SUTUTHSA 01/23/17 [History] Fluticasone/Salmeterol [Advair Diskus 250-50] 1 puff INH BID 07/24/17 [History] Albuterol Sulfate [Proair Respiclick] 2 puff INH Q6H PRN 10/29/18 [History] Levothyroxine 25 mcg PO ACBREAKFAST 10/29/18 [History] guaiFENesin [Mucinex] 1 tab PO Q12H PRN 10/29/18 [History] Furosemide 40 mg PO 1200 04/12/19 [History] Multivit-Minerals/Folic Acid [Centrum Multigummies] 2 tab PO DAILY 04/12/19 [ History] Spironolactone [Aldactone] 50 mg PO DAILY #40 tablet 04/19/19 [Rx] Allopurinol [Zyloprim] 200 mg PO DAILY #60 tab 07/23/19 [Rx] oxyCODONE HCl/Acetaminophen [Percocet 5-325 mg Tablet] 1 - 2 each PO Q4H PRN # 16 tablet 07/23/19 [Rx] predniSONE [Deltasone] 20 mg PO ASDIRECTED #15 tablet 07/23/19 [Rx] Past Medical History HEENT History: Reports: Hard of Hearing, Other (See Below) Other HEENT History: Wears bilat hearing aides, glasses, dentures full to upper and partial to lower. Pt compalins of faint ringing to ears, majority of the time Cardiovascular History: Reports: Afib, Aneurysm, Blood Clots/VTE/DVT (On Coumadin because of this.), CAD, Heart Failure, High Cholesterol, Hypertension, [place] Other Cardiovascular History: Bypass in 1999 with 5 bypass. Stent in 2013, FL in 2013, Respiratory History: Reports: PE Other Respiratory History: previous blood clots in lungs 2002; no current problems Gastrointestinal History: Reports: GERD Other Gastrointestinal History: Acid reflux PRN Genitourinary History: Reports: BPH, Chronic Renal Insuffiency Musculoskeletal History: Reports: Arthritis, Gout Neurological History: Reports: CVA Other Neuro History: CVA in 2013 Psychiatric History: Reports: Anxiety, Depression Endocrine/Metabolic History: Reports: Diabetes, Type II, Obesity/BMI 30+ Other Endocrine/Metabolic History: not taking any medication or insulin Hematologic History: Reports: Other (See Below) Dermatologic History: Reports: Cellulitis - Infectious Disease History Infectious Disease History: Reports: Other (See Below) Other Infectious Disease History: Staph infection to right knee - Past Surgical History HEENT Surgical History: Reports: Tonsillectomy Cardiovascular Surgical History: Reports: AICD, Coronary Artery Bypass, Coronary Artery Stent Musculoskeletal Surgical History: Reports: Knee Replacement, Other (See Below) Social & Family History - Family History Family Medical History: Noncontributory - Tobacco Use Smoking Status *Q: Never Smoker Second Hand Smoke Exposure: No - Caffeine Use Caffeine Use: Reports: Coffee Other Caffeine Use: occassional use Caffeine Use Comment: "very little" - Recreational Drug Use Recreational Drug Use: No - Living Situation & Occupation Living situation: Reports: , with Spouse, with Family (2 granddaughters) Occupation: Retired Review of Systems - Review of Systems Review Of Systems: See Below Constitutional: Denies: Chills, Diaphoresis, Fever, Weakness, Other Eyes: Reports: No Symptoms Ears: Reports: No Symptoms Nose: Reports: No Symptoms Mouth/Throat: Reports: No Symptoms Respiratory: Reports: No Symptoms Cardiovascular: Reports: Other (History of hypertension atrial fibrillation) ED EXAM, GENERAL - Physical Exam Exam: See Below Exam Limited By: No Limitations General Appearance: Alert, WD/WN, Mild Distress Eye Exam: Bilateral Eye: Normal Inspection Throat/Mouth: Normal Inspection, Normal Lips, Normal Oropharynx. No: Normal Teeth Head: Atraumatic, Normocephalic Neck: Normal Inspection, Supple, Non-Tender, Full Range of Motion. No: Lymphadenopathy (L), Lymphadenopathy (R) Respiratory/Chest: No Respiratory Distress, Lungs Clear, Normal Breath Sounds, No Accessory Muscle Use Cardiovascular: Regular Rate, Rhythm, No Gallop, No Murmur, No Rub. No: No Edema Peripheral Pulses: 0: Posterior Tibial (L) (No pulses are palpable in his lower extremities due to chronic pitting edema both lower extremities.), Posterior Tibial (R), Dorsalis Pedis (L), Dorsalis Pedis (R) GI/Abdominal: Normal Bowel Sounds, Soft, Non-Tender, No Organomegaly Extremities: Other (Patient is very limited range of motion i.e. abduction and abduction flexion or extension of his left wrist and there is marked swelling of the dorsal aspect of the left wrist. This is increased warmth and markedly tender to touch. Very slightly erythematous. There are right wrist is within normal limits. [place] is in a wheelchair. He's had multiple surgeries to his right knee area and apparently the leg is always in the extended position due to titanium kim from hip to ankle due to failed total knee replacement 3.) Neurological: Alert, Oriented, CN II-XII Intact, Normal Cognition Psychiatric: Normal Affect, Normal Mood Skin Exam: Warm, Dry, Intact, Normal Color, No Rash Course - Vital Signs Last Recorded V/S: Last Vital Signs Temp 36.4 C 07/23/19 08:04 Pulse 81 07/23/19 08:04 Resp 16 07/23/19 08:04 BP 111/62 07/23/19 08:04 Pulse Ox 96 07/23/19 08:04 - Orders/Labs/Meds Labs: Laboratory Tests 07/23/19 07/23/19 07/23/19 Range/Units 08:31 08:31 08:31 WBC 3.47 L (4.23-9.07) K/mm3 RBC 3.36 L (4.63-6.08) M/mm3 Hgb 10.2 L (13.7-17.5) gm/dl Hct 31.4 L (40.1-51.0) % MCV 93.5 H (79.0-92.2) fl MCH 30.4 (25.7-32.2) pg MCHC 32.5 (32.2-35.5) g/dl RDW Std Deviation 50.4 H (35.1-43.9) fL Plt Count 69 L (163-337) K/mm3 MPV 10.3 (9.4-12.3) fl Neut % (Auto) 75.8 H (34.0-67.9) % Lymph % (Auto) 6.9 L (21.8-53.1) % Vernon % (Auto) 15.3 H (5.3-12.2) % Eos % (Auto) 1.7 (0.8-7.0) Baso % (Auto) 0.0 L (0.1-1.2) % Neut # (Auto) 2.63 (1.78-5.38) K/mm3 Lymph # (Auto) 0.24 L (1.32-3.57) K/mm3 Vernon # (Auto) 0.53 (0.30-0.82) K/mm3 Eos # (Auto) 0.06 (0.04-0.54) K/mm3 Baso # (Auto) 0.00 L (0.01-0.08) K/mm3 Manual Slide Review Abnormal smear PT 23.5 H D (9.7-12.0) SECONDS INR 2.26 Sodium 136 (136-145) mEq/L Potassium 3.9 (3.5-5.1) mEq/L Chloride 106 (98-107) mEq/L Carbon Dioxide 20 L (21-32) mEq/L Anion Gap 13.9 (5-15) BUN 76 H D (7-18) mg/dL Creatinine 1.8 H (0.7-1.3) mg/dL Est Cr Clr Drug Dosing 42.50 mL/min Estimated GFR (MDRD) 37 (>60) mL/min BUN/Creatinine Ratio 42.2 H (14-18) Glucose 99 (83-115) mg/dL Uric Acid 11.9 H (3.5-7.2) mg/dL Calcium 8.4 L (8.5-10.1) mg/dL Total Bilirubin 0.6 (0.2-1.0) mg/dL AST 17 (15-37) U/L ALT 34 (16-63) U/L Alkaline Phosphatase 89 (46-116) U/L Total Protein 6.6 (6.4-8.2) g/dl Albumin 2.7 L (3.4-5.0) g/dl Globulin 3.9 gm/dL Albumin/Globulin Ratio 0.7 L (1-2) Meds: Medications Discontinued Medications Generic Name Dose Route Start Last Admin Trade Name Katelynn PRN Reason Stop Dose Admin Colchicine 0.6 mg 07/23/19 08:30 07/23/19 09:57 Colcrys PO 07/23/19 10:31 0.6 mg Q1H KM Administration Oxycodone/Acetaminophen 1 tab 07/23/19 08:19 07/23/19 08:53 Percocet 325-5 Mg PO 07/23/19 08:20 1 tab ONETIME ONE Administration Prednisone 30 mg 07/23/19 08:18 07/23/19 08:50 Prednisone PO 07/23/19 08:19 30 mg ONETIME ONE Administration - Radiology Interpretation Free Text/Narrative:: 73-year-old male presents to the ED with acute onset of pain and swelling left wrist starting last evening. Has a history of gout. He's been taken off his uloric about 2 months ago and colchicine 0.6 mg once daily for prevention of gout about 2 weeks ago. Clinically he suffering acute gout flare of his left wrist. He will be given prednisone 30 mg by mouth Percocet 5/325 mg 1 tablet by mouth now as he took Tylenol earlier this morning. Colchicine will be given 0.6 mg 1 every hour for 3 consecutive hours. Routine labs to be collected including his PT/INR. Uric acid will also be measured. - Re-Assessments/Exams Free Text/Narrative Re-Assessment/Exam: 07/23/19 09:11 Labs reveal a normal white count at 3.47 actually mild leukopenia. [place] shows shows 75.8% neutrophils no and cells noted on the slide review. Hemoglobin slightly low at 10.2 with hematocrit of 31.4. Platelet count is low at 69,000. Sodium 136 with a potassium of 3.9. Chloride 106 and a bicarbonate of 20. Anion gap is 13.9. BUN is 76 with a creatinine of 1.8. He appears to be moderately dehydrated. GFR is 37 with a BUN/creatinine ratio markedly elevated at 42.2. Glucose is 99. Uric acid is markedly elevated at 11.9. Therefore he likely has an interstitial nephritis from markedly elevated uric acid. Calcium is 8.4 liver function is normal. 07/23/19 09:23 PT is 23.5 with an INR of 2.26. Patient advised about the findings. He definitely state go on a uric acid lowering agents and he believes allopurinol did work for him in the past. He developed a rash while he was on vancomycin and the allopurinol was discontinued that time. Plan will be to place him on prednisone 20 mg twice a day for 5 days then 20 mg once daily in the morning for another 5 days since he cannot take NSAIDs. Percocet tabs 5-25 mg one or 2 every 4-6 hours needed for pain relief --16 tablet provided. He will finish his first 3 doses of colchicine only one every hour for 3 consecutive hours. [address]'ll place him on back on allopurinol starting at 200 mg a day and then he can follow up with Dr. Bronson in clinic for kidney function 10 days to 12 days after he started the allopurinol make sure it has not affected renal function it will take at least 6-8 weeks to make a difference in his uric acid level and he will likely need between 300 mg daily to bring it back under 5.0. To prevent not only gout reoccurrence but interstitial nephritis. You can not start allopurinol for about 10 days. The gout has to be completely eradicated for several days before you start the allopurinol otherwise a little flared up again. Departure - Departure Time of Disposition: 09:37 Disposition: Home, Self-Care 01 Condition: Fair Clinical Impression: Acute gouty arthritis, Left wrist pain - Discharge Information *PRESCRIPTION DRUG MONITORING PROGRAM REVIEWED*: Not Applicable *COPY OF PRESCRIPTION DRUG MONITORING REPORT IN PATIENT CARL: Not Applicable Prescriptions: Allopurinol [Zyloprim] 200 mg PO DAILY #60 tab oxyCODONE HCl/Acetaminophen [Percocet 5-325 mg Tablet] 1 - 2 each PO Q4H PRN # 16 tablet PRN Reason: pain relief. predniSONE [Deltasone] 20 mg PO ASDIRECTED #15 tablet Instructions: Low-Purine Eating Plan, Gout Referrals: Flor Bronson MD [Primary Care Provider] - Forms: ED Department Discharge Additional Instructions: Evaluation the emergency room today in regards to acute gouty arthritis development in your left wrist. This will be treated with Deltasone 20 mg twice daily for 5 days with breakfast and supper next dose is due at suppertime his first dose was provided in the ED today. You also received first and second doses of colchicine while in the ED in the third dose is to be taken at 10:30 this morning. Pain medication Percocet 5/3/25 milligrams one or 2 every 4-6 hours needed for pain relief until the anti-inflammatories work well usually 48 hours. You're uric acid in your bloodstream was elevated at 11.9 and therefore the dangers high uric acid levels are potential damage to your kidneys called interstitial nephritis. He will need to start allopurinol 200 mg once daily in 10 days' time. Note allopurinol can interfere with her Coumadin time and cause it to elevate. And in time should be checked 5 days after you start the allopurinol to make sure that it does not go too high on this medication. Kidney function needs to be checked in about 2 weeks after you start the allopurinol gas and level will have to be rechecked in about 6 weeks' time to see what its value is. Our goal would be to lower below 6.0. These follow-up with Dr. Bronson for the above tests.
[2019-07-23] MEDS: Colchicine 0.6 MG Tab PO SCH ×3 (08:52→09:57)
== END 2019-07-23 10:00 | disposition home or self-care (01) ==
LOC: JD.ED 07:22
DX: M25.532 Pain in left wrist (principal); M10.9 Gout, unspecified; I13.0 Hypertensive heart and chronic kidney disease with heart failure and stage 1 through stage 4 chronic kidney disease, or unspecified chronic kidney disease; E11.22 Type 2 diabetes mellitus with diabetic chronic kidney disease; N18.9 Chronic kidney disease, unspecified; I50.9 Heart failure, unspecified; I48.91 Unspecified atrial fibrillation; I25.10 Atherosclerotic heart disease of native coronary artery without angina pectoris; E78.00 Pure hypercholesterolemia, unspecified; I25.2 Old myocardial infarction; E66.9 Obesity, unspecified; Z68.28 Body mass index [BMI] 28.0-28.9, adult; Z86.718 Personal history of other venous thrombosis and embolism; Z86.711 Personal history of pulmonary embolism; Z88.8 Allergy status to other drugs, medicaments and biological substances; Z88.1 Allergy status to other antibiotic agents; Z79.82 Long term (current) use of aspirin; Z79.899 Other long term (current) drug therapy
CPT/HCPCS: 36415; 80053; 84550; 85025; 85610; 99283; A9270

== ENCOUNTER 2019-08-07 00:44 | Emergency (ER) | payer BC, MEDICARE ==
[2019-08-07 01:04] VITALS: BP 108/52; PULSE 79
[2019-08-07] MEDS ORDERED: Sodium Chloride 0.9% 10 ML Syringe FLUSH PRN (01:57)
[2019-08-07] MEDS ORDERED: HYDROmorphone 1 MG/ML Syringe IVPUSH ONE (01:57)
[2019-08-07] MEDS ORDERED: Ondansetron 4 MG/2 ML SDV IVPUSH ONE (01:58)
--- NOTE | 2019-08-07 01:59 | EDM.PDOC ---
ED HPI GENERAL MEDICAL PROBLEM - General Chief Complaint: General Stated Complaint: UNABLE TO PUT FEET ON THE FLOOR/CAN'T HARDLY MOVE Time Seen by Provider: 08/07/19 01:53 Source of Information: Reports: Patient History Limitations: Reports: No Limitations - History of Present Illness INITIAL COMMENTS - FREE TEXT/NARRATIVE: 73-year-old male presents the ED in a motorized wheelchair which she is confined 2. Patient states that over the last several days he's developed intolerable pain in all of his joints particularly ribs right shoulder and his left wrist. He feels like he has gout attack over in his body. He states all of his joints hurt 80s and major pain unable to sleep. Can hardly put his feet on the floor due to pain in his ankles. Reports a 48 pound weight gain over the last month. States last tenderness to the Dr. his Lasix was increased from 80 mg in the morning and 40 in the afternoon to 80 and 80 mg twice daily. He was also placed back on allopurinol. Of note this is listed as a medication he is allergic to. Apparently his uric acid must been very high. Patient is in a wheelchair since 2013 when he suffered a cerebrovascular accident. Has known severe coronary artery disease and congestive heart failure. He still states that he is voiding adequately. He states his right lower leg is wrapped tightly because it's oozing serous fluid from venous stasis dermatitis and severe dependent edema. He denies having any fever or chills. Onset: Gradual Onset Date: 08/04/19 (Probably gradually worsening joint pain over the last 56 days.) Duration: Day(s):, Constant, Getting Worse Location: Reports: Generalized (Severe pain generalized. Worse if he attempts to move his right shoulder or left wrist in any fashion are formed. But both of his ankles hurt his knees hurt his back hurts both shoulders and ) Quality: Reports: Ache (and elbows and wrists.), Throbbing Severity: Severe (10 out of 10) Improves with: Reports: None Worsens with: Reports: Movement Context: Denies: Activity (Any movement of his joints causes severe overwhelming pain.), Exercise, Lifting, Sick Contact Associated Symptoms: Reports: Cough, Malaise, Shortness of Breath, Weakness ( Weakness in his lower extreme is caused by the pain.). 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 Also states that allopurinol was reintroduced about 10 days ago. This is not on his med list.) - Related Data Allergies Allergy/AdvReac Type Severity Reaction Status Date / Time allopurinol Allergy Rash Verified 07/23/19 08:08 cefazolin Allergy Hives Verified 07/23/19 08:08 celecoxib Allergy Rash Verified 07/23/19 08:08 clindamycin Allergy Hives Verified 07/23/19 08:08 ibuprofen Allergy Rash Verified 07/23/19 08:08 NSAIDS (Non-Steroidal Allergy Rash Verified 07/23/19 08:08 Anti-Inflamma oxaprozin Allergy Rash Verified 07/23/19 08:08 vancomycin Allergy Hives Verified 07/23/19 08:08 Home Meds: Home Meds Aspirin [Halfprin] 81 mg PO DAILY 12/19/14 [History] Carvedilol 25 mg PO BID 12/19/14 [History] Furosemide 80 mg PO BID 12/19/14 [History] Nitroglycerin [Nitrostat] 0.4 mg SL ASDIRECTED PRN 12/19/14 [History] atorvaSTATin [Lipitor] 20 mg PO BEDTIME 12/19/14 [History] Warfarin [Coumadin] 2.5 mg PO MOWEFR 01/23/17 [History] Warfarin [Coumadin] 5 mg PO DAILY 01/23/17 [History] Fluticasone/Salmeterol [Advair Diskus 250-50] 1 puff INH BID 07/24/17 [History] Levothyroxine 25 mcg PO ACBREAKFAST 10/29/18 [History] Multivit-Minerals/Folic Acid [Centrum Multigummies] 2 tab PO DAILY 04/12/19 [ History] oxyCODONE HCl/Acetaminophen [Percocet 5-325 mg Tablet] 1 - 2 each PO Q4H PRN # 16 tablet 07/23/19 [Rx] Potassium Chloride 10 meq PO DAILY 08/07/19 [History] Sacubitril/Valsartan [Entresto 24 mg-26 mg Tablet] 1 tab PO BID 08/07/19 [ History] Sertraline [Zoloft] 50 mg PO DAILY 08/07/19 [History] metOLazone [Zaroxolyn] 2.5 mg PO DAILY 08/07/19 [History] Past Medical History HEENT History: Reports: Hard of Hearing, Other (See Below) Other HEENT History: Wears bilat hearing aides, glasses, dentures full to upper and partial to lower. Pt compalins of faint ringing to ears, majority of the time Cardiovascular History: Reports: Afib (Is on Coumadin because of recurrent blood clots and chronic atrial fib), Aneurysm, Blood Clots/VTE/DVT, CAD, Heart Failure, High Cholesterol, Hypertension, CA, Pacemaker Other Cardiovascular History: Bypass in 1999 with 5 bypass. Stent in 2013, CA in 2013, Respiratory History: Reports: PE Other Respiratory History: previous blood clots in lungs 2002; no current problems Gastrointestinal History: Reports: GERD Other Gastrointestinal History: Acid reflux PRN Genitourinary History: Reports: BPH, Chronic Renal Insuffiency Musculoskeletal History: Reports: Arthritis, Gout Neurological History: Reports: CVA Other Neuro History: CVA in 2014--he states he had troubles with writing numbers and with his writing and some left arm clumsiness and weakness from the stroke. Psychiatric History: Reports: Anxiety, Depression Endocrine/Metabolic History: Reports: Diabetes, Type II, Obesity/BMI 30+ Other Endocrine/Metabolic History: not taking any medication or insulin Hematologic History: Reports: Other (See Below) Dermatologic History: Reports: Cellulitis - Infectious Disease History Infectious Disease History: Reports: Other (See Below) Other Infectious Disease History: Staph infection to right knee - Past Surgical History HEENT Surgical History: Reports: Tonsillectomy Cardiovascular Surgical History: Reports: AICD, Coronary Artery Bypass, Coronary Artery Stent Musculoskeletal Surgical History: Reports: Knee Replacement, Other (See Below) Social & Family History - Family History Family Medical History: Noncontributory - Tobacco Use Smoking Status *Q: Unknown Ever Smoked - Caffeine Use Caffeine Use: Reports: Coffee Other Caffeine Use: occassional use Caffeine Use Comment: "very little" - Living Situation & Occupation Living situation: Reports: , with Spouse, with Family (2 granddaughters) Occupation: Retired ED ROS GENERAL - Review of Systems Review Of Systems: See Below Constitutional: Reports: Malaise, Weakness, Fatigue. Denies: Fever, Chills HEENT: Reports: No Symptoms (From not being able to sleep.) Respiratory: Reports: Shortness of Breath, Cough. Denies: Wheezing, Pleuritic Chest Pain, Sputum, Hemoptysis (Nonproductive.) Cardiovascular: Reports: Blood Pressure Problem, Dyspnea on Exertion (Chronic severe edema both lower extremities which has been getting worse over the last month.), Edema, Lightheadedness, Orthopnea (Usually runs low.), Palpitations. Denies: Chest Pain, Claudication Endocrine: Reports: Fatigue (Chronic atrial fib.), Other (Has type 2 diabetes.) GI/Abdominal: Reports: Constipation (Occasional problems with constipation.). Denies: Abdominal Pain, Nausea, Vomiting : Reports: Frequency. Denies: Dysuria, Urgency Musculoskeletal: Reports: Joint Pain (Generalized severe musculoskeletal pain. Every joint hurts shoulders elbows wrists hands ankles feet knees back etc.), Muscle Pain Skin: Reports: Bruising ( is covered with bruises both upper extremities. He is on Coumadin chronically.), Other (Currently oozing from dependent edema in his right lower extremity.) Neurological: Reports: Difficulty Walking (Generalized weakness), Weakness. Denies: Confusion, Dizziness, Headache, Numbness, Tingling, Trouble Speaking ( hardly able to walk due to severe pain in his lower extremities.), Change in Speech, Gait Disturbance Psychiatric: Reports: No Symptoms Hematologic/Lymphatic: Reports: No Symptoms Immunologic: Reports: No Symptoms ED EXAM, GENERAL - Physical Exam Exam: See Below Exam Limited By: No Limitations General Appearance: Alert, WD/WN, Moderate Distress, Other (He has a lot of pain. Afebrile atrial fibrillation on the monitor in the 80s. BP 108/52. Respiratory rate is 18 with O2 sats of 92% on room air.) Eye Exam: Bilateral Eye: Normal Inspection Throat/Mouth: Normal Inspection, Normal Oropharynx Head: Atraumatic, Normocephalic, Other Neck: Normal Inspection, Non-Tender, Full Range of Motion, Limited Range of Motion, Tender Lateral. No: Lymphadenopathy (L), Lymphadenopathy (R) Respiratory/Chest: No Respiratory Distress, Decreased Breath Sounds (Decreased breath sounds to the lower 25% of lung rossi bilaterally.). No: Normal Breath Sounds, Respiratory Distress, Rales, Rhonchi, Wheezing Cardiovascular: No Gallop, JVD (To 3 cm below the right ankle of his mandible.) , Irregularly Irregular (Chronic atrial fibrillation controlled rate in the 80s. ), Other Peripheral Pulses: 0: Popliteal (R), Posterior Tibial (L), Posterior Tibial (R) , Dorsalis Pedis (L), Dorsalis Pedis (R) GI/Abdominal: Normal Bowel Sounds, Other (The abdomen is distended and very firm palpation. Dull to percussion. Severe ascites.) (Male) Exam: Other. No: Circumcised (No fluid in the scrotum or penis at this time.) Extremities: Pedal Edema, Limited Range of Motion, Increased Warmth (Patient has increased warmth to many of his joints particularly right shoulder and left wrist both ankles. The left wrist is exquisitely tender to touch compatible with gouty arthritis. He can't abduct or move his right arm or shoulder due to severe pain in the shoulder and elbow is also warm to palpation. Clinically he is presenting like a diffuse gouty arthritis of metal multiple joints.), Other ( Plus pitting edema up past the knees bilaterally into his thighs. Right lower extremity from mid tib-fib down is erythematous and very warm to palpation. It is oozing serous fluid on the medial aspect. Possibly a early cellulitis developing. On the left leg it is grossly edematous and mildly erythematous but not near as warm to palpation as a other side and is not leaking any serous fluid.) Neurological: Alert, Oriented, CN II-XII Intact, Normal Cognition. No: Normal Gait, Inattentive, Confused, Disoriented, Slow to Respond, Unresponsive, Memory Loss Remote Events, Memory Loss Recent Events Psychiatric: Other Skin Exam: Warm, Dry (In a lot of pain.), Other (Losing serous material from chronic edema right lower extremity.) EKG INTERPRETATION EKG Date: 08/07/19 Time: 02:04 Rhythm: A-Fib (With rate of 72-80/m) Rate (Beats/Min): 78 [place]: Normal P-Wave: Absent QRS: Other (There are Q waves in leads 23 and aVF less than 25% of the QRS complex and are considered insignificant.) ST-T: Other (T-wave inversion V1 to be 4. Flattening in V5 and V6. Also inverted in leads 3 and aVF.) QT: Prolonged Course - Vital Signs Last Recorded V/S: Last Vital Signs Temp 36.9 C 08/07/19 01:01 Pulse 79 08/07/19 01:01 Resp 18 08/07/19 01:01 BP 108/52 L 08/07/19 01:01 Pulse Ox 92 L 08/07/19 01:01 - Orders/Labs/Meds Orders: Active Orders 24 hr Category Date Time Status EKG Documentation Completion [RC] STAT Care 08/07/19 01:56 Active Oxygen Therapy [RC] ASDIRECTED Care 08/07/19 02:29 Active Peripheral IV Care [RC] . DIRECTED Care 08/07/19 01:57 Active Chest 1V Frontal [CR] Stat Exams 08/07/19 01:54 Taken CULTURE BLOOD [BC] Stat Lab 08/07/19 03:25 Received CULTURE BLOOD [BC] Stat Lab 08/07/19 03:35 Received URINALYSIS W/MICROSCOPIC [UA W/MICROSCOPIC] [URIN] Stat Lab 08/07/19 01:54 Ordered Blood Culture x2 Reflex Set [OM.PC] Stat Oth 08/07/19 03:16 Ordered Peripheral IV Insertion Adult [OM.PC] Stat Oth 08/07/19 01:57 Ordered Labs: Laboratory Tests 08/07/19 08/07/19 08/07/19 Range/Units 02:00 02:00 02:00 WBC 6.26 (4.23-9.07) K/mm3 RBC 3.14 L (4.63-6.08) M/mm3 Hgb 9.9 L (13.7-17.5) gm/dl Hct 29.7 L (40.1-51.0) % MCV 94.6 H (79.0-92.2) fl MCH 31.5 (25.7-32.2) pg MCHC 33.3 (32.2-35.5) g/dl RDW Std Deviation 56.0 H (35.1-43.9) fL Plt Count 68 L (163-337) K/mm3 MPV 11.5 (9.4-12.3) fl Neutrophils % (Manual) 73 H (40-60) % Band Neutrophils % 13 H (0-10) % Lymphocytes % (Manual) 1 L (20-40) % Atypical Lymphs % 0 % Monocytes % (Manual) 12 H (2-10) % Eosinophils % (Manual) 1 (0.8-7.0) % Basophils % (Manual) 0 L (0.2-1.2) Toxic Granulation 1+ slight Platelet Estimate Marked dec Plt Morphology Comment Normal Anisocytosis 2+ Macrocytosis 1+ slight Tear Drop Cells 1+ slight Ovalocytes 2+ moderate RBC Morph Comment Not Reportable ESR (0-15) mm/hr PT 32.9 H D (9.7-12.0) SECONDS INR 3.23 APTT 64 H (22-31) SECONDS Sodium 139 (136-145) mEq/L Potassium 3.5 (3.5-5.1) mEq/L Chloride 108 H (98-107) mEq/L Carbon Dioxide 23 (21-32) mEq/L Anion Gap 11.5 (5-15) BUN 104 H D (7-18) mg/dL Creatinine 2.3 H (0.7-1.3) mg/dL Est Cr Clr Drug Dosing TNP Estimated GFR (MDRD) 28 (>60) mL/min BUN/Creatinine Ratio 45.2 H (14-18) Glucose 121 H (83-115) mg/dL Lactic Acid (0.4-2.0) mmol/L Uric Acid 12.8 H (3.5-7.2) mg/dL Calcium 7.7 L (8.5-10.1) mg/dL Magnesium 1.6 L (1.8-2.4) mg/dl Total Bilirubin 0.8 (0.2-1.0) mg/dL AST 11 L (15-37) U/L ALT 30 (16-63) U/L Alkaline Phosphatase 82 (46-116) U/L Creatine Kinase 12 L (39-308) U/L C-Reactive Protein 9.3 H* (<1.0) mg/dL NT-Pro-B Natriuret Pep (0-125) pg/mL Total Protein 5.0 L (6.4-8.2) g/dl Albumin 2.0 L (3.4-5.0) g/dl Globulin 3.0 gm/dL Albumin/Globulin Ratio 0.7 L (1-2) 10/02/19 10/02/19 10/02/19 Range/Units 02:00 02:00 03:25 WBC (4.23-9.07) K/mm3 RBC (4.63-6.08) M/mm3 Hgb (13.7-17.5) gm/dl Hct (40.1-51.0) % MCV (79.0-92.2) fl MCH (25.7-32.2) pg MCHC (32.2-35.5) g/dl RDW Std Deviation (35.1-43.9) fL Plt Count (163-337) K/mm3 MPV (9.4-12.3) fl Neutrophils % (Manual) (40-60) % Band Neutrophils % (0-10) % Lymphocytes % (Manual) (20-40) % Atypical Lymphs % % Monocytes % (Manual) (2-10) % Eosinophils % (Manual) (0.8-7.0) % Basophils % (Manual) (0.2-1.2) Toxic Granulation Platelet Estimate Plt Morphology Comment Anisocytosis Macrocytosis Tear Drop Cells Ovalocytes RBC Morph Comment ESR 33 H (0-15) mm/hr PT (9.7-12.0) SECONDS INR APTT (22-31) SECONDS Sodium (136-145) mEq/L Potassium (3.5-5.1) mEq/L Chloride (98-107) mEq/L Carbon Dioxide (21-32) mEq/L Anion Gap (5-15) BUN (7-18) mg/dL Creatinine (0.7-1.3) mg/dL Est Cr Clr Drug Dosing Estimated GFR (MDRD) (>60) mL/min BUN/Creatinine Ratio (14-18) Glucose (83-115) mg/dL Lactic Acid 0.6 (0.4-2.0) mmol/L Uric Acid (3.5-7.2) mg/dL Calcium (8.5-10.1) mg/dL Magnesium (1.8-2.4) mg/dl Total Bilirubin (0.2-1.0) mg/dL AST (15-37) U/L ALT (16-63) U/L Alkaline Phosphatase (46-116) U/L Creatine Kinase (39-308) U/L C-Reactive Protein (<1.0) mg/dL NT-Pro-B Natriuret Pep 33489 H (0-125) pg/mL Total Protein (6.4-8.2) g/dl Albumin (3.4-5.0) g/dl Globulin gm/dL Albumin/Globulin Ratio (1-2) Meds: Medications Discontinued Medications Generic Name Dose Route Start Last Admin Trade Name Freq PRN Reason Stop Dose Admin Hydromorphone HCl 1 mg 08/07/19 01:57 08/07/19 02:09 Dilaudid IVPUSH 08/07/19 01:58 1 mg ONETIME ONE Administration Hydromorphone HCl 0.5 mg 08/07/19 03:18 08/07/19 03:31 Dilaudid IVPUSH 08/07/19 03:19 0.5 mg ONETIME ONE Administration Meropenem 1 gm 08/07/19 03:17 08/07/19 03:31 Merrem IVPUSH 08/07/19 03:18 1 gm ONETIME ONE Administration Ondansetron HCl 4 mg 08/07/19 01:58 08/07/19 02:07 Zofran IVPUSH 08/07/19 01:59 4 mg ONETIME ONE Administration Sodium Chloride 10 ml 08/07/19 01:57 08/07/19 02:03 Saline Flush FLUSH 10 ml ASDIRECTED PRN Administration Keep Vein Open - Radiology Interpretation Free Text/Narrative:: 73-year-old male with multiple medical problems including coronary disease congestive heart failure renal insufficiency and hyperuricemia history of previous stroke presents to the ED with diffuse pain in all of his joints particularly the left wrist right shoulder. This been coming on over the last 5 days. Reports was started back on allopurinol about 10 days ago. Therefore presume that he must event hyperuricemia at that time. He is listed as having allergies medications unclear what allergy occurred but usually it's a dermatological problem. He reports gaining 40-45 pounds of weight over the last month. His Lasix was increased 10 days ago to 80 mg in the morning and 80 mg in the p.m. Examination shows gross edema both lower extremities up to the mid thighs bilaterally. I suspect he has ascites as well. He has decreased air into the lower 25% of both lung rossi. He does clinically show an acute arthritis in his joints particularly the left wrist right shoulder. I suspect he may well have gout or pseudogout exacerbation. Plan IV will be saline locked. Dilaudid 1 mg IV and Zofran 4 mg IV. Of note he does have a marked prolonged QT interval on his ECG. Labs to be done to include CRP sedimentation rate and uric acid levels. He will have a portable chest done. - Re-Assessments/Exams Free Text/Narrative Re-Assessment/Exam: 08/07/19 02:57 chest x-ray reveals marked cardiomegaly with diffuse vascular congestion pattern. Is a little bit better when compared to the x-ray done in August last year. He still has a lot of fluid in the left lower lung ie chronic changes. Patient has a pacemaker left upper anterior chest. 08/07/19 03:01 White count is normal at 6.26. The differential is 73% neutrophils but 13% band cells. Hemoglobin is low at 9.9 with hematocrit of 29.7. MCV is mildly elevated at 94.6. Platelet count is 68,000. I.e. thrombocytopenia. The slide shows 1+ toxic granulation. 2+ and ice cytosis 1+ macrocytosis 1+ teardrop cells 2+ ovalocytes. Sedimentation rate is slightly elevated at 33. PT is 32.9 with an INR of 3.23 i.e. supratherapeutic INR. PTT is markedly elevated at 64. Sodium is 139 with a potassium of 3.5. Chloride is 108 with a bicarbonate of 23. Anion gap is 11.5. BUN is 104. Markedly elevated. Creatinine is 2.3. Glucose is 121. Uric acid is markedly elevated at 12.8. Calcium is 7.7 magnesium slightly low at 1.6. Liver function is normal. C- reactive protein is 9.3. Total CPK is 12. BNP is 10,915. Total protein is 5.0 albumin fraction low at 2.0. Plan he will have blood cultures 2 collected and a lactic acid. His is due to his suspect underlying infective process with 13% band cells. I will also give him a dose of meropenem 1 g IV push recognizing that he is reportedly allergic to cefazolin. Diagnosis is suspect cellulitis right lower extremity as cause of his current elevated CRP and bandemia. 08/07/19 03:[address] Denis--hospitalist at [facility] in [place] and she has accepted care of this patient. He will go by private vehicle since he is in a wheelchair at all times and they have abandoned that can transport [place] with his driving. Before eminences were out at the present time. I will give him Dilaudid 0.5 mg IV for further pain relief prior to discharge. 08/07/19 04:40 lactic acid is 0.6. I will forward the final note to Dr. Denis. Departure - Departure Time of Disposition: 04:10 Disposition: DC/Tfer to [facility] 02 Condition: Poor Clinical Impression: Anasarca associated with disorder of kidney, Chronic renal insufficiency, stage IV (severe), Supratherapeutic INR, Bandemia, Cellulitis of right leg, Hyperuricemia, Polyarthritis CHF (congestive heart failure), NYHA class IV Qualifiers: Congestive heart failure type: diastolic Congestive heart failure chronicity: acute on chronic Qualified Code(s): I50.33 - Acute on chronic diastolic ( congestive) heart failure Anemia Qualifiers: Anemia type: due to chronic kidney disease Chronic kidney disease stage: stage 4 (severe) Qualified Code(s): N18.4 - Chronic kidney disease, stage 4 (severe) - Discharge Information Instructions: Chronic Kidney Disease, Adult Referrals: Flor Bronson MD [Primary Care Provider] - Forms: ED Department Discharge Additional Instructions: Travel to [facility] in [facility] with planned admission to the medical surgical floor under the hospitalist care. - My Orders Last 24 Hours: My Active Orders 08/07/19 01:54 Chest 1V Frontal [CR] Stat URINALYSIS W/MICROSCOPIC [UA W/MICROSCOPIC] [URIN] Stat 08/07/19 01:56 EKG Documentation Completion [RC] STAT 08/07/19 01:57 Peripheral IV Care [RC] . DIRECTED Peripheral IV Insertion Adult [OM.PC] Stat 08/07/19 02:29 Oxygen Therapy [RC] ASDIRECTED 08/07/19 03:16 Blood Culture x2 Reflex Set [OM.PC] Stat 08/07/19 03:25 CULTURE BLOOD [BC] Stat 08/07/19 03:35 CULTURE BLOOD [BC] Stat - Assessment/Plan Last 24 Hours: My Active Orders 08/07/19 01:54 Chest 1V Frontal [CR] Stat URINALYSIS W/MICROSCOPIC [UA W/MICROSCOPIC] [URIN] Stat 08/07/19 01:56 EKG Documentation Completion [RC] STAT 08/07/19 01:57 Peripheral IV Care [RC] . DIRECTED Peripheral IV Insertion Adult [OM.PC] Stat 08/07/19 02:29 Oxygen Therapy [RC] ASDIRECTED 08/07/19 03:16 Blood Culture x2 Reflex Set [OM.PC] Stat 08/07/19 03:25 CULTURE BLOOD [BC] Stat 08/07/19 03:35 CULTURE BLOOD [BC] Stat
[2019-08-07] MEDS ORDERED: Meropenem 1 GM SDV IVPUSH ONE (03:17)
[2019-08-07] MEDS ORDERED: HYDROmorphone 0.5 MG/0.5 ML Syringe IVPUSH ONE (03:18)
--- NOTE | 2019-08-07 06:53 | CR ---
Chest: Frontal view of the chest was obtained. Comparison: Prior chest x-ray of 04/12/19. Slight increased density within the left lung base is noted which appears chronic. Heart is enlarged. Pulmonary vessels show mild chronic congestion. AICD is present. Previous sternotomy is noted. Bony structures are grossly intact. Impression: 1. Mild chronic pulmonary vascular congestion and cardiomegaly. 2. Slight chronic increased density within the left lung base. Diagnostic code #3
== END 2019-08-07 03:48 ==
LOC: JD.ED 00:44
DX: N04.9 Nephrotic syndrome with unspecified morphologic changes (principal); N18.4 Chronic kidney disease, stage 4 (severe); D72.825 Bandemia; L03.115 Cellulitis of right lower limb; M13.0 Polyarthritis, unspecified; I25.10 Atherosclerotic heart disease of native coronary artery without angina pectoris; H91.93 Unspecified hearing loss, bilateral; I48.20 Chronic atrial fibrillation, unspecified; E78.00 Pure hypercholesterolemia, unspecified; I11.0 Hypertensive heart disease with heart failure; I50.33 Acute on chronic diastolic (congestive) heart failure; I25.2 Old myocardial infarction; E11.22 Type 2 diabetes mellitus with diabetic chronic kidney disease; I13.0 Hypertensive heart and chronic kidney disease with heart failure and stage 1 through stage 4 chronic kidney disease, or unspecified chronic kidney disease; D63.1 Anemia in chronic kidney disease; F41.9 Anxiety disorder, unspecified; F32.9 Major depressive disorder, single episode, unspecified; M10.9 Gout, unspecified; Z95.5 Presence of coronary angioplasty implant and graft; Z95.1 Presence of aortocoronary bypass graft; E66.9 Obesity, unspecified; Z95.810 Presence of automatic (implantable) cardiac defibrillator; Z86.711 Personal history of pulmonary embolism; Z86.73 Personal history of transient ischemic attack (TIA), and cerebral infarction without residual deficits; Z86.718 Personal history of other venous thrombosis and embolism; Z88.8 Allergy status to other drugs, medicaments and biological substances; Z88.1 Allergy status to other antibiotic agents; Z88.6 Allergy status to analgesic agent; Z79.82 Long term (current) use of aspirin; Z79.899 Other long term (current) drug therapy; Z79.01 Long term (current) use of anticoagulants
CPT/HCPCS: 36415; 71045; 80053; 82550; 83605; 83735; 83880; 84550; 85007; 85027; 85610; 85652; 85730; 86140; 87040; 93005; 96374; 96375; 96376; 99284; J1170; J2185; J2405; 93010; 99285

== ENCOUNTER → 2019-08-27 | Day surgery (SDC) | payer BC, MEDICARE ==
[~2019-08-27] MED LIST changes: +FLU Vacc QS2019-20(6MOS+)/PF 60 MCG/0.5 ML SYRINGE IM ONE; -Lidocaine 1% PF 2 ML SDV INJECT SCH; +Phenylephrine 2.5% Ophth Soln 2 ML Bot EYEBOTH SCH; -Pilocarpine 4% Ophth Soln 15 ML Bot EYELF SCH; +Tropicamide 1% Ophth Soln 15 ML Bottle EYEBOTH SCH
[2019-08-27] MEDS: Brimonidine 0.2% Ophth Soln 5 ML Bottle EYEBOTH SCH ×2 (09:43→10:34)
[2019-08-27 11:39] VITALS: BP 123/61; PULSE 71
== END ==
LOC: JD.SDS 09:35
PROVIDERS: ATTEND Ophthalmology
DX: H26.493 Other secondary cataract, bilateral (principal); I10 Essential (primary) hypertension; E11.9 Type 2 diabetes mellitus without complications; M06.9 Rheumatoid arthritis, unspecified; Z98.42 Cataract extraction status, left eye; Z98.41 Cataract extraction status, right eye; Z23 Encounter for immunization; Z96.1 Presence of intraocular lens; Z87.891 Personal history of nicotine dependence
CPT/HCPCS: 90686

== ENCOUNTER 2019-09-02 11:18 | Emergency (ER) | payer BC, MEDICARE ==
[2019-09-02] MEDS ORDERED: Mupirocin Oint 22 GM Tube TOP ONE (11:53)
--- NOTE | 2019-09-02 11:57 | EDM.PDOC ---
ED HPI GENERAL MEDICAL PROBLEM - General Chief Complaint: Skin Complaint Stated Complaint: BOTH HAND PAIN Time Seen by Provider: 09/02/19 11:35 Source of Information: Reports: Patient, Family (spouse) History Limitations: Reports: No Limitations - History of Present Illness INITIAL COMMENTS - FREE TEXT/NARRATIVE: 74-year-old male with a multitude of medical problems presents to the ED primarily due to bilateral hand pain particularly his MCP joints of his right hand. Has a history of chronic hyperuricemia and gout. Patient suffers from severe congestive heart failure with anasarca. His other concern is an open oozing area on his right lateral 5 is opened up and turned slightly erythematous over the last 3 days. It is draining some serous fluid and the did put a dressing on it this morning. He denies any fever or chills. When I last seen him he was sent to [facility] and was admitted for a week and hospital and treated aggressively for his failure. This took off his Lasix 80 mg twice a day and is currently on Bumex 2 mg twice a day. At that time his uric acid was 12.8. It's unclear whether or not he is still on allopurinol as is listed as an allergy. We felt it was interfering with his renal function continued to bring to his 40 pound weight gain at that time. Patient's chief complaint today is the rash on his right lateral 5 which seems to becoming infected and the pain in his right hand. They awaiting consultation with I believe Dr. Smalls registered dental assistant in [place] I believe next Monday for consultation in regards to need for hemodialysis. Onset: Gradual (Pain is right hand started 3-4 days ago. Rash right lateral thigh started 3 days ago as well.) Duration: Day(s):, Getting Worse Location: Reports: Upper Extremity, Right (Right and left hands particularly over the MCP joints.), Other (Rash right lateral thigh over the posterior iliac crest and lateral) Quality: Reports: Other (Rash on the right upper thigh and pelvis is losing serous material. It is starting to become more erythematous.) Severity: Moderate (Pain in his hand is severe he can even begin to make a fist or hold onto his cell phone.) Improves with: Reports: None Context: Reports: Other (History of hyperuricemia and recurrent gout attacks. He is confined to his wheelchair. Can no longer walk due to anasarca and weakness in his lower extremities.). Denies: Activity, Exercise, Lifting, Sick Contact, Trauma Associated Symptoms: Reports: Malaise, Rash, Shortness of Breath (See history present), Weakness (Generalized.). 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 They don't have the list and therefore we' ll try and get hold of his discharge summary.) Right Upper Arm Pain Score (Numeric/FACES): 6 - Related Data Allergies Allergy/AdvReac Type Severity Reaction Status Date / Time allopurinol Allergy Rash Verified 09/02/19 11:37 cefazolin Allergy Hives Verified 09/02/19 11:37 celecoxib Allergy Rash Verified 09/02/19 11:37 clindamycin Allergy Hives Verified 09/02/19 11:37 ibuprofen Allergy Rash Verified 09/02/19 11:37 NSAIDS (Non-Steroidal Allergy Rash Verified 09/02/19 11:37 Anti-Inflamma oxaprozin Allergy Rash Verified 09/02/19 11:37 vancomycin Allergy Hives Verified 09/02/19 11:37 Home Meds: Home Meds Aspirin [Halfprin] 81 mg PO DAILY 12/19/14 [History] Carvedilol 25 mg PO BID 12/19/14 [History] Furosemide 80 mg PO BID 12/19/14 [History] Nitroglycerin [Nitrostat] 0.4 mg SL ASDIRECTED PRN 12/19/14 [History] atorvaSTATin [Lipitor] 20 mg PO BEDTIME 12/19/14 [History] Warfarin [Coumadin] 2.5 mg PO MOWEFR 01/23/17 [History] Warfarin [Coumadin] 5 mg PO DAILY 01/23/17 [History] Fluticasone/Salmeterol [Advair Diskus 250-50] 1 puff INH BID 07/24/17 [History] Levothyroxine 25 mcg PO ACBREAKFAST 10/29/18 [History] Multivit-Minerals/Folic Acid [Centrum Multigummies] 2 tab PO DAILY 04/12/19 [ History] oxyCODONE HCl/Acetaminophen [Percocet 5-325 mg Tablet] 1 - 2 each PO Q4H PRN # 16 tablet 07/23/19 [Rx] Potassium Chloride 10 meq PO DAILY 08/07/19 [History] Sacubitril/Valsartan [Entresto 24 mg-26 mg Tablet] 1 tab PO BID 08/07/19 [ History] Sertraline [Zoloft] 50 mg PO DAILY 08/07/19 [History] metOLazone [Zaroxolyn] 2.5 mg PO DAILY 08/07/19 [History] Doxycycline Hyclate 100 mg PO BID #16 tablet 09/02/19 [Rx] Potassium Chloride 20 meq PO DAILY #30 tablet.er 09/02/19 [Rx] oxyCODONE HCl/Acetaminophen [Percocet 5-325 mg Tablet] 1 - 2 each PO Q4H PRN # 20 tablet 09/02/19 [Rx] predniSONE 20 mg PO ASDIRECTED #12 tab 09/02/19 [Rx] Past Medical History HEENT History: Reports: Hard of Hearing, Other (See Below) Other HEENT History: Wears bilat hearing aides, glasses, dentures full to upper and partial to lower. Pt compalins of faint ringing to ears, majority of the time Cardiovascular History: Reports: Afib (Is on Coumadin because of recurrent blood clots and chronic atrial fib), Aneurysm, Blood Clots/VTE/DVT, CAD, Heart Failure, High Cholesterol, Hypertension, CT, Pacemaker Other Cardiovascular History: Bypass in 1999 with 5 bypass. Stent in 2013, CT in 2013, Respiratory History: Reports: PE Other Respiratory History: previous blood clots in lungs 2002; no current problems Gastrointestinal History: Reports: GERD Other Gastrointestinal History: Acid reflux PRN Genitourinary History: Reports: BPH, Chronic Renal Insuffiency Musculoskeletal History: Reports: Arthritis, Gout Neurological History: Reports: CVA Other Neuro History: CVA in 2014--he states he had troubles with writing numbers and with his writing and some left arm clumsiness and weakness from the stroke. Psychiatric History: Reports: Anxiety, Depression Endocrine/Metabolic History: Reports: Diabetes, Type II, Obesity/BMI 30+, Other (See Below) (Hyperuricemia.) Other Endocrine/Metabolic History: not taking any medication or insulin Hematologic History: Reports: Other (See Below) Dermatologic History: Reports: Cellulitis - Infectious Disease History Infectious Disease History: Reports: Other (See Below) Other Infectious Disease History: Staph infection to right knee - Past Surgical History HEENT Surgical History: Reports: Tonsillectomy Cardiovascular Surgical History: Reports: AICD, Coronary Artery Bypass, Coronary Artery Stent Musculoskeletal Surgical History: Reports: Knee Replacement, Other (See Below) Social & Family History - Family History Family Medical History: Noncontributory - Caffeine Use Caffeine Use: Reports: Coffee Other Caffeine Use: occassional use Caffeine Use Comment: "very little" - Living Situation & Occupation Living situation: Reports: , with Spouse, with Family (2 granddaughters) Occupation: Retired ED ROS GENERAL - Review of Systems Review Of Systems: See Below Constitutional: Reports: Malaise, Weakness, Fatigue. Denies: Fever, Chills, Weight Loss HEENT: Reports: No Symptoms Respiratory: Reports: Shortness of Breath. Denies: Cough Cardiovascular: Reports: Blood Pressure Problem, Dyspnea on Exertion, Edema ( Anasarca.), Orthopnea. Denies: Chest Pain, Claudication (Runs low due to weakness of his heart and medications.), Lightheadedness Endocrine: Reports: Fatigue GI/Abdominal: Reports: Other ([place] bloated particularly across his lower abdomen due to fluid retention. Also usually on the looser side.) : Reports: Frequency, Other Musculoskeletal: Reports: Other (Generalized pain in all of his joints but particularly his right and left hands MCP joints) Skin: Reports: Other (Has developed a skin rash right lateral thigh and pelvis.) Neurological: Reports: No Symptoms Psychiatric: Reports: No Symptoms Hematologic/Lymphatic: Reports: No Symptoms Immunologic: Reports: No Symptoms ED EXAM, SKIN/RASH Exam: See Below Exam Limited By: No Limitations General Appearance: Alert, WD/WN, No Apparent Distress, Other (Temperatures 35.9. Obviously this is incorrect. Pulse is 72 and sinus respiratory 17 sats of 94% on room air. Blood pressure 111/65.) Eye Exam: Bilateral Eye: Other (Mild lateral pallor.) Neck: Non-Tender, Full Range of Motion. No: Carotid Bruit, Lymphadenopathy (L) , Lymphadenopathy (R) Respiratory/Chest: No Respiratory Distress, Lungs Clear, Normal Breath Sounds, No Accessory Muscle Use Cardiovascular: Regular Rate, Rhythm, No Gallop, No Murmur, No Rub. No: Normal Peripheral Pulses, No Edema Peripheral Pulses: 0: Posterior Tibial (L) (Lower extremity pulses are absent due to severe edema of the lower extremities.), Posterior Tibial (R), Dorsalis Pedis (L), Dorsalis Pedis (R) GI/Abdominal: Other (The abdomen is distended and very firm palpation compatible with ascites particular across the lower abdomen.) Extremities: Pedal Edema (Patient has anasarca. He has edema up), Other ( to his thighs and lower abdomen. 4+ pitting in both lower extremities.Venous stasis dermatitis both lower extremities. Patient has very limited movement in his right fingers due to marked swelling and erythema of the MCP joints of 2-5 right hand. He also has some mild increased warmth in this area. Markedly tender. This suggests acute gouty arthritis. He has degenerative arthritic changes in his left hand as well but no active inflammation at this time) Neurological: Alert, Oriented, CN II-XII Intact, Normal Cognition. No: Normal Gait Psychiatric: Normal Affect, Normal Mood Skin: Rash (Patient has a erythematous rash which is macular over the right posterior lateral thigh and pelvis up to the posterior iliac crest. It is oozing serous material from his anasarca in his lower extremities. It is very slightly warm to palpation. Perhaps early developing cellulitis.) Course - Vital Signs Last Recorded V/S: Last Vital Signs Temp 35.9 C 09/02/19 11:32 Pulse 72 09/02/19 11:32 Resp 17 09/02/19 11:32 BP 111/65 09/02/19 11:32 Pulse Ox 94 L 09/02/19 11:32 - Orders/Labs/Meds Labs: Laboratory Tests 09/02/19 09/02/19 09/02/19 Range/Units 12:20 12:20 12:20 WBC 6.88 (4.23-9.07) K/mm3 RBC 3.06 L (4.63-6.08) M/mm3 Hgb 9.1 L (13.7-17.5) gm/dl Hct 29.5 L (40.1-51.0) % MCV 96.4 H (79.0-92.2) fl MCH 29.7 (25.7-32.2) pg MCHC 30.8 L (32.2-35.5) g/dl RDW Std Deviation 58.9 H (35.1-43.9) fL Plt Count 160 L D (163-337) K/mm3 MPV 9.9 (9.4-12.3) fl Neut % (Auto) 77.5 H (34.0-67.9) % Lymph % (Auto) 7.3 L (21.8-53.1) % [place] % (Auto) 13.4 H (5.3-12.2) % Eos % (Auto) 0.9 (0.8-7.0) Baso % (Auto) 0.3 (0.1-1.2) % Neut # (Auto) 5.34 (1.78-5.38) K/mm3 Lymph # (Auto) 0.50 L (1.32-3.57) K/mm3 [place] # (Auto) 0.92 H (0.30-0.82) K/mm3 Eos # (Auto) 0.06 (0.04-0.54) K/mm3 Baso # (Auto) 0.02 (0.01-0.08) K/mm3 Manual Slide Review Normal smear PT (9.7-12.0) SECONDS INR Sodium 145 (136-145) mEq/L Potassium 3.3 L (3.5-5.1) mEq/L Chloride 110 H (98-107) mEq/L Carbon Dioxide 25 (21-32) mEq/L Anion Gap 13.3 (5-15) BUN 49 H D (7-18) mg/dL Creatinine 2.0 H (0.7-1.3) mg/dL Est Cr Clr Drug Dosing 37.68 mL/min Estimated GFR (MDRD) 33 (>60) mL/min BUN/Creatinine Ratio 24.5 H (14-18) Glucose 122 H (83-115) mg/dL Uric Acid 8.8 H (3.5-7.2) mg/dL Calcium 7.8 L (8.5-10.1) mg/dL Total Bilirubin 0.9 (0.2-1.0) mg/dL AST 18 (15-37) U/L ALT 23 (16-63) U/L Alkaline Phosphatase 87 (46-116) U/L C-Reactive Protein 5.5 H* (<1.0) mg/dL NT-Pro-B Natriuret Pep 76262 H (0-125) pg/mL Total Protein 5.2 L (6.4-8.2) g/dl Albumin 1.6 L (3.4-5.0) g/dl Globulin 3.6 gm/dL Albumin/Globulin Ratio 0.4 L (1-2) 09/02/19 Range/Units 12:20 WBC (4.23-9.07) K/mm3 RBC (4.63-6.08) M/mm3 Hgb (13.7-17.5) gm/dl Hct (40.1-51.0) % MCV (79.0-92.2) fl MCH (25.7-32.2) pg MCHC (32.2-35.5) g/dl RDW Std Deviation (35.1-43.9) fL Plt Count (163-337) K/mm3 MPV (9.4-12.3) fl Neut % (Auto) (34.0-67.9) % Lymph % (Auto) (21.8-53.1) % [place] % (Auto) (5.3-12.2) % Eos % (Auto) (0.8-7.0) Baso % (Auto) (0.1-1.2) % Neut # (Auto) (1.78-5.38) K/mm3 Lymph # (Auto) (1.32-3.57) K/mm3 [place] # (Auto) (0.30-0.82) K/mm3 Eos # (Auto) (0.04-0.54) K/mm3 Baso # (Auto) (0.01-0.08) K/mm3 Manual Slide Review PT 48.8 H D (9.7-12.0) SECONDS INR 4.90 Sodium (136-145) mEq/L Potassium (3.5-5.1) mEq/L Chloride (98-107) mEq/L Carbon Dioxide (21-32) mEq/L Anion Gap (5-15) BUN (7-18) mg/dL Creatinine (0.7-1.3) mg/dL Est Cr Clr Drug Dosing mL/min Estimated GFR (MDRD) (>60) mL/min BUN/Creatinine Ratio (14-18) Glucose (83-115) mg/dL Uric Acid (3.5-7.2) mg/dL Calcium (8.5-10.1) mg/dL Total Bilirubin (0.2-1.0) mg/dL AST (15-37) U/L ALT (16-63) U/L Alkaline Phosphatase (46-116) U/L C-Reactive Protein (<1.0) mg/dL NT-Pro-B Natriuret Pep (0-125) pg/mL Total Protein (6.4-8.2) g/dl Albumin (3.4-5.0) g/dl Globulin gm/dL Albumin/Globulin Ratio (1-2) Meds: Medications Discontinued Medications Generic Name Dose Route Start Last Admin Trade Name Katelynn PRN Reason Stop Dose Admin Mupirocin 15 gm 09/02/19 11:53 09/02/19 12:27 Bactroban Oint TOP 09/02/19 11:54 1 applic ONETIME ONE Administration Ondansetron HCl 4 mg 09/02/19 12:19 09/02/19 12:32 Zofran Odt PO 09/02/19 12:20 4 mg ONETIME ONE Administration Oxycodone/Acetaminophen 2 tab 09/02/19 12:19 09/02/19 12:32 Percocet 325-5 Mg PO 09/02/19 12:20 2 tab ONETIME ONE Administration - Radiology Interpretation Free Text/Narrative:: 74-year-old male presents to the ED with a rash on his right lateral thigh and posterior iliac crest which is open and oozing serous fluid due to anasarca i.e. fluid retention. There is slightly erythematous and macular. It is slightly warm to palpation suggesting developing infection. He is not clinically ill. Second problem is development of marked inflammation of his MCP joints of his right hand most likely compatible with gouty arthritis. Patient is known to have severe hyperuricemia due to renal disease. Patient has severe congestive heart failure and anasarca. We'll try and get a hold of his medication list at time of discharge from [facility] which was about 3 weeks ago. Plan will be routine labs including a uric acid level. Will give him 2 Percocet 5/325 mg tablets by mouth with Zofran 4 mg sublingual for relief of pain in his hand. - Re-Assessments/Exams Free Text/Narrative Re-Assessment/Exam: 09/02/19 13:03 Hematology is back. White count is 6.88 the auto differential shows 77.5% neutrophils. The smears reported as normal showing no bandemia. Hemoglobin is low at 9.1 with hematocrit of 29.5. Platelet count 160,000. 09/02/19 14:26 PT is elevated at 48.8 with an INR 4.90. I.e. supratherapeutic anticoagulation. Sodium 145 potassium slightly low at 3.3. Chloride 110 with a bicarbonate 25. Anion gap is 13.3. BUN is 49. Creatinine is elevated at 2.0. His is normal for him. GFR is down to 33 i.e. stage III chronic kidney disease. BUN/creatinine ratio is elevated at 24.5. Glucose 122 with a uric acid elevated at 8.8. Calcium is 7.8. Liver function is normal. C-reactive protein 5.5. BNP is 11,296. Total protein 5.2 with an albumin fraction very low at 1.6. Departure - Departure Time of Disposition: 15:12 Disposition: Home, Self-Care 01 Condition: Fair Clinical Impression: Cellulitis of right thigh, Chronic renal insufficiency, stage III (moderate), Supratherapeutic INR, Hypokalemia due to loss of potassium Chronic CHF Qualifiers: Heart failure type: combined systolic and diastolic Qualified Code(s): I50.42 - Chronic combined systolic (congestive) and diastolic (congestive) heart failure Gout attack Qualifiers: Gout site: hand Encounter type: initial encounter Laterality: right - Discharge Information *PRESCRIPTION DRUG MONITORING PROGRAM REVIEWED*: Not Applicable *COPY OF PRESCRIPTION DRUG MONITORING REPORT IN PATIENT CARL: Not Applicable Prescriptions: Doxycycline Hyclate 100 mg PO BID #16 tablet oxyCODONE HCl/Acetaminophen [Percocet 5-325 mg Tablet] 1 - 2 each PO Q4H PRN # 20 tablet PRN Reason: pain relief. Potassium Chloride 20 meq PO DAILY #30 tablet.er predniSONE 20 mg PO ASDIRECTED #12 tab Referrals: Flor Bronson MD [Primary Care Provider] - Forms: ED Department Discharge Additional Instructions: Evaluation the emergency room today for 2 reasons. One is obvious acute a gout attack involving your right hand with marked inflammation of all of the MCP joints due to gout attack. Today's uric acid in your bloodstream is still elevated at 8.8. Discuss this with your registered dental assistant on Monday when you see him to see if you can tolerate a slightly increased dose of allopurinol to help further reduce your uric acid in your bloodstream. Treatment for this is prednisone 20 mg with breakfast and supper for 4 days and then once in the morning only for another 4 days. Wrist was provided in the emergency department. Pain medication Percocet 5/325 mg one or 2 every 4-6 hours needed for pain relief until the anti-inflammatories become effective. Second problem was skin rash with bruising from right anterior thigh and pelvis. Early infection is appreciated. Treatment is topical Bactroban ointment at least once daily and cover to keep it clean until it stops bruising. It is oozing because of the amount of fluid in the soft tissues due to heart failure. Also take antibiotic doxycycline 100 mg twice daily for the next 8 days to help prevent any further infection in this area. Your Coumadin time is too high with your INR today in our lab at 4.9. Medications prescribed today may also cause your Coumadin time to remain elevated. Therefore you will need a PT/INR check up at least every 3 days until it becomes stable. You're currently on hold in this regard and continues to do so until instructed otherwise. The other finding was low potassium secondary to Bumex use. Potassium today was 3.3. He needs take a potassium supplement 20 mg once daily and a prescription was written in this regard.
[2019-09-02] MEDS ORDERED: Acetaminophen/oxyCODONE 325-5 MG Tab PO ONE (12:19)
[2019-09-02] MEDS ORDERED: Ondansetron 4 MG Tab.DIS PO ONE (12:19)
[2019-09-02] MEDS ORDERED: predniSONE 20 MG Tab PO ONE (15:20)
[2019-09-02 18:22] VITALS: BP 102/54; PULSE 66
== END 2019-09-02 15:40 | disposition home or self-care (01) ==
LOC: JD.ED 11:18
DX: L03.115 Cellulitis of right lower limb (principal); R79.1 Abnormal coagulation profile; E87.6 Hypokalemia; M10.041 Idiopathic gout, right hand; E11.22 Type 2 diabetes mellitus with diabetic chronic kidney disease; I13.0 Hypertensive heart and chronic kidney disease with heart failure and stage 1 through stage 4 chronic kidney disease, or unspecified chronic kidney disease; N18.3 Chronic kidney disease, stage 3 (moderate); I50.42 Chronic combined systolic (congestive) and diastolic (congestive) heart failure; I82.419 Acute embolism and thrombosis of unspecified femoral vein; I25.10 Atherosclerotic heart disease of native coronary artery without angina pectoris; I25.2 Old myocardial infarction; E78.00 Pure hypercholesterolemia, unspecified; I48.20 Chronic atrial fibrillation, unspecified; K21.9 Gastro-esophageal reflux disease without esophagitis; E66.9 Obesity, unspecified; F32.9 Major depressive disorder, single episode, unspecified; Z79.82 Long term (current) use of aspirin; Z79.01 Long term (current) use of anticoagulants; Z86.73 Personal history of transient ischemic attack (TIA), and cerebral infarction without residual deficits; Z79.899 Other long term (current) drug therapy; Z68.31 Body mass index [BMI] 31.0-31.9, adult; Z88.8 Allergy status to other drugs, medicaments and biological substances; Z88.1 Allergy status to other antibiotic agents; Z88.6 Allergy status to analgesic agent
CPT/HCPCS: 36415; 80053; 83880; 84550; 85025; 85610; 86140; 99284; A9270